=== PATIENT | female | born 2000 | race Caucasian/White ===

== ENCOUNTER 2024-12-20 09:46 | Emergency (ER) | payer OTHER, SELFPAY ==
[2024-12-20 10:07] VITALS: BP 138/88; PULSE 114; RESP 16; TEMP 36.2; O2SAT 98
--- NOTE | 2024-12-20 10:17 | ED.GENADULT ---
HPI - General Adult General Chief complaint: Upper Respiratory Infection Stated complaint: sore throat/headache/congestion Source: patient and RN notes reviewed Mode of arrival: ambulatory Limitations: no limitations History of Present Illness HPI narrative: 24 y/o female presented for c/o headache, sore throat, sinus pressure/congestion, cough, fever/chills. Onset 4 days. Also reports left ear pain. Denies sob, wheezing, n/v/d. Has not taken anything for symptoms. Says her infant has been diagnosed with human metapneumo virus a few weeks ago, which has gone through the house. Pt is 2 months post , not breast feeding Related Data Home Medications ?Medication ?Instructions ?Recorded ?Confirmed ?Last Taken ?Type Compazine 12/20/24 Unknown History Nexplanon 12/20/24 Unknown History famotidine 20 mg tablet mg 12/20/24 Unknown History Allergies Allergy/AdvReac Type Severity Reaction Status Date / Time bee venom protein (honey Allergy Intermediate Other Verified 12/20/24 10:20 bee) (bees) Review of Systems Review of Systems: CONSTITUTIONAL: Endorses malaise, chills, sweats, fever EYES: Denies visual changes, redness, or discharge ENT: Reports rhinorrhea, congestion, sinus pain, otalgia, sore throat CARDIOVASCULAR: Denies chest pain, palpitations, edema RESPIRATORY: Reports cough, post nasal drainage. Denies dyspnea GASTROINTESTINAL: Denies abdominal pain, nausea, vomiting, diarrhea SKIN: Denies rash MUSCULOSKELETAL: Endorses myalgia NEUROLOGIC: Reports headache Exam Narrative: GENERAL: well-appearing, nontoxic no acute distress. EYES: PERRLA, conjunctivae clear ENT: Mucous membranes moist. nasal congestion. Right TM pearly sanford with dull light reflex; Left TM erythematous, bulging and intact; canal not erythematous, no drainage no tragal tenderness. Oropharynx not erythematous without lesions or exudate, no drooling, no hoarseness, no trismus, uvula midline. No tripod positioning, muffled voice, soft palate or pharyngeal wall bulging NECK: Supple. No lymphadenopathy CHEST: Clear to auscultation, breath sounds equal. HEART: Regular rate and rhythm. No murmur heard. SKIN: Warm, dry, no rash. NEURO: Alert and oriented x3. PSYCH: Normal mood and affect Course Course Emergency Course: Patient is aware of diagnosis, understands and agrees to treatment plan. Anticipatory guidance given. Patient agrees to follow-up as directed and is aware of reasons to seek care at the emergency department. Portions of this record may have been created with voice recognition software Level of Care: Express Care Visit Vital Signs Vital signs: Vital Signs Temperature 97.1 F L 12/20/24 10:07 Pulse Rate 114 H 12/20/24 10:07 Respiratory Rate 16 12/20/24 10:07 Blood Pressure 138/88 12/20/24 10:07 Pulse Oximetry 98 12/20/24 10:07 Oxygen Delivery Room Air 12/20/24 10:07 Temperature 97.1 F L 12/20/24 10:07 Pulse Rate 114 H 12/20/24 10:07 Respiratory Rate 16 12/20/24 10:07 Blood Pressure 138/88 12/20/24 10:07 Pulse Oximetry 98 12/20/24 10:07 Oxygen Delivery Room Air 12/20/24 10:07 reviewed Medical Decision Making MDM Narrative Medical decision making narrative: Discussed physical exam findings; left AOM. Declined viral testing. Advised supportive measures and signs/symptoms to go to the ER. Pt is appropriate for outpt treatment and f/u. Differential Diagnosis Differential Diagnosis: Influenza, covid, sinusitis, OM, strep pharyngitis, URI Vital Signs Vital Signs: Vital Signs Temperature 97.1 F L 12/20/24 10:07 Pulse Rate 114 H 12/20/24 10:07 Respiratory Rate 16 12/20/24 10:07 Blood Pressure 138/88 12/20/24 10:07 Pulse Oximetry 98 12/20/24 10:07 Oxygen Delivery Room Air 12/20/24 10:07 Temperature 97.1 F L 12/20/24 10:07 Pulse Rate 114 H 12/20/24 10:07 Respiratory Rate 16 12/20/24 10:07 Blood Pressure 138/88 12/20/24 10:07 Pulse Oximetry 98 12/20/24 10:07 Oxygen Delivery Room Air 12/20/24 10:07 Discharge Plan Discharge Clinical Impression: Otitis media Qualifiers: Otitis media type: suppurative Chronicity: acute Laterality: left Recurrence: non-recurrent Spontaneous tympanic membrane rupture: without spontaneous rupture Qualified Code(s): H66.002 - Acute suppurative otitis media without spontaneous rupture of ear drum, left ear Patient Disposition: Home, Self-Care Condition: Stable Instructions: Antibiotic Form, Ear Infection (ED) Additional Instructions: Take antibiotics as directed. Recommendations: antihistamine such as Clariting or Mimi for sinus congestion Flonase nasal spray, 1 spray in each nostril once daily until symptoms improve Symptomatic treatment includes: rest, fluids, and increase humidity of the air at home. Tylenol 1000mg every 8 hours as needed to reduce fever, pain Please schedule a follow-up visit with your personal physician If your symptoms persist, change or worsen significantly, go to the emergency department for further evaluation. Patient Language: Marshallese Prescriptions: New amoxicillin-pot clavulanate 875-125 mg tablet 1 tablet PO Q12H 7 Days Qty: 14 0RF No Action Nexplanon Compazine famotidine 20 mg tablet Follow-up/Referrals: PHYSICIAN,[facility] [Primary Care Provider] - Time of Disposition: 10:26
--- OUTSIDE RECORDS SUMMARY | 2024-12-20 10:40 | XMS_ITS | Encounter Summary ---
Author Organization [facility] Address [address] [place] [address] Phone Care Team Providers Care Patient Services Clerk Name Role Phone Ronnie Flores MD Primary Care Provider [phone] Reason for Visit * Reason Comments Medication Refill Encounter Details Date Type Department Care Team (Late st Contact Info) Description 03/07/2022 Refill [facility] - [facility] [address] [place] [id number] Ronnie Flores MD [address] [place] [address] Medication Refill Social History Tobacco Use Types Packs/Day Years Used Date Smoking Tobacco: Never Smokeless Tobacco: Never Alcohol Use Standard Drinks/Week Comments No 0 (1 standard drink = 0.6 oz pur e alcohol) PHQ-2 Answer Date Recorded Total Score - Questions 1-9 6 02/18 Comments No Sex and Gender Information Value Date Recorded Sex Assigned at Not on file Legal Sex Female 5:40 PM CDT Gender Identity Not on file Sexual Orientation Not on file COVID-19 Exposure Response Date Recorded In the last 10 days, have yo u been in contact with someone who was confirmed or suspected to have Coronavirus/COVID-19? No / Unsure 03/03/2022 5:51 PM CDT documented as of this encounter Miscellaneous Notes * Telephone Encounter - Maddie Stephens RN - 03/09/2022 9:22 AM CDT Medication failed the protocol, provider to review and approve the medication order if appropriate. Requested Prescriptions Pending Prescriptions Disp Refills FLUoxetine (PROzac) 20 MG Capsule [Pharmacy Med Name: FLUoxetine HCl 20 MG Oral Capsule] 90 Capsule1 Sig: Take 1 capsule by mouth once daily SSRI (6 Month Refill Only) Protocol Failed - 03/07/2022 9:21 AM Failed - Patient has established therapy with SSRI for at least 6 months Passed - No test in the past 12 months or most recent test was negative Passed - No active on record Passed - Visit with relevant provider in past 6 months or upcoming 90 days Recent Visits Date Type Provider Dept 03/03/22 Office Visit Ronnie Flores MD [facility] 10/27/21 Telemedicine Tessy Ruiz PAC [facility] 10/22/21 Telemedicine Ronnie Flores MD [facility] Showing recent visits within past 182 days and meeting all other requirements Future Appointments Date Type Provider Dept 05/26/22 Appointment Ronnie Flores MD [facility] Showing future appointments within next 90 days and meeting all other requirements Passed - Has an encounter in the past 6 months with a depression, anxiety, adjustment disorder, OCD, or PTSD visit diagnosis documented in this encounter Plan of Treatment Not on file documented as of this encounter Visit Diagnoses Diagnosis Moderate episode of recurrent major depressive disorder (HCC) documented in this encounter Additional Health Concerns Assessment Noted Time PHQ-9 Depression Total Score: 6 03/03/20 22 6:00 PM CDT documented as of this encounter Care Teams Patient Services Clerk Relationship Specialty Start Date End Date Ronnie Flores MD PCP - General Family Medicine 09/18/19 documented as of this encounter
--- OUTSIDE RECORDS SUMMARY | 2024-12-20 10:40 | XMS_ITS | Referral Summary ---
Author Organization [facility] ospital Address [address] [place] [address] Care Team Providers Care Railroad Car Checker Name Role Phone Dena Padilla MD Unavailable [phone] Ronnie Flores MD Primary Care Provider [phone] Encounters Date Type Department Care Team Description 11/21/2024 3:30 PM AIRBRUSH ARTIST [employer]OTOGRAPHY Office Visit [facility] [address] [place] [phone] Dena Padilla MD care following delivery (Primary Dx); History of induced hypertension 10/26/2024 3:00 PM AIRBRUSH ARTIST PHOTOGRAPHY Clinical Support Jeane[facility] [address] [place] [phone] care following delivery (Primary Dx) 10/20/2024 1:38 PM AIRBRUSH ARTIST PHOTOGRAPHY - 10/20/2024 2:34 PM AIRBRUSH ARTIST PHOTOGRAPHY Emergency [facility] Emergency [place] [phone] Tamara Chow MD Tachycardia (Primary Dx) Discharge Disposition: Left Against Medical Advice 09/04/2024 4:24 PM AIRBRUSH ARTIST PHOTOGRAPHY - 10/15/2024 4:08 PM AIRBRUSH ARTIST PHOTOGRAPHY Hospital Encounter [address] [phone] Allegra Rushing MD Dombrowski, MD Shasta Forrest, Vibha Espitia MD Severe pre-eclampsia in third trimester [O14.13] (Primary Dx); Hyperemesis affecting , antepartum [O21.0] Discharge Disposition: Discharge to home or self care 10/12/2024 6:25 PM AIRBRUSH ARTIST PHOTOGRAPHY Anesthesia Event [address] [phone] Tigist Castillo MD Dutta, Shourik, MD 10/12/[address] [phone] Carmela Díaz MD SECTION 10/08/2024 Documentation [facility] Anesthesia [address] [facility] [place] [address] Demetra Hightower MD 10/04/2024 9:45 AM AIRBRUSH ARTIST PHOTOGRAPHY Ancillary Procedure [address] 5[address] [place] [address] Encounter for follow-up ultrasound of anatomy from Last 3 Months Allergies Active Allergy Reactions Criticality Noted Date Comments Venom-Honey Bee Swelling Medium 02/18/2022 Medications cholecalciferol (VITAMIN D-3) 2000 unit tablet Take 1 tablet (2,000 Units total) by mouth daily 30 tablet 11 4 Active NIFEdipine (PROCARDIA XL/ADALAT CC) 30 mg 24 hr tablet Take 1 tablet (30 mg total) by mouth daily 30 tablet 3 5 026 Active vitamin K23-trtth acid 0.5-1 mg tablet Take by mouth daily Active escitalopram (LEXAPRO) 10 mg tablet Take 1 tablet (10 mg total) by mouth daily 025 Discontin ued(Thera py completed ) prochlorperazin e (COMPAZINE) 5 mg tablet Take 1 tablet (5 mg total) by mouth every 6 (six) hours 120 tablet 1 4 025 Discontin ued(Thera py completed ) ondansetron (ZOFRAN) 4 mg tablet Take 1 tablet (4 mg total) by mouth 3 (three) times a day 30 tablet 1 4 025 Discontin ued(Thera py completed ) promethazine (PHENERGAN) 25 mg suppository Insert 1 suppository (25 mg total) into the rectum every 6 (six) hours as needed for nausea or vomiting 12 each 1 4 025 Discontin ued(Thera py completed ) famotidine (PEPCID) 20 mg tablet Take 1 tablet (20 mg total) by mouth 2 (two) times a day 60 tablet 11 4 025 Discontin ued(Thera py completed ) acetaminophen (TYLENOL) 500 mg tabletIndicatio ns:Pain Take 2 tablets (1,000 mg total) by mouth every 6 (six) hours 30 tablet 5 025 Discontin ued(Thera py completed ) docusate sodium (COLACE) 100 mg capsuleIndicati ons:constipatio n,Stool Softener Take 1 capsule (100 mg total) by mouth 2 (two) times a day 30 capsule 5 025 Discontin ued(Thera py completed ) ibuprofen (ADVIL,MOTRIN) 600 mg tabletIndicatio ns:Cramps Take 1 tablet (600 mg total) by mouth every 6 (six) hours 30 tablet 5 025 Discontin ued(Thera py completed ) oxyCODONE (ROXICODONE) 5 mg immediate release tabletIndicatio ns:Pain Take 1 tablet (5 mg total) by mouth every 4 (four) hours as needed for pain 15 tablet 5 025 Discontin ued(Thera py completed ) polyethylene glycol (MIRALAX) 17 gram/dose bulk powderIndicatio ns:constipation Take 17 g by mouth daily 510 g 5 025 Discontin ued(Thera py completed ) ibuprofen 200 mg tab/cap Take 1 tablet/capsule (200 mg total) by mouth every 6 (six) hours as needed for pain 025 Discontin ued(Thera py completed ) ARIPiprazole (ABILIFY) 10 mg tablet Take 1 tablet (10 mg total) by mouth daily 025 Discontin ued(Thera py completed ) Active Problems Problem Noted Date Diagnosed Date care following delivery 09/21 Overview (10/15/2024): # ID: Afebrile. No signs/symptoms of infection. # Heme: Hgb 11.4. EBL 600 mL. POD1 Hgb 11.0. Hemodynamically stable. # CV/Pulm: Pre-eclampsia with severe features - s/p magnesium sulfate running at 2g/hr for a total of 24 hours . Blood pressures well controlled on NXL30. CMP with elevated LFTs attributed to intrahepatic cholestasis of . CBC wnl. UPC 0.17. To be enrolled in remote blood pressure monitoring. # GI/: Tolerating PO. Voiding spontaneously . #Intrahepatic cholestasis of : #Transaminitis: elevated LFTs on admit with Bile acids 53. Other work up negative per [facility] hospital course. Repeat Bile acids 2 wks later 6 followed by 16. LFTs down trending #Neuro: #Pain: Controlled with above regimen. #Migraines: well controlled with APAP. #Psych: #Depression: Increased lexapro to 20mg (^09/25). S/p SW consult on [facility]. Follows with Dr. Johnson/Sandra at [facility] # MOC: Desires nexplanon placement. # MOF: Formula feeding. Urine drug screen not indicated. Patient informed of results: N/A. # Post DVT prophylaxis: The patient has the following MAJOR risk factors prolonged labor OR antepartum admission >72h immediately prior to delivery and the following MINOR risk factors BMI 30-39, delivery, and preeclampsia. enoxaparin 40 mg daily ordered for VTE prophylaxis. # Disposition: Follow up to be scheduled with primary OB. Considering discharge today Service Coverage These phones are service phones and carried 12/04 in house: R1 (first call) [phone] R1 alt (second call) [phone] R4 (Chief) [phone] Assessment & Plan (11/21/2024 4:08 PM AIRBRUSH ARTIST PHOTOGRAPHY): Doing well Severe pre-eclampsia in third trimester 09/04/20 24 History of induced hypertension 2023 Assessment & Plan (11/21/2024 4:06 PM AIRBRUSH ARTIST PHOTOGRAPHY): To stop her procardia She will continue to watch her bp Dehydration 08/29/2024 Encounter for supervision of normal in first trimester 05/23/2024 Overview (08/23/2024): 05/23/2024-carrier for spinal muscular atrophy, negative cell free DNA test 07/04/2024-partner is not willing to get tested. Incomplete anatomy scan-left outflow tract 08/07/24- still not seen Right upper quadrant abdominal pain affecting pr egnancy 05/16/2024 Marijuana smoker 05/09/2024 Overview (05/12/2024): 05/12/2024-UDS positive Assessment & Plan (05/09/2024 9:56 AM CDT): The patient was instructed to stop smoking marijuana as it is bad for the baby's brain development. Family history of spina bifida 05/09/2024 Overview (05/09/2024): 1/2 sister Will plan for AFP at 20 weeks. Assessment & Plan (05/09/2024 4:37 PM CDT): Will plan for AFP at 20 weeks. Suicidal ideation 08/06/2014 Overview (01/10/2020): 2015, then intentional excess ingestion of hydroxyzine 01-09-20 Assessment & Plan (05/09/2024 9:50 AM CDT): Mood is good right now. She stopped her lexapro 03/14 when she found out she was . We discussed that this antidepressant is not thought to cause defects. Some people recommend stopping in the third trimester as the babies whose moms take it through delivery seem to be more jittery as if the were withdrawaling from it. This is typically managed by swaddling and comforting by the family. The hospital here has seen an increase in the number of babies whose mothers have been on certain antidepressants not want to take the first breaths. Because of that we now have respiratory therapy at all deliveries where antidepressants have been used, just as a precaution. She was taking abilify. We reviewed the risk. She is not wanting to take now. Will need something for sleep. She will f/u with Dr. Johnson/Sandra at [facility]. Sleep hygiene reviewed. Migraine without status migrainosus, not intract able 12/01/2013 Overview (12/24/2016): Migraine Assessment & Plan (05/09/2024 4:38 PM CDT): Her WARD have been less To use tylenol if they return Resolved Problems Problem Noted Date Diagnosed Date Resolved Date Hyperemesis 09/04/2024 11/21/2024 Hyperemesis affecting , antepartum 08/29/2024 11/21/2024 Nausea and vomiting, unspeci fied vomiting type 05/31/2024 11/21/2024 Gallbladder disease affectin g , antepartum, first trimester 05/17/2024 11/21/2024 Assessment & Plan (05/25/2024 10:16 AM CDT): Diet as tolerates. Okay to return to work if has light duty. Bowel regimen if needed to avoid straining. Patient will call us back with any further questions or concerns. Rh negative state in antepartum period 05/12/2024 11/21/2024 Overview (05/12/2024): 05/12/2024-will plan for RhoGAM at the appropriate times Adiposity 12/04/2013 05/09/2024 Overview (12/24/2016): Obesity Medical examinations/reports status 12/01/2013 05/09/2024 Overview (01/10/2020): 09-18-10 emr indicates transfer to Adult Medicine with visit Immunizations Immunization Administration Dates Next Due DTaP 5 Pertussis 04/04/2007, 4,2002,08/23,2002 HPV, Quadrivalent 06/14/2014,02/08/2014,12/05/19 14 Hep A, Pediatric 04/05/2013,05/29/2011 Hep B, Adolescent or Pediatric 01/23/2003,2001,2002 Hib (HbOC) 07/25/2003, 3,2002,06/24 IPV 04/04/2007, 4,2002,07/04 Influenza, Trivalent, Preser vative Free, Intramuscular 07/04/2024 MMR 04/04/2007,07/25/2003 Meningococcal MCV4P (Menactra) 12/04/2013 Pneumococcal Conjugate 7-Valent 07/25/20 03,2002,2002,07/04 RSV, Bivalent, Protein Subun it Rsvpref, Diluent (Abrysvo) 09/30/2024 Tdap 09/07/2024,04/05/2013 Varicella 04/04/2007,2003 Social History Tobacco Use Types Packs/Day Years Used Date Smoking Tobacco: Never Smokeless Tobacco: Former Tobacco Cessation:Counseling Given: Not Answered Alcohol Use Standard Drinks/Week Comments Yes 5 (1 standard drink = 0.6 oz pur e alcohol) 1-2 times/ wk [facility] Plan Me Upities Answer Date Recorded In the past 12 months has [employer], [employer], oil, or water [employer] threatened to shut off services in your home? No 06/01/2024 Humiliation, Afraid, Rape, and Kick questionnair e Answer Date Recorded Within the last year, have y ou been afraid of your partner or ex-partner? No 06/01/2024 Within the last year, have y ou been humiliated or emotionally abused in other ways by your partner or ex-partner? No Within the last year, have y ou been kicked, hit, slapped, or otherwise physically hurt by your partner or ex-partner? No 06/01/2024 Within the last year, have y ou been raped or forced to have any kind of sexual activity by your partner or ex-partner? No 06/01/2024 Social Connection and Isolat ion Panel [NHANES] Answer Date Recorded In a typical week, how many times do you talk on the phone with family, friends, or neighbors? More than three times a week 09/06/2024 How often do you get togethe r with friends or relatives? More than three times a week 09/06/2024 How often do you attend chur ch or adventist services? Never 09/06/2024 Do you belong to any clubs o r organizations such as jainism groups, unions, fraternal or athletic groups, or school groups? No 09/06/2024 How often do you attend meet ings of the clubs or organizations you belong to? Never 09/06/2024 Are you , , di vorced, , never , or living with a partner? Never 09/06/2024 AUDIT-C Answer Date Recorded Q1: How often do you have a drink containing alcohol? Never 09/04/2024 Q2: How many drinks containi ng alcohol do you have on a typical day when you are drinking? Patient does not drink Q3: How often do you have si x or more drinks on one occasion? Never 09/04/2024 Overall Financial Resource Strain (CARDIA) Answe r Date Recorded How hard is it for you to pa y for the very basics like food, housing, medical care, and heating? Not hard at all 09/06/2024 PHQ-2 Answer Date Recorded PHQ-2 Total Score (If total score is 3 or more points, staff should administer the PHQ-9) 0 09/04/2024 [facility] - Occupational Stress Questionnaire Answer Date Recorded Do you feel stress - tense, restless, nervous, or anxious, or unable to sleep at night because your mind is troubled all the time - these days? Only a little 09/04/2024 Exercise Vital Sign Answer Date Recorde d On average, how many days pe r week do you engage in moderate to strenuous exercise (like a brisk walk)? 0 days 09/04/2024 On average, how many minutes do you engage in exercise at this level? 0 min 09/04/2024 Hunger Vital Sign Answer Date Recorded Within the past 12 months, y ou worried that your food would run out before you got the money to buy more. Never true 09/06/20 24 Within the past 12 months, t he food you bought just didn't last and you didn't have money to get more. Never true 09/06/2024 PRAPARE - Transportation Answer Date Re corded In the past 12 months, has l ack of transportation kept you from medical appointments or from getting medications? No 08/20 In the past 12 months, has l ack of transportation kept you from meetings, work, or from getting things needed for daily living? No 09/06/2024 [place] Depression Scale Answer Date Recorded [place] Depression Scale Total 9 11/21/2024 The thought of harming myself has occurred to me . Never 11/21/2024 PHQ-9 Answer Date Recorded PHQ-9 Total Score 0 09/04/2024 Housing Stability Vital Sign Answer George e Recorded In the last 12 months, was t here a time when you were not able to pay the mortgage or rent on time? No 09/06/2024 In the past 12 months, how m any times have you moved where you were living? 0 09/06/2024 At any time in the past 12 m [facility], were you homeless or living in a longterm (including now)? No 09/06/2024 Personal Safety Answer Date Recorded Have you ever been in or are you currently in a harmful physical or emotional relationship or is someone making you feel afraid or unsafe? Denies 09/05/2024 Comments No Sex and Gender Information Value Date Recorded Sex Assigned at Not on file Legal Sex Female 9:37 AM AIRBRUSH ARTIST PHOTOGRAPHY Gender Identity Not on file Sexual Orientation Not on file Last Filed Vital Signs Vital Sign Reading Time Taken Comments Blood Pressure 112/74 11/21/2024 3:47 PM AIRBRUSH ARTIST PHOTOGRAPHY Pulse 93 10/15/2024 12:40 PM AIRBRUSH ARTIST PHOTOGRAPHY Temperature 36.6 C (97.8 F) 10/15/2024 12:40 PM AIRBRUSH ARTIST PHOTOGRAPHY Respiratory Rate 16 10/15/2024 12:40 PM AIRBRUSH ARTIST PHOTOGRAPHY Oxygen Saturation 99% 10/15/2024 12:40 PM AIRBRUSH ARTIST PHOTOGRAPHY Inhaled Oxygen Concentration - - Weight 71.7 kg (158 lb) 11/21/2024 3:47 PM AIRBRUSH ARTIST PHOTOGRAPHY Height 152.4 cm (5') 11/21/2024 3:47 PM AIRBRUSH ARTIST PHOTOGRAPHY Body Mass Index 30.86 11/21/2024 3:47 PM AIRBRUSH ARTIST PHOTOGRAPHY Plan of Treatment Not on file Procedures Procedure Name Priority Date/Time Associated Diagnosis Comments ECG 12-LEAD Routine 10/20/2024 1:57 PM AIRBRUSH ARTIST PHOTOGRAPHY BLEED SCREEN Timed 10/14/2024 5: 18 PM AIRBRUSH ARTIST PHOTOGRAPHY ABO/RH Timed 10/14/2024 5:18 PM AIRBRUSH ARTIST PHOTOGRAPHY RH IMMUNE GLOBULIN EVAL Timed 10/14/2024 5:18 PM AIRBRUSH ARTIST PHOTOGRAPHY EGFR Timed 10/14/2024 6:44 AM AIRBRUSH ARTIST PHOTOGRAPHY CBC WITHOUT DIFFERENTIAL Timed 10/14/2024 6:44 AM AIRBRUSH ARTIST PHOTOGRAPHY COMPREHENSIVE METABOLIC PANEL Timed 10/14/2024 6:44 AM AIRBRUSH ARTIST PHOTOGRAPHY TYPE AND SCREEN Timed 10/13/2024 5:53 AM AIRBRUSH ARTIST PHOTOGRAPHY CBC WITHOUT DIFFERENTIAL Routine 10/13/2024 5:53 AM AIRBRUSH ARTIST PHOTOGRAPHY SURGICAL PATHOLOGY Routine 10/12/2024 7: 30 PM [employer]BRUSH ARTIST PHOTOGRAPHY ANESTHESIA SPINAL BLOCK Routine 10/12/2024 7:16 PM AIRBRUSH ARTIST PHOTOGRAPHY EGFR Routine 10/12/2024 6:16 AM AIRBRUSH ARTIST PHOTOGRAPHY MAGNESIUM Routine 10/12/2024 6:16 AM AIRBRUSH ARTIST PHOTOGRAPHY PHOSPHORUS Routine 10/12/2024 6:16 AM AIRBRUSH ARTIST PHOTOGRAPHY CBC WITHOUT DIFFERENTIAL Routine 10/12/2024 6:16 AM AIRBRUSH ARTIST PHOTOGRAPHY COMPREHENSIVE METABOLIC PANEL Routine 10/12/2024 6:16 AM AIRBRUSH ARTIST PHOTOGRAPHY EGFR Routine 10/11/2024 6:21 AM AIRBRUSH ARTIST PHOTOGRAPHY MAGNESIUM Routine 10/11/2024 6:21 AM AIRBRUSH ARTIST PHOTOGRAPHY PHOSPHORUS Routine 10/11/2024 6:21 AM AIRBRUSH ARTIST PHOTOGRAPHY CBC WITHOUT DIFFERENTIAL Routine 10/11/2024 6:21 AM AIRBRUSH ARTIST PHOTOGRAPHY COMPREHENSIVE METABOLIC PANEL Routine 10/11/2024 6:21 AM AIRBRUSH ARTIST PHOTOGRAPHY ANTIBODY IDENTIFICATION Routine 10/10/2024 7:46 AM AIRBRUSH ARTIST PHOTOGRAPHY EGFR Routine 10/10/2024 6:24 AM AIRBRUSH ARTIST PHOTOGRAPHY MAGNESIUM Routine 10/10/2024 6:24 AM AIRBRUSH ARTIST PHOTOGRAPHY PHOSPHORUS Routine 10/10/2024 6:24 AM AIRBRUSH ARTIST PHOTOGRAPHY CBC WITHOUT DIFFERENTIAL Routine 10/10/2024 6:24 AM AIRBRUSH ARTIST PHOTOGRAPHY COMPREHENSIVE METABOLIC PANEL Routine 10/10/2024 6:24 AM AIRBRUSH ARTIST PHOTOGRAPHY TYPE AND SCREEN Timed 10/10/2024 6:24 AM AIRBRUSH ARTIST PHOTOGRAPHY CBC WITHOUT DIFFERENTIAL Timed 10/09/2024 1:11 PM AIRBRUSH ARTIST PHOTOGRAPHY EGFR Routine 10/09/2024 6:13 AM AIRBRUSH ARTIST PHOTOGRAPHY COMPREHENSIVE METABOLIC PANEL Routine 10/09/2024 6:13 AM AIRBRUSH ARTIST PHOTOGRAPHY EGFR Routine 10/08/2024 10:56 AM AIRBRUSH ARTIST PHOTOGRAPHY BILE ACIDS, TOTAL Routine 10/08/2024 10: 56 AM AIRBRUSH ARTIST PHOTOGRAPHY COMPREHENSIVE METABOLIC PANEL Routine 10/08/2024 10:56 AM AIRBRUSH ARTIST PHOTOGRAPHY ECG 12-LEAD Routine 10/07/2024 2:02 PM AIRBRUSH ARTIST PHOTOGRAPHY ANTIBODY IDENTIFICATION Routine 10/07/2024 7:44 AM AIRBRUSH ARTIST PHOTOGRAPHY EGFR Timed 10/07/2024 6:25 AM AIRBRUSH ARTIST PHOTOGRAPHY COMPREHENSIVE METABOLIC PANEL Timed 10/07/2024 6:25 AM AIRBRUSH ARTIST PHOTOGRAPHY CBC WITHOUT DIFFERENTIAL Timed 10/07/2024 6:25 AM AIRBRUSH ARTIST PHOTOGRAPHY TYPE AND SCREEN Timed 10/07/2024 6:25 AM AIRBRUSH ARTIST PHOTOGRAPHY GROUP B STREPTOCOCCUS CULTURE Routine 10/06/2024 4:11 PM AIRBRUSH ARTIST PHOTOGRAPHY US OB LIMITED Schedule Routine, Read Routine (OP Routine) 10/04/2024 8:12 AM AIRBRUSH ARTIST PHOTOGRAPHY Encounter for follow-up ultrasound of anatomy ANTIBODY IDENTIFICATION Routine 10/04/2024 7:44 AM AIRBRUSH ARTIST PHOTOGRAPHY EGFR Timed 10/04/2024 6:15 AM AIRBRUSH ARTIST PHOTOGRAPHY COMPREHENSIVE METABOLIC PANEL Timed 10/04/2024 6:15 AM AIRBRUSH ARTIST PHOTOGRAPHY CBC WITHOUT DIFFERENTIAL Timed 10/04/2024 6:15 AM AIRBRUSH ARTIST PHOTOGRAPHY TYPE AND SCREEN Timed 10/04/2024 6:15 AM AIRBRUSH ARTIST PHOTOGRAPHY ANTIBODY IDENTIFICATION Routine 10/01/2024 7:53 AM AIRBRUSH ARTIST PHOTOGRAPHY EGFR Timed 10/01/2024 6:31 AM AIRBRUSH ARTIST PHOTOGRAPHY COMPREHENSIVE METABOLIC PANEL Timed 10/01/2024 6:31 AM AIRBRUSH ARTIST PHOTOGRAPHY CBC WITHOUT DIFFERENTIAL Timed 10/01/2024 6:31 AM AIRBRUSH ARTIST PHOTOGRAPHY TYPE AND SCREEN Timed 10/01/2024 6:31 AM AIRBRUSH ARTIST PHOTOGRAPHY ANTIBODY IDENTIFICATION Routine 09/28/2024 8:02 AM AIRBRUSH ARTIST PHOTOGRAPHY EGFR Timed 09/28/2024 6:22 AM AIRBRUSH ARTIST PHOTOGRAPHY COMPREHENSIVE METABOLIC PANEL Timed 09/28/2024 6:22 AM AIRBRUSH ARTIST PHOTOGRAPHY CBC WITHOUT DIFFERENTIAL Timed 09/28/2024 6:22 AM AIRBRUSH ARTIST PHOTOGRAPHY TYPE AND SCREEN Timed 09/28/2024 6:22 AM AIRBRUSH ARTIST PHOTOGRAPHY ANTIBODY IDENTIFICATION Routine 09/25/2024 8:06 AM AIRBRUSH ARTIST PHOTOGRAPHY EGFR Timed 09/25/2024 6:43 AM AIRBRUSH ARTIST PHOTOGRAPHY COMPREHENSIVE METABOLIC PANEL Timed 09/25/2024 6:43 AM AIRBRUSH ARTIST PHOTOGRAPHY CBC WITHOUT DIFFERENTIAL Timed 09/25/2024 6:43 AM AIRBRUSH ARTIST PHOTOGRAPHY TYPE AND SCREEN Timed 09/25/2024 6:43 AM AIRBRUSH ARTIST PHOTOGRAPHY ANTIBODY IDENTIFICATION Routine 09/22/2024 7:21 AM AIRBRUSH ARTIST PHOTOGRAPHY EGFR Timed 09/22/2024 6:09 AM AIRBRUSH ARTIST PHOTOGRAPHY BILE ACIDS, TOTAL Routine 09/22/2024 6:0 9 AM AIRBRUSH ARTIST PHOTOGRAPHY COMPREHENSIVE METABOLIC PANEL Timed 09/22/2024 6:09 AM AIRBRUSH ARTIST PHOTOGRAPHY CBC WITHOUT DIFFERENTIAL Timed 09/22/2024 6:09 AM AIRBRUSH ARTIST PHOTOGRAPHY TYPE AND SCREEN Timed 09/22/2024 6:09 AM AIRBRUSH ARTIST PHOTOGRAPHY HEPATITIS PANEL, ACUTE STAT 09/04/2024 5:51 PM AIRBRUSH ARTIST PHOTOGRAPHY N. GONORRHOEAE/C. TRACHOMATIS AMPLIFICATION Routine 05/09/2024 10:35 AM CDT PAP WITH REFLEX TO HIGH RISK HPV Routine 05/09/2024 9:03 AM CDT Encounter for supervision of normal first in second trimester SECTION from Last 3 Months or Most Recently Relevant to Health Maintenance Results * ECG 12 lead (10/20/2024 1:57 PM AIRBRUSH ARTIST PHOTOGRAPHY) Ventricular Rate EKG/Min 117 BPM [facility] Atrial Rate 117 BPM [facility] MI-Interval (MSEC) 140 ms [facility] QRS-Interval (MSEC) 70 ms [facility] QT-Interval (MSEC) 302 ms [facility] QTc 421 ms [facility] P [place] 57 degrees [facility] R [place] 60 degrees [facility] T [place] 21 degrees [facility] Diagnosis Sinus tachycardia Otherwise normal ECG When compared with ECG of 07-OCT-2024 14:02, No significant change was found Confirmed by Edgardo Gomes ([id number]) on 10/21/2024 6:35:11 AM Also confirmed by Edgardo Gomes ([id number]), assignment editor Estela Grissom ([id number]) on 10/23/2024 12:48:25 PM [facility] 10/20/2024 1:57 PM [employer]BR[employer] ARTIST PHOTOGRAPHY 10/23/2024 12:48 PM AIRBR[employer] ARTIST PHOTOGRAPHY Tamara Chow MD ECG ORDERABLES Edited Re sult - Final [facility] * Rh Immune Globulin Eval (10/14/2024 5:18 PM AIRBRUSH ARTIST PHOTOGRAPHY) RhIg Eligible Yes, eligible RhIg Administration 1 vial of Rh Immune Globulin (300 mcg dose) [facility] Blood 10/14/2024 5:18 PM AIRBRUSH ARTIST PHOTOGRAPHY 10/14/2024 5:34 PM AIRBRUSH ARTIST PHOTOGRAPHY Narrative [facility] - 10/14/2024 7:02 PM AIRBR[employer] ARTIST PHOTOGRAPHY Number of weeks ?->20 weeks or greater antibody screen result:->Negative Rhogam given?->Given Date Given?->09/07/24 Number of vials requested:->1 Vibha Vegas MD LAB BLOOD BANK TE ST ORDERABLES Final Result [facility] Department of [place] [address] * Bleed Screen (10/14/2024 5:18 PM AIRBRUSH ARTIST PHOTOGRAPHY) Bleed Screen Negative Blood 10/14/2024 5:18 PM AIRBR[employer] ARTIST PHOTOGRAPHY 10/14/2024 5:34 PM AIRBRUSH ARTIST PHOTOGRAPHY Vibha Burnette MD LAB BLOOD BANK TE ST ORDERABLES Final Result [facility] [place] [address] * ABO/Rh (10/14/2024 5:18 PM AIRBRUSH ARTIST PHOTOGRAPHY) ABO Rh O Negative Blood 10/14/2024 5:18 PM AIRBR[employer] ARTIST PHOTOGRAPHY 10/14/2024 5:34 PM AIRBR[employer] ARTIST PHOTOGRAPHY Vibha Burnette MD LAB BLOOD BANK TE ST ORDERABLES Final Result Performing Organization Address City/[facility] Co de Phone Number [facility] [place] [address] * eGFR (10/14/2024 6:44 AM AIRBRUSH ARTIST PHOTOGRAPHY) eGFR >90 >=60 mL/min/1. 73 m2 Comment: Interpretive Data Reference Interval Normal >/= 90 mL/min/1.73m2 Mildly decreased* 60 - 89 mL/min/1.73m2 Mildly to moderately decreased 45 - 59 mL/min/1.73m2 Moderately to severely decreased 30 - 44 mL/min/1.73m2 Severely decreased 15 - 29 mL/min/1.73m2 Kidney Failure < 15 mL/min/1.73m2 *Relative to young adult level Estimated glomerular filtration rate is determined by the 2020 CKD-EPI equation recommended by the National Kidney Foundation (A Unifying Approach to GFR Estimation: Recommendations of the NKF-ASK Task Force on Reassessing the Inclusion of Race in Diagnosing Kidney Disease, JASN 2020). The CKD-EPI equation should not be used for patients with unstable renal function and has not been validated in children and those over 70. Current interpretive data was last reviewed 2021. Blood 10/14/2024 6:44 AM AIRBRUSH ARTIST PHOTOGRAPHY 10/14/2024 6:58 AM AIRBR[employer] ARTIST PHOTOGRAPHY Vibha Vegas MD LAB BLOOD ORDERAB LES Final Result Performing Organization Address [facility] [facility]/ZIP Co de Phone Number [facility] Department [place] [address] * (ABNORMAL) CBC without differential (10/14/2024 6:44 AM AIRBRUSH ARTIST PHOTOGRAPHY) [facility] WBC 16.7(H) 3.8 - 9.9 K/cumm Hgb 9.6(L) 11.9 - 15.5 g/dL [facility] Hct 28.0(L) 35.6 - 45.5 % [facility] Plt 281 150 - 400 K/cumm [facility] MPV 9.5 9.1 - 12.3 fL [facility] RBC 3.05(L) 3.90 - 5.20 M/cumm [facility] MCV 91.8 81.3 - 96.4 fL [facility] MCH 31.5 27.1 - 33.3 pg [facility] MCHC 34.3 32.3 - 35.7 g/dL [facility] RDW CV 13.8 11.1 - 14.9 % [facility] RDW SD 46.0 35.7 - 48.1 fL [facility] NRBC abs 0.00 0.00 - 0.01 K/cumm [facility] Blood 10/14/2024 6:44 AM AIRBRUSH ARTIST PHOTOGRAPHY 10/14/2024 6:58 AM AIRBRUSH ARTIST PHOTOGRAPHY Vibha Vegas MD LAB BLOOD ORDERAB LES Final Result Performing Organization Address City/[facility]/ZIP Co de Phone Number [facility] Department [place] [address] * (ABNORMAL) Comprehensive metabolic panel (10/14/2024 6:44 AM AIRBRUSH ARTIST PHOTOGRAPHY) [facility] Sodium 139 135 - 145 mmol/L Potassium, pl 3.9 3.3 - 4.9 mmol/L [facility] Chloride 107 97 - 110 mmol/L [facility] CO2 24 22 - 32 mmol/L [facility] Anion gap 8 2 - 15 mmol/L [facility] BUN 8 6 - 25 mg/dL [facility] Creatinine 0.53(L) 0.60 - 1.10 mg/dL [facility] Glucose 77 70 - 199 mg/dL [facility] Comment: Interpretive Data Fasting glucose >/= 126 mg/dl is diagnostic for diabetes. Fasting is defined as no caloric intake for at least 8 hours. Fasting glucose between 100 mg/dl to 125 mg/dl is diagnostic of prediabetes. In a patient with classic symptoms of hyperglycemia or hyperglycemic crisis, a random glucose >/= 200 mg/dl is diagnostic for diabetes. In the absence of unequivocal hyperglycemia, results should be confirmed by repeat testing. The classification and Diagnosis of Diabetes Diabetes Care 2021; 46: S19-S40. Current interpretive data was last revised 2022. Calcium 8.1(L) 8.5 - 10.3 mg/dL [facility] Bilirubin, total 0.3 0.1 - 1.2 mg/dL [facility] Protein, pl 5.4(L) 6.5 - 8.5 g/dL [facility] Albumin 2.7(L) 3.5 - 5.0 g/dL [facility] Alk phos 177(H) 40 - 130 Units/L [facility] ALT 58(H) 7 - 45 Units/L [facility] AST 45 10 - 45 Units/L [facility] Blood 10/14/2024 6:44 AM AIRBRUSH ARTIST PHOTOGRAPHY 10/14/2024 6:58 AM AIRBRUSH ARTIST PHOTOGRAPHY Vibha Vegas MD LAB BLOOD ORDERAB LES Final Result [facility] One [facility] Department of [place] [address] * (ABNORMAL) CBC without differential (10/13/2024 5:53 AM AIRBRUSH ARTIST PHOTOGRAPHY) WBC 19.9(H) 3.8 - 9.9 K/cumm Hgb 11.0(L) 11.9 - 15.5 g/dL [facility] Hct 32.2(L) 35.6 - 45.5 % [facility] Plt 340 150 - 400 K/cumm [facility] MPV 9.5 9.1 - 12.3 fL [facility] RBC 3.50(L) 3.90 - 5.20 M/cumm [facility] MCV 92.0 81.3 - 96.4 fL [facility] MCH 31.4 27.1 - 33.3 pg [facility] MCHC 34.2 32.3 - 35.7 g/dL [facility] RDW CV 13.5 11.1 - 14.9 % [facility] RDW SD 44.4 35.7 - 48.1 fL [facility] NRBC abs 0.00 0.00 - 0.01 K/cumm [facility] Blood 10/13/2024 5:53 AM AIRBRUSH ARTIST PHOTOGRAPHY 10/13/2024 6:06 AM AIRBRUSH ARTIST PHOTOGRAPHY Vibha Vegas MD LAB BLOOD ORDERAB LES Final Result Performing Organization Address City/[facility]/ZIP Co de Phone Number [facility] [place] [address] * Type and screen (10/13/2024 5:53 AM AIRBRUSH ARTIST PHOTOGRAPHY) ABO Rh O Negative Indira, indirect Negative [facility] Comment:Patient has previous antibody history Blood 10/13/2024 5:53 AM AIRBRUSH ARTIST PHOTOGRAPHY 10/13/2024 6:01 AM AIRBRUSH ARTIST PHOTOGRAPHY Narrative [facility] - 10/13/2024 6:50 AM AIRBRUSH ARTIST PHOTOGRAPHY Has the patient had Daratumumab or Isatuximab in the past 6 months?->Unknown us Shine Mayers MD LAB BLOOD BANK TEST ORDER ANGELA Final Result [facility] [place] [address] * Surgical pathology (10/12/2024 7:30 PM AIRBRUSH ARTIST PHOTOGRAPHY) Tissue specimen (specimen) (Placenta) 10/12/2024 7:30 PM AIRBRUSH ARTIST PHOTOGRAPHY 10/13/2024 9:19 AM AIRBRUSH ARTIST PHOTOGRAPHY Narrative PATHOLOGY [facility] - 10/18/2024 2:22 PM AIRBRUSH ARTIST PHOTOGRAPHY EPIC results best viewed via link to PDF [facility] Karey [facility] [place] [address] Note to Patients: This report may contain a detailed description of human tissue sent by a health care provider to the laboratory for pathologic evaluation. The content of this report is essential for diagnosis and may provide important critical findings. This information may be unfamiliar to patients to review without a medical professional present. It is advised that the patient review this report in the presence of a health care provider who can answer questions and explain the details. SURGICAL PATHOLOGY REPORT FINAL Patient Name: DANIELE FAYE Gender: F : 2000 (Age: 24) Address: [address] [place] [address] Hospital #: [id number] Taken:10/12/2024 Received:10/13/2024 Reported: 10/18/2024 Patient Type: [facility] Inpatient Service: Obstetrics Location: [address] Physician(s): Mejia Chopra M.D. Diagnosis: Placenta, Caesarean delivery - IPlacenta, slighly small for gestational age (less than 10th percentile by weight) - Accelerated villous maturation - Three vessel cord with no histopathologic abnormality - membranes with no histopathologic abnormality jebe/10/18/2024 07:13 By this signature, I attest that the above diagnosis is based upon my personal examination of the slides(and/or other material indicated in the diagnosis). Sydney Elliott MD PhD Report Electronically Reviewed and Signed Out By Sydney Elliott MD PhD 10/18/2024 14:22:49 Misti Gooden M.D. History: The patient is a 24-year-old woman at 33w5d weeks gestation, dated by 1st trimester ultrasound with estimated date of delivery 11/25/24, with gestational hypertension who was admitted to [facility] for pre-eclampsia with severe features. She was found to have non-reassuring status on 10/12 during NST. Operative procedure: Primary low-transverse section Specimen(s) Received: A: Placenta Gross Description: Received in formalin labeled patient identifiers and placenta, per requisition is a 368 g, 16.5 x 15.5 x 1.4-2.0 cm in thickness discoid placenta with attached segment of umbilical cord that measures 5.5 cm in length by 1.5 cm in diameter with an eccentric insertion. Also received separately in the same container is a segment of umbilical cord that measures 22.5 cm in length by 1.9 cm in diameter and is zamora-white and unremarkable with three vessels. The membranes are zamora-sanford semitranslucent with a marginal insertion. The surface is sanford purple with patchy areas of subchorionic fibrin. The cotyledons are red-brown intact and complete with loosely adherent blood clot. Sectioning reveals a red-brown spongy cut surface, no parenchymal lesions are grossly identified. Locker Room Clerk sections are submitted. A1 Umbilical cord, and maternal end and membrane roll A2-A4 Placenta disc Jar 3. rxr/10/16/2024 14:48 PA(s): Lizbeth Sales MS, PA(ASCP)CM By this signature, I attest that the above diagnosis is based upon my personal examination of the slides(and/or other material). Addenda/Procedures The performance characteristics of some immunohistochemical stains, fluorescence in-situ hybridization tests and immunophenotyping by flow cytometry cited in this report (if any) were determined by the Surgical Pathology and Flow Cytometry Departments at [facility] as part of an ongoing water quality manager program and in compliance with federally mandated regulations drawn from the Clinical Laboratory Improvement Act of 1988 (CLIA '88). Some of these tests rely on the use of analyte specific reagents and are subject to specific labeling requirements by the US Food and Drug Administration. Such diagnostic tests may only be performed in a facility that is certified by the Department of Health and Human Services as a high complexity laboratory under CLIA '88. The FDA has determined that such clearance or approval is not necessary. This test is used for clinical purposes. It should not be regarded as investigational or for research. Nevertheless, federal rules concerning the medical use of analyte specific reagents require that the following disclaimer be attached to the report: This test was developed and its performance characteristics determined by the Surgical Pathology and Flow Cytometry Departments of [facility]. It has not been cleared or approved by the U. S. Food and Drug Administration. IMAGES AND SCANNED DOCUMENTS, IF INCLUDED, ONLY VIEWABLE IN PDF VERSION OF REPORT us Vibha Vegas MD LAB PATHOLOGY ORD ERABLES Final Result PATHOLOGY [facility] 3rd Floor [place], [place] [phone] * Spinal Block (10/12/2024 7:16 PM AIRBRUSH ARTIST PHOTOGRAPHY) Narrative Tracy Tavares MD - 10/12/2024 7:16 PM AIRBRUSH ARTIST PHOTOGRAPHY Tracy Tavares MD 10/12/2024 7:19 PM Spinal Block Patient location: OR End time: 10/12/2024 6:42 PM Reason for block: primary anesthetic Staff: Supervising provider: Tigist Castillo MD Placed by: Resident: Tracy Tavares MD Procedure prep: Preprocedure checklist: patient identified, procedure contraindications assessed, site marked, procedure consent, surgical consent, IV checked, risks, benefits and alternatives discussed, monitors and equipment checked and timeout performed Patient position: sitting Procedure performed while patient: awake Monitoring: oximetry, ECG and blood pressure Supplemental O2: nasal cannula Prep solution: chlorhexadine/alcohol PPE: provider hat/mask, sterile gloves and sterile drape Skin infiltrated with lidocaine 1%: yes Spinal: Approach: midline Introducer used: yes Location: L3-4 Spinal injection: CSF demonstrated, no aspiration of heme and no paresthesias noted Number of attempts: 2 Spinal Needle: Needle type: pencil-tip Needle gauge: 25 G Needle length: 9 cm Assessment: Sensory deficit - left: T6 Sensory deficit - right: T6 Events: patient tolerated procedure well with no complications and paresthesia Additional comments: Patient with transient paresthesia down LLE upon placement of pencil-tip spinal needle, improved without intervention prior to injection of intrathecal analgesics. us Tigist Castillo MD ANESTHESIA ORDERABLES Final Result * eGFR (10/12/2024 6:16 AM AIRBRUSH ARTIST PHOTOGRAPHY) eGFR >90 >=60 mL/min/1. 73 m2 Comment: Interpretive Data Reference Interval Normal >/= 90 mL/min/1.73m2 Mildly decreased* 60 - 89 mL/min/1.73m2 Mildly to moderately decreased 45 - 59 mL/min/1.73m2 Moderately to severely decreased 30 - 44 mL/min/1.73m2 Severely decreased 15 - 29 mL/min/1.73m2 Kidney Failure < 15 mL/min/1.73m2 *Relative to young adult level Estimated glomerular filtration rate is determined by the 2020 CKD-EPI equation recommended by the National Kidney Foundation (A Unifying Approach to GFR Estimation: Recommendations of the NKF-ASK Task Force on Reassessing the Inclusion of Race in Diagnosing Kidney Disease, JASN 2020). The CKD-EPI equation should not be used for patients with unstable renal function and has not been validated in children and those over 70. Current interpretive data was last reviewed 2021. Blood 10/12/2024 6:16 AM AIRBRUSH ARTIST PHOTOGRAPHY 10/12/2024 6:22 AM AIRBRUSH ARTIST PHOTOGRAPHY Vibha Vegas MD LAB BLOOD ORDERAB LES Final Result [facility] One [facility] Department [place] [address] * (ABNORMAL) CBC without differential (10/12/2024 6:16 AM AIRBRUSH ARTIST PHOTOGRAPHY) WBC 14.1(H) 3.8 - 9.9 K/cumm Hgb 11.4(L) 11.9 - 15.5 g/dL [facility] Hct 32.0(L) 35.6 - 45.5 % [facility] Plt 318 150 - 400 K/cumm [facility] MPV 9.8 9.1 - 12.3 fL [facility] RBC 3.56(L) 3.90 - 5.20 M/cumm [facility] MCV 89.9 81.3 - 96.4 fL [facility] MCH 32.0 27.1 - 33.3 pg [facility] MCHC 35.6 32.3 - 35.7 g/dL [facility] RDW CV 13.2 11.1 - 14.9 % [facility] RDW SD 43.2 35.7 - 48.1 fL [facility] NRBC abs 0.00 0.00 - 0.01 K/cumm [facility] Blood 10/12/2024 6:16 AM AIRBRUSH ARTIST PHOTOGRAPHY 10/12/2024 6:22 AM AIRBRUSH ARTIST PHOTOGRAPHY Result [facility] Vibha Vegas MD LAB BLOOD ORDERAB LES Final Result [facility] [place] [address] * Phosphorus (10/12/2024 6:16 AM AIRBRUSH ARTIST PHOTOGRAPHY) Pathologist [facility] Phosphorus, pl 4.0 2.3 - 4.5 mg/dL Blood 10/12/2024 6:16 AM AIRBRUSH ARTIST PHOTOGRAPHY 10/12/2024 6:22 AM AIRBRUSH ARTIST PHOTOGRAPHY Vibha Vegas MD LAB BLOOD ORDERAB LES Final Result Performing Organization Address City/[facility] Co de Phone Number [facility] [place] [address] * Magnesium (10/12/2024 6:16 AM AIRBRUSH ARTIST PHOTOGRAPHY) [facility] Magnesium 1.8 1.4 - 2.5 mg/dL Blood 10/12/2024 6:16 AM AIRBRUSH ARTIST PHOTOGRAPHY 10/12/2024 6:22 AM AIRBRUSH ARTIST PHOTOGRAPHY Vibha Vegas MD LAB BLOOD [place] [address] * (ABNORMAL) Comprehensive metabolic panel (10/12/2024 6:16 AM AIRBRUSH ARTIST PHOTOGRAPHY) Pathologist [facility] Sodium 140 135 - 145 mmol/L Potassium, pl 4.1 3.3 - 4.9 mmol/L [facility] Chloride 106 97 - 110 mmol/L [facility] CO2 25 22 - 32 mmol/L [facility] Anion gap 9 2 - 15 mmol/L [facility] BUN 11 6 - 25 mg/dL [facility] Creatinine 0.49(L) 0.60 - 1.10 mg/dL [facility] Glucose 95 70 - 199 mg/dL [facility] Comment: Interpretive Data Fasting glucose >/= 126 mg/dl is diagnostic for diabetes. Fasting is defined as no caloric intake for at least 8 hours. Fasting glucose between 100 mg/dl to 125 mg/dl is diagnostic of prediabetes. In a patient with classic symptoms of hyperglycemia or hyperglycemic crisis, a random glucose >/= 200 mg/dl is diagnostic for diabetes. In the absence of unequivocal hyperglycemia, results should be confirmed by repeat testing. The classification and Diagnosis of Diabetes Diabetes Care 2021; 46: S19-S40. Current interpretive data was last revised 2022. Calcium 9.0 8.5 - 10.3 mg/dL [facility] Bilirubin, total <0.2 0.1 - 1.2 mg/dL [facility] Comment:Reviewed Protein, pl 5.9(L) 6.5 - 8.5 g/dL [facility] Albumin 2.9(L) 3.5 - 5.0 g/dL [facility] Alk phos 226(H) 40 - 130 Units/L [facility] ALT 97(H) 7 - 45 Units/L [facility] AST 27 10 - 45 Units/L [facility] Blood 10/12/2024 6:16 AM AIRBRUSH ARTIST PHOTOGRAPHY 10/12/2024 6:22 AM AIRBRUSH ARTIST PHOTOGRAPHY us Vibha Vegas MD LAB BLOOD ORDERAB LES Final Result [facility] One [facility] Department of Laboratories [place], [place] [id number] * eGFR (10/11/2024 6:21 AM AIRBRUSH ARTIST PHOTOGRAPHY) eGFR >90 >=60 mL/min/1. 73 m2 Comment: Interpretive Data Reference Interval Normal >/= 90 mL/min/1.73m2 Mildly decreased* 60 - 89 mL/min/1.73m2 Mildly to moderately decreased 45 - 59 mL/min/1.73m2 Moderately to severely decreased 30 - 44 mL/min/1.73m2 Severely decreased 15 - 29 mL/min/1.73m2 Kidney Failure < 15 mL/min/1.73m2 *Relative to young adult level Estimated glomerular filtration rate is determined by the 2020 CKD-EPI equation recommended by the National Kidney Foundation (A Unifying Approach to GFR Estimation: Recommendations of the NKF-ASK Task Force on Reassessing the Inclusion of Race in Diagnosing Kidney Disease, JASN 2020). The CKD-EPI equation should not be used for patients with unstable renal function and has not been validated in children and those over 70. Current interpretive data was last reviewed 2021. Blood 10/11/2024 6:21 AM AIRBRUSH ARTIST PHOTOGRAPHY 10/11/2024 6:26 AM AIRBRUSH ARTIST PHOTOGRAPHY Vibha Vegas MD LAB BLOOD ORDERAB LES Final Result [facility] One [facility] Department [place] [address] * (ABNORMAL) CBC without differential (10/11/2024 6:21 AM AIRBRUSH ARTIST PHOTOGRAPHY) WBC 15.8(H) 3.8 - 9.9 K/cumm Hgb 11.2(L) 11.9 - 15.5 g/dL [facility] Hct 31.7(L) 35.6 - 45.5 % [facility] Plt 342 150 - 400 K/cumm [facility] MPV 9.7 9.1 - 12.3 fL [facility] RBC 3.49(L) 3.90 - 5.20 M/cumm [facility] MCV 90.8 81.3 - 96.4 fL [facility] MCH 32.1 27.1 - 33.3 pg [facility] MCHC 35.3 32.3 - 35.7 g/dL [facility] RDW CV 13.2 11.1 - 14.9 % [facility] RDW SD 42.8 35.7 - 48.1 fL [facility] NRBC abs 0.00 0.00 - 0.01 K/cumm [facility] Blood 10/11/2024 6:21 AM AIRBRUSH ARTIST PHOTOGRAPHY 10/11/2024 6:26 AM AIRBRUSH ARTIST PHOTOGRAPHY Vibha Vegas MD LAB BLOOD ORDERAB LES Final Result [facility] [place] [address] * Phosphorus (10/11/2024 6:21 AM AIRBRUSH ARTIST PHOTOGRAPHY) [facility] Phosphorus, pl 3.6 2.3 - 4.5 mg/dL Blood 10/11/2024 6:21 AM AIRBRUSH ARTIST PHOTOGRAPHY 10/11/2024 6:26 AM AIRBRUSH ARTIST PHOTOGRAPHY Vibha Vegas MD LAB BLOOD ORDERAB LES Final Result Performing Organization Address City/[facility] Co de Phone Number [facility] [place] [address] * Magnesium (10/11/2024 6:21 AM AIRBRUSH ARTIST PHOTOGRAPHY) [facility] Magnesium 1.8 1.4 - 2.5 mg/dL Blood 10/11/2024 6:21 AM AIRBRUSH ARTIST PHOTOGRAPHY 10/11/2024 6:26 AM AIRBRUSH ARTIST PHOTOGRAPHY Vibha Vegas MD LAB BLOOD ORDERAB LES Final Result Performing Organization Address City/[facility]/[place] [address] * (ABNORMAL) Comprehensive metabolic panel (10/11/2024 6:21 AM AIRBRUSH ARTIST PHOTOGRAPHY) [facility] Sodium 137 135 - 145 mmol/L Potassium, pl 4.1 3.3 - 4.9 mmol/L [facility] Chloride 106 97 - 110 mmol/L [facility] CO2 24 22 - 32 mmol/L [facility] Anion gap 7 2 - 15 mmol/L [facility] BUN 9 6 - 25 mg/dL [facility] Creatinine 0.59(L) 0.60 - 1.10 mg/dL [facility] Glucose 91 70 - 199 mg/dL [facility] Comment: Interpretive Data Fasting glucose >/= 126 mg/dl is diagnostic for diabetes. Fasting is defined as no caloric intake for at least 8 hours. Fasting glucose between 100 mg/dl to 125 mg/dl is diagnostic of prediabetes. In a patient with classic symptoms of hyperglycemia or hyperglycemic crisis, a random glucose >/= 200 mg/dl is diagnostic for diabetes. In the absence of unequivocal hyperglycemia, results should be confirmed by repeat testing. The classification and Diagnosis of Diabetes Diabetes Care 202; 46: S19-S40. Current interpretive data was last revised 2022. Calcium 8.9 8.5 - 10.3 mg/dL [facility] Bilirubin, total 0.2 0.1 - 1.2 mg/dL [facility] Protein, pl 6.2(L) 6.5 - 8.5 g/dL [facility] Albumin 3.2(L) 3.5 - 5.0 g/dL [facility] Alk phos 234(H) 40 - 130 Units/L [facility] ALT 139(H) 7 - 45 Units/L [facility] AST 39 10 - 45 Units/L [facility] Blood 10/11/2024 6:21 AM AIRBRUSH ARTIST PHOTOGRAPHY 10/11/2024 6:26 AM AIRBRUSH ARTIST PHOTOGRAPHY us Vibha Vegas MD LAB BLOOD ORDERAB LES Final Result [facility] One [facility] Department [place] [address] * Antibody identification (10/10/2024 7:46 AM AIRBRUSH ARTIST PHOTOGRAPHY) Antibody ID 1 Passive Anti-D Blood 10/10/2024 7:46 AM AIRBRUSH ARTIST PHOTOGRAPHY 10/10/2024 7:46 AM AIRBRUSH ARTIST PHOTOGRAPHY us Vibha Burnette MD LAB BLOOD BANK TE ST ORDERABLES Final Result Performing Organization Address [facility] de Phone Number [facility] Department [place] [address] * eGFR (10/10/2024 6:24 AM AIRBRUSH ARTIST PHOTOGRAPHY) eGFR >90 >=60 mL/min/1. 73 m2 Comment: Interpretive Data Reference Interval Normal >/= 90 mL/min/1.73m2 Mildly decreased* 60 - 89 mL/min/1.73m2 Mildly to moderately decreased 45 - 59 mL/min/1.73m2 Moderately to severely decreased 30 - 44 mL/min/1.73m2 Severely decreased 15 - 29 mL/min/1.73m2 Kidney Failure < 15 mL/min/1.73m2 *Relative to young adult level Estimated glomerular filtration rate is determined by the 2020 CKD-EPI equation recommended by the National Kidney Foundation (A Unifying Approach to GFR Estimation: Recommendations of the NKF-ASK Task Force on Reassessing the Inclusion of Race in Diagnosing Kidney Disease, JASN 2020). The CKD-EPI equation should not be used for patients with unstable renal function and has not been validated in children and those over 70. Current interpretive data was last reviewed 2021. Blood 10/10/2024 6:24 AM AIRBRUSH ARTIST PHOTOGRAPHY 10/10/2024 6:32 AM AIRBRUSH ARTIST PHOTOGRAPHY us Vibha Vegas MD LAB BLOOD ORDERAB LES Final Result Performing Organization Address [facility] Co de Phone Number [facility] Department [place] [address] * (ABNORMAL) CBC without differential (10/10/2024 6:24 AM AIRBRUSH ARTIST PHOTOGRAPHY) WBC 15.4(H) 3.8 - 9.9 K/cumm Hgb 12.2 11.9 - 15.5 g/dL [facility] Hct 34.8(L) 35.6 - 45.5 % [facility] Plt 352 150 - 400 K/cumm [facility] MPV 9.7 9.1 - 12.3 fL [facility] RBC 3.85(L) 3.90 - 5.20 M/cumm [facility] MCV 90.4 81.3 - 96.4 fL [facility] MCH 31.7 27.1 - 33.3 pg [facility] MCHC 35.1 32.3 - 35.7 g/dL [facility] RDW CV 13.4 11.1 - 14.9 % [facility] RDW SD 43.7 35.7 - 48.1 fL [facility] NRBC abs 0.00 0.00 - 0.01 K/cumm [facility] Blood 10/10/2024 6:24 AM AIRBRUSH ARTIST PHOTOGRAPHY 10/10/2024 6:33 AM AIRBRUSH ARTIST PHOTOGRAPHY us Vibha Vegas MD LAB BLOOD ORDERAB LES Final Result Performing Organization Address City/[facility]/ZIP Co de Phone Number [facility] Department [place] [address] * (ABNORMAL) Type and screen (10/10/2024 6:24 AM AIRBRUSH ARTIST PHOTOGRAPHY) ABO Rh O Negative Indira, indirect Positive(A) [facility] Blood 10/10/2024 6:24 AM AIRBRUSH ARTIST PHOTOGRAPHY 10/10/2024 6:38 AM AIRBRUSH ARTIST PHOTOGRAPHY Narrative [facility] - 10/10/2024 7:46 AM AIRBRUSH ARTIST PHOTOGRAPHY Has the patient had Daratumumab or Isatuximab in the past 6 months?->Unknown us Vibha Burnette MD LAB BLOOD BANK TE ST ORDERABLES Final Result [facility] Department [place] [address] * Phosphorus (10/10/2024 6:24 AM AIRBRUSH ARTIST PHOTOGRAPHY) Phosphorus, pl 4.2 2.3 - 4.5 mg/dL Blood 10/10/2024 6:24 AM AIRBRUSH ARTIST PHOTOGRAPHY 10/10/2024 6:32 AM AIRBRUSH ARTIST PHOTOGRAPHY Vibha Vegas MD LAB BLOOD ORDERAB LES Final Result Performing Organization Address City/[facility]/ZIP Co de Phone Number [facility] [place] [address] * Magnesium (10/10/2024 6:24 AM AIRBRUSH ARTIST PHOTOGRAPHY) Pathologist [facility] Magnesium 1.7 1.4 - 2.5 mg/dL Blood 10/10/2024 6:24 AM AIRBRUSH ARTIST PHOTOGRAPHY 10/10/2024 6:32 AM AIRBRUSH ARTIST PHOTOGRAPHY Vibha Vegas MD LAB BLOOD ORDERAB LES Final Result Performing Organization Address [facility] de Phone Number [facility] [place] [address] * (ABNORMAL) Comprehensive metabolic panel (10/10/2024 6:24 AM AIRBRUSH ARTIST PHOTOGRAPHY) [facility] Sodium 139 135 - 145 mmol/L Potassium, pl 4.3 3.3 - 4.9 mmol/L [facility] Chloride 105 97 - 110 mmol/L [facility] CO2 25 22 - 32 mmol/L [facility] Anion gap 9 2 - 15 mmol/L [facility] BUN 7 6 - 25 mg/dL [facility] Creatinine 0.57(L) 0.60 - 1.10 mg/dL [facility] Glucose 89 70 - 199 mg/dL [facility] Comment: Interpretive Data Fasting glucose >/= 126 mg/dl is diagnostic for diabetes. Fasting is defined as no caloric intake for at least 8 hours. Fasting glucose between 100 mg/dl to 125 mg/dl is diagnostic of prediabetes. In a patient with classic symptoms of hyperglycemia or hyperglycemic crisis, a random glucose >/= 200 mg/dl is diagnostic for diabetes. In the absence of unequivocal hyperglycemia, results should be confirmed by repeat testing. The classification and Diagnosis of Diabetes Diabetes Care 202; 46: S19-S40. Current interpretive data was last revised 2022. Calcium 9.2 8.5 - 10.3 mg/dL [facility] Bilirubin, total 0.2 0.1 - 1.2 mg/dL [facility] Comment:Reviewed Protein, pl 6.8 6.5 - 8.5 g/dL [facility] Albumin 3.5 3.5 - 5.0 g/dL [facility] Alk phos 241(H) 40 - 130 Units/L [facility] ALT 180(H) 7 - 45 Units/L [facility] AST 61(H) 10 - 45 Units/L [facility] Blood 10/10/2024 6:24 AM AIRBRUSH ARTIST PHOTOGRAPHY 10/10/2024 6:32 AM AIRBRUSH ARTIST PHOTOGRAPHY us Vibha Vegas MD LAB BLOOD ORDERAB LES Final Result [facility] Department [place] [address] * (ABNORMAL) CBC without differential (10/09/2024 1:11 PM AIRBRUSH ARTIST PHOTOGRAPHY) WBC 13.7(H) 3.8 - 9.9 K/cumm Hgb 11.2(L) 11.9 - 15.5 g/dL [facility] Hct 32.3(L) 35.6 - 45.5 % [facility] Plt 307 150 - 400 K/cumm [facility] MPV 9.7 9.1 - 12.3 fL [facility] RBC 3.58(L) 3.90 - 5.20 M/cumm [facility] MCV 90.2 81.3 - 96.4 fL [facility] MCH 31.3 27.1 - 33.3 pg [facility] MCHC 34.7 32.3 - 35.7 g/dL [facility] RDW CV 13.3 11.1 - 14.9 % [facility] RDW SD 43.4 35.7 - 48.1 fL [facility] NRBC abs 0.00 0.00 - 0.01 K/cumm [facility] Blood 10/09/2024 1:11 PM AIRBRUSH ARTIST PHOTOGRAPHY 10/09/2024 1:22 PM AIRBRUSH ARTIST PHOTOGRAPHY us Vibha Vegas MD LAB BLOOD ORDERAB LES Final Result Performing Organization Address City/[facility]/ZIP Co de Phone Number [facility] Department [place] [address] * eGFR (10/09/2024 6:13 AM AIRBRUSH ARTIST PHOTOGRAPHY) eGFR >90 >=60 mL/min/1. 73 m2 Comment: Interpretive Data Reference Interval Normal >/= 90 mL/min/1.73m2 Mildly decreased* 60 - 89 mL/min/1.73m2 Mildly to moderately decreased 45 - 59 mL/min/1.73m2 Moderately to severely decreased 30 - 44 mL/min/1.73m2 Severely decreased 15 - 29 mL/min/1.73m2 Kidney Failure < 15 mL/min/1.73m2 *Relative to young adult level Estimated glomerular filtration rate is determined by the 2020 CKD-EPI equation recommended by the National Kidney Foundation (A Unifying Approach to GFR Estimation: Recommendations of the NKF-ASK Task Force on Reassessing the Inclusion of Race in Diagnosing Kidney Disease, JASN 2020). The CKD-EPI equation should not be used for patients with unstable renal function and has not been validated in children and those over 70. Current interpretive data was last reviewed 2021. Blood 10/09/2024 6:13 AM AIRBRUSH ARTIST PHOTOGRAPHY 10/09/2024 6:30 AM AIRBRUSH ARTIST PHOTOGRAPHY us Vbiha Vegas MD LAB BLOOD ORDERAB LES Final Result Performing Organization Address City/[facility]/ZIP Co de Phone Number [facility] Department [place] [address] * (ABNORMAL) Comprehensive metabolic panel (10/09/2024 6:13 AM AIRBRUSH ARTIST PHOTOGRAPHY) Sodium 138 135 - 145 mmol/L Potassium, pl 3.7 3.3 - 4.9 mmol/L [facility] Chloride 107 97 - 110 mmol/L [facility] CO2 23 22 - 32 mmol/L [facility] Anion gap 8 2 - 15 mmol/L [facility] BUN 8 6 - 25 mg/dL [facility] Creatinine 0.56(L) 0.60 - 1.10 mg/dL [facility] Glucose 96 70 - 199 mg/dL [facility] Comment: Interpretive Data Fasting glucose >/= 126 mg/dl is diagnostic for diabetes. Fasting is defined as no caloric intake for at least 8 hours. Fasting glucose between 100 mg/dl to 125 mg/dl is diagnostic of prediabetes. In a patient with classic symptoms of hyperglycemia or hyperglycemic crisis, a random glucose >/= 200 mg/dl is diagnostic for diabetes. In the absence of unequivocal hyperglycemia, results should be confirmed by repeat testing. The classification and Diagnosis of Diabetes Diabetes Care 2021; 46: S19-S40. Current interpretive data was last revised 2022. Calcium 8.9 8.5 - 10.3 mg/dL [facility] Bilirubin, total <0.2 0.1 - 1.2 mg/dL [facility] Comment:Reviewed Protein, pl 6.0(L) 6.5 - 8.5 g/dL [facility] Albumin 3.2(L) 3.5 - 5.0 g/dL [facility] Alk phos 226(H) 40 - 130 Units/L [facility] ALT 190(H) 7 - 45 Units/L [facility] AST 80(H) 10 - 45 Units/L [facility] Blood 10/09/2024 6:13 AM AIRBRUSH ARTIST PHOTOGRAPHY 10/09/2024 6:30 AM AIRBRUSH ARTIST PHOTOGRAPHY us Vibha Vegas MD LAB BLOOD ORDERAB LES Final Result [facility] Department [place] [address] * eGFR (10/08/2024 10:56 AM AIRBRUSH ARTIST PHOTOGRAPHY) eGFR >90 >=60 mL/min/1. 73 m2 Comment: Interpretive Data Reference Interval Normal >/= 90 mL/min/1.73m2 Mildly decreased* 60 - 89 mL/min/1.73m2 Mildly to moderately decreased 45 - 59 mL/min/1.73m2 Moderately to severely decreased 30 - 44 mL/min/1.73m2 Severely decreased 15 - 29 mL/min/1.73m2 Kidney Failure < 15 mL/min/1.73m2 *Relative to young adult level Estimated glomerular filtration rate is determined by the 2020 CKD-EPI equation recommended by the National Kidney Foundation (A Unifying Approach to GFR Estimation: Recommendations of the NKF-ASK Task Force on Reassessing the Inclusion of Race in Diagnosing Kidney Disease, JASN 2020). The CKD-EPI equation should not be used for patients with unstable renal function and has not been validated in children and those over 70. Current interpretive data was last reviewed 2021. Blood 10/08/2024 10:5 6 AM AIRBRUSH ARTIST PHOTOGRAPHY 10/08/2024 11:06 AM AIRBRUSH ARTIST PHOTOGRAPHY Vibha Vegas MD LAB BLOOD ORDERAB LES Final Result [facility] [place] [address] * (ABNORMAL) Bile acids (10/08/2024 10:56 AM AIRBRUSH ARTIST PHOTOGRAPHY) Bile acids 16(H) <=10 mcmol/L [facility] Comment: Test Performed by: [place] [address] Oncology Navigator: Brissa Zazueta Ph.D.; CLIA# [id number] Blood 10/08/2024 10:5 6 AM AIRBRUSH ARTIST PHOTOGRAPHY 10/08/2024 12:27 PM AIRBRUSH ARTIST PHOTOGRAPHY Vibha Vegas MD LAB BLOOD ORDERAB LES Final Result [facility] [place] [address] [facility] * (ABNORMAL) Comprehensive metabolic panel (10/08/2024 10:56 AM AIRBRUSH ARTIST PHOTOGRAPHY) Sodium 137 135 - 145 mmol/L Potassium, pl 3.2(L) 3.3 - 4.9 mmol/L [facility] Chloride 103 97 - 110 mmol/L [facility] CO2 23 22 - 32 mmol/L [facility] Anion gap 11 2 - 15 mmol/L [facility] BUN 7 6 - 25 mg/dL [facility] Creatinine 0.52(L) 0.60 - 1.10 mg/dL [facility] Glucose 115 70 - 199 mg/dL [facility] Comment: Interpretive Data Fasting glucose >/= 126 mg/dl is diagnostic for diabetes. Fasting is defined as no caloric intake for at least 8 hours. Fasting glucose between 100 mg/dl to 125 mg/dl is diagnostic of prediabetes. In a patient with classic symptoms of hyperglycemia or hyperglycemic crisis, a random glucose >/= 200 mg/dl is diagnostic for diabetes. In the absence of unequivocal hyperglycemia, results should be confirmed by repeat testing. The classification and Diagnosis of Diabetes Diabetes Care 2021; 46: S19-S40. Current interpretive data was last revised 2022. Calcium 9.0 8.5 - 10.3 mg/dL [facility] Bilirubin, total 0.2 0.1 - 1.2 mg/dL [facility] Protein, pl 6.4(L) 6.5 - 8.5 g/dL [facility] Albumin 3.3(L) 3.5 - 5.0 g/dL [facility] Alk phos 251(H) 40 - 130 Units/L [facility] ALT 185(H) 7 - 45 Units/L [facility] AST 94(H) 10 - 45 Units/L [facility] Blood 10/08/2024 10:5 6 AM AIRBRUSH ARTIST PHOTOGRAPHY 10/08/2024 11:06 AM AIRBRUSH ARTIST PHOTOGRAPHY us Vibha Vegas MD LAB BLOOD ORDERAB LES Final Result [facility] Department [place] [address] * ECG 12 lead (10/07/2024 2:02 PM AIRBRUSH ARTIST PHOTOGRAPHY) Pathologist [facility] Ventricular Rate EKG/Min 105 BPM [facility] Atrial Rate 105 BPM [facility] MI-Interval (MSEC) 144 ms [facility] QRS-Interval (MSEC) 74 ms [facility] QT-Interval (MSEC) 328 ms [facility] QTc 433 ms [facility] P [place] 43 degrees [facility] R [place] 62 degrees [facility] T Butler 2 degrees [facility] Diagnosis Sinus tachycardia Otherwise normal ECG When compared with ECG of 06-SEP-2024 19:50, No significant change was found Confirmed by REMY NAYLOR M.D ([id number]) on 10/09/2024 12:46:34 PM [facility] 10/07/2024 2:02 PM AIRBRUSH ARTIST PHOTOGRAPHY 10/09/2024 12:46 PM AIRBRUSH ARTIST PHOTOGRAPHY us Vibha Vegas MD ECG ORDERABLES F inal Result [facility] * Antibody identification (10/07/2024 7:44 AM AIRBRUSH ARTIST PHOTOGRAPHY) [facility] Antibody ID 1 Passive Anti-D Blood 10/07/2024 7:44 AM AIRBRUSH ARTIST PHOTOGRAPHY 10/07/2024 7:44 AM AIRBRUSH ARTIST PHOTOGRAPHY Vibha Burnette MD LAB BLOOD BANK TE ST ORDERABLES Final Result [facility] Department [place] [address] * eGFR (10/07/2024 6:25 AM AIRBRUSH ARTIST PHOTOGRAPHY) [facility] eGFR >90 >=60 mL/min/1. 73 m2 Comment: Interpretive Data Reference Interval Normal >/= 90 mL/min/1.73m2 Mildly decreased* 60 - 89 mL/min/1.73m2 Mildly to moderately decreased 45 - 59 mL/min/1.73m2 Moderately to severely decreased 30 - 44 mL/min/1.73m2 Severely decreased 15 - 29 mL/min/1.73m2 Kidney Failure < 15 mL/min/1.73m2 *Relative to young adult level Estimated glomerular filtration rate is determined by the 2020 CKD-EPI equation recommended by the National Kidney Foundation (A Unifying Approach to GFR Estimation: Recommendations of the NKF-ASK Task Force on Reassessing the Inclusion of Race in Diagnosing Kidney Disease, JASN 202). The CKD-EPI equation should not be used for patients with unstable renal function and has not been validated in children and those over 70. Current interpretive data was last reviewed 2021. Blood 10/07/2024 6:25 AM AIRBRUSH ARTIST PHOTOGRAPHY 10/07/2024 6:35 AM AIRBRUSH ARTIST PHOTOGRAPHY us Allegra Rushing MD LAB BLOOD ORDERABLE S Final Result [facility] Department [place] [address] * (ABNORMAL) CBC without differential (10/07/2024 6:25 AM AIRBRUSH ARTIST PHOTOGRAPHY) WBC 17.0(H) 3.8 - 9.9 K/cumm Hgb 11.5(L) 11.9 - 15.5 g/dL [facility] Hct 32.2(L) 35.6 - 45.5 % [facility] Plt 309 150 - 400 K/cumm [facility] MPV 9.6 9.1 - 12.3 fL [facility] RBC 3.68(L) 3.90 - 5.20 M/cumm [facility] MCV 87.5 81.3 - 96.4 fL [facility] MCH 31.3 27.1 - 33.3 pg [facility] MCHC 35.7 32.3 - 35.7 g/dL [facility] RDW CV 13.0 11.1 - 14.9 % [facility] RDW SD 40.4 35.7 - 48.1 fL [facility] NRBC abs 0.00 0.00 - 0.01 K/cumm [facility] Blood 10/07/2024 6:25 AM AIRBRUSH ARTIST PHOTOGRAPHY 10/07/2024 6:35 AM AIRBRUSH ARTIST PHOTOGRAPHY us Allegra Rushing MD LAB BLOOD ORDERABLE S Final Result Performing Organization Address [facility] Co de Phone Number [facility] [place] [address] * (ABNORMAL) Type and screen (10/07/2024 6:25 AM AIRBRUSH ARTIST PHOTOGRAPHY) Pathologist [facility] Indira, indirect Positive(A) ABO Rh O Negative [facility] Blood 10/07/2024 6:25 AM AIRBRUSH ARTIST PHOTOGRAPHY 10/07/2024 6:35 AM AIRBRUSH ARTIST PHOTOGRAPHY Narrative [facility] - 10/07/2024 7:44 AM AIRBRUSH ARTIST PHOTOGRAPHY Has the patient had Daratumumab or Isatuximab in the past 6 months?->Unknown Vibha Burnette MD LAB BLOOD BANK TE ST ORDERABLES Final Result Performing Organization Address [facility] de Phone Number [facility] [place] [address] * (ABNORMAL) Comprehensive metabolic panel (10/07/2024 6:25 AM AIRBRUSH ARTIST PHOTOGRAPHY) Pathologist [facility] Sodium 138 135 - 145 mmol/L Potassium, pl 4.0 3.3 - 4.9 mmol/L [facility] Chloride 106 97 - 110 mmol/L [facility] CO2 23 22 - 32 mmol/L [facility] Anion gap 9 2 - 15 mmol/L [facility] BUN 6 6 - 25 mg/dL [facility] Creatinine 0.53(L) 0.60 - 1.10 mg/dL [facility] Glucose 111 70 - 199 mg/dL [facility] Comment: Interpretive Data Fasting glucose >/= 126 mg/dl is diagnostic for diabetes. Fasting is defined as no caloric intake for at least 8 hours. Fasting glucose between 100 mg/dl to 125 mg/dl is diagnostic of prediabetes. In a patient with classic symptoms of hyperglycemia or hyperglycemic crisis, a random glucose >/= 200 mg/dl is diagnostic for diabetes. In the absence of unequivocal hyperglycemia, results should be confirmed by repeat testing. The classification and Diagnosis of Diabetes Diabetes Care 202; 46: S19-S40. Current interpretive data was last revised 2022. Calcium 8.8 8.5 - 10.3 mg/dL [facility] Bilirubin, total 0.2 0.1 - 1.2 mg/dL [facility] Protein, pl 6.3(L) 6.5 - 8.5 g/dL [facility] Albumin 3.2(L) 3.5 - 5.0 g/dL [facility] Alk phos 255(H) 40 - 130 Units/L [facility] ALT 96(H) 7 - 45 Units/L [facility] AST 65(H) 10 - 45 Units/L [facility] Blood 10/07/2024 6:25 AM AIRBRUSH ARTIST PHOTOGRAPHY 10/07/2024 6:35 AM AIRBRUSH ARTIST PHOTOGRAPHY Allegra Rushing MD LAB BLOOD ORDERABLE S Final Result [facility] Department [place] [address] * Group B streptococcal culture Vaginal/Rectal (10/06/2024 4:11 PM AIRBRUSH ARTIST PHOTOGRAPHY) Report Final Report: Negative Vaginal/Rectal 10/06/2024 4: 11 PM AIRBRUSH ARTIST PHOTOGRAPHY 10/06/2024 4:43 PM AIRBRUSH ARTIST PHOTOGRAPHY Narrative [facility] - 10/09/2024 7:17 AM AIRBRUSH ARTIST PHOTOGRAPHY Testing performed by [facility] ([phone]). Trinidad Hill NP LAB MICROBIOLOGY - GENERAL ORDERABLES Final Result Performing Organization Address City/[facility]/ZIP Co de Phone Number [facility] Department [place] [address] * US Ob Limited (10/04/2024 8:12 AM AIRBRUSH ARTIST PHOTOGRAPHY) Fetus# [id number] VIEWPOINT Estimated Weight 2,000 g&grams VIEWPOINT Placenta Details anterior, Previa-no, no placental masses VIEWPOINT Presentation Vertex VIEWPOINT Anatomical Region Laterality Modality Abdomen N/A Ultrasound 10/04/2024 12:5 4 PM AIRBRUSH ARTIST PHOTOGRAPHY Impressions 10/04/2024 3:44 PM AIRBRUSH ARTIST PHOTOGRAPHY 32w 4d IUP for evaluation of growth - AGA growth pattern, EFW 40%. Vertex presentation. Normal SAADIA, 17.5 cm. The remainder of the anatomic survey was completed today without abnormalities identified. Ultrasound cannot detect all anomalies. Patient currently admitted to [facility]U, APU team updated regarding the findings. Narrative Procedure Note Aline Smith MD - 10/04/2024 IMPRESSION: 32w 4d IUP for evaluation of growth - AGA growth pattern, EFW 40%.Vertex presentation. Normal SAADIA, 17.5 cm. The remainder of the fetalanatomic survey was completed today without abnormalities identified.Ultrasound cannot detect all anomalies. Patient currently admitted to [facility]U, APU team updated regarding thefindings. us Dena Padilla MD IMG OB US PROCEDURE S Final Result * Antibody identification (10/04/2024 7:44 AM AIRBRUSH ARTIST PHOTOGRAPHY) Pathologist [facility] Antibody ID 1 Passive Anti-D Comment:Anti-D: probably due to administration of RH-immune globulin. Titer not indicated. Blood 10/04/2024 7:44 AM AIRBRUSH ARTIST PHOTOGRAPHY 10/04/2024 7:44 AM AIRBRUSH ARTIST PHOTOGRAPHY us Vibha Burnette MD LAB BLOOD BANK TE ST ORDERABLES Final Result [facility] Department [place] [address] * eGFR (10/04/2024 6:15 AM AIRBRUSH ARTIST PHOTOGRAPHY) eGFR >90 >=60 mL/min/1. 73 m2 Comment: Interpretive Data Reference Interval Normal >/= 90 mL/min/1.73m2 Mildly decreased* 60 - 89 mL/min/1.73m2 Mildly to moderately decreased 45 - 59 mL/min/1.73m2 Moderately to severely decreased 30 - 44 mL/min/1.73m2 Severely decreased 15 - 29 mL/min/1.73m2 Kidney Failure < 15 mL/min/1.73m2 *Relative to young adult level Estimated glomerular filtration rate is determined by the 2020 CKD-EPI equation recommended by the National Kidney Foundation (A Unifying Approach to GFR Estimation: Recommendations of the NKF-ASK Task Force on Reassessing the Inclusion of Race in Diagnosing Kidney Disease, JASN 2020). The CKD-EPI equation should not be used for patients with unstable renal function and has not been validated in children and those over 70. Current interpretive data was last reviewed 2021. Blood 10/04/2024 6:15 AM AIRBRUSH ARTIST PHOTOGRAPHY 10/04/2024 6:22 AM AIRBRUSH ARTIST PHOTOGRAPHY Allegra Rushing MD LAB BLOOD ORDERABLE S Final Result [facility] Department [place] [address] * (ABNORMAL) CBC without differential (10/04/2024 6:15 AM AIRBRUSH ARTIST PHOTOGRAPHY) WBC 10.6(H) 3.8 - 9.9 K/cumm Hgb 12.2 11.9 - 15.5 g/dL [facility] Hct 34.9(L) 35.6 - 45.5 % [facility] Plt 287 150 - 400 K/cumm [facility] MPV 9.7 9.1 - 12.3 fL [facility] RBC 3.90 3.90 - 5.20 M/cumm [facility] MCV 89.5 81.3 - 96.4 fL [facility] MCH 31.3 27.1 - 33.3 pg [facility] MCHC 35.0 32.3 - 35.7 g/dL [facility] RDW CV 13.2 11.1 - 14.9 % [facility] RDW SD 42.9 35.7 - 48.1 fL [facility] NRBC abs 0.00 0.00 - 0.01 K/cumm [facility] Blood 10/04/2024 6:15 AM AIRBRUSH ARTIST PHOTOGRAPHY 10/04/2024 6:22 AM AIRBRUSH ARTIST PHOTOGRAPHY Allegra Rushing MD LAB BLOOD ORDERABLE S Final Result Performing Organization Address City/[facility]/ZIP Co de Phone Number [facility] [place] [address] * (ABNORMAL) Type and screen (10/04/2024 6:15 AM AIRBRUSH ARTIST PHOTOGRAPHY) Pathologist [facility] Indira, indirect Positive(A) ABO Rh O Negative [facility] Blood 10/04/2024 6:15 AM AIRBRUSH ARTIST PHOTOGRAPHY 10/04/2024 6:31 AM AIRBRUSH ARTIST PHOTOGRAPHY Narrative [facility] - 10/04/2024 7:44 AM AIRBRUSH ARTIST PHOTOGRAPHY Has the patient had Daratumumab or Isatuximab in the past 6 months?->Unknown us Vibha Burnette MD LAB BLOOD BANK TE ST ORDERABLES Final Result Performing Organization Address [facility] Co de Phone Number [facility] [place] [address] * (ABNORMAL) Comprehensive metabolic panel (10/04/2024 6:15 AM AIRBRUSH ARTIST PHOTOGRAPHY) Pathologist [facility] Sodium 135 135 - 145 mmol/L Potassium, pl 3.6 3.3 - 4.9 mmol/L [facility] Chloride 102 97 - 110 mmol/L [facility] CO2 24 22 - 32 mmol/L [facility] Anion gap 9 2 - 15 mmol/L [facility] BUN 5(L) 6 - 25 mg/dL [facility] Creatinine 0.55(L) 0.60 - 1.10 mg/dL [facility] Glucose 76 70 - 199 mg/dL [facility] Comment: Interpretive Data Fasting glucose >/= 126 mg/dl is diagnostic for diabetes. Fasting is defined as no caloric intake for at least 8 hours. Fasting glucose between 100 mg/dl to 125 mg/dl is diagnostic of prediabetes. In a patient with classic symptoms of hyperglycemia or hyperglycemic crisis, a random glucose >/= 200 mg/dl is diagnostic for diabetes. In the absence of unequivocal hyperglycemia, results should be confirmed by repeat testing. The classification and Diagnosis of Diabetes Diabetes Care 2021; 46: S19-S40. Current interpretive data was last revised 2022. Calcium 9.0 8.5 - 10.3 mg/dL [facility] Bilirubin, total 0.2 0.1 - 1.2 mg/dL [facility] Protein, pl 6.4(L) 6.5 - 8.5 g/dL [facility] Albumin 3.4(L) 3.5 - 5.0 g/dL [facility] Alk phos 265(H) 40 - 130 Units/L [facility] ALT 23 7 - 45 Units/L [facility] AST 21 10 - 45 Units/L [facility] Blood 10/04/2024 6:15 AM AIRBRUSH ARTIST PHOTOGRAPHY 10/04/2024 6:22 AM AIRBRUSH ARTIST PHOTOGRAPHY us Allegra Rushing MD LAB BLOOD ORDERABLE S Final Result [facility] Department [place] [address] * Antibody identification (10/01/2024 7:53 AM AIRBRUSH ARTIST PHOTOGRAPHY) Pathologist [facility] Antibody ID 1 Passive Anti-D Blood 10/01/2024 7:53 AM AIRBRUSH ARTIST PHOTOGRAPHY 10/01/2024 7:53 AM AIRBRUSH ARTIST PHOTOGRAPHY us Vibha Burnette MD LAB BLOOD BANK TE ST ORDERABLES Final Result [facility] Department [place] [address] * eGFR (10/01/2024 6:31 AM AIRBRUSH ARTIST PHOTOGRAPHY) Pathologist [facility] eGFR >90 >=60 mL/min/1. 73 m2 Comment: Interpretive Data Reference Interval Normal >/= 90 mL/min/1.73m2 Mildly decreased* 60 - 89 mL/min/1.73m2 Mildly to moderately decreased 45 - 59 mL/min/1.73m2 Moderately to severely decreased 30 - 44 mL/min/1.73m2 Severely decreased 15 - 29 mL/min/1.73m2 Kidney Failure < 15 mL/min/1.73m2 *Relative to young adult level Estimated glomerular filtration rate is determined by the 2020 CKD-EPI equation recommended by the National Kidney Foundation (A Unifying Approach to GFR Estimation: Recommendations of the NKF-ASK Task Force on Reassessing the Inclusion of Race in Diagnosing Kidney Disease, JASN 2020). The CKD-EPI equation should not be used for patients with unstable renal function and has not been validated in children and those over 70. Current interpretive data was last reviewed 2021. Blood 10/01/2024 6:31 AM AIRBRUSH ARTIST PHOTOGRAPHY 10/01/2024 6:46 AM AIRBRUSH ARTIST PHOTOGRAPHY us Allegra Rushing MD LAB BLOOD ORDERABLE S Final Result [facility] Department [place] [address] * (ABNORMAL) CBC without differential (10/01/2024 6:31 AM AIRBRUSH ARTIST PHOTOGRAPHY) WBC 15.0(H) 3.8 - 9.9 K/cumm Hgb 11.9 11.9 - 15.5 g/dL [facility] Hct 33.0(L) 35.6 - 45.5 % [facility] Plt 271 150 - 400 K/cumm [facility] MPV 9.5 9.1 - 12.3 fL [facility] RBC 3.76(L) 3.90 - 5.20 M/cumm [facility] MCV 87.8 81.3 - 96.4 fL [facility] MCH 31.6 27.1 - 33.3 pg [facility] MCHC 36.1(H) 32.3 - 35.7 g/dL [facility] RDW CV 12.9 11.1 - 14.9 % [facility] RDW SD 40.3 35.7 - 48.1 fL [facility] NRBC abs 0.00 0.00 - 0.01 K/cumm [facility] Blood 10/01/2024 6:31 AM AIRBRUSH ARTIST PHOTOGRAPHY 10/01/2024 6:47 AM AIRBRUSH ARTIST PHOTOGRAPHY Allegra Rushing MD LAB BLOOD ORDERABLE S Final Result Performing Organization Address [facility] Co de Phone Number [facility] [place] [address] * (ABNORMAL) Type and screen (10/01/2024 6:31 AM AIRBRUSH ARTIST PHOTOGRAPHY) [facility] Indira, indirect Positive(A) ABO Rh O Negative [facility] Blood 10/01/2024 6:31 AM AIRBRUSH ARTIST PHOTOGRAPHY 10/01/2024 6:45 AM AIRBRUSH ARTIST PHOTOGRAPHY Narrative [facility] - 10/01/2024 7:53 AM AIRBRUSH ARTIST PHOTOGRAPHY Has the patient had Daratumumab or Isatuximab in the past 6 months?->Unknown Vibha Burnette MD LAB BLOOD BANK TE ST ORDERABLES Final Result Performing Organization Address [facility] de Phone Number [facility] Department [place] [address] * (ABNORMAL) Comprehensive metabolic panel (10/01/2024 6:31 AM AIRBRUSH ARTIST PHOTOGRAPHY) [facility] Sodium 138 135 - 145 mmol/L Potassium, pl 3.6 3.3 - 4.9 mmol/L [facility] Chloride 106 97 - 110 mmol/L [facility] CO2 23 22 - 32 mmol/L [facility] Anion gap 9 2 - 15 mmol/L [facility] BUN 8 6 - 25 mg/dL [facility] Creatinine 0.53(L) 0.60 - 1.10 mg/dL [facility] Glucose 76 70 - 199 mg/dL [facility] Comment: Interpretive Data Fasting glucose >/= 126 mg/dl is diagnostic for diabetes. Fasting is defined as no caloric intake for at least 8 hours. Fasting glucose between 100 mg/dl to 125 mg/dl is diagnostic of prediabetes. In a patient with classic symptoms of hyperglycemia or hyperglycemic crisis, a random glucose >/= 200 mg/dl is diagnostic for diabetes. In the absence of unequivocal hyperglycemia, results should be confirmed by repeat testing. The classification and Diagnosis of Diabetes Diabetes Care 2021; 46: S19-S40. Current interpretive data was last revised 2022. Calcium 9.1 8.5 - 10.3 mg/dL [facility] Bilirubin, total 0.3 0.1 - 1.2 mg/dL [facility] Protein, pl 6.3(L) 6.5 - 8.5 g/dL [facility] Albumin 3.5 3.5 - 5.0 g/dL [facility] Alk phos 206(H) 40 - 130 Units/L [facility] ALT 14 7 - 45 Units/L [facility] AST 18 10 - 45 Units/L [facility] Blood 10/01/2024 6:31 AM AIRBRUSH ARTIST PHOTOGRAPHY 10/01/2024 6:46 AM AIRBRUSH ARTIST PHOTOGRAPHY us Allegra Rushing MD LAB BLOOD ORDERABLE S Final Result Performing Organization Address City/[facility]/ZIP Co de Phone Number [facility] Department [place] [address] * Antibody identification (09/28/2024 8:02 AM AIRBRUSH ARTIST PHOTOGRAPHY) [facility] Antibody ID 1 Passive Anti-D Blood 09/28/2024 8:02 AM AIRBRUSH ARTIST PHOTOGRAPHY 09/28/2024 8:02 AM AIRBRUSH ARTIST PHOTOGRAPHY us Vibha Burnette MD LAB BLOOD BANK TE ST ORDERABLES Final Result Performing Organization Address City/[facility]/ZIP Co de Phone Number [facility] Department [place] [address] * eGFR (09/28/2024 6:22 AM AIRBRUSH ARTIST PHOTOGRAPHY) eGFR >90 >=60 mL/min/1. 73 m2 Comment: Interpretive Data Reference Interval Normal >/= 90 mL/min/1.73m2 Mildly decreased* 60 - 89 mL/min/1.73m2 Mildly to moderately decreased 45 - 59 mL/min/1.73m2 Moderately to severely decreased 30 - 44 mL/min/1.73m2 Severely decreased 15 - 29 mL/min/1.73m2 Kidney Failure < 15 mL/min/1.73m2 *Relative to young adult level Estimated glomerular filtration rate is determined by the 2020 CKD-EPI equation recommended by the National Kidney Foundation (A Unifying Approach to GFR Estimation: Recommendations of the NKF-ASK Task Force on Reassessing the Inclusion of Race in Diagnosing Kidney Disease, JASN 2020). The CKD-EPI equation should not be used for patients with unstable renal function and has not been validated in children and those over 70. Current interpretive data was last reviewed 2021. Blood 09/28/2024 6:22 AM AIRBRUSH ARTIST PHOTOGRAPHY 09/28/2024 6:42 AM AIRBRUSH ARTIST PHOTOGRAPHY us Allegra Rushing MD LAB BLOOD ORDERABLE S Final Result [facility] Department [place] [address] * (ABNORMAL) CBC without differential (09/28/2024 6:22 AM AIRBRUSH ARTIST PHOTOGRAPHY) WBC 12.7(H) 3.8 - 9.9 K/cumm Hgb 10.9(L) 11.9 - 15.5 g/dL [facility] Hct 30.8(L) 35.6 - 45.5 % [facility] Plt 294 150 - 400 K/cumm [facility] MPV 9.3 9.1 - 12.3 fL [facility] RBC 3.36(L) 3.90 - 5.20 M/cumm [facility] MCV 91.7 81.3 - 96.4 fL [facility] MCH 32.4 27.1 - 33.3 pg [facility] MCHC 35.4 32.3 - 35.7 g/dL [facility] RDW CV 12.6 11.1 - 14.9 % [facility] RDW SD 41.8 35.7 - 48.1 fL [facility] NRBC abs 0.00 0.00 - 0.01 K/cumm [facility] Blood 09/28/2024 6:22 AM AIRBRUSH ARTIST PHOTOGRAPHY 09/28/2024 6:42 AM AIRBRUSH ARTIST PHOTOGRAPHY Allegra Rushing MD LAB BLOOD ORDERABLE S Final Result Performing Organization Address [facility] Co de Phone Number [facility] [place] [address] * (ABNORMAL) Type and screen (09/28/2024 6:22 AM AIRBRUSH ARTIST PHOTOGRAPHY) [facility] Indira, indirect Positive(A) ABO Rh O Negative [facility] Blood 09/28/2024 6:22 AM AIRBRUSH ARTIST PHOTOGRAPHY 09/28/2024 6:40 AM AIRBRUSH ARTIST PHOTOGRAPHY Narrative [facility] - 09/28/2024 8:02 AM AIRBRUSH ARTIST PHOTOGRAPHY Has the patient had Daratumumab or Isatuximab in the past 6 months?->Unknown us Vibha Burnette MD LAB BLOOD BANK TE ST ORDERABLES Final Result Performing Organization Address [facility] de Phone Number [facility] Department [place] [address] * (ABNORMAL) Comprehensive metabolic panel (09/28/2024 6:22 AM AIRBRUSH ARTIST PHOTOGRAPHY) Pathologist [facility] Sodium 140 135 - 145 mmol/L Potassium, pl 4.0 3.3 - 4.9 mmol/L [facility] Chloride 106 97 - 110 mmol/L [facility] CO2 27 22 - 32 mmol/L [facility] Anion gap 7 2 - 15 mmol/L [facility] BUN 8 6 - 25 mg/dL [facility] Creatinine 0.63 0.60 - 1.10 mg/dL [facility] Glucose 87 70 - 199 mg/dL [facility] Comment: Interpretive Data Fasting glucose >/= 126 mg/dl is diagnostic for diabetes. Fasting is defined as no caloric intake for at least 8 hours. Fasting glucose between 100 mg/dl to 125 mg/dl is diagnostic of prediabetes. In a patient with classic symptoms of hyperglycemia or hyperglycemic crisis, a random glucose >/= 200 mg/dl is diagnostic for diabetes. In the absence of unequivocal hyperglycemia, results should be confirmed by repeat testing. The classification and Diagnosis of Diabetes Diabetes Care 202; 46: S19-S40. Current interpretive data was last revised 2022. Calcium 8.9 8.5 - 10.3 mg/dL [facility] Bilirubin, total <0.2 0.1 - 1.2 mg/dL [facility] Protein, pl 6.1(L) 6.5 - 8.5 g/dL [facility] Albumin 3.2(L) 3.5 - 5.0 g/dL [facility] Alk phos 187(H) 40 - 130 Units/L [facility] ALT 12 7 - 45 Units/L [facility] AST 15 10 - 45 Units/L [facility] Blood 09/28/2024 6:22 AM AIRBRUSH ARTIST PHOTOGRAPHY 09/28/2024 6:42 AM AIRBRUSH ARTIST PHOTOGRAPHY us Allegra Rushing MD LAB BLOOD ORDERABLE S Final Result Performing Organization Address [facility]/ZIP Co de Phone Number [facility] Department [place] [address] * Antibody identification (09/25/2024 8:06 AM AIRBRUSH ARTIST PHOTOGRAPHY) Antibody ID 1 Passive Anti-D Blood 09/25/2024 8:06 AM AIRBRUSH ARTIST PHOTOGRAPHY 09/25/2024 8:06 AM AIRBRUSH ARTIST PHOTOGRAPHY us Vibha Burnette MD LAB BLOOD BANK TE ST ORDERABLES Final Result Performing Organization Address City/[facility]/ZIP Co de Phone Number [facility] Department [place] [address] * eGFR (09/25/2024 6:43 AM AIRBRUSH ARTIST PHOTOGRAPHY) Pathologist [facility] eGFR >90 >=60 mL/min/1. 73 m2 Comment: Interpretive Data Reference Interval Normal >/= 90 mL/min/1.73m2 Mildly decreased* 60 - 89 mL/min/1.73m2 Mildly to moderately decreased 45 - 59 mL/min/1.73m2 Moderately to severely decreased 30 - 44 mL/min/1.73m2 Severely decreased 15 - 29 mL/min/1.73m2 Kidney Failure < 15 mL/min/1.73m2 *Relative to young adult level Estimated glomerular filtration rate is determined by the 2020 CKD-EPI equation recommended by the National Kidney Foundation (A Unifying Approach to GFR Estimation: Recommendations of the NKF-ASK Task Force on Reassessing the Inclusion of Race in Diagnosing Kidney Disease, JASN 2020). The CKD-EPI equation should not be used for patients with unstable renal function and has not been validated in children and those over 70. Current interpretive data was last reviewed 2021. Blood 09/25/2024 6:43 AM AIRBRUSH ARTIST PHOTOGRAPHY 09/25/2024 6:49 AM AIRBRUSH ARTIST PHOTOGRAPHY us Allegra Rushing MD LAB BLOOD ORDERABLE S Final Result [facility] Department [place] [address] * (ABNORMAL) CBC without differential (09/25/2024 6:43 AM AIRBRUSH ARTIST PHOTOGRAPHY) Pathologist [facility] WBC 12.5(H) 3.8 - 9.9 K/cumm Hgb 11.5(L) 11.9 - 15.5 g/dL [facility] Hct 32.7(L) 35.6 - 45.5 % [facility] Plt 290 150 - 400 K/cumm [facility] MPV 9.6 9.1 - 12.3 fL [facility] RBC 3.61(L) 3.90 - 5.20 M/cumm [facility] MCV 90.6 81.3 - 96.4 fL [facility] MCH 31.9 27.1 - 33.3 pg [facility] MCHC 35.2 32.3 - 35.7 g/dL [facility] RDW CV 12.8 11.1 - 14.9 % [facility] RDW SD 42.0 35.7 - 48.1 fL [facility] NRBC abs 0.00 0.00 - 0.01 K/cumm [facility] Blood 09/25/2024 6:43 AM AIRBRUSH ARTIST PHOTOGRAPHY 09/25/2024 6:49 AM AIRBRUSH ARTIST PHOTOGRAPHY Allegra Rushing MD LAB BLOOD ORDERABLE S Final Result Performing Organization Address [facility] Co de Phone Number [facility] [place] [address] * (ABNORMAL) Type and screen (09/25/2024 6:43 AM AIRBRUSH ARTIST PHOTOGRAPHY) Pathologist [facility] ABO Rh O Negative Indira, indirect Positive(A) [facility] Blood 09/25/2024 6:43 AM AIRBRUSH ARTIST PHOTOGRAPHY 09/25/2024 7:19 AM AIRBRUSH ARTIST PHOTOGRAPHY Narrative [facility] - 09/25/2024 8:06 AM AIRBRUSH ARTIST PHOTOGRAPHY Has the patient had Daratumumab or Isatuximab in the past 6 months?->Unknown us Vibha Burnette MD LAB BLOOD BANK TE ST ORDERABLES Final Result Performing Organization Address [facility] Co de Phone Number [facility] [place] [address] * (ABNORMAL) Comprehensive metabolic panel (09/25/2024 6:43 AM AIRBRUSH ARTIST PHOTOGRAPHY) Sodium 139 135 - 145 mmol/L Potassium, pl 3.8 3.3 - 4.9 mmol/L [facility] Chloride 107 97 - 110 mmol/L [facility] CO2 25 22 - 32 mmol/L [facility] Anion gap 7 2 - 15 mmol/L [facility] BUN 6 6 - 25 mg/dL [facility] Creatinine 0.55(L) 0.60 - 1.10 mg/dL [facility] Glucose 73 70 - 199 mg/dL [facility] Comment: Interpretive Data Fasting glucose >/= 126 mg/dl is diagnostic for diabetes. Fasting is defined as no caloric intake for at least 8 hours. Fasting glucose between 100 mg/dl to 125 mg/dl is diagnostic of prediabetes. In a patient with classic symptoms of hyperglycemia or hyperglycemic crisis, a random glucose >/= 200 mg/dl is diagnostic for diabetes. In the absence of unequivocal hyperglycemia, results should be confirmed by repeat testing. The classification and Diagnosis of Diabetes Diabetes Care 2021; 46: S19-S40. Current interpretive data was last revised 2022. Calcium 8.7 8.5 - 10.3 mg/dL [facility] Bilirubin, total 0.2 0.1 - 1.2 mg/dL [facility] Protein, pl 6.1(L) 6.5 - 8.5 g/dL [facility] Albumin 3.4(L) 3.5 - 5.0 g/dL [facility] Alk phos 178(H) 40 - 130 Units/L [facility] ALT 20 7 - 45 Units/L [facility] AST 16 10 - 45 Units/L [facility] Blood 09/25/2024 6:43 AM AIRBRUSH ARTIST PHOTOGRAPHY 09/25/2024 6:49 AM AIRBRUSH ARTIST PHOTOGRAPHY us Allegra Rushing MD LAB BLOOD ORDERABLE S Final Result [facility] Department [place] [address] * Antibody identification (09/22/2024 7:21 AM AIRBRUSH ARTIST PHOTOGRAPHY) Antibody ID 1 Passive Anti-D Blood 09/22/2024 7:21 AM AIRBRUSH ARTIST PHOTOGRAPHY 09/22/2024 7:21 AM AIRBRUSH ARTIST PHOTOGRAPHY Vibha Burnette MD LAB BLOOD BANK TE ST ORDERABLES Final Result [facility] Department [place] [address] * eGFR (09/22/2024 6:09 AM AIRBRUSH ARTIST PHOTOGRAPHY) eGFR >90 >=60 mL/min/1. 73 m2 Comment: Interpretive Data Reference Interval Normal >/= 90 mL/min/1.73m2 Mildly decreased* 60 - 89 mL/min/1.73m2 Mildly to moderately decreased 45 - 59 mL/min/1.73m2 Moderately to severely decreased 30 - 44 mL/min/1.73m2 Severely decreased 15 - 29 mL/min/1.73m2 Kidney Failure < 15 mL/min/1.73m2 *Relative to young adult level Estimated glomerular filtration rate is determined by the 2020 CKD-EPI equation recommended by the National Kidney Foundation (A Unifying Approach to GFR Estimation: Recommendations of the NKF-ASK Task Force on Reassessing the Inclusion of Race in Diagnosing Kidney Disease, JASN 2020). The CKD-EPI equation should not be used for patients with unstable renal function and has not been validated in children and those over 70. Current interpretive data was last reviewed 2021. Blood 09/22/2024 6:09 AM AIRBRUSH ARTIST PHOTOGRAPHY 09/22/2024 6:21 AM AIRBRUSH ARTIST PHOTOGRAPHY Allegra Rushing MD LAB BLOOD ORDERABLE S Final Result [facility] Department [place] [address] * Bile acids (09/22/2024 6:09 AM AIRBRUSH ARTIST PHOTOGRAPHY) Bile acids 6 <=10 mcmol/L [facility] Comment: Test Performed by: [facility] [address] Oncology Navigator: Brissa Zazueta Ph.D.; CLIA# [id number] Blood 09/22/2024 6:09 AM AIRBRUSH ARTIST PHOTOGRAPHY 09/22/2024 6:13 AM AIRBRUSH ARTIST PHOTOGRAPHY Allegra Rushing MD LAB BLOOD ORDERABLE S Final Result [facility] Department [place] [address] [facility] * (ABNORMAL) CBC without differential (09/22/2024 6:09 AM AIRBRUSH ARTIST PHOTOGRAPHY) Pathologist [facility] WBC 12.4(H) 3.8 - 9.9 K/cumm Hgb 10.5(L) 11.9 - 15.5 g/dL [facility] Hct 29.6(L) 35.6 - 45.5 % [facility] Plt 292 150 - 400 K/cumm [facility] MPV 9.4 9.1 - 12.3 fL [facility] RBC 3.32(L) 3.90 - 5.20 M/cumm [facility] MCV 89.2 81.3 - 96.4 fL [facility] MCH 31.6 27.1 - 33.3 pg [facility] MCHC 35.5 32.3 - 35.7 g/dL [facility] RDW CV 12.5 11.1 - 14.9 % [facility] RDW SD 40.5 35.7 - 48.1 fL [facility] NRBC abs 0.00 0.00 - 0.01 K/cumm [facility] Blood 09/22/2024 6:09 AM AIRBRUSH ARTIST PHOTOGRAPHY 09/22/2024 6:21 AM AIRBRUSH ARTIST PHOTOGRAPHY Allegra Rushing MD LAB BLOOD ORDERABLE S Final Result [facility] Department [place] [address] * (ABNORMAL) Type and screen (09/22/2024 6:09 AM AIRBRUSH ARTIST PHOTOGRAPHY) Pathologist [facility] Indira, indirect Positive(A) ABO Rh O Negative [facility] Blood 09/22/2024 6:09 AM AIRBRUSH ARTIST PHOTOGRAPHY 09/22/2024 6:20 AM AIRBRUSH ARTIST PHOTOGRAPHY Narrative [facility] - 09/22/2024 7:21 AM AIRBRUSH ARTIST PHOTOGRAPHY Has the patient had Daratumumab or Isatuximab in the past 6 months?->Unknown Vibha Burnette MD LAB BLOOD BANK TE ST ORDERABLES Final Result [facility] Department [place] [address] * (ABNORMAL) Comprehensive metabolic panel (09/22/2024 6:09 AM AIRBRUSH ARTIST PHOTOGRAPHY) Sodium 140 135 - 145 mmol/L Potassium, pl 3.6 3.3 - 4.9 mmol/L [facility] Chloride 108 97 - 110 mmol/L [facility] CO2 24 22 - 32 mmol/L [facility] Anion gap 8 2 - 15 mmol/L [facility] BUN 7 6 - 25 mg/dL [facility] Creatinine 0.57(L) 0.60 - 1.10 mg/dL [facility] Glucose 81 70 - 199 mg/dL [facility] Comment: Interpretive Data Fasting glucose >/= 126 mg/dl is diagnostic for diabetes. Fasting is defined as no caloric intake for at least 8 hours. Fasting glucose between 100 mg/dl to 125 mg/dl is diagnostic of prediabetes. In a patient with classic symptoms of hyperglycemia or hyperglycemic crisis, a random glucose >/= 200 mg/dl is diagnostic for diabetes. In the absence of unequivocal hyperglycemia, results should be confirmed by repeat testing. The classification and Diagnosis of Diabetes Diabetes Care 2021; 46: S19-S40. Current interpretive data was last revised 2022. Calcium 8.3(L) 8.5 - 10.3 mg/dL [facility] Bilirubin, total <0.2 0.1 - 1.2 mg/dL [facility] Protein, pl 5.4(L) 6.5 - 8.5 g/dL [facility] Albumin 3.0(L) 3.5 - 5.0 g/dL [facility] Alk phos 149(H) 40 - 130 Units/L [facility] ALT 22 7 - 45 Units/L [facility] AST 13 10 - 45 Units/L [facility] Blood 09/22/2024 6:09 AM AIRBRUSH ARTIST PHOTOGRAPHY 09/22/2024 6:21 AM AIRBRUSH ARTIST PHOTOGRAPHY Result [facility] Allegra Rushing MD LAB BLOOD ORDERABLE S Final Result Performing Organization Address City/[facility]/[place] [address] * Hepatitis panel, acute Blood (09/04/2024 5:51 PM AIRBRUSH ARTIST PHOTOGRAPHY) Pathologist [facility] Hep A IgM Nonreactive Nonreactive Hep B core IgM Nonreactive Nonreactive [facility] Hep C Ab Nonreactive Nonreactive [facility] Comment:Antibodies to HCV no t detected. Does NOT exclude the possibility of recent exposure to HCV. Current interpretive data was last revised on 22 HepBsAg Nonreactive Nonreactive [facility] Blood 09/04/2024 5:51 PM AIRBRUSH ARTIST PHOTOGRAPHY 09/04/2024 6:05 PM AIRBRUSH ARTIST PHOTOGRAPHY Allegra Rushing MD LAB MICROBIOLOGY - GENERAL ORDERABLES Final Result Performing Organization Address [facility] Co de Phone Number [facility] [place] [address] * N. gonorrhoeae/C. trachomatis Amplification Thin prep-Endocervical (05/09/2024 10:35 AM CDT) [facility] C. trachomatis Not Detected [facility] Comment:Testing performed by : [facility], [address] [place] [address]., [id number] N. gonorrhoeae Not Detected [facility] Comment: Interpretive Data This assay detects Chlamydia trachomatis and Neisseria gonorrhoeae by nucleic acid amplification testing (NAAT). This assay has been cleared by the [place] Food and Drug administration. The performance characteristics of this test have been verified by the [facility] Molecular Infectious Disease laboratory. The performance characteristics of this test have not been evaluated in individuals less than 14 years of age. Current Interpretive Data was last revised on 2023. Testing performed by: [facility], [address] [place] [address]., [id number] Thin prep-Endocervica l 05/09/2024 10:35 AM CDT 05/10/2024 2:32 PM CDT Dena Padilla MD LAB MICROBIOLOGY - GENERAL ORDERABLES Final Result [facility] [address] Department of Laboratories [place] [phone] [facility] * Pap with reflex to High Risk HPV and Genotyping (Cytology Component) (05/09/2024 9:03 AM CDT) Thin prep (Pap test) 05/09/2024 9:03 AM CDT 05/10/2024 9:03 AM CDT Narrative PATHOLOGY - 05/11/2024 4:17 PM CDT [facility] Department of Pathology [address] [place] [id number] Final Report Note to Patients: This report may contain a detailed description of human tissue sent by a health care provider to the laboratory for pathologic evaluation. The content of this report is essential for diagnosis and may provide important critical findings. This information may be unfamiliar to patients to review without a medical professional present. It is advised that the patient review this report in the presence of a health care provider who can answer questions and explain the details. Patient Name: DANIELE FAYE Address: [address] [place] [address] Gender: F : 2000 (Age: 24) Service: Location: [facility] : [id number] [facility] #: [id number] Patient Type: SPECIMEN Taken: 05/09/2024 Received: 05/10/2024 Accessioned:: 05/10/2024 Reported: 05/11/2024 Physician(s): Dena Padilla M.D. Dena Padilla M.D. Diagnosis: SOURCE OF SPECIMEN Imaged Thinprep Pap Test w/ Reflex HPV - Administrative Intern Cytologic Material: STATEMENT OF ADEQUACY - Satisfactory for evaluation; endocervical/transformation zone component present GENERAL CATEGORIZATION: - Negative for intraepithelial lesion or malignancy INTERPRETATION: - Fungal organisms present, morphologically consistent with octaviano species MARTINEZ Mackenzie(ASCP) Report Electronically Reviewed and Signed Out By MARTINEZ Mackenzie(ASCP) 05/11/2024 16:17:59Specimen(s) Received: A: Imaged Thinprep Pap Test w/ Reflex HPV - Administrative Intern Cytologic Material Clinical History: Last Menstrual Period: 02/02/2024 The Pap test is a screening test used to aid in the detection of cervical cancer and its precursors. It should not be the sole means by which malignant and premalignant lesions are diagnosed. Both false negative and false positive results may occur. It also has poor sensitivity for the detection of endometrial lesions and should not be used to evaluate suspected endometrial abnormalities. For these reasons it is most important to obtain Pap tests at regular intervals. The performance characteristics of some immunohistochemical stains, fluorescence in-situ hybridization tests and immunophenotyping by flow cytometry cited in this report (if any) were determined by the Surgical Pathology Department at [facility] as part of an ongoing water quality manager program and in compliance with federally mandated regulations drawn from the Clinical Laboratory Improvement Act of 1988 (CLIA '88). Some of these tests rely on the use of analyte specific reagents and are subject to specific labeling requirements by the US Food and Drug Administration. Such diagnostic tests may only be performed in a facility that is certified by the Department of Health and Human Services as a high complexity laboratory under CLIA '88. The FDA has determined that such clearance or approval is not necessary. This test is used for clinical purposes. It should not be regarded as investigational or for research. Nevertheless, federal rules concerning the medical use of analyte specific reagents require that the following disclaimer be attached to the report: This test was developed and its performance characteristics determined by the Surgical Pathology Department [facility]. It has not been cleared or approved by the U. S. Food and Drug Administration. Dena Padilla MD LAB CYTOLOGY [facility] Final Result PATHOLOGY [id number] [place] [address] from Last 3 Months or Most Recently Relevant to Health Maintenance Insurance [facility] [id number] [employer] [facility] [employer] [facility] [id number] Advance Directives For more information, please contact: [phone] * Full Code (Latest Code Status on File) Date Activated Date Inactivated Comments 10/12/2024 10:39 PM 10/15/2024 8:14 PM * Full Code Date Activated Date Inactivated Comments 09/04/2024 4:49 PM 10/12/2024 10:39 PM * Full Code Date Activated Date Inactivated Comments 05/31/2024 7:14 PM 06/01/2024 4:01 PM Care Teams Railroad Car Checker Relationship Specialty Start Date End Date Ronnie Flores MD [address] [address] PCP - General Family Medicine 05/25/24 Dena Padilla MD [address] [facility] [address] [place] [address] [place], [place] [address], [place] [address] Consulting Physician Obstetrics and Gynecology 05/18/24
--- OUTSIDE RECORDS SUMMARY | 2024-12-20 10:40 | XMS_ITS | Clinical Summary ---
Author Organization [facility] Address [address] [place] [address] Phone Care Team Providers Care Men'S Garment Fitter Name Role Phone Ronnie Flores MD Primary Care Provider [phone] Allergies Active Allergy Reactions Criticality Noted Date Comments Bee Venom Swelling Medium 02/18/2022 Medications acetaminophen (TYLENOL) 500 MG Tablet Take 500 mg by mouth every 4 hours as needed. Active escitalopram (LEXAPRO) 10 MG Tablet Take 1 Tablet by mouth daily. 90 Tablet 05/09/2024 Active aspirin 81 MG Chewable Tablet Take 81 mg by mouth daily. 05/09/2024 Active Cholecalciferol (Vitamin D) 2000 UNIT Tablet Take 2,000 Units by mouth daily. 05/12/2024 Active prochlorperazine (COMPAZINE) 5 MG Tablet Take 5 mg by mouth as needed for Nausea - 1st line. 05/18/2024 Active Active Problems Problem Noted Date Diagnosed Date Menorrhagia with irregular cycle 08/16/2022 Anxiety 09/22/2019 Estimated Date of Delivery Comme nts Yes 11/25/2024 Resolved Problems Problem Noted Date Diagnosed Date Resolved Date Depression with anxiety 06/04/2022 04/0 09/2022 Immunizations Immunization Administration Dates Next Due DTAP VACCINE 04/04/2007, 4,2002,08/23,2002 Hepatitis A Vaccine, Pediatric/adolescent, 2 Dose Schedule 04/05/2013,05/29/2011 Hepatitis B Vaccine, Pediatric/adolescent 01/23/2003,2002,2002 Hib Vaccine,unspecified Formulation 01/2003,04/29/2003,2002,08/23,2002 Human Papillomavirus Vaccine (HPV), quadrivalent 06/14/2014,02/08/2014,12/04/2013 Inactivated Polio Vaccine 04/04/2007,07/2004,2002,06/24 Influenza Vaccine Quadrivalent Nasal 06/24/2015 Influenza Vaccine, Quadrivalent, PF 10/12/2017 Influenza, Injectable, Quadrivalent 07/11/2019 MMR Vaccine 04/04/2007,07/25/2003 Meningococcal MCV4O 06/24/2015 Meningococcal Vaccine 05/31/2019,12/04/2013 Pneumococcal Vaccine Peds - 7 Valent 01/2003,2002,2002,06/24 TDAP Vaccine 04/05/2013 Varicella Vaccine Live 04/04/2007,2003 Family History Medical History Relation Name Comments No Known Problems Father Hypertension Maternal Grandfather Other-comment Maternal Grandmother lympho ma Aneurysm Mother brain Anxiety disorder Mother Stroke Mother No Known Problems Paternal Grandfather No Known Problems Paternal Grandmother Anxiety disorder Sister Other-comment Sister spinal bifida Relation Name Status Comments Father Alive Maternal Grandfather Alive Maternal Grandmother Alive Mother Alive Paternal Grandfather Alive Paternal Grandmother Alive Sister Alive Social History Tobacco Use Types Packs/Day Years Used Date Smoking Tobacco: Never Smokeless Tobacco: Never Tobacco Cessation:Counseling Given: Yes Alcohol Use Standard Drinks/Week Comments No 0 (1 standard drink = 0.6 oz pur e alcohol) PHQ-2 Answer Date Recorded Total Score - Questions 1-9 0 01/2024 Education Answer Date Recorded What is the highest level of school you have completed or the highest degree you have received? GED or equivalent Estimated Date of Delivery Comme nts Yes 11/25/2024 Sex and Gender Information Value Date Recorded Sex Assigned at Not on file Legal Sex Female 5:40 PM CDT Gender Identity Not on file Sexual Orientation Not on file Last Filed Vital Signs Vital Sign Reading Time Taken Comments Blood Pressure 166/101 07/27/2024 10:51 AM [employer] Pulse 70 07/27/2024 1:25 PM [employer] Temperature 36.1 C (96.9 F) 07/27/2024 10:51 AM [employer] Respiratory Rate 18 07/27/2024 1:25 PM [employer] Oxygen Saturation 99% 07/27/2024 1:25 PM [employer] Inhaled Oxygen Concentration - - Weight 73 kg (161 lb) 07/27/2024 10:51 AM [employer] Height 152.4 cm (5') 07/27/2024 10:51 AM [employer] Body Mass Index 31.44 07/27/2024 10:51 AM [employer] Plan of Treatment Health Maintenance Due Date Last Done Comments Hepatitis C Virus (HCV) Screening 2002 Meningococcal B Immunization (1 of 2 - Standard) 2018 Pap Smear 2023 SARS-COV-2 Immunization ( season) 2024 DTaP/Tdap/Td Immunization (8 - Td or Tdap) 09/07/2034 09/07/2024, 04/05/2013, 04/04/2007, Additional history exists Hepatitis B Immunization Completed 003, 2002, 2002 Pneumococcal Immunization Combined Aged Out 07/25/2003, 2002, 2002, Additional history exists No longer eligible based on patient's age to complete this topic Measles Mumps Rubella (MMR) Immunization Discontinued 04/04/2007, 07/25/2003 Polio (IPV) Immunization Discontinued 007, 11/29/2003, 2002, Additional history exists Varicella Immunization Discontinued 04/04/2007, 2002 Hepatitis A Immunization Discontinued 04/05/2013, 0905/2011 Human Papillomavirus (HPV) Immunization Completed 06/14/2014, 02/08/2014, 12/04/2013 Meningococcal Immunization (ACWY) Completed 05/31/2019, 06/24/2015, 12/04/2013 Influenza Immunization Completed , 07/11/2019, 10/12/2017, Additional history exists Respiratory Syncytial Virus (RSV) Immunization (Adult) Completed 09/30/2024 Rotavirus Immunization Aged Out No lo nger eligible based on patient's age to complete this topic Insurance [facility] Care Teams Men'S Garment Fitter Relationship Specialty Start Date End Date Ronnie Flores MD PCP - General Family Medicine 09/18/19
--- OUTSIDE RECORDS SUMMARY | 2024-12-20 10:41 | XMS_ITS | Clinical Summary ---
Author Organization [facility] Address [address] [place] [address] Care Team Providers Care Merchandise Collector Name Role Phone Dena Padilla MD Unavailable [phone] Ronnie Flores MD Primary Care Provider [phone] Allergies Active Allergy Reactions Criticality Noted Date Comments Venom-Honey Bee Swelling Medium 02/18/2022 Medications cholecalciferol (VITAMIN D-3) 2000 unit tablet Take 1 tablet (2,000 Units total) by mouth daily 30 tablet 11 4 Active NIFEdipine (PROCARDIA XL/ADALAT CC) 30 mg 24 hr tablet Take 1 tablet (30 mg total) by mouth daily 30 tablet 3 5 026 Active vitamin K80-xjcnw acid 0.5-1 mg tablet Take by mouth [...] on APU. Follows with Dr. Johnson/Sandra at [facility] # MOC: Desires nexplanon placement. # MOF: [...] carried 12/04 in house: R1 (first call) [phone] R1 alt (second call) [phone] R4 (Chief) [phone] Assessment & Plan (11/21/2024 4:08 PM TMR TEACHER): Doing well Severe pre-eclampsia in third trimester 09/04/20 24 History of induced hypertension 2023 Assessment & Plan (11/21/2024 4:06 PM TMR TEACHER): To stop her procardia She will continue [...] She will f/u with Dr. Johnson/Sandra at [facility]. Sleep hygiene reviewed. Migraine without status migrainosus, [...] indicates transfer to Adult Medicine with visit Encounters Date Type Department Care Team Description 11/21/2024 3:30 PM TMR TEACHER Office Visit [facility] [address] [place] [address] [address], [place] [address] Dena Padilla MD care following delivery (Primary Dx); History of induced hypertension 10/26/2024 3:00 PM TMR TEACHER Clinical Support [facility] [address] [place] [phone] care following delivery (Primary Dx) 10/20/2024 1:38 PM TMR TEACHER - 10/20/2024 2:34 PM TMR TEACHER Emergency [facility] [place] [address] Tamara Chow MD Tachycardia (Primary Dx) Discharge Disposition: Left Against Medical Advice 10/12/2024 6:25 PM TMR TEACHER Anesthesia Event [address] [address] Tigist Castillo MD Dutta, Shourik, MD 10/12/[address] [address] Carmela Díaz MD SECTION 10/08/2024 Documentation [facility] Anesthesia [address] [place] [id number] Demetra Hightower MD 10/04/2024 9:45 AM TMR TEACHER Ancillary Procedure [address] 5th [place] [address] Encounter for follow-up ultrasound of anatomy 09/04/2024 4:24 PM TMR TEACHER - 10/15/2024 4:08 PM TMR TEACHER Hospital Encounter [address] [address] Allegra Rushing MD Dombrowski, MD Shasta Forrest, Vibha Espitia MD Severe pre-eclampsia in third trimester [O14.13] (Primary Dx); Hyperemesis affecting , antepartum [O21.0] Discharge Disposition: Discharge to home or self care from Last 3 Months Immunizations Immunization Administration Dates Next Due DTaP 5 Pertussis 04/04/2007, 4,2002,08/23,2002 HPV, Quadrivalent 06/14/2014,02/08/2014,12/05/19 14 Hep A, Pediatric 04/05/2013,05/29/2011 Hep B, Adolescent or Pediatric 01/23/2003,2001,2002 Hib (HbOC) 07/25/2003, 3,2002,06/24 IPV 04/04/2007, 4,2002,07/04 Influenza, Trivalent, Preser vative Free, Intramuscular 07/04/2024 MMR 04/04/2007,07/25/2003 Meningococcal MCV4P (Menactra) 12/04/2013 Pneumococcal Conjugate 7-Valent 07/25/20 03,2002,2002,07/04 RSV, Bivalent, Protein Subun it Rsvpref, Diluent (Abrysvo) 09/30/2024 Tdap 09/07/2024,04/05/2013 Varicella 04/04/2007,2003 Surgical History Surgery Date Site/Laterality Comments TONSILLECTOMY/ADENOIDECTOMY 09/20/2012 - 09/19/2013 CHOLECYSTECTOMY 05/17/2024 Medical History Medical History Date Comments [place] 2001 6-12 nl preg G4M 2P1 Family History Medical History Relation Name Comments Brain Aneurysm Mother 2015 Migraines Mother Migraines; X 1 Diabetes Other 1 Hypertension Other 2 Sudden Other 3 NONE Cancer Neg Hx no colon, breas t or obgyn hospitalist physician cancer cmt 05/09/24 Relation Name Status Comments Mother Alive Other 1 Other 2 Other 3 Social History Tobacco Use Types Packs/Day Years Used Date Smoking Tobacco: Never Smokeless Tobacco: Former Tobacco Cessation:Counseling Given: Not Answered Alcohol Use Standard Drinks/Week Comments Yes 5 (1 standard drink = 0.6 oz pur e alcohol) 1-2 times/ wk [facility] Utilities Answer Date Recorded In the past 12 months has e [employer], [employer], oil, or water [employer] threatened to shut off services in your [...] 09/06/2024 How often do you attend chur or judaism services? Never 09/06/2024 Do you belong to any clubs o r organizations such as mu-ism groups, unions, fraternal or athletic groups, or [...] staff should administer the PHQ-9) 0 09/04/2024 [facility] [place] of Occupat ional Health - Occupational Stress [...] things needed for daily living? No 09/06/2024 [place] Depression Scale Answer Date Recorded [place] Depression Scale Total 9 11/21/2024 The thought [...] any time in the past 12 m [facility], were you homeless or living in a penitentiary (including now)? No 09/06/2024 Personal Safety Answer Date Recorded Have you ever been in or are you currently in a harmful physical or emotional relationship or is someone making you feel afraid or unsafe? Denies 09/05/2024 Comments No Sex and Gender Information Value Date Recorded Sex Assigned at Not on file Legal Sex Female 9:37 AM TMR TEACHER Gender Identity Not on file Sexual Orientation Not on file Obstetrics History Para Term AB IAB SAB Ectopic Multiple Livin g Live Births 1 1 1 0 1 1 Date Outcome GA Total Labor Labor/2nd/3rd Weight Sex Type Anes PTL Nay A1 A5 Name Clin 2024 33w 5d 0h 01m 0h 01m 2.06 kg (4 lb 8.7 oz) M C-Sec tion Spinal N Livin g 7 8 Dale Sheri Carmela Landeros MD Complications: Intolera nce Delivery Location:[facility] Main C ampus ([facility] L AND D PROCEDURE) Summary Episode Dates Number of Fetuses Estimated Date of Delivery 05/09/2024 - Present (12/20/2024) 1 11/25/2024 (set by Dena Padilla MD on 05/09/2024 based on Ultrasound on 04/06/2024) Dating Summary Based On JOHNNY GA Diff Last Menstrual Period on 02/02/2024 (Approximate ) 11/08/2024 +2w3d Ultrasound on 04/06/2024 11/25/2024 Working GA:6w5d Ultrasound on 07/04/2024 11/21/2024 +4d GA:20w0d Ultrasound on 08/07/2024 11/25/2024 Same GA:24w2d Overview and Plan :Boyd Support person:Debbie Long or Zen Bowman- friend Delivery Plans Post-Delivery Plans Planned delivery method:Vaginal Feeding intentions:Breast Milk Planned anesthesia:Epidural Acceptable blood products:All Overview Acp- Jannet Mercedes - mom Vitals Pregravid Weight Height TWG (As of 12/20/2024) Pregrav id BMI 152.4 cm (5') Date GA Fund Present FHR Mvmt BP Weight Edema Alb Glu Ket Dil/ Eff/Sta 4 12w5d Inpatient data not displayed here. See encounter summary. 4 27w4d Inpatient data not displayed here. See encounter summary. 4 28w2d Inpatient data not displayed here. See encounter summary. 4 33w5d Inpatient data not displayed here. See encounter summary. Notes Progress Notes - Office Visi t - 11/21/2024 - GA:33w5d 11/21/2024 - 33w5d - Dena Padilla MD Images from the original note were not included. Note Subjective: Kayla Faye is a 24 y.o. year old female who presents 6 weeks s/p primary section. Her baby is doing well. She scored a 9/10 on the EPDS. Patient is breast and formula feeding. She is getting 8-9 hours of sleep a night. Bleeding is like a normal period. She has been bleeding more x 2 days. If still bleeding in 5 days to call. Contraceptive options discussed. Patient desires Nexplanon for contraception. Objective: BP 112/74 (BP Location: Right arm, Patient Position: Sitting) Ht 152.4 cm (5') Wt 158 lb (71.7 kg) LMP 02/02/2024 (Approximate) Yes BMI 30.86 kg/m Wt Readings from Last 3 Encounters: 11/21/24 158 lb (71.7 kg) 10/26/24 157 lb (71.2 kg) 09/01/24 167 lb (75.8 kg) Physical Exam: General: Pleasant female in no acute distress. No calf tenderness or edema Ab- soft, fundus firm, incision is c/d/I. Thyroid is good Pelvic exam wnl Assessment and Plan: Diagnoses and all orders for this visit: care following delivery (Primary) Assessment & Plan: Doing well History of induced hypertension Assessment & Plan: To stop her procardia She will continue to watch her bp Return in about 2 weeks (around 12/05/2024) for bp f/u. Dena Padilla MD 11/21/2024 CMT Progress Notes - Clinical [place] pport - 10/26/2024 - GA:33w5d 10/26/2024 - 33w5d - Alicia Leonard MA Pt here for 2 week post . She delivered by C/S at [place] in [facility]. The baby is still in the NICU, but they're hopeful he will come home this Wednesday. She is not and got a Nexplanon inserted after delivery. She scored 9 on EPDS. TEACHER Progress Notes - Hospital En counter - 10/15/2024 - GA:33w5d 10/15/2024 - 33w5d - Gabriela Contreras MD Post Progress Note Delivery Date/Time: 10/12/2024 6:57 PM Delivery method: [351] Subjective Doing well Tolerating diet Pain controlled Voiding spontaneously Denies n/v Scheduled Medications acetaminophen, 1,000 mg, oral, Q6H docusate sodium, 100 mg, oral, BID doxylamine, 25 mg, oral, Nightly enoxaparin, 40 mg, subcutaneous, Daily-2100 escitalopram, 20 mg, oral, Daily etonogestreL, 68 mg, subdermal, Once And lidocaine (PF), 5 mL, subcutaneous, Once famotidine, 20 mg, oral, Daily ibuprofen, 600 mg, oral, Q6H NIFEdipine, 30 mg, oral, Daily viatmin, 1 tablet, oral, Daily Rho(D) immune globulin, 300 mcg, intramuscular, Once senna, 1 tablet, oral, BID sodium chloride 0.9%, 0.5-20 mL, intra-catheter, Q8H ISABELL PRN Medications hydrocortisone lsqpmlw-odtsf-miagqzv ondansetron ODT OR ondansetron oxyCODONE polyethylene glycol ramelteon simethicone sodium chloride 0.9% varicella zoster Vitals: Temp: [36.7 C (98 F)-36.8 C (98.3 F)] 36.7 C (98 F) Pulse: [78-98] 78 BP: (118-129)/(62-75) 122/68 Resp: [16-17] 17 SpO2: [95 %-99 %] 99 % No intake or output data in the 24 hours ending 10/15/24 0714 Physical Exam General: No acute distress. Cardiovascular: Regular rate and rhythm. Lungs: Non-labored. Abdomen: Soft, mildly distended, appropriately tender to palpation. Fundus below umbilicus. Incision c/d/i Extremities: Warm and well-perfused. Neuro: Globally intact Recent Labs Lab Units 10/14/24 0644 10/13/24 0553 10/12/24 0616 10/11/24 0621 WBC K/cumm 16.7* 19.9* 14.1* 15.8* HEMOGLOBIN g/dL 9.6* 11.0* 11.4* 11.2* HEMATOCRIT % 28.0* 32.2* 32.0* 31.7* PLATELETS K/cumm 281 340 318 342 CREATININE mg/dL 0.53* -- 0.49* 0.59* AST Units/L 45 -- 27 39 ALT Units/L 58* -- 97* 139* GLUCOSE mg/dL 77 -- 95 91 Assessment and Plan 24 y.o. POD#3from RLTCS. Problem Care Following Delivery # ID: Afebrile. No signs/symptoms of infection. [...] APAP. #Psych: #Depression: Increased lexapro to 20mg (^1/6). S/p SW consult on APU. Follows with Dr. Johnson/Sandra at [facility] # MOC: Desires nexplanon placement. # MOF: [...] carried 12/04 in house: R1 (first call) [phone] R1 alt (second call) [phone] R4 (Chief) [phone] Gabriela Contreras MD, MPH PGY2 Obstetrics and Gynecology Cosigned by Aline Smith MD at 10/15/2024 10:25 AM TMR TEACHER TEACHER TEACHER Associated attestation - Aline Smith MD - 10/15/2024 10:25 AM TMR TEACHER I have seen and examined the patient on 10/15/24. I agree with the findings and plan of care as documented in the resident's/fellow's note. Meeting goals. Nexplanon placement today. BPs normotensive. OK for discharge this afternoon vs. Tomorrow. Aline Smith MD [facility] Division of Maternal- Medicine 10/14/2024 - 33w5d - Jayde Garrett MD Post Progress Note Delivery Date/Time: 10/12/2024t 6:57 PM Delivery method: [351] Subjective Doing well Tolerating diet Pain controlled Voiding spontaneously Denies n/v Scheduled Medications acetaminophen, 1,000 mg, oral, Q6H docusate sodium, 100 mg, oral, BID doxylamine, 25 mg, oral, Nightly enoxaparin, 40 mg, subcutaneous, Daily-2100 escitalopram, 20 mg, oral, Daily famotidine, 20 mg, oral, Daily ibuprofen, 600 mg, oral, Q6H NIFEdipine, 30 mg, oral, Daily viatmin, 1 tablet, oral, Daily senna, 1 tablet, oral, BID sodium chloride 0.9%, 0.5-20 mL, intra-catheter, Q8H ISABELL PRN Medications hydrocortisone jojztbx-kimtt-fmqfvbn ondansetron ODT OR ondansetron oxyCODONE polyethylene glycol ramelteon simethicone sodium chloride 0.9% varicella zoster Vitals: Temp: [36.6 C (97.8 F)-36.9 C (98.4 F)] 36.8 C (98.3 F) Pulse: [74-90] 85 BP: (114-127)/(68-72) 118/71 Resp: [16-18] 16 SpO2: [97 %-99 %] 97 % Intake/Output Summary (Last 24 hours) at 10/14/2024 0634 Last data filed at 10/13/2024 1625 Gross per 24 hour Intake -- Output 800 ml Net -800 ml Physical Exam General: No acute distress. Cardiovascular: Regular rate and rhythm. Lungs: Non-labored. Abdomen: Soft, mildly distended, appropriately tender to palpation. Fundus below umbilicus. Bandage c/d/i Extremities: Warm and well-perfused. Neuro: Globally intact Recent Labs Lab Units 10/13/24 0553 10/12/24 0616 10/11/24 0621 10/10/24 0624 WBC K/cumm 19.9* 14.1* 15.8* 15.4* HEMOGLOBIN g/dL 11.0* 11.4* 11.2* 12.2 HEMATOCRIT % 32.2* 32.0* 31.7* 34.8* PLATELETS K/cumm 340 318 342 352 CREATININE mg/dL -- 0.49* 0.59* 0.57* AST Units/L -- 27 39 61* ALT Units/L -- 97* 139* 180* GLUCOSE mg/dL -- 95 91 89 Assessment and Plan 24 y.o. POD#2from RLTCS. Problem Care Following Delivery # ID: Afebrile. No signs/symptoms of infection. [...] 6 followed by 16. LFTs down trending #NeuroL # Pain: Controlled with above regimen. #Migraines: well controlled with APAP. #Psych: #Depression: Increased lexapro to 20mg (^09/25). S/p SW consult on APU. Follows with Dr. Johnson/Sandra at [facility] # MOC: Desires nexplanon placement. # MOF: [...] up to be scheduled with primary OB. Continue routine care. Service Coverage These phones are service phones and carried 12/04 in house: R1 (first call) [phone] R1 alt (second call) [phone] R4 (Chief) [phone] Jayde Garrett MD RADIO MESSAGE ROUTER PGY-3 Cosigned by Aline Smith MD at 10/14/2024 12:24 PM TMR TEACHER TEACHER TEACHER Associated attestation - Aline Smith MD - 10/14/2024 12:24 PM TMR TEACHER I have seen and examined the patient on 10/14/24. I agree with the findings and plan of care as documented in the resident's/fellow's note. BPs normotensive. Bandage removed, pfannenstiel incision clean/dry/intact. Hgb 9.6. Meeting postoperative milestones. Desires Nexplanon placement. Continue postoperative care s/p section. Aline Smith MD [facility] Division of Maternal- Medicine 10/13/2024 - 33w5d - Fadia Darling LCSW Reason for Admission MOB (Jayesh Faye 10/12/2024) was admitted on 10/12/2024 for Prematurity, 2,000-2,499 grams, 33-34 completed weeks [P07.18]. Social Work referral for pp follow up. Medical History OB-DRYWALL STRIPPER HELPER care has been established with Dr. Padilla. controlled atmospheric furnace brazer to be scheduled upon discharge from [facility] NICU. Medical insurance coverage is through [employer]. Information Baby boy was born on 10/12/24 at EGA 33.5 weeks. Delivery was . [place] weighed 4lb 8.7oz at delivery. [place] will be breast/formula fed. This is mother's 1st child. admitted to [facility] re: prematurity. Social History Current address is [address] [place] [address] [place] [address], where she lives with her mom, step dad, and sister. Currently [phone] (home) is the best phone number for future contact. Pt reports that her family, friends, and boyfriend are positive supports for her and baby. No information on FOB provided throughout SW discussion. Mood and Anxiety SW and patient discussed patient's hx of anxiety and depression. Kayla Faye states that she overall feels stable, noting that she increased Lexapro dosing from 10mg to 20mg a few weeks ago. Pt denies having any concerns with mood instability. She confirms that her mother is a good support for her, stating I call her when I need to talk . Social Work discussed and normalized increase in emotions and the importance of self-care. Social Work encouraged pt to take time for herself and utilize supports available. Pt engaged in conversation and demonstrates knowledge. Pt confirms that she feels supported by her family/friends and can reach out to her supports or medical staff for follow up if symptoms arise. SW reviews [facility] SW and [facility] support services available throughout 's ongoing admission. MOB engaged in conversation and demonstrates knowledge. Resources Provided and Goals Addressed Social Determinants of Health: Pt reports no issues with transportation, access to food, supports, or finances. Kayla Faye confirms that she and family have secured all needed baby items (car seat, packnplay, clothes, diapers, hygiene items, etc). No lodging concerns noted, as MOB lives local in [place], [place]. [facility] SW provides support and encouragement. Family denies having any questions or concerns for this clinician. Family understanding to follow up with [facility] NICU SW throughout baby's ongoing admission. Strengths MOB is open and receptive to Social Work intervention, education, and resources. Safe Discharge Plan [facility] SW to collaborate with [facility] SW for family care handoff, as needed. [facility] SW will follow up with family throughout remainder of infant's admission to [facility]. No further [facility] SW needs indicated at this time. Fadia FARNSWORTH, BRYON [facility] Clinical Certified Ophthalmic Assistant [facility] TEACHER 10/13/2024 - 33w5maritza - Estela Newman MD Post Progress Note Delivery Date/Time: 10/12/2024t 6:57 PM Delivery method: [351] Subjective Flatus: Yes Pain: Well controlled Diet: Tolerating regular diet. Ambulating independently Void trialing Lochia greater than menses Scheduled Medications acetaminophen, 1,000 mg, oral, Q6H ISABELL acetaminophen, 1,000 mg, oral, Q6H docusate sodium, 100 mg, oral, BID doxylamine, 25 mg, oral, Nightly enoxaparin, 40 mg, subcutaneous, Daily-2100 escitalopram, 20 mg, oral, Daily famotidine, 20 mg, oral, Daily ibuprofen, 600 mg, oral, Q6H ketorolac, 30 mg, intravenous, Q6H ISABELL NIFEdipine, 30 mg, oral, Daily viatmin, 1 tablet, oral, Daily senna, 1 tablet, oral, BID sodium chloride 0.9%, 0.5-20 mL, intra-catheter, Q8H ISABELL PRN Medications [COMPLETED] magnesium sulfate AND magnesium sulfate AND calcium gluconate AND Magnesium diphenhydrAMINE hydrocortisone HYDROmorphone HYDROmorphone lpvvcel-cqhlw-wnnzzyu naloxone ondansetron ODT OR ondansetron ondansetron ODT OR ondansetron oxyCODONE oxyCODONE polyethylene glycol ramelteon simethicone sodium chloride 0.9% varicella zoster Vitals: Temp: [36.7 C (98 F)-36.9 C (98.5 F)] 36.7 C (98 F) Pulse: [69-126] 69 BP: (99-127)/(53-80) 99/55 Resp: [16-18] 18 SpO2: [94 %-100 %] 96 % Intake/Output Summary (Last 24 hours) at 10/13/2024 0633 Last data filed at 10/13/2024 0520 Gross per 24 hour Intake 900 ml Output 1890 ml Net -990 ml Physical Exam General: No acute distress. Cardiovascular: Regular rate and rhythm. Lungs: Non-labored. Abdomen: Soft, mildly distended, appropriately tender to palpation. Fundus below umbilicus. Bandage c/d/i Extremities: Warm and well-perfused. Neuro: Globally intact Recent Labs Lab Units 10/13/24 0553 10/12/24 0616 10/11/24 0621 10/10/24 0624 WBC K/cumm 19.9* 14.1* 15.8* 15.4* HEMOGLOBIN g/dL 11.0* 11.4* 11.2* 12.2 HEMATOCRIT % 32.2* 32.0* 31.7* 34.8* PLATELETS K/cumm 340 318 342 352 CREATININE mg/dL -- 0.49* 0.59* 0.57* AST Units/L -- 27 39 61* ALT Units/L -- 97* 139* 180* GLUCOSE mg/dL -- 95 91 89 Assessment and Plan 24 y.o. POD#1from RLTCS. Problem Care Following Delivery # ID: Afebrile. No signs/symptoms of infection. # Heme: Hgb 11.4. EBL 600 mL. POD1 Hgb 11.0. Hemodynamically stable. # CV/Pulm: Pre-eclampsia with severe features - magnesium sulfate running at 2g/hr for a total of 24 hours . Blood pressures well controlled on NXL30. CMP with elevated LFTs attributed to intrahepatic cholestasis of . CBC wnl. UPC 0.17. To be enrolled in remote blood pressure monitoring. # GI/: Tolerating PO. Adequate urine output, void trial now. #Intrahepatic cholestasis of : #Transaminitis: elevated LFTs on admit with Bile acids 53. Other work up negative per APU hospital course. Repeat Bile acids 2 wks later 6 followed by 16. LFTs down trending POD1 #NeuroL # Pain: Controlled with above regimen. #Migraines: well controlled with APAP. #Psych: #Depression: Increased lexapro to 20mg (^09/25). S/p SW consult on APU. Follows with Dr. Johnson/Sandra at [facility] # MOC: Desires nexplanon placement. # MOF: [...] up to be scheduled with primary OB. Continue routine care. Service Coverage These phones are service phones and carried 12/04 in house: R1 (first call) [phone] R1 alt (second call) [phone] R4 (Chief) [phone] Estela Newman MD PGY-2 Obstetrics & Gynecology 10/13/24 Cosigned by Vibha Tristan MD at 10/13/2024 10:58 AM TMR TEACHER TEACHER TEACHER Associated attestation - Vibha Tristan MD - 10/13/2024 10:58 AM TMR TEACHER I have seen and examined the patient on 10/13/24. I agree with the findings and plan of care as documented in the resident's/fellow's note. 10/13/2024 - 33w5d - Shabana Rich RN Upon admission to L&D, mother reported plan to breast and formula feed . Educated mother on risks of supplementation and/or formula use while learning how to breastfeed. Encouraged mother to call nursing staff for assistance with latching infant prn. Mother reports understanding of all education provided and desires to supplement prn. Encouragement and support provided. 10/12/2024 9:21 PM Shabana Rich RN TEACHER 10/12/2024 - 33w5d - Fadia Darling LCSW Reason for Admission Pt (Kayla Faye 2000) was admitted on 09/04/2024 for Hypertension in , essential, antepartum [O10.019]. Pt has continued to be admitted to [facility] APU since this time. Kayla Faye noted to have hx of anxiety and depression. Medical History OB-DRYWALL STRIPPER HELPER care has been established with Dr. Padilla. Medical insurance coverage is through [employer]. Pt is currently 33.4 weeks EGA, expecting a baby boy. Delivery scheduled for 34 weeks on 10/14/24. MOB confirms understanding of admission to NICU after delivery. Social History Current address is [address] [place] [address] [place] [address], where she lives with her mom, step dad, and sister. Currently [phone] (home) is the best phone number for future contact. Pt reports that her family, friends, and boyfriend are positive supports for her and baby. Mood and Anxiety SW and patient discussed patient's hx of anxiety and depression. Kayla Faye states that she overall feels stable, noting that she increased Lexapro dosing from 10mg to 20mg a few weeks ago. Pt denies having any concerns with mood instability. She confirms that her mother is a good support for her, stating I call her when I need to talk . Social Work discussed and normalized increase in emotions and the importance of self-care. Social Work encouraged pt to take time for herself and utilize supports available. Pt engaged in conversation and demonstrates knowledge. Pt confirms that she feels supported by her family/friends and can reach out to her supports or medical staff for follow up if symptoms arise. This clinician reviews [facility] SW and [facility] supports available to her after delivery as well. Resources Provided and Goals Addressed Social Determinants of Health: Pt reports no issues with transportation, access to food, supports, or finances. Kayla Faye confirms that she and family have secured all needed baby items (car seat, packnplay, clothes, diapers, hygiene items, etc). Pt thankful for check in and follow up support. Patient denied needing any further resources at this time. Strengths Pt is open and receptive to Social Work intervention, education, and resources. Safe Discharge Plan Social Work will continue to attend [facility] and collaborate with medical team. Social Work will follow for support and additional needs should they arise. Fadia FARNSWORTH, [facility] Clinical Certified Ophthalmic Assistant [facility] TEACHER 10/12/2024 - 33w5d - Jayde Garrett MD Antepartum Progress Note Gestational Age: 33w5d Admission Date: 09/04/2024 Length of stay: 38 Brief HPI: 24 y.o. female at 33w5d gestation admitted for superimposed preeclampsia with severe features. also complicated by hx of lsc dona, ICP, hx cannabis use, migraine without aura, and depression. INTERVAL HISTORY - BPs remain well controlled - LFTs continue to downtrend - Has required longer monitoring over past 2 days. Overall still very reassuring. SUBJECTIVE - Denies preE sxs. No OB complaints. Review of Systems Negative except as per above. OBJECTIVE Vitals: Temp Min: 36.4 C (97.5 F) Max: 36.9 C (98.5 F) Pulse Min: 72 Max: 111 BP Min: 110/67 Max: 132/74 Resp Min: 16 Max: 16 SpO2 Min: 97 % Max: 98 % FHR: reactive NST (2 x hours of monitoring) [place]: irregular ctx, not felt Physical Exam General: No acute distress. Cardiovascular: Normal rate, regular rhythm Lungs: Non-labored Abdomen: Soft, non-tender, gravid. Extremities: Warm and well-perfused. Pelvic: Deferred. Neurologic: Alert and oriented x4 Lab Review: Recent Results (from the past 24 hours) Comprehensive metabolic panel Collection Time: 10/12/24 6:16 AM Result Value Ref Range Sodium 140 135 - 145 mmol/L Potassium, pl 4.1 3.3 - 4.9 mmol/L Chloride 106 97 - 110 mmol/L CO2 25 22 - 32 mmol/L Anion gap 9 2 - 15 mmol/L BUN 11 6 - 25 mg/dL Creatinine 0.49 (L) 0.60 - 1.10 mg/dL Glucose 95 70 - 199 mg/dL Calcium 9.0 8.5 - 10.3 mg/dL Bilirubin, total <0.2 0.1 - 1.2 mg/dL Protein, pl 5.9 (L) 6.5 - 8.5 g/dL Albumin 2.9 (L) 3.5 - 5.0 g/dL Alk phos 226 (H) 40 - 130 Units/L ALT 97 (H) 7 - 45 Units/L AST 27 10 - 45 Units/L CBC without differential Collection Time: 10/12/24 6:16 AM Result Value Ref Range WBC 14.1 (H) 3.8 - 9.9 K/cumm Hgb 11.4 (L) 11.9 - 15.5 g/dL Hct 32.0 (L) 35.6 - 45.5 % Plt 318 150 - 400 K/cumm MPV 9.8 9.1 - 12.3 fL RBC 3.56 (L) 3.90 - 5.20 M/cumm MCV 89.9 81.3 - 96.4 fL MCH 32.0 27.1 - 33.3 pg MCHC 35.6 32.3 - 35.7 g/dL RDW CV 13.2 11.1 - 14.9 % RDW SD 43.2 35.7 - 48.1 fL NRBC abs 0.00 0.00 - 0.01 K/cumm Phosphorus Collection Time: 10/12/24 6:16 AM Result Value Ref Range Phosphorus, pl 4.0 2.3 - 4.5 mg/dL Magnesium Collection Time: 10/12/24 6:16 AM Result Value Ref Range Magnesium 1.8 1.4 - 2.5 mg/dL eGFR Collection Time: 10/12/24 6:16 AM Result Value Ref Range eGFR >90 >=60 mL/min/1.73 m2 ASSESSMENT/PLAN Kayla Faye is a 24 y.o. at 33w5d admitted for PreEwSF. #Pre-eclampsia with severe features - Chart review with gHTN based on MRBPs >4h apart on 08/27 - Presented to OSH with sustained SRBPs and spotted with L20, 4g Mg bolus - P/w mild headache, N/V (see below) - sustained SRBP; spotted L20 - neuro sx: mild headache, no blurry vision, +epigastric tenderness, no SOB, no LE swelling - Diagnosed with Pre-E w/ SF by: SRBP requiring IV spotting with headache - Baseline labs: Cr 0.54,AST 14, ALT 10, Hgb 13.7, Plt 320, UPC 0.1 - OSH labs: Cr 0.5, AST 26, ALT 60, Hgb 12, Plt 360, UPC 0.1 - Admit labs: Cr 0.4, AST 34, ALT 69, Hgb 12, Plt 320, UPC 0.17 - s/p 4g bolus, Mg continued on admission > dc'd 09/040 - UDS deferred - Transaminitis attributed to cholestasis, see plan below Plan: - CURRENT REGIMEN: ASA, Nifed 30mg XL (09/05) - Admission until delivery at 34 weeks or when otherwise indicated - daily labs #ICP #Transaminitis - Transaminitis on admission. Trended down and were stable in normal range. - Admit work up: - LDH 304>248 - Hepatitis panel negative - CMV, EBV, HSV neg - Normal RUQ - Bile acids 53 - Transaminitis with bile acids 53 on admit - 09/22 Bile acids: 6 - LFTs increased again 10/07 - 10/08 Bile acids 16 Plan: - Ursodiol 500mg TID (^10/06), titrate per symptoms - Daily CMP #Cannabis use #Nausea and vomiting of vs cannabis-induced hyperemesis, resolved #Prolonged QT, resolved - Recent admission 08/29-08/30 at [facility] for N/V that improved with anti-emetics - Presented unable to tolerate PO for the past day - IOB weight 66kg > 75kg on admission - Ketones 3+ on admission -Thiamine and phos repletion on admission - EKG with QTC ^480 > 423 on repeat - CBC wnl, CMP with ALT 69, lipase WNL, UA 3+ glucose/ketones, hepatitis panel WNL, H pylori deferred, RUQ US neg, head imaging deferred - RVP neg - DDx includes N/V in , MJ induced nausea, HEG, or GI-related etiology - Previous antiemetics attempted: zofran, compazine - s/p cessation counseling Plan: - Current regimen: B6 TID, unisom nightly, zofran prn, comp PRN #Migraine without aura - Headaches well controlled during admission - APAP PRN #Depression - Increased lexapro to 20mg (^09/25) - SW consult - Follows with Dr. Johnson/Sandra at [facility] #FWB: - OSH US 09/04/24: EFW 1425g, (85%tile), normal SAADIA, vertex - Genetic screening: LR NIPT - Anatomy US: incomplete 07/04 and 08/07 - fUS 09/06: EFW 1159g (20%), normal fluid. - fUS 10/04: EFW 2000g (40%), V, nml SAADIA. Anatomy complete - BMZ^09/06; rBMZ ^ 10/08 @ 1030 - s/p Mg for PreE - PCN n/a GBS neg. - peds consult 09/05 - MONITORING PLAN: dNST #MWB #SMA carrier #Rh negative - PNL: Rh O-/Ab neg/HIV NR/Rub imm/RPR NR/HepB neg/GC/CT neg/neg - 1 hr GTT, 113 - 3T HIV/RPR NR 09/04 - s/p flu vax 07/04, Tdap 09/07 - RSV vax 09/30 - Rhogam 09/07 - Pap NILM 05/09/24 - GBS neg 10/06 - MOD: anticipate vaginal, IOL scheduled 10/14/24 - MOF: formula with donor breast milk - MOC: nexplanon - Antepartum VTE Prophylaxis: lovenox Dispo: inpatient management until delivery Jayde Garrett MD RADIO MESSAGE ROUTER PGY-3 Cosigned by Vibha Tristan MD at 10/12/2024 9:54 AM TMR TEACHER TEACHER TEACHER Associated attestation - Vibha Tristan MD - 10/12/2024 9:54 AM TMR TEACHER I have seen and examined the patient on 10/12/24. I agree with the findings and plan of care as documented in the resident's/fellow's note. 10/11/2024 - 33w4d - Jayde Garrett MD Antepartum Progress Note Gestational Age: 33w4d Admission Date: 09/04/2024 Length of stay: 37 Brief HPI: 24 y.o. female at 33w4d gestation admitted for superimposed preeclampsia with severe features. also complicated by hx of lsc dona, ICP, hx cannabis use, migraine without aura, and depression. INTERVAL HISTORY - Blood pressures remained well controlled - LFTs downtrending, bile acids elevated to 16. Attributing LFT increase to rise in bileacids SUBJECTIVE - Denies preE sxs. No OB complaints. Review of Systems Negative except as per above. OBJECTIVE Vitals: Temp Min: 36.6 C (97.8 F) Max: 36.9 C (98.5 F) Pulse Min: 79 Max: 101 BP Min: 108/71 Max: 126/72 Resp Min: 16 Max: 18 SpO2 Min: 96 % Max: 99 % FHR: Initial NST reassuring but not reactive. Has reactive NST following. [place]: contractions absent Physical Exam General: No acute distress. Cardiovascular: Normal rate, regular rhythm Lungs: Non-labored Abdomen: Soft, non-tender, gravid. Extremities: Warm and well-perfused. Pelvic: Deferred. Neurologic: Alert and oriented x4 Lab Review: Recent Results (from the past 24 hours) Antibody identification Collection Time: 10/10/24 7:46 AM Result Value Ref Range Antibody ID 1 Passive Anti-D ASSESSMENT/PLAN Kayla Faye is a 24 y.o. at 33w4d admitted for PreEwSF. #Pre-eclampsia with severe features - Chart review with gHTN based on MRBPs >4h apart on 08/27 - Presented to OSH with sustained SRBPs and spotted with L20, 4g Mg bolus - P/w mild headache, N/V (see below) - sustained SRBP; spotted L20 - neuro sx: mild headache, no blurry vision, +epigastric tenderness, no SOB, no LE swelling - Diagnosed with Pre-E w/ SF by: SRBP requiring IV spotting with headache - Baseline labs: Cr 0.54,AST 14, ALT 10, Hgb 13.7, Plt 320, UPC 0.1 - OSH labs: Cr 0.5, AST 26, ALT 60, Hgb 12, Plt 360, UPC 0.1 - Admit labs: Cr 0.4, AST 34, ALT 69, Hgb 12, Plt 320, UPC 0.17 - s/p 4g bolus, Mg continued on admission > dc'd 09/04 2230 - UDS deferred - Transaminitis attributed to cholestasis, see plan below Plan: - CURRENT REGIMEN: ASA, Nifed 30mg XL (09/05) - Admission until delivery at 34 weeks or when otherwise indicated - daily labs #ICP #Transaminitis - Transaminitis on admission. Trended down and were stable in normal range. - Admit work up: - LDH 304>248 - Hepatitis panel negative - CMV, EBV, HSV neg - Normal RUQ - Bile acids 53 - Transaminitis with bile acids 53 on admit - 09/22 Bile acids: 6 - LFTs increased again 10/07 - 10/08 Bile acids 16 Plan: - Ursodiol 500mg TID (^10/06), titrate per symptoms - Daily CMP #Cannabis use #Nausea and vomiting of vs cannabis-induced hyperemesis, resolved #Prolonged QT, resolved - Recent admission 08/29-08/30 at [facility] for N/V that improved with anti-emetics - Presented unable to tolerate PO for the past day - IOB weight 66kg > 75kg on admission - Ketones 3+ on admission -Thiamine and phos repletion on admission - EKG with QTC ^480 > 423 on repeat - CBC wnl, CMP with ALT 69, lipase WNL, UA 3+ glucose/ketones, hepatitis panel WNL, H pylori deferred, RUQ US neg, head imaging deferred - RVP neg - DDx includes N/V in , MJ induced nausea, HEG, or GI-related etiology - Previous antiemetics attempted: zofran, compazine - s/p cessation counseling Plan: - Current regimen: B6 TID, unisom nightly, zofran prn, comp PRN #Migraine without aura - Headaches well controlled during admission - APAP PRN #Depression - Increased lexapro to 20mg (^09/25) - SW consult - Follows with Dr. Johnson/Sandra at [facility] #FWB: - OSH US 09/04/24: EFW 1425g, (85%tile), normal SAADIA, vertex - Genetic screening: LR NIPT - Anatomy US: incomplete 07/04 and 08/07 - fUS 09/06: EFW 1159g (20%), normal fluid. - fUS 10/04: EFW 2000g (40%), V, nml SAADIA. Anatomy complete - BMZ^09/06; rBMZ ^ 10/08 @ 1030 - s/p Mg for PreE - PCN n/a GBS neg. - peds consult 09/05 - MONITORING PLAN: dNST #MWB #SMA carrier #Rh negative - PNL: Rh O-/Ab neg/HIV NR/Rub imm/RPR NR/HepB neg/GC/CT neg/neg - 1 hr GTT, 113 - 3T HIV/RPR NR 09/04 - s/p flu vax 07/04, Tdap 09/07 - RSV vax 09/30 - Rhogam 09/07 - Pap NILM 05/09/24 - GBS neg 10/06 - MOD: anticipate vaginal, IOL scheduled 10/14/24 - MOF: formula with donor breast milk - MOC: nexplanon - Antepartum VTE Prophylaxis: lovenox Dispo: inpatient management until delivery Jayde Garrett MD RADIO MESSAGE ROUTER PGY-3 Cosigned by Allegra Rushing MD at 10/12/2024 6:42 AM TMR TEACHER TEACHER TEACHER TEACHER Associated attestation - Allegra Rushing MD - 10/12/2024 6:42 AM TMR TEACHER I have seen and examined the patient on 10/11/2024. I agree with the findings and plan of care as documented in the resident's/fellow's note.. Allegra Rushing MD 10/10/2024 - 33w3d - Jayde Garrett MD Antepartum Progress Note Gestational Age: 33w3d Admission Date: 09/04/2024 Length of stay: 36 Brief HPI: 24 y.o. female at 33w3d gestation admitted for superimposed preeclampsia with severe features. also complicated by hx of lsc dona, ICP, hx cannabis use, migraine without aura, and depression. INTERVAL HISTORY - Blood pressures remained well controlled - Nausea yesterday that improved with zofran SUBJECTIVE - Resting comfortably, No OB complaints Review of Systems Negative except as per above. OBJECTIVE Vitals: Temp Min: 36.7 C (98 F) Max: 37.1 C (98.8 F) Pulse Min: 75 Max: 91 BP Min: 105/63 Max: 116/63 Resp Min: 16 Max: 18 SpO2 Min: 96 % Max: 98 % FHR: NST reactive [place]: contractions absent Physical Exam General: No acute distress. Cardiovascular: Normal rate, regular rhythm Lungs: Non-labored Abdomen: Soft, non-tender, gravid. Extremities: Warm and well-perfused. Pelvic: Deferred. Neurologic: Alert and oriented x4 Lab Review: Recent Results (from the past 24 hours) CBC without differential Collection Time: 10/09/24 1:11 PM Result Value Ref Range WBC 13.7 (H) 3.8 - 9.9 K/cumm Hgb 11.2 (L) 11.9 - 15.5 g/dL Hct 32.3 (L) 35.6 - 45.5 % Plt 307 150 - 400 K/cumm MPV 9.7 9.1 - 12.3 fL RBC 3.58 (L) 3.90 - 5.20 M/cumm MCV 90.2 81.3 - 96.4 fL MCH 31.3 27.1 - 33.3 pg MCHC 34.7 32.3 - 35.7 g/dL RDW CV 13.3 11.1 - 14.9 % RDW SD 43.4 35.7 - 48.1 fL NRBC abs 0.00 0.00 - 0.01 K/cumm Type and screen Collection Time: 10/10/24 6:24 AM Result Value Ref Range ABO Rh O Negative Indira, indirect Positive (A) Comprehensive metabolic panel Collection Time: 10/10/24 6:24 AM Result Value Ref Range Sodium 139 135 - 145 mmol/L Potassium, pl 4.3 3.3 - 4.9 mmol/L Chloride 105 97 - 110 mmol/L CO2 25 22 - 32 mmol/L Anion gap 9 2 - 15 mmol/L BUN 7 6 - 25 mg/dL Creatinine 0.57 (L) 0.60 - 1.10 mg/dL Glucose 89 70 - 199 mg/dL Calcium 9.2 8.5 - 10.3 mg/dL Bilirubin, total 0.2 0.1 - 1.2 mg/dL Protein, pl 6.8 6.5 - 8.5 g/dL Albumin 3.5 3.5 - 5.0 g/dL Alk phos 241 (H) 40 - 130 Units/L ALT 180 (H) 7 - 45 Units/L AST 61 (H) 10 - 45 Units/L CBC without differential Collection Time: 10/10/24 6:24 AM Result Value Ref Range WBC 15.4 (H) 3.8 - 9.9 K/cumm Hgb 12.2 11.9 - 15.5 g/dL Hct 34.8 (L) 35.6 - 45.5 % Plt 352 150 - 400 K/cumm MPV 9.7 9.1 - 12.3 fL RBC 3.85 (L) 3.90 - 5.20 M/cumm MCV 90.4 81.3 - 96.4 fL MCH 31.7 27.1 - 33.3 pg MCHC 35.1 32.3 - 35.7 g/dL RDW CV 13.4 11.1 - 14.9 % RDW SD 43.7 35.7 - 48.1 fL NRBC abs 0.00 0.00 - 0.01 K/cumm Phosphorus Collection Time: 10/10/24 6:24 AM Result Value Ref Range Phosphorus, pl 4.2 2.3 - 4.5 mg/dL Magnesium Collection Time: 10/10/24 6:24 AM Result Value Ref Range Magnesium 1.7 1.4 - 2.5 mg/dL eGFR Collection Time: 10/10/24 6:24 AM Result Value Ref Range eGFR >90 >=60 mL/min/1.73 m2 Antibody identification Collection Time: 10/10/24 7:46 AM Result Value Ref Range Antibody ID 1 Passive Anti-D ASSESSMENT/PLAN Kayla Faye is a 24 y.o. at 33w3d admitted for PreEwSF. #Pre-eclampsia with severe features - Chart review with gHTN based on MRBPs >4h apart on 08/27 - Presented to OSH with sustained SRBPs and spotted with L20, 4g Mg bolus - P/w mild headache, N/V (see below) - sustained SRBP; spotted L20 - neuro sx: mild headache, no blurry vision, +epigastric tenderness, no SOB, no LE swelling - Diagnosed with Pre-E w/ SF by: SRBP requiring IV spotting with headache - Baseline labs: Cr 0.54,AST 14, ALT 10, Hgb 13.7, Plt 320, UPC 0.1 - OSH labs: Cr 0.5, AST 26, ALT 60, Hgb 12, Plt 360, UPC 0.1 - Admit labs: Cr 0.4, AST 34, ALT 69, Hgb 12, Plt 320, UPC 0.17 - s/p 4g bolus, Mg continued on admission > dc'd 09/04 2230 - UDS deferred - Transaminitis attributed to cholestasis, see plan below Plan: - CURRENT REGIMEN: ASA, Nifed 30mg XL (09/05) - Admission until delivery at 34 weeks or when otherwise indicated - daily labs while LFTs elevated #ICP #Transaminitis - Transaminitis on admission. Trended down and were stable in normal range. - Admit work up: - LDH 304>248 - Hepatitis panel negative - CMV, EBV, HSV neg - Normal RUQ - Bile acids 53 - Transaminitis with bile acids 53 on admit - 09/22 Bile acids: 6 - LFTs increased again 10/07 - 10/07 Bile acids 13 Plan: - Ursodiol 500mg TID (^10/06), titrate per symptoms - Daily CMP #Cannabis use #Nausea and vomiting of vs cannabis-induced hyperemesis, resolved #Prolonged QT, resolved - Recent admission 08/29-08/30 at [facility] for N/V that improved with anti-emetics - Presented unable to tolerate PO for the past day - IOB weight 66kg > 75kg on admission - Ketones 3+ on admission -Thiamine and phos repletion on admission - EKG with QTC ^480 > 423 on repeat - CBC wnl, CMP with ALT 69, lipase WNL, UA 3+ glucose/ketones, hepatitis panel WNL, H pylori deferred, RUQ US neg, head imaging deferred - RVP neg - DDx includes N/V in , MJ induced nausea, HEG, or GI-related etiology - Previous antiemetics attempted: zofran, compazine - s/p cessation counseling Plan: - Current regimen: B6 TID, unisom nightly, zofran prn, comp PRN #Migraine without aura - Headaches well controlled during admission - APAP PRN #Depression - Increased lexapro to 20mg (^09/25) - SW consult - Follows with Dr. Johnson/Sandra at [facility] #FWB: - OSH US 09/04/24: EFW 1425g, (85%tile), normal SAADIA, vertex - Genetic screening: LR NIPT - Anatomy US: incomplete 07/04 and 08/07 - fUS 09/06: EFW 1159g (20%), normal fluid. - fUS 10/04: EFW 2000g (40%), V, nml SAADIA. Anatomy complete - BMZ^09/06; rBMZ ^ 10/08 @ 1030 - s/p Mg for PreE - PCN n/a GBS neg. - peds consult 09/05 - MONITORING PLAN: dNST #MWB #SMA carrier #Rh negative - PNL: Rh O-/Ab neg/HIV NR/Rub imm/RPR NR/HepB neg/GC/CT neg/neg - 1 hr GTT, 113 - 3T HIV/RPR NR 09/04 - s/p flu vax 07/04, Tdap 09/07 - RSV vax 09/30 - Rhogam 09/07 - Pap NILM 05/09/24 - GBS neg 10/06 - MOD: anticipate vaginal, IOL scheduled 10/14/24 - MOF: formula with donor breast milk - MOC: nexplanon - Antepartum VTE Prophylaxis: lovenox Dispo: inpatient management until delivery Jayde Garrett MD RADIO MESSAGE ROUTER PGY-3 Cosigned by Vibha Tristan MD at 10/10/2024 10:47 AM TMR TEACHER TEACHER TEACHER Associated attestation - Vibha Tristan MD - 10/10/2024 10:47 AM TMR TEACHER I have seen and examined the patient on 10/10/24. I agree with the findings and plan of care as documented in the resident's/fellow's note. Bile acids 13; LFTs slightly improved. No other evidence of worsening preeclampsia so we will continue expectant management 10/09/2024 - - Crystal Rueda Chaplain Crystal Quintanilla [facility] Spiritual Care Triage: [phone] 10/09/24 1100 Time Spent Start Time 1100 Stop Time 1115 Time Calculation (min) 15 min Clinical Encounter Type Visited With Patient Response Type Routine visit Routine Visit Follow-up Reason for visit Support Outcomes and Progress Demonstrating care and respect Achieved Interventions Interventions Offer emotional support TEACHER 10/09/2024 - - Jayde Garrett MD Antepartum Progress Note Gestational Age: 33w2d Admission Date: 09/04/2024 Length of stay: 35 Brief HPI: 24 y.o. female at 33w2d gestation admitted for superimposed preeclampsia with severe features. also complicated by hx of lsc dona, ICP, hx cannabis use, migraine without aura, and depression. INTERVAL HISTORY - Blood pressures remained well controlled SUBJECTIVE - Resting comfortably Review of Systems Negative except as per above. OBJECTIVE Vitals: Temp Min: 36.6 C (97.8 F) Max: 37.1 C (98.8 F) Pulse Min: 78 Max: 104 BP Min: 100/52 Max: 118/74 Resp Min: 16 Max: 18 SpO2 Min: 97 % Max: 100 % FHR: NST reactive [place]: contractions absent Physical Exam General: No acute distress. Cardiovascular: Normal rate, regular rhythm Lungs: Non-labored Abdomen: Soft, non-tender, gravid. Extremities: Warm and well-perfused. Pelvic: Deferred. Neurologic: Alert and oriented x4 Lab Review: Recent Results (from the past 24 hours) Comprehensive metabolic panel Collection Time: 10/08/24 10:56 AM Result Value Ref Range Sodium 137 135 - 145 mmol/L Potassium, pl 3.2 (L) 3.3 - 4.9 mmol/L Chloride 103 97 - 110 mmol/L CO2 23 22 - 32 mmol/L Anion gap 11 2 - 15 mmol/L BUN 7 6 - 25 mg/dL Creatinine 0.52 (L) 0.60 - 1.10 mg/dL Glucose 115 70 - 199 mg/dL Calcium 9.0 8.5 - 10.3 mg/dL Bilirubin, total 0.2 0.1 - 1.2 mg/dL Protein, pl 6.4 (L) 6.5 - 8.5 g/dL Albumin 3.3 (L) 3.5 - 5.0 g/dL Alk phos 251 (H) 40 - 130 Units/L ALT 185 (H) 7 - 45 Units/L AST 94 (H) 10 - 45 Units/L eGFR Collection Time: 10/08/24 10:56 AM Result Value Ref Range eGFR >90 >=60 mL/min/1.73 m2 Comprehensive metabolic panel Collection Time: 10/09/24 6:13 AM Result Value Ref Range Sodium 138 135 - 145 mmol/L Potassium, pl 3.7 3.3 - 4.9 mmol/L Chloride 107 97 - 110 mmol/L CO2 23 22 - 32 mmol/L Anion gap 8 2 - 15 mmol/L BUN 8 6 - 25 mg/dL Creatinine 0.56 (L) 0.60 - 1.10 mg/dL Glucose 96 70 - 199 mg/dL Calcium 8.9 8.5 - 10.3 mg/dL Bilirubin, total <0.2 0.1 - 1.2 mg/dL Protein, pl 6.0 (L) 6.5 - 8.5 g/dL Albumin 3.2 (L) 3.5 - 5.0 g/dL Alk phos 226 (H) 40 - 130 Units/L ALT 190 (H) 7 - 45 Units/L AST 80 (H) 10 - 45 Units/L eGFR Collection Time: 10/09/24 6:13 AM Result Value Ref Range eGFR >90 >=60 mL/min/1.73 m2 ASSESSMENT/PLAN Kayla Faye is a 24 y.o. at 33w2d admitted for PreEwSF. #Pre-eclampsia with severe features - Chart review with gHTN based on MRBPs >4h apart on 08/27 - Presented to OSH with sustained SRBPs and spotted with L20, 4g Mg bolus - P/w mild headache, N/V (see below) - sustained SRBP; spotted L20 - neuro sx: mild headache, no blurry vision, +epigastric tenderness, no SOB, no LE swelling - Diagnosed with Pre-E w/ SF by: SRBP requiring IV spotting with headache - Baseline labs: Cr 0.54,AST 14, ALT 10, Hgb 13.7, Plt 320, UPC 0.1 - OSH labs: Cr 0.5, AST 26, ALT 60, Hgb 12, Plt 360, UPC 0.1 - Admit labs: Cr 0.4, AST 34, ALT 69, Hgb 12, Plt 320, UPC 0.17 - s/p 4g bolus, Mg continued on admission > dc'd 09/04 2230 - UDS deferred - AST/ALT trend: 34/69 > 89/89>80/141 > 88/164 > 160/286 > 118/301 > 100/282 > 62/215 > 43/165 > 39/135 > 22/54 >> 94/185; RUQ US WNL, hep panel neg - LDH 304>248 - CMV, EBV, HSV neg - Transaminitis attributed to cholestasis, see plan below Plan: - CURRENT REGIMEN: ASA, Nifed 30mg XL (09/05) - Admission until delivery at 34 weeks or when otherwise indicated - q72 hour labs #ICP #Transaminitis - Transaminitis on admission. Trended down and were stable in normal range. Started to rise again on 10/07. - Transaminitis with bile acids 53 - Ursodiol 500mg TID (^10/06), titrate per symptoms - Repeat bile acids 6 (09/22), pending 10/08 #Cannabis use #Nausea and vomiting of vs cannabis-induced hyperemesis, resolved #Prolonged QT, resolved - Recent admission 08/29-08/30 at [facility] for N/V that improved with anti-emetics - Presented unable to tolerate PO for the past day - IOB weight 66kg > 75kg on admission - Ketones 3+ on admission -Thiamine and phos repletion on admission - EKG with QTC ^480 > 423 on repeat - CBC wnl, CMP with ALT 69, lipase WNL, UA 3+ glucose/ketones, hepatitis panel WNL, H pylori deferred, RUQ US ordered, head imaging deferred - RVP neg - DDx includes N/V in , MJ induced nausea, HEG, or GI-related etiology - Previous antiemetics attempted: zofran, compazine - s/p cessation counseling Plan: - Current regimen: B6 TID, unisom nightly, zofran prn, comp PRN #Migraine without aura - Headaches well controlled during admission - APAP PRN #Depression - Increased lexapro to 20mg (^09/25) - SW consult - Follows with Dr. Johnson/Sandra at [facility] #FWB: - OSH US 09/04/24: EFW 1425g, (85%tile), normal SAADIA, vertex - Genetic screening: LR NIPT - Anatomy US: incomplete 07/04 and 08/07 - fUS 09/06: EFW 1159g (20%), normal fluid. - fUS 10/04: EFW 2000g (40%), V, nml SAADIA. Anatomy complete - BMZ^09/06; rBMZ ^ 10/08 @ 1030 - s/p Mg for PreE - PCN n/a GBS neg. - peds consult 09/05 - MONITORING PLAN: dNST #MWB #SMA carrier #Rh negative - PNL: Rh O-/Ab neg/HIV NR/Rub imm/RPR NR/HepB neg/GC/CT neg/neg - 1 hr GTT, 113 - 3T HIV/RPR NR 09/04 - s/p flu vax 07/04, Tdap 09/07 - RSV vax 09/30 - Rhogam 09/07 - Pap NILM 05/09/24 - GBS neg 10/06 - MOD: anticipate vaginal, IOL scheduled 10/14/24 - MOF: formula with donor breast milk - MOC: nexplanon - Antepartum VTE Prophylaxis: lovenox Dispo: inpatient management until delivery Jayde Garrett MD RADIO MESSAGE ROUTER PGY-3 Cosigned by Vibha Tristan MD at 10/09/2024 1:41 PM TMR TEACHER TEACHER TEACHER Associated attestation - Vibha Tristan MD - 10/09/2024 1:41 PM TMR TEACHER I have seen and examined the patient on 10/09/24. I agree with the findings and plan of care as documented in the resident's/fellow's note. Her transamnitis still appears to be most likely related to ICP given her stable and mostly normal BPs and lack of any other significant change in clinical status. I think its most reasonable to continue expectant management until delivery as planned at 34 weeks, however if her clinical picture changes and its seem her preeclampsia is worsening, we will move forward with delivery. Awaiting bile acids, will check CBC and trend her labs daily. 10/08/2024 - 33w1d - Angelica Morrison MD Gestational age: 33w1d Time on monitor: [id number] FHR Baseline: 135 that moves to 130 at time of taking off the monitor Variability: moderate Accelerations: present Decelerations: absent Contractions: absent Reactive: Yes Comments: 24 y.o. at 33w1d a/f PreEwSF I have reviewed NST and instructed RN to take off monitor Angelica Morrison MD Cosigned by Vibha Tristan MD at 10/11/2024 9:07 AM TMR TEACHER TEACHER TEACHER Associated attestation - Vibha Tristan MD - 10/11/2024 9:07 AM TMR TEACHER I have reviewed the NST and agree with the documentation provided by the resident/LUGGAGE MAKER. Vibha Tristan MD 10/08/2024 - 33w1d - Ben, Gabriela Marin MD Antepartum Progress Note Gestational Age: 33w1d Admission Date: 09/04/2024 Length of stay: 34 Brief HPI: 24 y.o. female at 33w1d gestation admitted for superimposed preeclampsia with severe features. also complicated by hx of lsc dona, ICP, hx cannabis use, migraine without aura, and depression. INTERVAL HISTORY - Blood pressures continue to be well controlled. - EKG with sinus tachycardia SUBJECTIVE - Resting comfortably Review of Systems Negative except as per above. OBJECTIVE Vitals: Temp Min: 36.6 C (97.9 F) Max: 36.8 C (98.3 F) Pulse Min: 91 Max: 117 BP Min: 111/68 Max: 121/67 Resp Min: 16 Max: 18 SpO2 Min: 95 % Max: 99 % FHR: NST reactive [place]: contractions absent Physical Exam General: No acute distress. Cardiovascular: Normal rate, regular rhythm Lungs: Non-labored Abdomen: Soft, non-tender, gravid. Extremities: Warm and well-perfused. Pelvic: Deferred. Neurologic: Alert and oriented x4 Lab Review: Recent Results (from the past 24 hours) Type and screen Collection Time: 10/07/24 6:25 AM Result Value Ref Range Indira, indirect Positive (A) ABO Rh O Negative CBC without differential Collection Time: 10/07/24 6:25 AM Result Value Ref Range WBC 17.0 (H) 3.8 - 9.9 K/cumm Hgb 11.5 (L) 11.9 - 15.5 g/dL Hct 32.2 (L) 35.6 - 45.5 % Plt 309 150 - 400 K/cumm MPV 9.6 9.1 - 12.3 fL RBC 3.68 (L) 3.90 - 5.20 M/cumm MCV 87.5 81.3 - 96.4 fL MCH 31.3 27.1 - 33.3 pg MCHC 35.7 32.3 - 35.7 g/dL RDW CV 13.0 11.1 - 14.9 % RDW SD 40.4 35.7 - 48.1 fL NRBC abs 0.00 0.00 - 0.01 K/cumm Comprehensive metabolic panel Collection Time: 10/07/24 6:25 AM Result Value Ref Range Sodium 138 135 - 145 mmol/L Potassium, pl 4.0 3.3 - 4.9 mmol/L Chloride 106 97 - 110 mmol/L CO2 23 22 - 32 mmol/L Anion gap 9 2 - 15 mmol/L BUN 6 6 - 25 mg/dL Creatinine 0.53 (L) 0.60 - 1.10 mg/dL Glucose 111 70 - 199 mg/dL Calcium 8.8 8.5 - 10.3 mg/dL Bilirubin, total 0.2 0.1 - 1.2 mg/dL Protein, pl 6.3 (L) 6.5 - 8.5 g/dL Albumin 3.2 (L) 3.5 - 5.0 g/dL Alk phos 255 (H) 40 - 130 Units/L ALT 96 (H) 7 - 45 Units/L AST 65 (H) 10 - 45 Units/L eGFR Collection Time: 10/07/24 6:25 AM Result Value Ref Range eGFR >90 >=60 mL/min/1.73 m2 Antibody identification Collection Time: 10/07/24 7:44 AM Result Value Ref Range Antibody ID 1 Passive Anti-D ASSESSMENT/PLAN Kayla Faye is a 24 y.o. at 33w1d admitted for PreEwSF. #Pre-eclampsia with severe features #Transaminitis, resolved - Chart review with gHTN based on MRBPs >4h apart on 08/27 - Presented to OSH with sustained SRBPs and spotted with L20, 4g Mg bolus - P/w mild headache, N/V (see below) - sustained SRBP; spotted L20 - neuro sx: mild headache, no blurry vision, +epigastric tenderness, no SOB, no LE swelling - Diagnosed with Pre-E w/ SF by: SRBP requiring IV spotting with headache - Baseline labs: Cr 0.54,AST 14, ALT 10, Hgb 13.7, Plt 320, UPC 0.1 - OSH labs: Cr 0.5, AST 26, ALT 60, Hgb 12, Plt 360, UPC 0.1 - Admit labs: Cr 0.4, AST 34, ALT 69, Hgb 12, Plt 320, UPC 0.17 - s/p 4g bolus, Mg continued on admission > dc'd 09/04 2230 - UDS deferred - AST/ALT trend: 34/69 > 89/89>80/141 > 88/164 > 160/286 > 118/301 > 100/282 > 62/215 > 43/165 > 39/135 > 22/54; RUQ US WNL, hep panel neg - LDH 304>248 - CMV, EBV, HSV neg - attributed to cholestasis, see plan below Plan: - CURRENT REGIMEN: ASA, Nifed 30mg XL (09/05) - Admission until delivery at 34 weeks or when otherwise indicated - q72 hour labs #ICP - Asymptomatic - Transaminitis with bile acids 53 - Now with resolved transaminitis - Ursodiol 500mg TID (^10/06), titrate per symptoms - Repeat bile acids 6 (09/22) #Cannabis use #Nausea and vomiting of vs cannabis-induced hyperemesis, resolved #Prolonged QT, resolved - Recent admission 08/29-08/30 at [facility] for N/V that improved with anti-emetics - Presented unable to tolerate PO for the past day - IOB weight 66kg > 75kg on admission - Ketones 3+ on admission -Thiamine and phos repletion on admission - EKG with QTC ^480 > 423 on repeat - CBC wnl, CMP with ALT 69, lipase WNL, UA 3+ glucose/ketones, hepatitis panel WNL, H pylori deferred, RUQ US ordered, head imaging deferred - RVP neg - DDx includes N/V in , MJ induced nausea, HEG, or GI-related etiology - Previous antiemetics attempted: zofran, compazine - s/p cessation counseling Plan: - Current regimen: B6 TID, unisom nightly, zofran prn, comp PRN #Migraine without aura - Headaches well controlled during admission - APAP PRN #Depression - Increased lexapro to 20mg (^09/25) - SW consult - Follows with Dr. Johnson/Sandra at [facility] #FWB: - OSH US 09/04/24: EFW 1425g, (85%tile), normal SAADIA, vertex - Genetic screening: LR NIPT - Anatomy US: incomplete 07/04 and 08/07 - fUS 09/06: EFW 1159g (20%), normal fluid. - fUS 10/04: EFW 2000g (40%), V, nml SAADIA. Anatomy complete - BMZ^09/06; rBMZ ^ 10/08 @ 1030 - s/p Mg for PreE - PCN n/a GBS neg. - peds consult 09/05 - MONITORING PLAN: dNST #MWB #SMA carrier #Rh negative - PNL: Rh O-/Ab neg/HIV NR/Rub imm/RPR NR/HepB neg/GC/CT neg/neg - 1 hr GTT, 113 - 3T HIV/RPR NR 09/04 - s/p flu vax 07/04, Tdap 09/07 - RSV vax 09/30 - Rhogam 09/07 - Pap NILM 05/09/24 - GBS neg 09/04, repeat GBS collected 10/06 - MOD: anticipate vaginal, IOL scheduled 10/14/24 - MOF: formula with donor breast milk - MOC: nexplanon - Antepartum VTE Prophylaxis: lovenox Dispo: inpatient management until delivery Gabriela Contreras MD, MPH PGY2 Obstetrics and Gynecology Cosigned by Vibha Tristan MD at 10/08/2024 8:15 AM TMR TEACHER TEACHER TEACHER Associated attestation - Vibha Tristan MD - 10/08/2024 8:15 AM TMR TEACHER I have seen and examined the patient on 10/08/24. I agree with the findings and plan of care as documented in the resident's/fellow's note. LFTs elevated yesterday- repeat CMP and bile acids as we determine whether this is attributable to ICP vs her preeclampsia. 10/07/2024 - 33w0d - Gabriela Contreras MD Antepartum Progress Note Gestational Age: 33w0d Admission Date: 09/04/2024 Length of stay: 33 Brief HPI: 24 y.o. female at 33w0d gestation admitted for superimposed preeclampsia with severe features. also complicated by hx of lsc odna, ICP, hx cannabis use, migraine without aura, and depression. INTERVAL HISTORY - Blood pressures continue to be well controlled. - Progressive tachycardia, likely iso rBMZ - NAEO SUBJECTIVE - Resting comfortably, no OB complaints Review of Systems Negative except as per above. OBJECTIVE Vitals: Temp Min: 36.7 C (98 F) Max: 37 C (98.6 F) Pulse Min: 80 Max: 110 BP Min: 105/64 Max: 133/72 Resp Min: 15 Max: 16 SpO2 Min: 95 % Max: 99 % FHR: NST reactive [place]: contractions absent Physical Exam General: No acute distress. Cardiovascular: Normal rate, regular rhythm Lungs: Non-labored Abdomen: Soft, non-tender, gravid. Extremities: Warm and well-perfused. Pelvic: Deferred. Neurologic: Alert and oriented x4 Lab Review: No results found for this or any previous visit (from the past 24 hours). ASSESSMENT/PLAN Kayla Faye is a 24 y.o. at 33w0d admitted for PreEwSF. #Pre-eclampsia with severe features #Transaminitis, resolved - Chart review with gHTN based on MRBPs >4h apart on 08/27 - Presented to OSH with sustained SRBPs and spotted with L20, 4g Mg bolus - P/w mild headache, N/V (see below) - sustained SRBP; spotted L20 - neuro sx: mild headache, no blurry vision, +epigastric tenderness, no SOB, no LE swelling - Diagnosed with Pre-E w/ SF by: SRBP requiring IV spotting with headache - Baseline labs: Cr 0.54,AST 14, ALT 10, Hgb 13.7, Plt 320, UPC 0.1 - OSH labs: Cr 0.5, AST 26, ALT 60, Hgb 12, Plt 360, UPC 0.1 - Admit labs: Cr 0.4, AST 34, ALT 69, Hgb 12, Plt 320, UPC 0.17 - s/p 4g bolus, Mg continued on admission > dc'd 09/04 2230 - UDS deferred - AST/ALT trend: 34/69 > 89/89>80/141 > 88/164 > 160/286 > 118/301 > 100/282 > 62/215 > 43/165 > 39/135 > 22/54; RUQ US WNL, hep panel neg - LDH 304>248 - CMV, EBV, HSV neg - attributed to cholestasis, see plan below Plan: - CURRENT REGIMEN: ASA, Nifed 30mg XL (09/05) - Admission until delivery at 34 weeks or when otherwise indicated - q72 hour labs #ICP - Asymptomatic - Transaminitis with bile acids 53 - Now with resolved transaminitis - Ursodiol 500mg TID (^10/06), titrate per symptoms - Repeat bile acids 6 (09/22) #Cannabis use #Nausea and vomiting of vs cannabis-induced hyperemesis, resolved #Prolonged QT, resolved - Recent admission 08/29-08/30 at [facility] for N/V that improved with anti-emetics - Presented unable to tolerate PO for the past day - IOB weight 66kg > 75kg on admission - Ketones 3+ on admission -Thiamine and phos repletion on admission - EKG with QTC ^480 > 423 on repeat - CBC wnl, CMP with ALT 69, lipase WNL, UA 3+ glucose/ketones, hepatitis panel WNL, H pylori deferred, RUQ US ordered, head imaging deferred - RVP neg - DDx includes N/V in , MJ induced nausea, HEG, or GI-related etiology - Previous antiemetics attempted: zofran, compazine - s/p cessation counseling Plan: - Current regimen: B6 TID, unisom nightly, zofran prn, comp PRN #Migraine without aura - Headaches well controlled during admission - APAP PRN #Depression - Increased lexapro to 20mg (^09/25) - SW consult - Follows with Dr. Johnson/Sandra at [facility] #FWB: - OSH US 09/04/24: EFW 1425g, (85%tile), normal SAADIA, vertex - Genetic screening: LR NIPT - Anatomy US: incomplete 07/04 and 08/07 - fUS 09/06: EFW 1159g (20%), normal fluid. - fUS 10/04: EFW 2000g (40%), V, nml SAADIA. Anatomy complete - BMZ^09/06; rBMZ ^ 10/08 @ 1030 - s/p Mg for PreE - PCN n/a GBS neg. - peds consult 09/05 - MONITORING PLAN: dNST #MWB #SMA carrier #Rh negative - PNL: Rh O-/Ab neg/HIV NR/Rub imm/RPR NR/HepB neg/GC/CT neg/neg - 1 hr GTT, 113 - 3T HIV/RPR NR 09/04 - s/p flu vax 07/04, Tdap 09/07 - RSV vax 09/30 - Rhogam 09/07 - Pap NILM 05/09/24 - GBS neg 09/04, repeat GBS collected 10/06 - MOD: anticipate vaginal, IOL scheduled 10/14/24 - MOF: formula with donor breast milk - MOC: nexplanon - Antepartum VTE Prophylaxis: lovenox Dispo: inpatient management until delivery Gabriela Contreras MD, MPH PGY2 Obstetrics and Gynecology Cosigned by Vibha Vegas MD at 10/07/2024 7:18 AM TMR TEACHER TEACHER TEACHER TEACHER Associated attestation - Vibha Vegas MD - 10/07/2024 7:18 AM TMR TEACHER MFM Attending Attestation I have seen and examined the patient, Kayla Faye, on 10/07/2024 and I am in agreement with the plan as documented in the resident/fellow/FARTUN's note. EKG ordered for tachycardia. Otherwise stable preE. Vibha Vegas MD 10/07/2024 10/06/2024 - 32w6d - Jadye Garrett MD Antepartum Progress Note Gestational Age: 32w6d Admission Date: 09/04/2024 Length of stay: 32 Brief HPI: 24 y.o. female at 32w6d gestation admitted for superimposed preeclampsia with severe features. also complicated by hx of lsc dona, ICP, hx cannabis use, migraine without aura, and depression. INTERVAL HISTORY - Blood pressures continue to be well controlled. - NAEO SUBJECTIVE - Resting comfortably, no OB complaints Review of Systems Negative except as per above. OBJECTIVE Vitals: Temp Min: 36.8 C (98.2 F) Max: 37 C (98.6 F) Pulse Min: 86 Max: 99 BP Min: 105/64 Max: 127/71 Resp Min: 16 Max: 18 SpO2 Min: 90 % Max: 100 % FHR: NST reactive [place]: contractions absent Physical Exam General: No acute distress. Cardiovascular: Normal rate, regular rhythm Lungs: Non-labored Abdomen: Soft, non-tender, gravid. Extremities: Warm and well-perfused. Pelvic: Deferred. Neurologic: Alert and oriented x4 Lab Review: No results found for this or any previous visit (from the past 24 hours). ASSESSMENT/PLAN Kayla Faye is a 24 y.o. at 32w6d admitted for PreEwSF. #Pre-eclampsia with severe features #Transaminitis, resolved - Chart review with gHTN based on MRBPs >4h apart on 08/27 - Presented to OSH with sustained SRBPs and spotted with L20, 4g Mg bolus - P/w mild headache, N/V (see below) - sustained SRBP; spotted L20 - neuro sx: mild headache, no blurry vision, +epigastric tenderness, no SOB, no LE swelling - Diagnosed with Pre-E w/ SF by: SRBP requiring IV spotting with headache - Baseline labs: Cr 0.54,AST 14, ALT 10, Hgb 13.7, Plt 320, UPC 0.1 - OSH labs: Cr 0.5, AST 26, ALT 60, Hgb 12, Plt 360, UPC 0.1 - Admit labs: Cr 0.4, AST 34, ALT 69, Hgb 12, Plt 320, UPC 0.17 - s/p 4g bolus, Mg continued on admission > dc'd 09/040 - UDS deferred - AST/ALT trend: 34/69 > 89/89>80/141 > 88/164 > 160/286 > 118/301 > 100/282 > 62/215 > 43/165 > 39/135 > 22/54; RUQ US WNL, hep panel neg - LDH 304>248 - CMV, EBV, HSV neg - attributed to cholestasis, see plan below Plan: - CURRENT REGIMEN: ASA, Nifed 30mg XL (09/05) - Admission until delivery at 34 weeks or when otherwise indicated - q72 hour labs #ICP - Asymptomatic - Transaminitis with bile acids 53 - Now with resolved transaminitis - Ursodiol 500mg BID (^09/22), titrate per symptoms - Repeat bile acids 6 (09/22) #Cannabis use #Nausea and vomiting of vs cannabis-induced hyperemesis, resolved #Prolonged QT, resolved - Recent admission 08/29-08/30 at [facility] for N/V that improved with anti-emetics - Presented unable to tolerate PO for the past day - IOB weight 66kg > 75kg on admission - Ketones 3+ on admission -Thiamine and phos repletion on admission - EKG with QTC ^480 > 423 on repeat - CBC wnl, CMP with ALT 69, lipase WNL, UA 3+ glucose/ketones, hepatitis panel WNL, H pylori deferred, RUQ US ordered, head imaging deferred - RVP neg - DDx includes N/V in , MJ induced nausea, HEG, or GI-related etiology - Previous antiemetics attempted: zofran, compazine - s/p cessation counseling Plan: - Current regimen: B6 TID, unisom nightly, zofran prn, comp PRN #Migraine without aura - Headaches well controlled during admission - APAP PRN #Depression - Increased lexapro to 20mg (^09/25) - SW consult - Follows with Dr. Johnson/Sandra at [facility] #FWB: - OSH US 09/04/24: EFW 1425g, (85%tile), normal SAADIA, vertex - Genetic screening: LR NIPT - Anatomy US: incomplete 07/04 and 08/07 - fUS 09/06: EFW 1159g (20%), normal fluid. - fUS 10/04: EFW 2000g (40%), V, nml SAADIA. Anatomy complete - BMZ^09/06 - s/p Mg for PreE - PCN n/a GBS neg. - peds consult 09/05 - MONITORING PLAN: dNST #MWB #SMA carrier #Rh negative - PNL: Rh O-/Ab neg/HIV NR/Rub imm/RPR NR/HepB neg/GC/CT neg/neg - 1 hr GTT, 113 - 3T HIV/RPR NR 09/04 - s/p flu vax 07/04, Tdap 09/07 - RSV vax 09/30 - Rhogam 09/07 - Pap NILM 05/09/24 - GBS neg 09/04, repeat GBS due 10/06 - MOD: anticipate vaginal, IOL scheduled 10/14/24 - MOF: formula with donor breast milk - MOC: nexplanon - Antepartum VTE Prophylaxis: lovenox Dispo: inpatient management until delivery Jayde Garrett MD RADIO MESSAGE ROUTER PGY-3 Cosigned by Vibha Vegas MD at 10/06/2024 11:23 AM TMR TEACHER TEACHER TEACHER Associated attestation - Vibha Vegas MD - 10/06/2024 11:23 AM TMR TEACHER MFM Attending Attestation I have seen and examined the patient, Kayla Faye, on 10/06/2024 and I am in agreement with the plan as documented in the resident/fellow/FARTUN's note. Stable PreE. Will increase ursodiol for increased itching. Vibha Vegas MD 10/06/2024 10/05/2024 - 32w5d - Fadia Darling LCSW Reason for Admission Pt (Kayla Faye 2000) was admitted on 09/04/2024 for Hypertension in , essential, antepartum [O10.019]. Pt discussed in DCAM rounds with medical team. Per DCAM rounds, pt remains admitted to the [facility] due to ongoing medical needs. SW to follow for coping, adjustment to diagnosis as needed, and assess for social needs. SW remains available. Fadia FARNSWORTH, [facility] Clinical Certified Ophthalmic Assistant [facility] TEACHER 10/05/2024 - 32w5d - Jayde Garrett MD Antepartum Progress Note Gestational Age: 32w5d Admission Date: 09/04/2024 Length of stay: 31 Brief HPI: 24 y.o. female at 32w5d gestation admitted for superimposed preeclampsia with severe features. also complicated by hx of lsc dona, ICP, hx cannabis use, migraine without aura, and depression. INTERVAL HISTORY - Blood pressures continue to be well controlled. Pruritus well controlled. - US yesterday with AGA growth, normal SAADIA, vertex. Anatomy completed with no abnormalities identified. - NAEO SUBJECTIVE - Resting comfortably, no OB complaints Review of Systems Negative except as per above. OBJECTIVE Vitals: Temp Min: 36.5 C (97.7 F) Max: 36.7 C (98.1 F) Pulse Min: 86 Max: 93 BP Min: 104/58 Max: 119/71 Resp Min: 16 Max: 18 SpO2 Min: 95 % Max: 99 % FHR: NST reactive [place]: no regular contractions Physical Exam General: No acute distress. Cardiovascular: Normal rate, regular rhythm Lungs: Non-labored Abdomen: Soft, non-tender, gravid. Extremities: Warm and well-perfused. Pelvic: Deferred. Neurologic: Alert and oriented x4 Lab Review: Recent Results (from the past 24 hours) Antibody identification Collection Time: 10/04/24 7:44 AM Result Value Ref Range Antibody ID 1 Passive Anti-D US Ob Limited Collection Time: 10/04/24 8:12 AM Result Value Ref Range Fetus# Fetus1 Estimated Weight 2,000 g&grams Placenta Details anterior, Previa-no, no placental masses Presentation Vertex ASSESSMENT/PLAN Kayla Faye is a 24 y.o. at 32w5d admitted for PreEwSF. #Pre-eclampsia with severe features #Transaminitis, resolved - Chart review with gHTN based on MRBPs >4h apart on 08/27 - Presented to OSH with sustained SRBPs and spotted with L20, 4g Mg bolus - P/w mild headache, N/V (see below) - sustained SRBP; spotted L20 - neuro sx: mild headache, no blurry vision, +epigastric tenderness, no SOB, no LE swelling - Diagnosed with Pre-E w/ SF by: SRBP requiring IV spotting with headache - Baseline labs: Cr 0.54,AST 14, ALT 10, Hgb 13.7, Plt 320, UPC 0.1 - OSH labs: Cr 0.5, AST 26, ALT 60, Hgb 12, Plt 360, UPC 0.1 - Admit labs: Cr 0.4, AST 34, ALT 69, Hgb 12, Plt 320, UPC 0.17 - s/p 4g bolus, Mg continued on admission > dc'd 09/04 2230 - UDS deferred - AST/ALT trend: 34/69 > 89/89>80/141 > 88/164 > 160/286 > 118/301 > 100/282 > 62/215 > 43/165 > 39/135 > 22/54; RUQ US WNL, hep panel neg - LDH 304>248 - CMV, EBV, HSV neg - attributed to cholestasis, see plan below Plan: - CURRENT REGIMEN: ASA, Nifed 30mg XL (09/05) - Admission until delivery at 34 weeks or when otherwise indicated - q72 hour labs #ICP - Asymptomatic - Transaminitis with bile acids 53 - Now with resolved transaminitis - Ursodiol 500mg BID (^1/3), titrate per symptoms - Repeat bile acids 6 (1/3) #Cannabis use #Nausea and vomiting of vs cannabis-induced hyperemesis, resolved #Prolonged QT, resolved - Recent admission 08/29-08/30 at [facility] for N/V that improved with anti-emetics - Presented unable to tolerate PO for the past day - IOB weight 66kg > 75kg on admission - Ketones 3+ on admission -Thiamine and phos repletion on admission - EKG with QTC ^480 > 423 on repeat - CBC wnl, CMP with ALT 69, lipase WNL, UA 3+ glucose/ketones, hepatitis panel WNL, H pylori deferred, RUQ US ordered, head imaging deferred - RVP neg - DDx includes N/V in , MJ induced nausea, HEG, or GI-related etiology - Previous antiemetics attempted: zofran, compazine - s/p cessation counseling Plan: - Current regimen: B6 TID, unisom nightly, zofran prn, comp PRN #Migraine without aura - Headaches well controlled during admission - APAP PRN #Depression - Increased lexapro to 20mg (^09/25) - SW consult - Follows with Dr. Johnson/Sandra at [facility] #FWB: - OSH US 09/04/24: EFW 1425g, (85%tile), normal SAADIA, vertex - Genetic screening: LR NIPT - Anatomy US: incomplete 07/04 and 08/07 - fUS 09/06: EFW 1159g (20%), normal fluid. - fUS 10/04: EFW 40%, V, nml SAADIA. - BMZ^09/06 - s/p Mg for PreE - PCN n/a GBS neg. - peds consult 09/05 - MONITORING PLAN: dNST #MWB #SMA carrier #Rh negative - PNL: Rh O-/Ab neg/HIV NR/Rub imm/RPR NR/HepB neg/GC/CT neg/neg - 1 hr GTT, 113 - 3T HIV/RPR NR 09/04 - s/p flu vax 07/04, Tdap 09/07 - RSV vax 09/30 - Rhogam 09/07 - Pap NILM 05/09/24 - GBS neg 09/04, repeat GBS due 10/06 - MOD: anticipate vaginal, IOL scheduled 10/14/24 - MOF: formula with donor breast milk - MOC: nexplanon - Antepartum VTE Prophylaxis: lovenox Dispo: inpatient management until delivery Jayde Garrett MD RADIO MESSAGE ROUTER PGY-3 Cosigned by Vibha Vegas MD at 10/05/2024 12:26 PM TMR TEACHER TEACHER TEACHER Associated attestation - Vibha Vegas MD - 10/05/2024 12:26 PM TMR TEACHER MFM Attending Attestation I have seen and examined the patient, Kayla Faye, on 10/05/2024 and I am in agreement with the plan as documented in the resident/fellow/FARTUN's note. Doing well today. Labs yesterday were normal. Ultrasound reassuring. Delivery at 34w Vibha Vegas MD 10/05/2024 10/04/2024 - 32w4d - Jayde Garrett MD Antepartum Progress Note Gestational Age: 32w4d Admission Date: 09/04/2024 Length of stay: 30 Brief HPI: 24 y.o. female at 32w4d gestation admitted for superimposed preeclampsia with severe features. also complicated by hx of lsc dona, ICP, hx cannabis use, migraine without aura, and depression. INTERVAL HISTORY - Blood pressures continue to be well controlled - NAEO SUBJECTIVE - Getting labs drawn this AM - She's doing okay . No OB complaints Review of Systems Negative except as per above. OBJECTIVE Vitals: Temp Min: 36.8 C (98.2 F) Max: 36.9 C (98.4 F) Pulse Min: 86 Max: 97 BP Min: 115/74 Max: 133/73 Resp Min: 18 Max: 18 SpO2 Min: 97 % Max: 100 % FHR: NST reactive [place]: no regular contractions Physical Exam General: No acute distress. Cardiovascular: Normal rate, regular rhythm Lungs: Non-labored Abdomen: Soft, non-tender, gravid. Extremities: Warm and well-perfused. Pelvic: Deferred. Neurologic: Alert and oriented x4 Lab Review: No results found for this or any previous visit (from the past 24 hours). ASSESSMENT/PLAN Kayla Faye is a 24 y.o. at 32w4d admitted for PreEwSF. #Pre-eclampsia with severe features #Transaminitis, resolved - Chart review with gHTN based on MRBPs >4h apart on 08/27 - Presented to OSH with sustained SRBPs and spotted with L20, 4g Mg bolus - P/w mild headache, N/V (see below) - sustained SRBP; spotted L20 - neuro sx: mild headache, no blurry vision, +epigastric tenderness, no SOB, no LE swelling - Diagnosed with Pre-E w/ SF by: SRBP requiring IV spotting with headache - Baseline labs: Cr 0.54,AST 14, ALT 10, Hgb 13.7, Plt 320, UPC 0.1 - OSH labs: Cr 0.5, AST 26, ALT 60, Hgb 12, Plt 360, UPC 0.1 - Admit labs: Cr 0.4, AST 34, ALT 69, Hgb 12, Plt 320, UPC 0.17 - s/p 4g bolus, Mg continued on admission > dc'd 09/04 2230 - UDS deferred - AST/ALT trend: 34/69 > 89/89>80/141 > 88/164 > 160/286 > 118/301 > 100/282 > 62/215 > 43/165 > 39/135 > 22/54; RUQ US WNL, hep panel neg - LDH 304>248 - CMV, EBV, HSV neg - attributed to cholestasis, see plan below Plan: - CURRENT REGIMEN: ASA, Nifed 30mg XL (09/05) - Admission until delivery at 34 weeks or when otherwise indicated - q72 hour labs #ICP - Asymptomatic - Transaminitis with bile acids 53 - Now with resolved transaminitis - Ursodiol 500mg BID (^1/), titrate per symptoms - Repeat bile acids 6 (1) #Cannabis use #Nausea and vomiting of vs cannabis-induced hyperemesis, resolved #Prolonged QT, resolved - Recent admission 08/29-08/30 at [facility] for N/V that improved with anti-emetics - Presented unable to tolerate PO for the past day - IOB weight 66kg > 75kg on admission - Ketones 3+ on admission -Thiamine and phos repletion on admission - EKG with QTC ^480 > 423 on repeat - CBC wnl, CMP with ALT 69, lipase WNL, UA 3+ glucose/ketones, hepatitis panel WNL, H pylori deferred, RUQ US ordered, head imaging deferred - RVP neg - DDx includes N/V in , MJ induced nausea, HEG, or GI-related etiology - Previous antiemetics attempted: zofran, compazine - s/p cessation counseling Plan: - Current regimen: B6 TID, unisom nightly, zofran prn, comp PRN #Migraine without aura - Headaches well controlled during admission - APAP PRN #Depression - Increased lexapro to 20mg (^09/25) - SW consult - Follows with Dr. Johnson/Snadra at [facility] #FWB: - OSH US 09/04/24: EFW 1425g, (85%tile), normal SAADIA, vertex - Genetic screening: LR NIPT - Anatomy US: incomplete 07/04 and 08/07 - fUS 09/06: EFW 1159g (20%), normal fluid. - BMZ^09/06 - s/p Mg for PreE - PCN n/a GBS neg. - peds consult 09/05 - MONITORING PLAN: dNST #MWB #SMA carrier #Rh negative - PNL: Rh O-/Ab neg/HIV NR/Rub imm/RPR NR/HepB neg/GC/CT neg/neg - 1 hr GTT, 113 - 3T HIV/RPR NR 09/04 - s/p flu vax 07/04, Tdap 09/07 - RSV vax 09/30 - Rhogam 09/07 - Pap NILM 05/09/24 - GBS neg 09/04, repeat GBS due 10/06 - MOD: anticipate vaginal, IOL scheduled 10/14/24 - MOF: formula with donor breast milk - MOC: nexplanon - Antepartum VTE Prophylaxis: lovenox Dispo: inpatient management until delivery Jayde Garrett MD RADIO MESSAGE ROUTER PGY-3 Cosigned by Vibha Vegas MD at 10/04/2024 10:34 AM TMR TEACHER TEACHER TEACHER Associated attestation - Vibha Vegas MD - 10/04/2024 10:34 AM TMR TEACHER MFM Attending Attestation I have seen and examined the patient, Kayla Faye, on 10/04/2024 and I am in agreement with the plan as documented in the resident/fellow/FARTUN's note. Stable preE and ICP. Vibha Vegas MD 10/04/2024 10/03/2024 [facility]d [facility] Antepartum Progress Note Gestational Age: 32w3d Admission Date: 09/04/2024 Length of stay: 29 Brief HPI: 24 y.o. female at 32w3d gestation admitted for superimposed preeclampsia with severe features. also complicated by hx of lsc dona, ICP, hx cannabis use, migraine without aura, and depression. INTERVAL HISTORY - Blood pressures continue to be well controlled - NAEO SUBJECTIVE - Doing well, resting this morning Review of Systems Negative except as per above. OBJECTIVE Vitals: Temp Min: 36.5 C (97.7 F) Max: 36.8 C (98.3 F) Pulse Min: 75 Max: 88 BP Min: 105/57 Max: 121/73 Resp Min: 16 Max: 18 SpO2 Min: 97 % Max: 98 % FHR: NST reactive [place]: no regular contractions Physical Exam General: No acute distress. Cardiovascular: Normal rate, regular rhythm Lungs: Non-labored Abdomen: Soft, non-tender, gravid. Extremities: Warm and well-perfused. Pelvic: Deferred. Neurologic: Alert and oriented x4 Lab Review: No results found for this or any previous visit (from the past 24 hours). ASSESSMENT/PLAN Kayla Faye is a 24 y.o. at 32w3d admitted for PreEwSF. #Pre-eclampsia with severe features #Transaminitis, resolved - Chart review with gHTN based on MRBPs >4h apart on 08/27 - Presented to OSH with sustained SRBPs and spotted with L20, 4g Mg bolus - P/w mild headache, N/V (see below) - sustained SRBP; spotted L20 - neuro sx: mild headache, no blurry vision, +epigastric tenderness, no SOB, no LE swelling - Diagnosed with Pre-E w/ SF by: SRBP requiring IV spotting with headache - Baseline labs: Cr 0.54,AST 14, ALT 10, Hgb 13.7, Plt 320, UPC 0.1 - OSH labs: Cr 0.5, AST 26, ALT 60, Hgb 12, Plt 360, UPC 0.1 - Admit labs: Cr 0.4, AST 34, ALT 69, Hgb 12, Plt 320, UPC 0.17 - s/p 4g bolus, Mg continued on admission > dc'd 09/04 2230 - UDS deferred - AST/ALT trend: 34/69 > 89/89>80/141 > 88/164 > 160/286 > 118/301 > 100/282 > 62/215 > 43/165 > 39/135 > 22/54; RUQ US WNL, hep panel neg - LDH 304>248 - CMV, EBV, HSV neg - attributed to cholestasis, see plan below Plan: - CURRENT REGIMEN: ASA, Nifed 30mg XL (09/05) - Admission until delivery at 34 weeks or when otherwise indicated - q72 hour labs #ICP - Asymptomatic - Transaminitis with bile acids 53 - Now with resolved transaminitis - Ursodiol 500mg BID (^09/22), titrate per symptoms - Repeat bile acids 6 (09/22) #Cannabis use #Nausea and vomiting of vs cannabis-induced hyperemesis, resolved #Prolonged QT, resolved - Recent admission 08/29-08/30 at [facility] for N/V that improved with anti-emetics - Presented unable to tolerate PO for the past day - IOB weight 66kg > 75kg on admission - Ketones 3+ on admission -Thiamine and phos repletion on admission - EKG with QTC ^480 > 423 on repeat - CBC wnl, CMP with ALT 69, lipase WNL, UA 3+ glucose/ketones, hepatitis panel WNL, H pylori deferred, RUQ US ordered, head imaging deferred - RVP neg - DDx includes N/V in , MJ induced nausea, HEG, or GI-related etiology - Previous antiemetics attempted: zofran, compazine - s/p cessation counseling Plan: - Current regimen: B6 TID, unisom nightly, zofran prn, comp PRN #Migraine without aura - Headaches well controlled during admission - APAP PRN #Depression - Increased lexapro to 20mg (^09/25) - SW consult - Follows with Dr. Johnson/Sandra at [facility] #FWB: - OSH US 09/04/24: EFW 1425g, (85%tile), normal SAADIA, vertex - Genetic screening: LR NIPT - Anatomy US: incomplete 07/04 and 08/07 - fUS 09/06: EFW 1159g (20%), normal fluid. - BMZ^09/06 - s/p Mg for PreE - PCN n/a GBS neg. - peds consult 09/05 - MONITORING PLAN: dNST #MWB #SMA carrier #Rh negative - PNL: Rh O-/Ab neg/HIV NR/Rub imm/RPR NR/HepB neg/GC/CT neg/neg - 1 hr GTT, 113 - 3T HIV/RPR NR 09/04 - s/p flu vax 07/04, Tdap 09/07 - RSV vax 09/30 - Rhogam 09/07 - Pap NILM 05/09/24 - GBS neg 09/04, repeat GBS due 10/06 - MOD: anticipate vaginal, IOL scheduled 10/14/24 - MOF: formula (donor breast milk in NICU) - MOC: nexplanon - Antepartum VTE Prophylaxis: lovenox Dispo: inpatient management until delivery Jayde Garrett MD RADIO MESSAGE ROUTER PGY-3 Cosigned by Vibha Vegas MD at 10/03/2024 8:41 PM TMR TEACHER TEACHER TEACHER Associated attestation - Vibha Vegas MD - 10/03/2024 8:41 PM TMR TEACHER MFM Attending Attestation I have seen and examined the patient, Kayla Faye, on 10/03/2024 and I am in agreement with the plan as documented in the resident/fellow/FARTUN's note. She is physically well but is sad because her friends and partner have not been visiting as much as she would want. She expresses a desire to suppress milk production after delivery as she does not have work support for and desires to restart some psychiatric medications that she would not want to exposure the too. We discussed that many are safe but she would rather formula feed. She does desire donor breast milk while infant in NICU. Discussed tight bra and ice after delivery. Offered support and encouraged her to continue activities that bring her jesus like crafting. Vibha Vegas MD 10/03/2024 10/02/2024 - 32w2d - Gerry, Jayde Alvarenga MD Antepartum Progress Note Gestational Age: 32w2d Admission Date: 09/04/2024 Length of stay: 28 Brief HPI: 24 y.o. female at 32w2d gestation admitted for superimposed preeclampsia with severe features. also complicated by hx of lsc dona, ICP, hx cannabis use, migraine without aura, and depression. INTERVAL HISTORY - Blood pressures continue to be well controlled - Prolonged monitoring for variables yesterday. Tracing improved - NAEO SUBJECTIVE - Doing well, resting this morning Review of Systems Negative except as per above. OBJECTIVE Vitals: Temp Min: 36.4 C (97.5 F) Max: 36.8 C (98.3 F) Pulse Min: 86 Max: 105 BP Min: 116/72 Max: 130/73 Resp Min: 16 Max: 18 SpO2 Min: 95 % Max: 100 % FHR: NST reactive [place]: no regular contractions Physical Exam General: No acute distress. Cardiovascular: Normal rate, regular rhythm Lungs: Non-labored Abdomen: Soft, non-tender, gravid. Extremities: Warm and well-perfused. Pelvic: Deferred. Neurologic: Alert and oriented x4 Lab Review: Recent Results (from the past 24 hours) Antibody identification Collection Time: 10/01/24 7:53 AM Result Value Ref Range Antibody ID 1 Passive Anti-D ASSESSMENT/PLAN Kayla Faye is a 24 y.o. at 32w2d admitted for PreEwSF. #Pre-eclampsia with severe features #Transaminitis, resolved - Chart review with gHTN based on MRBPs >4h apart on 08/27 - Presented to OSH with sustained SRBPs and spotted with L20, 4g Mg bolus - P/w mild headache, N/V (see below) - sustained SRBP; spotted L20 - neuro sx: mild headache, no blurry vision, +epigastric tenderness, no SOB, no LE swelling - Diagnosed with Pre-E w/ SF by: SRBP requiring IV spotting with headache - Baseline labs: Cr 0.54,AST 14, ALT 10, Hgb 13.7, Plt 320, UPC 0.1 - OSH labs: Cr 0.5, AST 26, ALT 60, Hgb 12, Plt 360, UPC 0.1 - Admit labs: Cr 0.4, AST 34, ALT 69, Hgb 12, Plt 320, UPC 0.17 - s/p 4g bolus, Mg continued on admission > dc'd 09/040 - UDS deferred - AST/ALT trend: 34/69 > 89/89>80/141 > 88/164 > 160/286 > 118/301 > 100/282 > 62/215 > 43/165 > 39/135 > 22/54; RUQ US WNL, hep panel neg - LDH 304>248 - CMV, EBV, HSV neg - attributed to cholestasis, see plan below Plan: - CURRENT REGIMEN: ASA, Nifed 30mg XL (09/05) - Admission until delivery at 34 weeks or when otherwise indicated - q72 hour labs #ICP - Asymptomatic - Transaminitis with bile acids 53 - Now with resolved transaminitis - Ursodiol 500mg BID (^09/22), titrate per symptoms - Repeat bile acids 6 (09/22) #Cannabis use #Nausea and vomiting of vs cannabis-induced hyperemesis, resolved #Prolonged QT, resolved - Recent admission 08/29-08/30 at [facility] for N/V that improved with anti-emetics - Presented unable to tolerate PO for the past day - IOB weight 66kg > 75kg on admission - Ketones 3+ on admission -Thiamine and phos repletion on admission - EKG with QTC ^480 > 423 on repeat - CBC wnl, CMP with ALT 69, lipase WNL, UA 3+ glucose/ketones, hepatitis panel WNL, H pylori deferred, RUQ US ordered, head imaging deferred - RVP neg - DDx includes N/V in , MJ induced nausea, HEG, or GI-related etiology - Previous antiemetics attempted: zofran, compazine - s/p cessation counseling Plan: - Current regimen: B6 TID, unisom nightly, zofran prn, comp PRN #Migraine without aura - APAP PRN #Depression - Increased lexapro to 20mg (^09/25) - SW consult - Follows with Dr. Johnson/Sandra at [facility] #FWB: - OSH US 09/04/24: EFW 1425g, (85%tile), normal SAADIA, vertex - Genetic screening: LR NIPT - Anatomy US: incomplete 07/04 and 08/07, 09/06 - fUS 09/06: EFW 1159g (20%), normal fluid. - BMZ^09/06 - s/p Mg for PreE - PCN deferred - peds consult 09/05 - MONITORING PLAN: dNST #MWB #SMA carrier #Rh negative - PNL: Rh O-/Ab neg/HIV NR/Rub imm/RPR NR/HepB neg/GC/CT neg/neg - 1 hr GTT, 113 - 3T HIV/RPR NR 09/04 - s/p flu vax 07/04, Tdap 09/07 - RSV vax 09/30 - Rhogam 09/07 - Pap NILM 05/09/24 - GBS neg 09/04 - MOD: anticipate vaginal, IOL scheduled 10/14/24 - MOF: breast - MOC: nexplanon - Antepartum VTE Prophylaxis: lovenox Dispo: inpatient management until delivery Jayde Garrett MD RADIO MESSAGE ROUTER PGY-3 Cosigned by Vibha Vegas MD at 10/02/2024 10:49 AM TMR TEACHER TEACHER TEACHER Associated attestation - Vibha Vegas MD - 10/02/2024 10:49 AM TMR TEACHER MFM Attending Attestation I have seen and examined the patient, Kayla Faye, on 10/02/2024 and I am in agreement with the plan as documented in the resident/fellow/FARTUN's note. Stable preE and ICP. Feeling well today. Continue inpatient management. Vibha Vegas MD 10/02/2024 10/01/2024 - 32w1d - Jayde Garrett MD Antepartum Progress Note Gestational Age: 32w1d Admission Date: 09/04/2024 Length of stay: 27 Brief HPI: 24 y.o. female at 32w1d gestation admitted for superimposed preeclampsia with severe features. also complicated by hx of lsc dona, ICP, hx cannabis use, migraine without aura, and depression. INTERVAL HISTORY - Blood pressures continue to be well controlled - NAEO SUBJECTIVE - Doing well, resting this morning Review of Systems Negative except as per above. OBJECTIVE Vitals: Temp Min: 36.6 C (97.9 F) Max: 36.9 C (98.4 F) Pulse Min: 70 Max: 104 BP Min: 110/62 Max: 120/74 Resp Min: 17 Max: 18 SpO2 Min: 91 % Max: 98 % FHR: NST reactive [place]: no regular contractions Physical Exam General: No acute distress. Cardiovascular: Normal rate, regular rhythm Lungs: Non-labored Abdomen: Soft, non-tender, gravid. Extremities: Warm and well-perfused. Pelvic: Deferred. Neurologic: Alert and oriented x4 Lab Review: No results found for this or any previous visit (from the past 24 hours). ASSESSMENT/PLAN Kayla Faye is a 24 y.o. at 32w1d admitted for PreEwSF. #Pre-eclampsia with severe features #Transaminitis, resolved - Chart review with gHTN based on MRBPs >4h apart on 08/27 - Presented to OSH with sustained SRBPs and spotted with L20, 4g Mg bolus - P/w mild headache, N/V (see below) - sustained SRBP; spotted L20 - neuro sx: mild headache, no blurry vision, +epigastric tenderness, no SOB, no LE swelling - Diagnosed with Pre-E w/ SF by: SRBP requiring IV spotting with headache - Baseline labs: Cr 0.54,AST 14, ALT 10, Hgb 13.7, Plt 320, UPC 0.1 - OSH labs: Cr 0.5, AST 26, ALT 60, Hgb 12, Plt 360, UPC 0.1 - Admit labs: Cr 0.4, AST 34, ALT 69, Hgb 12, Plt 320, UPC 0.17 - s/p 4g bolus, Mg continued on admission > dc'd 09/04 2230 - UDS deferred - AST/ALT trend: 34/69 > 89/89>80/141 > 88/164 > 160/286 > 118/301 > 100/282 > 62/215 > 43/165 > 39/135 > 22/54; RUQ US WNL, hep panel neg - LDH 304>248 - CMV, EBV, HSV neg - attributed to cholestasis, see plan below Plan: - CURRENT REGIMEN: ASA, Nifed 30mg XL (09/05) - Admission until delivery at 34 weeks or when otherwise indicated - q72 hour labs #ICP - Asymptomatic - Transaminitis with bile acids 53 - Now with resolved transaminitis - Ursodiol 500mg BID (^09/22), titrate per symptoms - Repeat bile acids 6 (09/22) #Cannabis use #Nausea and vomiting of vs cannabis-induced hyperemesis, resolved #Prolonged QT, resolved - Recent admission 08/29-08/30 at [facility] for N/V that improved with anti-emetics - Presented unable to tolerate PO for the past day - IOB weight 66kg > 75kg on admission - Ketones 3+ on admission -Thiamine and phos repletion on admission - EKG with QTC ^480 > 423 on repeat - CBC wnl, CMP with ALT 69, lipase WNL, UA 3+ glucose/ketones, hepatitis panel WNL, H pylori deferred, RUQ US ordered, head imaging deferred - RVP neg - DDx includes N/V in , MJ induced nausea, HEG, or GI-related etiology - Previous antiemetics attempted: zofran, compazine - s/p cessation counseling Plan: - Current regimen: B6 TID, unisom nightly, zofran prn, comp PRN #Migraine without aura - APAP PRN #Depression - Increased lexapro to 20mg (^09/25) - SW consult - Follows with Dr. Johnson/Sandra at [facility] #FWB: - OSH US 09/04/24: EFW 1425g, (85%tile), normal SAADIA, vertex - Genetic screening: LR NIPT - Anatomy US: incomplete 07/04 and 08/07 - fUS 09/06: EFW 1159g (20%), normal fluid. - BMZ^09/06 - s/p Mg for PreE - PCN deferred - peds consult 09/05 - MONITORING PLAN: dNST #MWB #SMA carrier #Rh negative - PNL: Rh O-/Ab neg/HIV NR/Rub imm/RPR NR/HepB neg/GC/CT neg/neg - 1 hr GTT, 113 - 3T HIV/RPR NR 09/04 - s/p flu vax 07/04, Tdap 09/07 - RSV vax 09/30 - Rhogam 09/07 - Pap NILM 05/09/24 - GBS neg 09/04 - MOD: anticipate vaginal, IOL scheduled 10/14/24 - MOF: breast - MOC: nexplanon - Antepartum VTE Prophylaxis: lovenox Dispo: inpatient management until delivery Jayde Garrett MD RADIO MESSAGE ROUTER PGY-3 Cosigned by Tarah Skaggs MD at 10/01/2024 7:20 AM TMR TEACHER TEACHER TEACHER Associated attestation - Tarah Skaggs MD - 10/01/2024 7:20 AM TMR TEACHER I have seen and examined the patient on 10/01/24. I agree with the findings and plan of care as documented in the resident's/fellow's note. and as discussed with the resident/fellow.. 09/30/2024 - 32w0d - Jayde Garrett MD Antepartum Progress Note Gestational Age: 32w0d Admission Date: 09/04/2024 Length of stay: 26 Brief HPI: 24 y.o. female at 32w0d gestation admitted for superimposed preeclampsia with severe features. also complicated by hx of lsc dona, ICP, hx cannabis use, migraine without aura, and depression. INTERVAL HISTORY - Blood pressures continue to be well controlled - NAEO SUBJECTIVE - Doing well, resting this morning Review of Systems Negative except as per above. OBJECTIVE Vitals: Temp Min: 36.6 C (97.9 F) Max: 36.9 C (98.5 F) Pulse Min: 77 Max: 92 BP Min: 112/58 Max: 123/56 Resp Min: 17 Max: 18 SpO2 Min: 92 % Max: 99 % FHR: NST reactive [place]: no regular contractions Physical Exam General: No acute distress. Cardiovascular: Normal rate, regular rhythm Lungs: Non-labored Abdomen: Soft, non-tender, gravid. Extremities: Warm and well-perfused. Pelvic: Deferred. Neurologic: Alert and oriented x4 Lab Review: No results found for this or any previous visit (from the past 24 hours). ASSESSMENT/PLAN Kayla Faye is a 24 y.o. at 32w0d admitted for PreEwSF. #Pre-eclampsia with severe features #Transaminitis, resolved - Chart review with gHTN based on MRBPs >4h apart on 08/27 - Presented to OSH with sustained SRBPs and spotted with L20, 4g Mg bolus - P/w mild headache, N/V (see below) - sustained SRBP; spotted L20 - neuro sx: mild headache, no blurry vision, +epigastric tenderness, no SOB, no LE swelling - Diagnosed with Pre-E w/ SF by: SRBP requiring IV spotting with headache - Baseline labs: Cr 0.54,AST 14, ALT 10, Hgb 13.7, Plt 320, UPC 0.1 - OSH labs: Cr 0.5, AST 26, ALT 60, Hgb 12, Plt 360, UPC 0.1 - Admit labs: Cr 0.4, AST 34, ALT 69, Hgb 12, Plt 320, UPC 0.17 - s/p 4g bolus, Mg continued on admission > dc'd 09/040 - UDS deferred - AST/ALT trend: 34/69 > 89/89>80/141 > 88/164 > 160/286 > 118/301 > 100/282 > 62/215 > 43/165 > 39/135 > 22/54; RUQ US WNL, hep panel neg - LDH 304>248 - CMV, EBV, HSV neg - attributed to cholestasis, see plan below Plan: - CURRENT REGIMEN: ASA, Nifed 30mg XL (09/05) - Admission until delivery at 34 weeks or when otherwise indicated - q72 hour labs #ICP - Asymptomatic - Transaminitis with bile acids 53 - Now with resolved transaminitis - Ursodiol 500mg BID (^09/22), titrate per symptoms - Repeat bile acids 6 (09/22) #Cannabis use #Nausea and vomiting of vs cannabis-induced hyperemesis, resolved #Prolonged QT, resolved - Recent admission 08/29-08/30 at [facility] for N/V that improved with anti-emetics - Presented unable to tolerate PO for the past day - IOB weight 66kg > 75kg on admission - Ketones 3+ on admission -Thiamine and phos repletion on admission - EKG with QTC ^480 > 423 on repeat - CBC wnl, CMP with ALT 69, lipase WNL, UA 3+ glucose/ketones, hepatitis panel WNL, H pylori deferred, RUQ US ordered, head imaging deferred - RVP neg - DDx includes N/V in , MJ induced nausea, HEG, or GI-related etiology - Previous antiemetics attempted: zofran, compazine - s/p cessation counseling Plan: - Current regimen: B6 TID, unisom nightly, zofran prn, comp PRN #Migraine without aura - APAP PRN #Depression - Increased lexapro to 20mg (^09/25) - SW consult - Follows with Dr. Johnson/Sandra at [facility] #FWB: - OSH US 09/04/24: EFW 1425g, (85%tile), normal SAADIA, vertex - Genetic screening: LR NIPT - Anatomy US: incomplete 07/04 and 08/07 - fUS 09/06: EFW 1159g (20%), normal fluid. - BMZ^09/06 - s/p Mg for PreE - PCN deferred - peds consult 09/05 - MONITORING PLAN: dNST #MWB #SMA carrier #Rh negative - PNL: Rh O-/Ab neg/HIV NR/Rub imm/RPR NR/HepB neg/GC/CT neg/neg - 1 hr GTT, 113 - 3T HIV/RPR NR 09/04 - s/p flu vax 07/04, Tdap 09/07 - Rhogam 09/07 - Pap NILM 05/09/24 - GBS neg 09/04 - MOD: anticipate vaginal, IOL scheduled 10/14/24 - MOF: breast - MOC: nexplanon - Antepartum VTE Prophylaxis: lovenox Dispo: inpatient management until delivery Jayde Garrett MD RADIO MESSAGE ROUTER PGY-3 Cosigned by Carmita Lozano MD at 09/30/2024 8:41 AM TMR TEACHER TEACHER TEACHER Associated attestation - Carmita Lozano MD - 09/30/2024 8:41 AM TMR TEACHER Attending Attestation I have seen, examined, and discussed Kayla Faye with Dr. Garrett on 09/30/2024. I agree with the findings and the plan of care as documented. 09/29/2024 - d - Nakita Lindsay MD Electronic Monitoring/Non-Stress Test Date: 09/29/24 Time: 1122 - 1201 Kayla Faye is a 24 y.o. female at 31w6d gestation a/f PreEwSF. FHR Baseline: 145 > 140 Variability: moderate Accelerations: present Decelerations: None Contractions: None Reactive: Yes Comments: Reactive and reassuring NST. I have reviewed NST and instructed RN to take off monitor Nakita Lindsay MD Resident Physician, PGY-2 Department of Obstetrics & Gynecology Cosigned by Lauri Flowers MD at 10/03/2024 4:41 PM TMR TEACHER TEACHER TEACHER Associated attestation - Lauri Flowers MD - 10/03/2024 4:41 PM TMR TEACHER I have reviewed and agree with NST interpretation 09/29/2024 - [email or web address] - Jayde Garrett MD Antepartum Progress Note Gestational Age: 31w6d Admission Date: 09/04/2024 Length of stay: 25 Brief HPI: 24 y.o. female at 31w6d gestation admitted for superimposed preeclampsia with severe features. also complicated by hx of lsc dona, ICP, hx cannabis use, migraine without aura, and depression. INTERVAL HISTORY - BP continues to be well controlled - NAEO SUBJECTIVE - Doing well, resting this morning Review of Systems Negative except as per above. OBJECTIVE Vitals: Temp Min: 36.6 C (97.9 F) Max: 36.8 C (98.2 F) Pulse Min: 74 Max: 95 BP Min: 115/62 Max: 124/80 Resp Min: 16 Max: 18 SpO2 Min: 96 % Max: 99 % FHR: NST reactive [place]: no regular contractions Physical Exam General: No acute distress. Cardiovascular: Normal rate, regular rhythm Lungs: Non-labored Abdomen: Soft, non-tender, gravid. Extremities: Warm and well-perfused. Pelvic: Deferred. Neurologic: Alert and oriented x4 Lab Review: Recent Results (from the past 24 hours) Antibody identification Collection Time: 09/28/24 8:02 AM Result Value Ref Range Antibody ID 1 Passive Anti-D ASSESSMENT/PLAN Kayla Faye is a 24 y.o. at 31w6d admitted for PreEwSF. #Pre-eclampsia with severe features #Transaminitis, resolved - Chart review with gHTN based on MRBPs >4h apart on 08/27 - Presented to OSH with sustained SRBPs and spotted with L20, 4g Mg bolus - P/w mild headache, N/V (see below) - sustained SRBP; spotted L20 - neuro sx: mild headache, no blurry vision, +epigastric tenderness, no SOB, no LE swelling - Diagnosed with Pre-E w/ SF by: SRBP requiring IV spotting with headache - Baseline labs: Cr 0.54,AST 14, ALT 10, Hgb 13.7, Plt 320, UPC 0.1 - OSH labs: Cr 0.5, AST 26, ALT 60, Hgb 12, Plt 360, UPC 0.1 - Admit labs: Cr 0.4, AST 34, ALT 69, Hgb 12, Plt 320, UPC 0.17 - s/p 4g bolus, Mg continued on admission > dc'd 09/040 - UDS deferred - AST/ALT trend: 34/69 > 89/89>80/141 > 88/164 > 160/286 > 118/301 > 100/282 > 62/215 > 43/165 > 39/135 > 22/54; RUQ US WNL, hep panel neg - LDH 304>248 - CMV, EBV, HSV neg - attributed to cholestasis, see plan below Plan: - CURRENT REGIMEN: ASA, Nifed 30mg XL (09/05) - Admission until delivery at 34 weeks or when otherwise indicated - q72 hour labs #ICP - Asymptomatic - Transaminitis with bile acids 53 - Now with resolved transaminitis - Ursodiol 500mg BID (^09/22), titrate per symptoms - Repeat bile acids 6 (09/22) #Cannabis use #Nausea and vomiting of vs cannabis-induced hyperemesis, resolved #Prolonged QT, resolved - Recent admission 08/29-08/30 at [facility] for N/V that improved with anti-emetics - Presented unable to tolerate PO for the past day - IOB weight 66kg > 75kg on admission - Ketones 3+ on admission -Thiamine and phos repletion on admission - EKG with QTC ^480 > 423 on repeat - CBC wnl, CMP with ALT 69, lipase WNL, UA 3+ glucose/ketones, hepatitis panel WNL, H pylori deferred, RUQ US ordered, head imaging deferred - RVP neg - DDx includes N/V in , MJ induced nausea, HEG, or GI-related etiology - Previous antiemetics attempted: zofran, compazine - s/p cessation counseling Plan: - Current regimen: B6 TID, unisom nightly, zofran prn, comp PRN #Migraine without aura - APAP PRN #Depression - Increased lexapro to 20mg (^09/25) - consult - Follows with Dr. Johnson/Sandra at [facility] #FWB: - OSH US 09/04/24: EFW 1425g, (85%tile), normal SAADIA, vertex - Genetic screening: LR NIPT - Anatomy US: incomplete 07/04 and 08/07 - fUS 09/06: EFW 1159g (20%), normal fluid. - BMZ^09/06 - s/p Mg for PreE - PCN deferred - peds consult 09/05 - MONITORING PLAN: dNST #MWB #SMA carrier #Rh negative - PNL: Rh O-/Ab neg/HIV NR/Rub imm/RPR NR/HepB neg/GC/CT neg/neg - 1 hr GTT, 113 - 3T HIV/RPR NR 09/04 - s/p flu vax 07/04, Tdap 09/07 - Rhogam 09/07 - Pap NILM 05/09/24 - GBS neg 09/04 - MOD: anticipate vaginal, IOL scheduled 10/14/24 - MOF: breast - MOC: nexplanon - Antepartum VTE Prophylaxis: lovenox Dispo: inpatient management until delivery Jayde Garrett MD RADIO MESSAGE ROUTER PGY-3 Cosigned by Lauri Flowers MD at 09/29/2024 1:01 PM TMR TEACHER TEACHER TEACHER Associated attestation - Lauri Flowers MD - 09/29/2024 1:01 PM TMR TEACHER I have seen and examined the patient on 09/29/24. I agree with the findings and plan of care as documented in the resident's/fellow's note.. 09/28/2024 - 31w5d - Trinidad Hill NP Electronic Monitoring/Non-Stress Test Date: 09/28/2024 Time: Kayla Faye is a 24 y.o. female at 31w5d gestation FHR Baseline: 135-145 Variability: moderate Accelerations: present Decelerations: small variables Contractions: irregular with irritability not felt by patient Reactive: Yes Comments: reassuring I have reviewed NST and instructed RN to take off monitor BRANDON Pinto Cosigned by Lauri Flowers MD at 09/28/2024 3:20 PM TMR TEACHER TEACHER TEACHER 09/28/2024 - 31w5d - Jayde Garrett MD Antepartum Progress Note Gestational Age: 31w5d Admission Date: 09/04/2024 Length of stay: 24 Brief HPI: 24 y.o. female at 31w5d gestation admitted for superimposed preeclampsia with severe features. also complicated by hx of lsc dona, ICP, hx cannabis use, migraine without aura, and depression. INTERVAL HISTORY - BP continued to be well controlled - NAEO SUBJECTIVE - Doing well, resting this morning Review of Systems Negative except as per above. OBJECTIVE Vitals: Temp Min: 36.4 C (97.6 F) Max: 36.9 C (98.4 F) Pulse Min: 85 Max: 104 BP Min: 109/62 Max: 135/77 Resp Min: 16 Max: 18 SpO2 Min: 97 % Max: 98 % FHR: NST reactive [place]: no regular contractions Physical Exam General: No acute distress. Cardiovascular: Normal rate, regular rhythm Lungs: Non-labored Abdomen: Soft, non-tender, gravid. Extremities: Warm and well-perfused. Pelvic: Deferred. Neurologic: Alert and oriented x4 Lab Review: Recent Results (from the past 24 hours) CBC without differential Collection Time: 09/28/24 6:22 AM Result Value Ref Range WBC 12.7 (H) 3.8 - 9.9 K/cumm Hgb 10.9 (L) 11.9 - 15.5 g/dL Hct 30.8 (L) 35.6 - 45.5 % Plt 294 150 - 400 K/cumm MPV 9.3 9.1 - 12.3 fL RBC 3.36 (L) 3.90 - 5.20 M/cumm MCV 91.7 81.3 - 96.4 fL MCH 32.4 27.1 - 33.3 pg MCHC 35.4 32.3 - 35.7 g/dL RDW CV 12.6 11.1 - 14.9 % RDW SD 41.8 35.7 - 48.1 fL NRBC abs 0.00 0.00 - 0.01 K/cumm ASSESSMENT/PLAN Kayla Faye is a 24 y.o. at 31w5d admitted for PreEwSF. #Pre-eclampsia with severe features #Transaminitis, resolved - Chart review with gHTN based on MRBPs >4h apart on 08/27 - Presented to OSH with sustained SRBPs and spotted with L20, 4g Mg bolus - P/w mild headache, N/V (see below) - sustained SRBP; spotted L20 - neuro sx: mild headache, no blurry vision, +epigastric tenderness, no SOB, no LE swelling - Diagnosed with Pre-E w/ SF by: SRBP requiring IV spotting with headache - Baseline labs: Cr 0.54,AST 14, ALT 10, Hgb 13.7, Plt 320, UPC 0.1 - OSH labs: Cr 0.5, AST 26, ALT 60, Hgb 12, Plt 360, UPC 0.1 - Admit labs: Cr 0.4, AST 34, ALT 69, Hgb 12, Plt 320, UPC 0.17 - s/p 4g bolus, Mg continued on admission > dc'd 09/04 2230 - UDS deferred - AST/ALT trend: 34/69 > 89/89>80/141 > 88/164 > 160/286 > 118/301 > 100/282 > 62/215 > 43/165 > 39/135 > 22/54; RUQ US WNL, hep panel neg - LDH 304>248 - CMV, EBV, HSV neg - attributed to cholestasis, see plan below Plan: - CURRENT REGIMEN: ASA, Nifed 30mg XL (09/05) - Admission until delivery at 34 weeks or when otherwise indicated - q72 hour labs #ICP - Asymptomatic - Transaminitis with bile acids 53 - Now with resolved transaminitis - Ursodiol 500mg BID (^1/3), titrate per symptoms - Repeat bile acids 6 (1/3) #Cannabis use #Nausea and vomiting of vs cannabis-induced hyperemesis, resolved #Prolonged QT, resolved - Recent admission 08/29-08/30 at [facility] for N/V that improved with anti-emetics - Presented unable to tolerate PO for the past day - IOB weight 66kg > 75kg on admission - Ketones 3+ on admission -Thiamine and phos repletion on admission - EKG with QTC ^480 > 423 on repeat - CBC wnl, CMP with ALT 69, lipase WNL, UA 3+ glucose/ketones, hepatitis panel WNL, H pylori deferred, RUQ US ordered, head imaging deferred - RVP neg - DDx includes N/V in , MJ induced nausea, HEG, or GI-related etiology - Previous antiemetics attempted: zofran, compazine - s/p cessation counseling Plan: - Current regimen: B6 TID, unisom nightly, zofran prn, comp PRN #Migraine without aura - APAP PRN #Depression - Increased lexapro to 20mg (^09/25) - SW consult - Follows with Dr. Johnson/Sandra at [facility] #FWB: - OSH US 09/04/24: EFW 1425g, (85%tile), normal SAADIA, vertex - Genetic screening: LR NIPT - Anatomy US: incomplete 07/04 and 08/07 - fUS 09/06: EFW 1159g (20%), normal fluid. - BMZ^09/06 - s/p Mg for PreE - PCN deferred - peds consult 09/05 - MONITORING PLAN: dNST #MWB #SMA carrier #Rh negative - PNL: Rh O-/Ab neg/HIV NR/Rub imm/RPR NR/HepB neg/GC/CT neg/neg - 1 hr GTT, 113 - 3T HIV/RPR NR 09/04 - s/p flu vax 07/04, Tdap 09/07 - Rhogam 09/07 - Pap NILM 05/09/24 - GBS neg 09/04 - MOD: anticipate vaginal, IOL scheduled 10/14/24 - MOF: breast - MOC: nexplanon - Antepartum VTE Prophylaxis: lovenox Dispo: inpatient management until delivery Jayde Garrett MD RADIO MESSAGE ROUTER PGY-3 Cosigned by Lauri Flowers MD at 09/28/2024 11:22 AM TMR TEACHER TEACHER TEACHER Associated attestation - Lauri Flowers MD - 09/28/2024 11:22 AM TMR TEACHER I have seen and examined the patient on 09/28/24. I agree with the findings and plan of care as documented in the resident's/fellow's note.. 09/27/2024 - 31w4d - Jayde Garrett MD Antepartum Progress Note Gestational Age: 31w4d Admission Date: 09/04/2024 Length of stay: 23 Brief HPI: 24 y.o. female at 31w4d gestation admitted for superimposed preeclampsia with severe features. also complicated by hx of lsc dona, cannabis use, poorly controlled n/v, migraine without aura, and depression. INTERVAL HISTORY - Normotensive x24 hours. - NAEO SUBJECTIVE - Doing well, resting this morning Review of Systems Negative except as per above. OBJECTIVE Vitals: Temp Min: 36.7 C (98 F) Max: 36.9 C (98.4 F) Pulse Min: 78 Max: 92 BP Min: 118/68 Max: 121/70 Resp Min: 16 Max: 16 SpO2 Min: 96 % Max: 99 % FHR: NST reactive [place]: no regular contractions Physical Exam General: No acute distress. Cardiovascular: Normal rate, regular rhythm Lungs: Non-labored Abdomen: Soft, non-tender, gravid. Extremities: Warm and well-perfused. Pelvic: Deferred. Neurologic: Alert and oriented x4 Lab Review: No results found for this or any previous visit (from the past 24 hours). ASSESSMENT/PLAN Kayla Faye is a 24 y.o. at 31w4d admitted for PreEwSF. #Pre-eclampsia with severe features #Transaminitis, resolved - Chart review with gHTN based on MRBPs >4h apart on 08/27 - Presented to OSH with sustained SRBPs and spotted with L20, 4g Mg bolus - P/w mild headache, N/V (see below) - sustained SRBP; spotted L20 - neuro sx: mild headache, no blurry vision, +epigastric tenderness, no SOB, no LE swelling - Diagnosed with Pre-E w/ SF by: SRBP requiring IV spotting with headache - Baseline labs: Cr 0.54,AST 14, ALT 10, Hgb 13.7, Plt 320, UPC 0.1 - OSH labs: Cr 0.5, AST 26, ALT 60, Hgb 12, Plt 360, UPC 0.1 - Admit labs: Cr 0.4, AST 34, ALT 69, Hgb 12, Plt 320, UPC 0.17 - s/p 4g bolus, Mg continued on admission > dc'd 09/04 2230 - UDS deferred - AST/ALT trend: 34/69 > 89/89>80/141 > 88/164 > 160/286 > 118/301 > 100/282 > 62/215 > 43/165 > 39/135 > 22/54; RUQ US WNL, hep panel neg - LDH 304>248 - CMV, EBV, HSV neg - attributed to cholestasis, see plan below Plan: - CURRENT REGIMEN: ASA, Nifed 30mg XL (09/05) - Admission until delivery at 34 weeks or when otherwise indicated - q72 hour labs #ICP - Asymptomatic - Transaminitis with bile acids 53 - Now with resolved transaminitis - Ursodiol 500mg BID (^1/), titrate per symptoms - Repeat bile acids 6 (1) #Cannabis use #Nausea and vomiting of vs cannabis-induced hyperemesis, resolved #Prolonged QT, resolved - Recent admission 08/29-08/30 at [facility] for N/V that improved with anti-emetics - Presented unable to tolerate PO for the past day - IOB weight 66kg > 75kg on admission - Ketones 3+ on admission -Thiamine and phos repletion on admission - EKG with QTC ^480 > 423 on repeat - CBC wnl, CMP with ALT 69, lipase WNL, UA 3+ glucose/ketones, hepatitis panel WNL, H pylori deferred, RUQ US ordered, head imaging deferred - RVP neg - DDx includes N/V in , MJ induced nausea, HEG, or GI-related etiology - Previous antiemetics attempted: zofran, compazine - s/p cessation counseling Plan: - Current regimen: B6 TID, unisom nightly, zofran prn, comp PRN #Migraine without aura - APAP PRN #Depression - Increased lexapro to 20mg (^09/25) - SW consult - Follows with Dr. Johnson/Sandra at [facility] #FWB: - OSH US 09/04/24: EFW 1425g, (85%tile), normal SAADIA, vertex - Genetic screening: LR NIPT - Anatomy US: incomplete 07/04 and 08/07 - fUS 09/06: EFW 1159g (20%), normal fluid. - BMZ^09/06 - s/p Mg for PreE - PCN deferred - peds consult 09/05 - MONITORING PLAN: dNST #MWB #SMA carrier #Rh negative - PNL: Rh O-/Ab neg/HIV NR/Rub imm/RPR NR/HepB neg/GC/CT neg/neg - 1 hr GTT, 113 - 3T HIV/RPR NR 09/04 - s/p flu vax 07/04, Tdap 09/07 - Rhogam 09/07 - Pap NILM 05/09/24 - GBS neg 09/04 - MOD: anticipate vaginal, IOL scheduled 10/14/24 - MOF: breast - MOC: nexplanon - Antepartum VTE Prophylaxis: lovenox Dispo: inpatient management until delivery Jayde Garrett MD RADIO MESSAGE ROUTER PGY-3 Cosigned by Lauri Flowers MD at 09/27/2024 11:33 AM TMR TEACHER TEACHER TEACHER Associated attestation - Lauri Flowers MD - 09/27/2024 11:33 AM TMR TEACHER I have seen and examined the patient on 09/27/24. I agree with the findings and plan of care as documented in the resident's/fellow's note.. 09/26/2024 - 31w3d - Jayde Garrett MD Antepartum Progress Note Gestational Age: 31w3d Admission Date: 09/04/2024 Length of stay: 22 Brief HPI: 24 y.o. female at 31w3d gestation admitted for superimposed preeclampsia with severe features. also complicated by hx of lsc dona, cannabis use, poorly controlled n/v, migraine without aura, and depression. INTERVAL HISTORY - Normotensive x24 hours. - SW attempted to contact patient but unable to reach via phone - NAEO SUBJECTIVE - Doing well, resting this morning Review of Systems Negative except as per above. OBJECTIVE Vitals: Temp Min: 36.4 C (97.5 F) Max: 36.8 C (98.2 F) Pulse Min: 80 Max: 113 BP Min: 112/58 Max: 136/73 Resp Min: 16 Max: 16 SpO2 Min: 95 % Max: 98 % FHR: NST reactive [place]: no regular contractions Physical Exam General: No acute distress. Cardiovascular: Normal rate, regular rhythm Lungs: Non-labored Abdomen: Soft, non-tender, gravid. Extremities: Warm and well-perfused. Pelvic: Deferred. Neurologic: Alert and oriented x4 Lab Review: Recent Results (from the past 24 hours) Antibody identification Collection Time: 09/25/24 8:06 AM Result Value Ref Range Antibody ID 1 Passive Anti-D ASSESSMENT/PLAN Kayla Faye is a 24 y.o. at 31w3d admitted for PreEwSF. #Pre-eclampsia with severe features #Transaminitis, resolved - Chart review with gHTN based on MRBPs >4h apart on 08/27 - Presented to OSH with sustained SRBPs and spotted with L20, 4g Mg bolus - P/w mild headache, N/V (see below) - sustained SRBP; spotted L20 - neuro sx: mild headache, no blurry vision, +epigastric tenderness, no SOB, no LE swelling - Diagnosed with Pre-E w/ SF by: SRBP requiring IV spotting with headache - Baseline labs: Cr 0.54,AST 14, ALT 10, Hgb 13.7, Plt 320, UPC 0.1 - OSH labs: Cr 0.5, AST 26, ALT 60, Hgb 12, Plt 360, UPC 0.1 - Admit labs: Cr 0.4, AST 34, ALT 69, Hgb 12, Plt 320, UPC 0.17 - s/p 4g bolus, Mg continued on admission > dc'd 09/04 2230 - UDS deferred - AST/ALT trend: 34/69 > 89/89>80/141 > 88/164 > 160/286 > 118/301 > 100/282 > 62/215 > 43/165 > 39/135 > 22/54; RUQ US WNL, hep panel neg - LDH 304>248 - CMV, EBV, HSV neg - attributed to cholestasis, see plan below Plan: - CURRENT REGIMEN: ASA, Nifed 30mg XL (09/05) - Admission until delivery at 34 weeks or when otherwise indicated - q72 hour labs #ICP - Asymptomatic - Transaminitis with bile acids 53 - Now with resolved transaminitis - Ursodiol 500mg BID (^1), titrate per symptoms - Repeat bile acids 6 (09/22) #Constipation, resolved - Reports has not had BM since admission > now with regular BM Plan: - bowel regimen: Miralax and pericolace BID, dulcolax suppository prn #Cannabis use #Nausea and vomiting of vs cannabis-induced hyperemesis #Prolonged QT, resolved - Recent admission 08/29-08/30 at [facility] for N/V that improved with anti-emetics - Presented unable to tolerate PO for the past day - IOB weight 66kg > 75kg on admission - Ketones 3+ on admission -Thiamine and phos repletion on admission - EKG with QTC ^480 > 423 on repeat - CBC wnl, CMP with ALT 69, lipase WNL, UA 3+ glucose/ketones, hepatitis panel WNL, H pylori deferred, RUQ US ordered, head imaging deferred - RVP neg - DDx includes N/V in , MJ induced nausea, HEG, or GI-related etiology - Previous antiemetics attempted: zofran, compazine - s/p cessation counseling Plan: - Current regimen: B6 TID, unisom nightly, zofran prn, comp PRN #Migraine without aura - APAP PRN #Depression - On lexapro 20mg (Increased 09/25, previously stable on 10mg) - Follows with Dr. Johnson/Sandra at [facility] #FWB: - OSH US 09/04/24: EFW 1425g, (85%tile), normal SAADIA, vertex - Genetic screening: LR NIPT - Anatomy US: incomplete 07/04 and 08/07 - fUS 09/06: EFW 1159g (20%), normal fluid. - BMZ^09/06 - s/p Mg for PreE - PCN deferred - peds consult 09/05 - MONITORING PLAN: dNST #MWB #SMA carrier #Rh negative - PNL: Rh O-/Ab neg/HIV NR/Rub imm/RPR NR/HepB neg/GC/CT neg/neg - 1 hr GTT, 113 - 3T HIV/RPR NR 09/04 - s/p flu vax 07/04, Tdap 09/07 - Rhogam 09/07 - Pap NILM 05/09/24 - GBS neg 09/04 - MOD: anticipate vaginal, IOL scheduled 10/14/24 - MOF: breast - MOC: nexplanon - Antepartum VTE Prophylaxis: The patient has been admitted for >/= 72 hours and is not at high risk for bleeding. Lovenox for VTE prophylaxis ordered. Dispo: inpatient management until delivery Jayde Garrett MD RADIO MESSAGE ROUTER PGY-3 Cosigned by Lauri Flowers MD at 09/26/2024 10:01 AM TMR TEACHER TEACHER TEACHER Associated attestation - Lauri Flowers MD - 09/26/2024 10:01 AM TMR TEACHER I have seen and examined the patient on 09/26/24. I agree with the findings and plan of care as documented in the resident's/fellow's note.. 09/25/2024 - 31w2d - Coby Hernandez LCSW Problem: Patient referred to SW regarding increasing anxiety. SW attempted to contact the patient via phone to provide support and address concerns. SW was unable to make contact and left a VM. Goal/Plan: SW will continue to follow making an additional attempt to provide support. Coby Hernandez [facility] [facility] Certified Ophthalmic Assistant [facility] Primary Care Medicine Clinic TEACHER 09/25/2024 - 31w2d - Jayde Garrett MD Antepartum Progress Note Gestational Age: 31w2d Admission Date: 09/04/2024 Length of stay: 21 Brief HPI: 24 y.o. female at 31w2d gestation admitted for superimposed preeclampsia with severe features. also complicated by hx of lsc dona, cannabis use, poorly controlled n/v, migraine without aura, and depression. INTERVAL HISTORY - Normotensive x24 hours. SUBJECTIVE - Doing well, resting this morning Review of Systems Negative except as per above. OBJECTIVE Vitals: Temp Min: 36.6 C (97.9 F) Max: 36.9 C (98.4 F) Pulse Min: 91 Max: 100 BP Min: 106/60 Max: 124/73 Resp Min: 16 Max: 18 SpO2 Min: 90 % Max: 99 % FHR: NST reactive [place]: no regular contractions Physical Exam General: No acute distress. Cardiovascular: Normal rate, regular rhythm Lungs: Non-labored Abdomen: Soft, non-tender, gravid. Extremities: Warm and well-perfused. Pelvic: Deferred. Neurologic: Alert and oriented x4 Lab Review: Recent Results (from the past 24 hours) CBC without differential Collection Time: 09/25/24 6:43 AM Result Value Ref Range WBC 12.5 (H) 3.8 - 9.9 K/cumm Hgb 11.5 (L) 11.9 - 15.5 g/dL Hct 32.7 (L) 35.6 - 45.5 % Plt 290 150 - 400 K/cumm MPV 9.6 9.1 - 12.3 fL RBC 3.61 (L) 3.90 - 5.20 M/cumm MCV 90.6 81.3 - 96.4 fL MCH 31.9 27.1 - 33.3 pg MCHC 35.2 32.3 - 35.7 g/dL RDW CV 12.8 11.1 - 14.9 % RDW SD 42.0 35.7 - 48.1 fL NRBC abs 0.00 0.00 - 0.01 K/cumm ASSESSMENT/PLAN Kayla Faye is a 24 y.o. at 31w2d admitted for PreEwSF. #Pre-eclampsia with severe features #Transaminitis, resolved - Chart review with TN based on MRBPs >4h apart on 08/27 - Presented to OSH with sustained SRBPs and spotted with L20, 4g Mg bolus - P/w mild headache, N/V (see below) - sustained SRBP; spotted L20 - neuro sx: mild headache, no blurry vision, +epigastric tenderness, no SOB, no LE swelling - Diagnosed with Pre-E w/ SF by: SRBP requiring IV spotting with headache - Baseline labs: Cr 0.54,AST 14, ALT 10, Hgb 13.7, Plt 320, UPC 0.1 - OSH labs: Cr 0.5, AST 26, ALT 60, Hgb 12, Plt 360, UPC 0.1 - Admit labs: Cr 0.4, AST 34, ALT 69, Hgb 12, Plt 320, UPC 0.17 - s/p 4g bolus, Mg continued on admission > dc'd 09/04 2230 - UDS deferred - AST/ALT trend: 34/69 > 89/89>80/141 > 88/164 > 160/286 > 118/301 > 100/282 > 62/215 > 43/165 > 39/135 > 22/54; RUQ US WNL, hep panel neg - LDH 304>248 - CMV, EBV, HSV neg - attributed to cholestasis, see plan below Plan: - CURRENT REGIMEN: ASA, Nifed 30mg XL (09/05) - Admission until delivery at 34 weeks or when otherwise indicated - q72 hour labs #ICP - Asymptomatic - Transaminitis with bile acids 53 - Now with resolved transaminitis - Ursodiol 500mg BID (^1/3), titrate per symptoms - Repeat bile acids 6 (1/3) #Constipation, resolved - Reports has not had BM since admission > now with regular BM Plan: - bowel regimen: Miralax and pericolace BID, dulcolax suppository prn #Cannabis use #Nausea and vomiting of vs cannabis-induced hyperemesis #Prolonged QT, resolved - Recent admission 08/29-08/30 at [facility] for N/V that improved with anti-emetics - Presented unable to tolerate PO for the past day - IOB weight 66kg > 75kg on admission - Ketones 3+ on admission -Thiamine and phos repletion on admission - EKG with QTC ^480 > 423 on repeat - CBC wnl, CMP with ALT 69, lipase WNL, UA 3+ glucose/ketones, hepatitis panel WNL, H pylori deferred, RUQ US ordered, head imaging deferred - RVP neg - DDx includes N/V in , MJ induced nausea, HEG, or GI-related etiology - Previous antiemetics attempted: zofran, compazine - s/p cessation counseling Plan: - Current regimen: B6 TID, unisom nightly, zofran prn, comp PRN #Migraine without aura - APAP PRN #Depression - Stable on lexapro 10mg - Follows with Dr. Johnson/Sandra at [facility] #FWB: - OSH US 09/04/24: EFW 1425g, (85%tile), normal SAADIA, vertex - Genetic screening: LR NIPT - Anatomy US: incomplete 07/04 and 08/07 - fUS 09/06: EFW 1159g (20%), normal fluid. - BMZ^09/06 - s/p Mg for PreE - PCN deferred - peds consult 09/05 - MONITORING PLAN: dNST #MWB #SMA carrier #Rh negative - PNL: Rh O-/Ab neg/HIV NR/Rub imm/RPR NR/HepB neg/GC/CT neg/neg - 1 hr GTT, 113 - 3T HIV/RPR NR 09/04 - s/p flu vax 07/04, Tdap 09/07 - Rhogam 09/07 - Pap NILM 05/09/24 - GBS neg 09/04 - MOD: anticipate vaginal, IOL scheduled 10/14/24 - MOF: breast - MOC: nexplanon - Antepartum VTE Prophylaxis: The patient has been admitted for >/= 72 hours and is not at high risk for bleeding. Lovenox for VTE prophylaxis ordered. Dispo: inpatient management until delivery Jayde Garrett MD RADIO MESSAGE ROUTER PGY-3 Cosigned by Lauri Flowers MD at 09/25/2024 9:44 AM TMR TEACHER TEACHER TEACHER Associated attestation - Lauri Flowers MD - 09/25/2024 9:44 AM TMR TEACHER I have seen and examined the patient on 09/25/24. I agree with the findings and plan of care as documented in the resident's/fellow's note.. 09/24/2024 - 31w1d - Leslie Gonzales MD Antepartum Progress Note Gestational Age: 31w1d Admission Date: 09/04/2024 Length of stay: 20 Brief HPI: 24 y.o. female at 31w1d gestation admitted for superimposed preeclampsia with severe features. also complicated by hx of lsc dona, cannabis use, poorly controlled n/v, migraine without aura, and depression. INTERVAL HISTORY - Normotensive x24 hours. SUBJECTIVE - Doing well Review of Systems Negative except as per above. OBJECTIVE Vitals: Temp Min: 36.5 C (97.7 F) Max: 36.7 C (98 F) Pulse Min: 75 Max: 94 BP Min: 119/65 Max: 132/82 Resp Min: 16 Max: 16 SpO2 Min: 95 % Max: 99 % FHR: NST reactivex2 [place]: no regular contractions Physical Exam General: No acute distress. Cardiovascular: Normal rate, regular rhythm Lungs: Non-labored Abdomen: Soft, non-tender, gravid. Extremities: Warm and well-perfused. Pelvic: Deferred. Neurologic: Alert and oriented x4 Lab Review: No results found for this or any previous visit (from the past 24 hours). ASSESSMENT/PLAN Kayla Faye is a 24 y.o. at 31w1d admitted for PreEwSF. #Pre-eclampsia with severe features #Transaminitis, resolved - Chart review with gHTN based on MRBPs >4h apart on 08/27 - Presented to OSH with sustained SRBPs and spotted with L20, 4g Mg bolus - P/w mild headache, N/V (see below) - sustained SRBP; spotted L20 - neuro sx: mild headache, no blurry vision, +epigastric tenderness, no SOB, no LE swelling - Diagnosed with Pre-E w/ SF by: SRBP requiring IV spotting with headache - Baseline labs: Cr 0.54,AST 14, ALT 10, Hgb 13.7, Plt 320, UPC 0.1 - OSH labs: Cr 0.5, AST 26, ALT 60, Hgb 12, Plt 360, UPC 0.1 - Admit labs: Cr 0.4, AST 34, ALT 69, Hgb 12, Plt 320, UPC 0.17 - s/p 4g bolus, Mg continued on admission > dc'd 09/040 - UDS deferred - AST/ALT trend: 34/69 > 89/89>80/141 > 88/164 > 160/286 > 118/301 > 100/282 > 62/215 > 43/165 > 39/135 > 22/54; RUQ US WNL, hep panel neg - LDH 304>248 - CMV, EBV, HSV neg - attributed to cholestasis, see plan below Plan: - CURRENT REGIMEN: ASA, Nifed 30mg XL (09/05) - Admission until delivery at 34 weeks or when otherwise indicated - q72 hour labs #ICP - Asymptomatic - Transaminitis with bile acids 53 - Now with resolved transaminitis - Ursodiol 500mg BID (^09/22) - Repeat bile acids pending #Constipation, resolved - Reports has not had BM since admission > now with regular BM Plan: - bowel regimen: Miralax and pericolace BID, dulcolax suppository prn #Cannabis use #Nausea and vomiting of vs cannabis-induced hyperemesis #Prolonged QT, resolved - Recent admission 08/29-08/30 at [facility] for N/V that improved with anti-emetics - Presented unable to tolerate PO for the past day - IOB weight 66kg > 75kg on admission - Ketones 3+ on admission -Thiamine and phos repletion on admission - EKG with QTC ^480 > 423 on repeat - CBC wnl, CMP with ALT 69, lipase WNL, UA 3+ glucose/ketones, hepatitis panel WNL, H pylori deferred, RUQ US ordered, head imaging deferred - RVP neg - DDx includes N/V in , MJ induced nausea, HEG, or GI-related etiology - Previous antiemetics attempted: zofran, compazine - s/p cessation counseling Plan: - Current regimen: B6 TID, unisom nightly, zofran prn, comp PRN #Migraine without aura - APAP PRN #Depression - Stable on lexapro 10mg - Follows with Dr. Johnson/Sandra at [facility] #FWB: - OSH US 09/04/24: EFW 1425g, (85%tile), normal SAADIA, vertex - Genetic screening: LR NIPT - Anatomy US: incomplete 07/04 and 08/07 - fUS 09/06: EFW 1159g (20%), normal fluid. - BMZ^09/06 - s/p Mg for PreE - PCN deferred - peds consult 09/05 - MONITORING PLAN: dNST #MWB #SMA carrier #Rh negative - PNL: Rh O-/Ab neg/HIV NR/Rub imm/RPR NR/HepB neg/GC/CT neg/neg - 1 hr GTT, 113 - 3T HIV/RPR NR 09/04 - s/p flu vax 07/04, Tdap 09/07 - Rhogam 09/07 - Pap NILM 05/09/24 - GBS neg 09/04 - MOD: anticipate vaginal - MOF: breast - MOC: nexplanon - Antepartum VTE Prophylaxis: The patient has been admitted for >/= 72 hours and is not at high risk for bleeding. Lovenox for VTE prophylaxis ordered. Lexie Gonzales MD 09/24/24 Cosigned by Mayi Painter MD at 09/24/2024 6:31 AM TMR TEACHER TEACHER TEACHER Associated attestation - Mayi Painter MD - 09/24/2024 6:31 AM TMR TEACHER I have seen and examined the patient. I agree with the findings and plan of care as documented in this note. Mayi Painter MD MS Maternal- Medicine 09/23/2024 - w0d - Leslie Gonzales MD Antepartum Progress Note Gestational Age: 31w0d Admission Date: 09/04/2024 Length of stay: 19 Brief HPI: 24 y.o. female at 31w0d gestation admitted for superimposed preeclampsia with severe features. also complicated by hx of lsc dona, cannabis use, poorly controlled n/v, migraine without aura, and depression. INTERVAL HISTORY - repeat bile acids pending - Ursodiol increased due to itching - Normotensive x24 hours. SUBJECTIVE - resting comfortably this AM. Review of Systems Negative except as per above. OBJECTIVE Vitals: Temp Min: 36.4 C (97.5 F) Max: 37.1 C (98.8 F) Pulse Min: 93 Max: 112 BP Min: 126/73 Max: 130/67 Resp Min: 16 Max: 18 SpO2 Min: 99 % Max: 99 % FHR: NST reactivex2 [place]: no regular contractions Physical Exam General: No acute distress. Cardiovascular: Normal rate, regular rhythm Lungs: Non-labored Abdomen: Soft, non-tender, gravid. Extremities: Warm and well-perfused. Pelvic: Deferred. Neurologic: Alert and oriented x4 Lab Review: Recent Results (from the past 24 hours) Antibody identification Collection Time: 09/22/24 7:21 AM Result Value Ref Range Antibody ID 1 Passive Anti-D ASSESSMENT/PLAN Kayla Faye is a 24 y.o. at 31w0d admitted for PreEwSF. #Pre-eclampsia with severe features #Transaminitis, resolved - Chart review with gHTN based on MRBPs >4h apart on 08/27 - Presented to OSH with sustained SRBPs and spotted with L20, 4g Mg bolus - P/w mild headache, N/V (see below) - sustained SRBP; spotted L20 - neuro sx: mild headache, no blurry vision, +epigastric tenderness, no SOB, no LE swelling - Diagnosed with Pre-E w/ SF by: SRBP requiring IV spotting with headache - Baseline labs: Cr 0.54,AST 14, ALT 10, Hgb 13.7, Plt 320, UPC 0.1 - OSH labs: Cr 0.5, AST 26, ALT 60, Hgb 12, Plt 360, UPC 0.1 - Admit labs: Cr 0.4, AST 34, ALT 69, Hgb 12, Plt 320, UPC 0.17 - s/p 4g bolus, Mg continued on admission > dc'd 09/040 - UDS deferred - AST/ALT trend: 34/69 > 89/89>80/141 > 88/164 > 160/286 > 118/301 > 100/282 > 62/215 > 43/165 > 39/135 > 22/54; RUQ US WNL, hep panel neg - LDH 304>248 - CMV, EBV, HSV neg - attributed to cholestasis, see plan below Plan: - CURRENT REGIMEN: ASA, Nifed 30mg XL (09/05) - Admission until delivery at 34 weeks or when otherwise indicated - q72 hour labs #ICP - Asymptomatic - Transaminitis with bile acids 53 - Now with resolved transaminitis - Ursodiol 500mg BID (^1/3) - Repeat bile acids pending #Constipation, resolved - Reports has not had BM since admission > now with regular BM Plan: - bowel regimen: Miralax and pericolace BID, dulcolax suppository prn #Cannabis use #Nausea and vomiting of vs cannabis-induced hyperemesis #Prolonged QT, resolved - Recent admission 08/29-08/30 at [facility] for N/V that improved with anti-emetics - Presented unable to tolerate PO for the past day - IOB weight 66kg > 75kg on admission - Ketones 3+ on admission -Thiamine and phos repletion on admission - EKG with QTC ^480 > 423 on repeat - CBC wnl, CMP with ALT 69, lipase WNL, UA 3+ glucose/ketones, hepatitis panel WNL, H pylori deferred, RUQ US ordered, head imaging deferred - RVP neg - DDx includes N/V in , MJ induced nausea, HEG, or GI-related etiology - Previous antiemetics attempted: zofran, compazine - s/p cessation counseling Plan: - Current regimen: B6 TID, unisom nightly, zofran prn, comp PRN #Migraine without aura - APAP PRN #Depression - Stable on lexapro 10mg - Follows with Dr. Johnson/Sandra at [facility] #FWB: - OSH US 09/04/24: EFW 1425g, (85%tile), normal SAADIA, vertex - Genetic screening: LR NIPT - Anatomy US: incomplete 07/04 and 08/07 - fUS 09/06: EFW 1159g (20%), normal fluid. - BMZ^09/06 - s/p Mg for PreE - PCN deferred - peds consult 09/05 - MONITORING PLAN: dNST #MWB #SMA carrier #Rh negative - PNL: Rh O-/Ab neg/HIV NR/Rub imm/RPR NR/HepB neg/GC/CT neg/neg - 1 hr GTT, 113 - 3T HIV/RPR NR 09/04 - s/p flu vax 07/04, Tdap 09/07 - Rhogam 09/07 - Pap NILM 05/09/24 - GBS neg 09/04 - MOD: anticipate vaginal - MOF: breast - MOC: nexplanon - Antepartum VTE Prophylaxis: The patient has been admitted for >/= 72 hours and is not at high risk for bleeding. Lovenox for VTE prophylaxis ordered. Lexie Gonzales MD 09/23/24 Cosigned by Mayi Painter MD at 09/23/2024 8:54 AM TMR TEACHER TEACHER TEACHER Associated attestation - Mayi Painter MD - 09/23/2024 8:54 AM TMR TEACHER I have seen and examined the patient. I agree with the findings and plan of care as documented in this note. Mayi Painter MD MS Maternal- Medicine 09/22/2024 - 30w6d - Fadia Darling LCSW Reason for Admission Pt (Kayla Faye 2000) was admitted on 09/04/2024 for Hypertension in , essential, antepartum [O10.019]. Pt discussed in DCAM rounds with medical team. Per DCAM rounds, pt remains admitted to the [facility] due to pre-e w/ sf. SW to follow for coping, adjustment to diagnosis as needed, and assess for social needs. Pt currently EGA 30.6 weeks. SW remains available. Fadia FARNSWORTH LCSW [facility] Clinical Certified Ophthalmic Assistant [facility] TEACHER 09/22/2024 - 30w6d - Jayde Garrett MD Antepartum Progress Note Gestational Age: 30w6d Admission Date: 09/04/2024 Length of stay: 18 Brief HPI: 24 y.o. female at 30w6d gestation admitted for superimposed preeclampsia with severe features. also complicated by hx of lsc dona, cannabis use, poorly controlled n/v, migraine without aura, and depression. INTERVAL HISTORY - repeat bile acids pending - reports leakage yesterday. Ruled out for PPROM by Dr. Gonzales - Normotensive x24 hours. SUBJECTIVE - resting comfortably this AM. Review of Systems Negative except as per above. OBJECTIVE Vitals: Temp Min: 36.6 C (97.8 F) Max: 36.8 C (98.3 F) Pulse Min: 80 Max: 96 BP Min: 115/72 Max: 127/74 Resp Min: 16 Max: 18 SpO2 Min: 98 % Max: 99 % FHR: NST reactivex2 [place]: no regular contractions Physical Exam General: No acute distress. Cardiovascular: Normal rate, regular rhythm Lungs: Non-labored Abdomen: Soft, non-tender, gravid. Extremities: Warm and well-perfused. Pelvic: Deferred. Neurologic: Alert and oriented x4 Lab Review: Recent Results (from the past 24 hours) Type and screen Collection Time: 09/22/24 6:09 AM Result Value Ref Range Indira, indirect Positive (A) ABO Rh O Negative CBC without differential Collection Time: 09/22/24 6:09 AM Result Value Ref Range WBC 12.4 (H) 3.8 - 9.9 K/cumm Hgb 10.5 (L) 11.9 - 15.5 g/dL Hct 29.6 (L) 35.6 - 45.5 % Plt 292 150 - 400 K/cumm MPV 9.4 9.1 - 12.3 fL RBC 3.32 (L) 3.90 - 5.20 M/cumm MCV 89.2 81.3 - 96.4 fL MCH 31.6 27.1 - 33.3 pg MCHC 35.5 32.3 - 35.7 g/dL RDW CV 12.5 11.1 - 14.9 % RDW SD 40.5 35.7 - 48.1 fL NRBC abs 0.00 0.00 - 0.01 K/cumm Comprehensive metabolic panel Collection Time: 09/22/24 6:09 AM Result Value Ref Range Sodium 140 135 - 145 mmol/L Potassium, pl 3.6 3.3 - 4.9 mmol/L Chloride 108 97 - 110 mmol/L CO2 24 22 - 32 mmol/L Anion gap 8 2 - 15 mmol/L BUN 7 6 - 25 mg/dL Creatinine 0.57 (L) 0.60 - 1.10 mg/dL Glucose 81 70 - 199 mg/dL Calcium 8.3 (L) 8.5 - 10.3 mg/dL Bilirubin, total <0.2 0.1 - 1.2 mg/dL Protein, pl 5.4 (L) 6.5 - 8.5 g/dL Albumin 3.0 (L) 3.5 - 5.0 g/dL Alk phos 149 (H) 40 - 130 Units/L ALT 22 7 - 45 Units/L AST 13 10 - 45 Units/L eGFR Collection Time: 09/22/24 6:09 AM Result Value Ref Range eGFR >90 >=60 mL/min/1.73 m2 ASSESSMENT/PLAN Kayla Faye is a 24 y.o. at 30w6d admitted for PreEwSF. #Pre-eclampsia with severe features #Transaminitis, resolved - Chart review with gHTN based on MRBPs >4h apart on 08/27 - Presented to OSH with sustained SRBPs and spotted with L20, 4g Mg bolus - P/w mild headache, N/V (see below) - sustained SRBP; spotted L20 - neuro sx: mild headache, no blurry vision, +epigastric tenderness, no SOB, no LE swelling - Diagnosed with Pre-E w/ SF by: SRBP requiring IV spotting with headache - Baseline labs: Cr 0.54,AST 14, ALT 10, Hgb 13.7, Plt 320, UPC 0.1 - OSH labs: Cr 0.5, AST 26, ALT 60, Hgb 12, Plt 360, UPC 0.1 - Admit labs: Cr 0.4, AST 34, ALT 69, Hgb 12, Plt 320, UPC 0.17 - s/p 4g bolus, Mg continued on admission > dc'd 09/040 - UDS deferred - AST/ALT trend: 34/69 > 89/89>80/141 > 88/164 > 160/286 > 118/301 > 100/282 > 62/215 > 43/165 > 39/135 > 22/54; RUQ US WNL, hep panel neg - LDH 304>248 - CMV, EBV, HSV neg - attributed to cholestasis, see plan below Plan: - CURRENT REGIMEN: ASA, Nifed 30mg XL (09/05) - Admission until delivery at 34 weeks or when otherwise indicated - q72 hour labs, 09/22 stable. Next due 09/25. #ICP - Asymptomatic - Transaminitis with bile acids 53 - Now with resolved transaminitis - Ursodiol 300mg BID - Repeat bile acids pending #Constipation, improving - Reports has not had BM since admission > now with regular BM Plan: - bowel regimen: Miralax and pericolace BID, dulcolax suppository prn #Cannabis use #Nausea and vomiting of vs cannabis-induced hyperemesis #Prolonged QT, resolved - Recent admission 08/29-08/30 at [facility] for N/V that improved with anti-emetics - Presented unable to tolerate PO for the past day - IOB weight 66kg > 75kg on admission - Ketones 3+ on admission -Thiamine and phos repletion on admission - EKG with QTC ^480 > 423 on repeat - CBC wnl, CMP with ALT 69, lipase WNL, UA 3+ glucose/ketones, hepatitis panel WNL, H pylori deferred, RUQ US ordered, head imaging deferred - RVP neg - DDx includes N/V in , MJ induced nausea, HEG, or GI-related etiology - Previous antiemetics attempted: zofran, compazine - s/p cessation counseling Plan: - Current regimen: B6 TID, unisom nightly, zofran prn, comp PRN #Migraine without aura - APAP PRN #Depression - Stable on lexapro 10mg - Follows with Dr. Johnson/Sandra at [facility] #FWB: - OSH US 09/04/24: EFW 1425g, (85%tile), normal SAADIA, vertex - Genetic screening: LR NIPT - Anatomy US: incomplete 07/04 and 08/07 - fUS 09/06: EFW 1159g (20%), normal fluid. - BMZ^09/06 - s/p Mg for PreE - PCN deferred - peds consult 09/05 - MONITORING PLAN: dNST #MWB #SMA carrier #Rh negative - PNL: Rh O-/Ab neg/HIV NR/Rub imm/RPR NR/HepB neg/GC/CT neg/neg - 1 hr GTT, 113 - 3T HIV/RPR NR 09/04 - s/p flu vax 07/04, Tdap 09/07 - Rhogam 09/07 - Pap NILM 05/09/24 - GBS neg 09/04 - MOD: anticipate vaginal - MOF: breast - MOC: nexplanon - Antepartum VTE Prophylaxis: The patient has been admitted for >/= 72 hours and is not at high risk for bleeding. Lovenox for VTE prophylaxis ordered. Jayde Garrett MD RADIO MESSAGE ROUTER PGY-3 Cosigned by Aline Smith MD at 09/22/2024 4:40 PM TMR TEACHER TEACHER TEACHER Associated attestation - Aline Smith MD - 09/22/2024 4:40 PM TMR TEACHER I have seen and examined the patient on 09/22/24. I agree with the findings and plan of care as documented in the resident's/fellow's note. BPs continue to be well controlled on current regimen. Asymptomatic. Labs remain stable. Reports itching overnight - bile acids drawn with labs today and pending. Increasing ursodiol dosing. Continue inpatient expectant management of preeclampsia with severe features. Aline Smith MD [employer] Division of Maternal- Medicine 09/21/2024 - - Crystal Rueda Chaplain Crystal Quintanilla [facility] Spiritual Care Triage: [phone] 09/21/24 1100 Time Spent Start Time 1045 Stop Time 1100 Time Calculation (min) 15 min Patient Spiritual Assessment Spirituality Assessed Focus of Care Clinical Encounter Type Visited With Patient Response Type Routine visit Routine Visit Introduction Reason for visit Support Outcomes and Progress Demonstrating care and respect Achieved Interventions Interventions Offer emotional support;Offer spiritual/judaism support TEACHER 09/21/2024 - - Jayde Garrett MD Antepartum Progress Note Gestational Age: 30w5d Admission Date: 09/04/2024 Length of stay: 17 Brief HPI: 24 y.o. female at 30w5d gestation admitted for superimposed preeclampsia with severe features. also complicated by hx of lsc dona, cannabis use, poorly controlled n/v, migraine without aura, and depression. INTERVAL HISTORY - Normotensive BPs SUBJECTIVE - Resting comfortably this morning without concerns Review of Systems Negative except as per above. OBJECTIVE Vitals: Temp Min: 36.8 C (98.2 F) Max: 36.9 C (98.5 F) Pulse Min: 88 Max: 102 BP Min: 118/74 Max: 129/62 Resp Min: 16 Max: 18 SpO2 Min: 97 % Max: 99 % FHR: NST reactive [place]: no regular contractions Physical Exam General: No acute distress. Cardiovascular: Normal rate, regular rhythm Lungs: Non-labored Abdomen: Soft, non-tender, gravid. Extremities: Warm and well-perfused. Pelvic: Deferred. Neurologic: Alert and oriented x4 Lab Review: No results found for this or any previous visit (from the past 24 hours). ASSESSMENT/PLAN Kayla Faye is a 24 y.o. at 30w5d admitted for PreEwSF. #Pre-eclampsia with severe features #Transaminitis, resolved - Chart review with gHTN based on MRBPs >4h apart on 08/27 - Presented to OSH with sustained SRBPs and spotted with L20, 4g Mg bolus - P/w mild headache, N/V (see below) - sustained SRBP; spotted L20 - neuro sx: mild headache, no blurry vision, +epigastric tenderness, no SOB, no LE swelling - Diagnosed with Pre-E w/ SF by: SRBP requiring IV spotting with headache - Baseline labs: Cr 0.54,AST 14, ALT 10, Hgb 13.7, Plt 320, UPC 0.1 - OSH labs: Cr 0.5, AST 26, ALT 60, Hgb 12, Plt 360, UPC 0.1 - Admit labs: Cr 0.4, AST 34, ALT 69, Hgb 12, Plt 320, UPC 0.17 - s/p 4g bolus, Mg continued on admission > dc'd 09/040 - UDS deferred - AST/ALT trend: 34/69 > 89/89>80/141 > 88/164 > 160/286 > 118/301 > 100/282 > 62/215 > 43/165 > 39/135 > 22/54; RUQ US WNL, hep panel neg - LDH 304>248 - CMV, EBV, HSV neg - attributed to cholestasis, see plan below Plan: - CURRENT REGIMEN: ASA, Nifed 30mg XL (09/05) - Admission until delivery at 34 weeks or when otherwise indicated #ICP - Asymptomatic - Transaminitis with bile acids 53 - Now with resolved transaminitis - Ursodiol 300mg BID - Repeat bile acids tomorrow #Constipation, improving - Reports has not had BM since admission > now with regular BM Plan: - bowel regimen: Miralax and pericolace BID, dulcolax suppository prn #Cannabis use #Nausea and vomiting of vs cannabis-induced hyperemesis #Prolonged QT, resolved - Recent admission 08/29-08/30 at [facility] for N/V that improved with anti-emetics - Presented unable to tolerate PO for the past day - IOB weight 66kg > 75kg on admission - Ketones 3+ on admission -Thiamine and phos repletion on admission - EKG with QTC ^480 > 423 on repeat - CBC wnl, CMP with ALT 69, lipase WNL, UA 3+ glucose/ketones, hepatitis panel WNL, H pylori deferred, RUQ US ordered, head imaging deferred - RVP neg - DDx includes N/V in , MJ induced nausea, HEG, or GI-related etiology - Previous antiemetics attempted: zofran, compazine - s/p cessation counseling Plan: - Current regimen: B6 TID, unisom nightly, zofran prn, comp PRN #Migraine without aura - APAP PRN #Depression - Stable on lexapro 10mg - Follows with Dr. Johnson/Sandra at [facility] #FWB: - OSH US 09/04/24: EFW 1425g, (85%tile), normal SAADIA, vertex - Genetic screening: LR NIPT - Anatomy US: incomplete 07/04 and 08/07 - fUS 09/06: EFW 1159g (20%), normal fluid. - BMZ^09/06 - s/p Mg for PreE - PCN deferred - peds consult 09/05 - MONITORING PLAN: dNST #MWB #SMA carrier #Rh negative - PNL: Rh O-/Ab neg/HIV NR/Rub imm/RPR NR/HepB neg/GC/CT neg/neg - 1 hr GTT, 113 - 3T HIV/RPR NR 09/04 - s/p flu vax 07/04, Tdap 09/07 - Rhogam 09/07 - Pap NILM 05/09/24 - GBS neg 09/04 - MOD: anticipate vaginal - MOF: human milk - MOC: nexplanon - Antepartum VTE Prophylaxis: The patient has been admitted for >/= 72 hours and is not at high risk for bleeding. Lovenox for VTE prophylaxis ordered. Jayde Garrett MD RADIO MESSAGE ROUTER PGY-3 Cosigned by Aline Smith MD at 09/21/2024 11:53 AM TMR TEACHER TEACHER TEACHER Associated attestation - Aline Smith MD - 09/21/2024 11:53 AM TMR TEACHER I have seen and examined the patient on 09/21/24. I agree with the findings and plan of care as documented in the resident's/fellow's note. BPs normotensive. Repeating bile acids with PIH labs tomorrow 09/22. Continue inpatient management of preeclampsia with severe features. Aline Smith MD [facility] [facility] Division of Maternal- Medicine 09/20/2024 - 30w4d - Leslie Gonzales MD Antepartum Progress Note Gestational Age: 30w4d Admission Date: 09/04/2024 Length of stay: 16 Brief HPI: 24 y.o. female at 30w4d gestation admitted for superimposed preeclampsia with severe features. also complicated by hx of lsc dona, cannabis use, poorly controlled n/v, migraine without aura, and depression. INTERVAL HISTORY - Normotensive BPs SUBJECTIVE - Denies WARD, vision changes - Resting comfortably this morning without concerns - Feeling FM Review of Systems Negative except as per above. OBJECTIVE Vitals: Temp Min: 36.6 C (97.8 F) Max: 36.9 C (98.5 F) Pulse Min: 82 Max: 101 BP Min: 115/75 Max: 137/81 Resp Min: 16 Max: 18 SpO2 Min: 96 % Max: 99 % FHR: NST reactive [place]: no regular contractions Physical Exam General: No acute distress. Cardiovascular: Normal rate, regular rhythm Lungs: Non-labored Abdomen: Soft, non-tender, gravid. Extremities: Warm and well-perfused. Pelvic: Deferred. Neurologic: Alert and oriented x4 Lab Review: Recent Results (from the past 24 hours) Antibody identification Collection Time: 09/19/24 6:55 AM Result Value Ref Range Antibody ID 1 Passive Anti-D ASSESSMENT/PLAN Kayla Faye is a 24 y.o. at 30w4d admitted for PreEwSF. #Pre-eclampsia with severe features #Transaminitis, resolved - Chart review with gHTN based on MRBPs >4h apart on 08/27 - Presented to OSH with sustained SRBPs and spotted with L20, 4g Mg bolus - P/w mild headache, N/V (see below) - sustained SRBP; spotted L20 - neuro sx: mild headache, no blurry vision, +epigastric tenderness, no SOB, no LE swelling - Diagnosed with Pre-E w/ SF by: SRBP requiring IV spotting with headache - Baseline labs: Cr 0.54,AST 14, ALT 10, Hgb 13.7, Plt 320, UPC 0.1 - OSH labs: Cr 0.5, AST 26, ALT 60, Hgb 12, Plt 360, UPC 0.1 - Admit labs: Cr 0.4, AST 34, ALT 69, Hgb 12, Plt 320, UPC 0.17 - s/p 4g bolus, Mg continued on admission > dc'd 09/04 2230 - UDS deferred - AST/ALT trend: 34/69 > 89/89>80/141 > 88/164 > 160/286 > 118/301 > 100/282 > 62/215 > 43/165 > 39/135 > 22/54; RUQ US WNL, hep panel neg - LDH 304>248 - CMV, EBV, HSV neg - attributed to cholestasis, see plan below Plan: - CURRENT REGIMEN: ASA, Nifed 30mg XL (09/05) - Admission until delivery at 34 weeks or when otherwise indicated #ICP - Asymptomatic - Transaminitis with bile acids 53 - Now with resolved transaminitis - Ursodiol 300mg BID #Constipation, improving - Reports has not had BM since admission > now with regular BM Plan: - bowel regimen: Miralax and pericolace BID, dulcolax suppository prn #Cannabis use #Nausea and vomiting of vs cannabis-induced hyperemesis #Prolonged QT, resolved - Recent admission 08/29-08/30 at [facility] for N/V that improved with anti-emetics - Presented unable to tolerate PO for the past day - IOB weight 66kg > 75kg on admission - Ketones 3+ on admission -Thiamine and phos repletion on admission - EKG with QTC ^480 > 423 on repeat - CBC wnl, CMP with ALT 69, lipase WNL, UA 3+ glucose/ketones, hepatitis panel WNL, H pylori deferred, RUQ US ordered, head imaging deferred - RVP neg - DDx includes N/V in , MJ induced nausea, HEG, or GI-related etiology - Previous antiemetics attempted: zofran, compazine - s/p cessation counseling Plan: - Current regimen: B6 TID, unisom nightly, zofran prn, comp PRN, Tigan discontinued #Migraine without aura - APAP PRN #Depression - Stable on lexapro 10mg - Follows with Dr. Johnson/Sandra at [facility] #FWB: - OSH US 09/04/24: EFW 1425g, (85%tile), normal SAADIA, vertex - Genetic screening: LR NIPT - Anatomy US: incomplete 07/04 and 08/07 - fUS 09/06: EFW 1159g (20%), normal fluid. - BMZ^09/06 - s/p Mg for PreE - PCN deferred - peds consult 09/05 - MONITORING PLAN: dNST #MWB #SMA carrier #Rh negative - PNL: Rh O-/Ab neg/HIV NR/Rub imm/RPR NR/HepB neg/GC/CT neg/neg - 1 hr GTT, 113 - 3T HIV/RPR NR 09/04 - s/p flu vax 07/04, Tdap 09/07 - Rhogam 09/07 - Pap NILM 05/09/24 - GBS neg 09/04 - MOD: anticipate vaginal - MOF: human milk - MOC: nexplanon - Antepartum VTE Prophylaxis: The patient has been admitted for >/= 72 hours and is not at high risk for bleeding. Lovenox for VTE prophylaxis ordered. Lexie Gonzales MD 09/20/24 Cosigned by Rula Bang MD at 09/20/2024 7:37 AM TMR TEACHER TEACHER TEACHER Associated attestation - Rula Bang MD - 09/20/2024 7:37 AM TMR TEACHER I have seen and examined the patient on 09/20/24. I agree with the findings and plan of care as documented in the resident's/fellow's note.. 09/19/2024 - 30w3d - Vidhya De La Cruz LCSW Reason for Admission Pt (Kayla Faye 2000) was admitted on 09/04/2024 for Hypertension in , essential, antepartum [O10.019]. Pt discussed in DCAM rounds with medical team. Per DCAM rounds, pt remains admitted to the [facility] due concerns re: Pre-E w SF. SW to follow for coping, adjustment to diagnosis as needed, and assess for social needs. Admission until delivery at 34 weeks or when otherwise indicated. Vidhya De La Cruz COMPUTER SYSTEMS TECHNOLOGY INSTRUCTOR, ARCHIVIST ECONOMIC HISTORY Social Work TEACHER 09/19/2024 - 30w3d - Leslie Gonzales MD Antepartum Progress Note Gestational Age: 30w3d Admission Date: 09/04/2024 Length of stay: 15 Brief HPI: 24 y.o. female at 30w3d gestation admitted for superimposed preeclampsia with severe features. also complicated by hx of lsc dona, cannabis use, poorly controlled n/v, migraine without aura, and depression. INTERVAL HISTORY - Normotensive BPs SUBJECTIVE - Denies WARD, vision changes - Resting comfortably this morning without concerns - Feeling FM Review of Systems Negative except as per above. OBJECTIVE Vitals: Temp Min: 36.8 C (98.2 F) Max: 36.9 C (98.4 F) Pulse Min: 78 Max: 106 BP Min: 118/68 Max: 132/83 Resp Min: 16 Max: 18 SpO2 Min: 96 % Max: 100 % FHR: NST reactive [place]: no regular contractions Physical Exam General: No acute distress. Cardiovascular: Normal rate, regular rhythm Lungs: Non-labored Abdomen: Soft, non-tender, gravid. Extremities: Warm and well-perfused. Pelvic: Deferred. Neurologic: Alert and oriented x4 Lab Review: Recent Results (from the past 24 hours) Type and screen Collection Time: 09/19/24 4:38 AM Result Value Ref Range ABO Rh O Negative CBC without differential Collection Time: 09/19/24 4:38 AM Result Value Ref Range WBC 13.6 (H) 3.8 - 9.9 K/cumm Hgb 11.3 (L) 11.9 - 15.5 g/dL Hct 32.7 (L) 35.6 - 45.5 % Plt 308 150 - 400 K/cumm MPV 9.5 9.1 - 12.3 fL RBC 3.56 (L) 3.90 - 5.20 M/cumm MCV 91.9 81.3 - 96.4 fL MCH 31.7 27.1 - 33.3 pg MCHC 34.6 32.3 - 35.7 g/dL RDW CV 12.3 11.1 - 14.9 % RDW SD 40.9 35.7 - 48.1 fL NRBC abs 0.00 0.00 - 0.01 K/cumm Comprehensive metabolic panel Collection Time: 09/19/24 4:38 AM Result Value Ref Range Sodium 140 135 - 145 mmol/L Potassium, pl 3.7 3.3 - 4.9 mmol/L Chloride 105 97 - 110 mmol/L CO2 25 22 - 32 mmol/L Anion gap 10 2 - 15 mmol/L BUN 6 6 - 25 mg/dL Creatinine 0.55 (L) 0.60 - 1.10 mg/dL Glucose 90 70 - 199 mg/dL Calcium 9.0 8.5 - 10.3 mg/dL Bilirubin, total <0.2 0.1 - 1.2 mg/dL Protein, pl 6.2 (L) 6.5 - 8.5 g/dL Albumin 3.5 3.5 - 5.0 g/dL Alk phos 176 (H) 40 - 130 Units/L ALT 40 7 - 45 Units/L AST 24 10 - 45 Units/L eGFR Collection Time: 09/19/24 4:38 AM Result Value Ref Range eGFR >90 >=60 mL/min/1.73 m2 ASSESSMENT/PLAN Kayla Faye is a 24 y.o. at 30w3d admitted for PreEwSF. #Pre-eclampsia with severe features #Transaminitis, resolved - Chart review with gHTN based on MRBPs >4h apart on 08/27 - Presented to OSH with sustained SRBPs and spotted with L20, 4g Mg bolus - P/w mild headache, N/V (see below) - sustained SRBP; spotted L20 - neuro sx: mild headache, no blurry vision, +epigastric tenderness, no SOB, no LE swelling - Diagnosed with Pre-E w/ SF by: SRBP requiring IV spotting with headache - Baseline labs: Cr 0.54,AST 14, ALT 10, Hgb 13.7, Plt 320, UPC 0.1 - OSH labs: Cr 0.5, AST 26, ALT 60, Hgb 12, Plt 360, UPC 0.1 - Admit labs: Cr 0.4, AST 34, ALT 69, Hgb 12, Plt 320, UPC 0.17 - s/p 4g bolus, Mg continued on admission > dc'd 09/04 2230 - UDS deferred - AST/ALT trend: 34/69 > 89/89>80/141 > 88/164 > 160/286 > 118/301 > 100/282 > 62/215 > 43/165 > 39/135 > 22/54; RUQ US WNL, hep panel neg - LDH 304>248 - CMV, EBV, HSV neg - attributed to cholestasis, see plan below Plan: - CURRENT REGIMEN: ASA, Nifed 30mg XL (09/05) - Admission until delivery at 34 weeks or when otherwise indicated #ICP - Asymptomatic - Transaminitis with bile acids 53 - Now with resolved transaminitis - Ursodiol 300mg BID #Constipation, improving - Reports has not had BM since admission > now with regular BM Plan: - bowel regimen: Miralax and pericolace BID, dulcolax suppository prn #Cannabis use #Nausea and vomiting of vs cannabis-induced hyperemesis #Prolonged QT, resolved - Recent admission 08/29-08/30 at [facility] for N/V that improved with anti-emetics - Presented unable to tolerate PO for the past day - IOB weight 66kg > 75kg on admission - Ketones 3+ on admission -Thiamine and phos repletion on admission - EKG with QTC ^480 > 423 on repeat - CBC wnl, CMP with ALT 69, lipase WNL, UA 3+ glucose/ketones, hepatitis panel WNL, H pylori deferred, RUQ US ordered, head imaging deferred - RVP neg - DDx includes N/V in , MJ induced nausea, HEG, or GI-related etiology - Previous antiemetics attempted: zofran, compazine - s/p cessation counseling Plan: - Current regimen: B6 TID, unisom nightly, zofran prn, comp PRN, Tigan discontinued #Migraine without aura - APAP PRN #Depression - Stable on lexapro 10mg - Follows with Dr. Johnson/Sandra at [facility] #FWB: - OSH US 09/04/24: EFW 1425g, (85%tile), normal SAADIA, vertex - Genetic screening: LR NIPT - Anatomy US: incomplete 07/04 and 08/07 - fUS 09/06: EFW 1159g (20%), normal fluid. - BMZ^09/06 - s/p Mg for PreE - PCN deferred - peds consult 09/05 - MONITORING PLAN: dNST #MWB #SMA carrier #Rh negative - PNL: Rh O-/Ab neg/HIV NR/Rub imm/RPR NR/HepB neg/GC/CT neg/neg - 1 hr GTT, 113 - 3T HIV/RPR NR 09/04 - s/p flu vax 07/04, Tdap 09/07 - Rhogam 09/07 - Pap NILM 05/09/24 - GBS neg 09/04 - MOD: anticipate vaginal - MOF: human milk - MOC: nexplanon - Antepartum VTE Prophylaxis: The patient has been admitted for >/= 72 hours and is not at high risk for bleeding. Lovenox for VTE prophylaxis ordered. Lexie Gonzales MD 09/19/24 Cosigned by Rula Bang MD at 09/19/2024 7:15 AM TMR TEACHER TEACHER TEACHER Associated attestation - Rula Bang MD - 09/19/2024 7:15 AM TMR TEACHER I have seen and examined the patient on 09/19/24. I agree with the findings and plan of care as documented in the resident's/fellow's note.. 09/18/2024 - 30w2d - Leslie Gonzales MD Antepartum Progress Note Gestational Age: 30w2d Admission Date: 09/04/2024 Length of stay: 14 Brief HPI: 24 y.o. female at 30w2d gestation admitted for superimposed preeclampsia with severe features. also complicated by hx of lsc dona, cannabis use, poorly controlled n/v, migraine without aura, and depression. INTERVAL HISTORY - Normotensive BPs SUBJECTIVE - Denies WARD, vision changes - Resting comfortably this morning without concerns - Feeling FM Review of Systems Negative except as per above. OBJECTIVE Vitals: Temp Min: 36.6 C (97.9 F) Max: 36.9 C (98.5 F) Pulse Min: 77 Max: 93 BP Min: 90/51 Max: 130/58 Resp Min: 16 Max: 18 SpO2 Min: 97 % Max: 100 % FHR: NST reactive [place]: no regular contractions Physical Exam General: No acute distress. Cardiovascular: Normal rate, regular rhythm Lungs: Non-labored Abdomen: Soft, non-tender, gravid. Extremities: Warm and well-perfused. Pelvic: Deferred. Neurologic: Alert and oriented x4 Lab Review: No results found for this or any previous visit (from the past 24 hours). ASSESSMENT/PLAN Kayla Faye is a 24 y.o. at 30w2d admitted for PreEwSF. #Pre-eclampsia with severe features #Transaminitis, resolving - Chart review with gHTN based on MRBPs >4h apart on 08/27 - Presented to OSH with sustained SRBPs and spotted with L20, 4g Mg bolus - P/w mild headache, N/V (see below) - sustained SRBP; spotted L20 - neuro sx: mild headache, no blurry vision, +epigastric tenderness, no SOB, no LE swelling - Diagnosed with Pre-E w/ SF by: SRBP requiring IV spotting with headache - Baseline labs: Cr 0.54,AST 14, ALT 10, Hgb 13.7, Plt 320, UPC 0.1 - OSH labs: Cr 0.5, AST 26, ALT 60, Hgb 12, Plt 360, UPC 0.1 - Admit labs: Cr 0.4, AST 34, ALT 69, Hgb 12, Plt 320, UPC 0.17 - s/p 4g bolus, Mg continued on admission > dc'd 09/040 - UDS deferred - AST/ALT trend: 34/69 > 89/89>80/141 > 88/164 > 160/286 > 118/301 > 100/282 > 62/215 > 43/165 > 39/135 > 22/54; RUQ US WNL, hep panel neg - LDH 304>248 - CMV, EBV, HSV neg - attributed to cholestasis, see plan below Plan: - CURRENT REGIMEN: ASA, Nifed 30mg XL (09/05) - Admission until delivery at 34 weeks or when otherwise indicated #ICP - Asymptomatic - Transaminitis with bile acids 53 - Now with resolving transaminitis - Ursodiol 300mg BID #Constipation - Reports has not had BM since admission Plan: - bowel regimen: Miralax and pericolace BID, dulcolax suppository prn #Cannabis use #Nausea and vomiting of vs cannabis-induced hyperemesis #Prolonged QT, resolved - Recent admission 08/29-08/30 at [facility] for N/V that improved with anti-emetics - Presented unable to tolerate PO for the past day - IOB weight 66kg > 75kg on admission - Ketones 3+ on admission -Thiamine and phos repletion on admission - EKG with QTC ^480 > 423 on repeat - CBC wnl, CMP with ALT 69, lipase WNL, UA 3+ glucose/ketones, hepatitis panel WNL, H pylori deferred, RUQ US ordered, head imaging deferred - RVP neg - DDx includes N/V in , MJ induced nausea, HEG, or GI-related etiology - Previous antiemetics attempted: zofran, compazine - s/p cessation counseling Plan: - Current regimen: B6 TID, unisom nightly, zofran prn, comp PRN, Tigan discontinued #Migraine without aura - APAP PRN #Depression - Stable on lexapro 10mg - Follows with Dr. Johnson/Sandra at [facility] #FWB: - OSH US 09/04/24: EFW 1425g, (85%tile), normal SAADIA, vertex - Genetic screening: LR NIPT - Anatomy US: incomplete 07/04 and 08/07 - fUS 09/06: EFW 1159g (20%), normal fluid. - BMZ^09/06 - s/p Mg for PreE - PCN deferred - peds consult 09/05 - MONITORING PLAN: dNST #MWB #SMA carrier #Rh negative - PNL: Rh O-/Ab neg/HIV NR/Rub imm/RPR NR/HepB neg/GC/CT neg/neg - 1 hr GTT, 113 - 3T HIV/RPR NR 09/04 - s/p flu vax 07/04, Tdap 09/07 - Rhogam 09/07 - Pap NILM 05/09/24 - GBS neg 09/04 - MOD: anticipate vaginal - MOF: human milk - MOC: nexplanon - Antepartum VTE Prophylaxis: The patient has been admitted for >/= 72 hours and is not at high risk for bleeding. Lovenox for VTE prophylaxis ordered. Lexie Gonzales MD 09/18/24 Cosigned by Aline Smith MD at 09/18/2024 11:46 AM TMR TEACHER TEACHER TEACHER Associated attestation - Aline Smith MD - 09/18/2024 11:46 AM TMR TEACHER I have seen and examined the patient on 09/18/24. I agree with the findings and plan of care as documented in the resident's/fellow's note. BPs normotensive on nifedipine 30 mg XL. No symptoms of preeclampsia of severe features. No ICP symptoms. Continue inpatient management of preeclampsia with severe features. Aline Smith MD [facility] of Maternal- Medicine 09/17/2024 - 30w1d - Angelique Lora MD Antepartum Progress Note Gestational Age: 30w1d Admission Date: 09/04/2024 Length of stay: 13 Brief HPI: 24 y.o. female at 30w1d gestation admitted for superimposed preeclampsia with severe features. also complicated by hx of lsc dona, cannabis use, poorly controlled n/v, migraine without aura, and depression. INTERVAL HISTORY - Normotensive BPs SUBJECTIVE - Denies WARD, vision changes - Resting comfortably this morning without concerns - Feeling FM Review of Systems Negative except as per above. OBJECTIVE Vitals: Temp Min: 36.6 C (97.9 F) Max: 37.1 C (98.8 F) Pulse Min: 68 Max: 94 BP Min: 111/65 Max: 130/69 Resp Min: 16 Max: 18 SpO2 Min: 97 % Max: 100 % FHR: NST reactive [place]: no regular contractions Physical Exam General: No acute distress. Cardiovascular: Normal rate, regular rhythm Lungs: Non-labored Abdomen: Soft, non-tender, gravid. Extremities: Warm and well-perfused. Pelvic: Deferred. Neurologic: Alert and oriented x4 Lab Review: No results found for this or any previous visit (from the past 24 hours). ASSESSMENT/PLAN Kayla Faye is a 24 y.o. at 30w1d admitted for PreEwSF. #Pre-eclampsia with severe features #Transaminitis (resolved) - Chart review with gHTN based on MRBPs >4h apart on 08/27 - Presented to OSH with sustained SRBPs and spotted with L20, 4g Mg bolus - P/w mild headache, N/V (see below) - sustained SRBP; spotted L20 - neuro sx: mild headache, no blurry vision, +epigastric tenderness, no SOB, no LE swelling - Diagnosed with Pre-E w/ SF by: SRBP requiring IV spotting with headache - Baseline labs: Cr 0.54,AST 14, ALT 10, Hgb 13.7, Plt 320, UPC 0.1 - OSH labs: Cr 0.5, AST 26, ALT 60, Hgb 12, Plt 360, UPC 0.1 - Admit labs: Cr 0.4, AST 34, ALT 69, Hgb 12, Plt 320, UPC 0.17 - s/p 4g bolus, Mg continued on admission > dc'd 09/04 2230 - UDS deferred - AST/ALT trend: 34/69 > 89/89>80/141 > 88/164 > 160/286 > 118/301 > 100/282 > 62/215 > 43/165 > 39/135 > 22/54; RUQ US WNL, hep panel neg - LDH 304>248 - CMV, EBV, HSV neg - attributed to cholestasis, see plan below Plan: - CURRENT REGIMEN: ASA, Nifed 30mg XL (09/05) - Admission until delivery at 34 weeks or when otherwise indicated #ICP - Asymptomatic - Transaminitis with bile acids 53 - Now with resolving transaminitis - Ursodiol 300mg BID #Constipation - Reports has not had BM since admission Plan: - bowel regimen: Miralax and pericolace BID, dulcolax suppository prn #Cannabis use #Nausea and vomiting of vs cannabis-induced hyperemesis #Prolonged QT, resolved - Recent admission 08/29-08/30 at [facility] for N/V that improved with anti-emetics - Presented unable to tolerate PO for the past day - IOB weight 66kg > 75kg on admission - Ketones 3+ on admission -Thiamine and phos repletion on admission - EKG with QTC ^480 > 423 on repeat - CBC wnl, CMP with ALT 69, lipase WNL, Udip w/ 3+ ketones, hepatitis panel WNL, H pylori deferred, RUQ US ordered, head imaging deferred - RVP neg - DDx includes N/V in , MJ induced nausea, HEG, or GI-related etiology - Previous antiemetics attempted: zofran, compazine - s/p cessation counseling Plan: - Current regimen: B6 TID, unisom nightly, zofran prn, comp PRN, Tigan discontinued - Regular diet as tolerated #Migraine without aura - APAP PRN #Depression - Stable on lexapro 10mg - Follows with Dr. Johnson/Sandra at [facility] #FWB: - OSH US 09/04/24: EFW 1425g, (85%tile), normal SAADIA, vertex - Genetic screening: LR NIPT - Anatomy US: incomplete 07/04 and 08/07 - fUS 09/06: EFW 1159g (20%), normal fluid. - BMZ^09/06 - s/p Mg for PreE - PCN deferred - peds consult 09/05 - MONITORING PLAN: dNST #MWB #SMA carrier #Rh negative - PNL: Rh O-/Ab neg/HIV NR/Rub imm/RPR NR/HepB neg/GC/CT neg/neg - 1 hr GTT, 113 - 3T HIV/RPR NR 09/04 - s/p flu vax 07/04, Tdap 09/07 - Rhogam 09/07 - Pap NILM 05/09/24 - GBS neg 09/04 - MOD: anticipate vaginal - MOF: human milk - MOC: nexplanon before DC--counseling complete - Antepartum VTE Prophylaxis: The patient has been admitted for >/= 72 hours and is not at high risk for bleeding. Lovenox for VTE prophylaxis ordered. Angelique Lora MD 09/17/24 Cosigned by Allegra Rushing MD at 09/18/2024 7:11 AM TMR TEACHER TEACHER TEACHER TEACHER Associated attestation - Allegra Rushing MD - 09/18/2024 7:11 AM TMR TEACHER I have seen and examined the patient on 09/17/2024. I agree with the findings and plan of care as documented in the resident's/fellow's note. 24 year-old G1 admitted with preeclampsia with SF and cholestasis causing transaminitis which has nearly resolved with ursodiol treatment. BP remains well controlled on nifedipine. Continue expectant management. Allegra Rushing MD 09/16/2024 - 30w0d - Angelique Lora MD Antepartum Progress Note Gestational Age: 30w0d Admission Date: 09/04/2024 Length of stay: 12 Brief HPI: 24 y.o. female at 30w0d gestation admitted for superimposed preeclampsia with severe features. also complicated by hx of lsc dona, cannabis use, poorly controlled n/v, migraine without aura, and depression. INTERVAL HISTORY - Blood pressures normotensive for last 24 hours - AST/ALT nearly normalized SUBJECTIVE - Feeling well this morning without WARD, vision changes - Lots of knitting overnight now making a new blanket for baby! Review of Systems Negative except as per above. OBJECTIVE Vitals: Temp Min: 36.4 C (97.5 F) Max: 37 C (98.6 F) Pulse Min: 76 Max: 94 BP Min: 95/51 Max: 133/74 Resp Min: 16 Max: 18 SpO2 Min: 95 % Max: 99 % FHR: NST reactive [place]: no regular contractions Physical Exam General: No acute distress. Cardiovascular: Normal rate, regular rhythm Lungs: Non-labored Abdomen: Soft, non-tender, gravid. Extremities: Warm and well-perfused. Pelvic: Deferred. Neurologic: Alert and oriented x4 Lab Review: Recent Results (from the past 24 hours) POCT glucose Collection Time: 09/16/24 4:24 AM Result Value Ref Range Glucose, POC 83 70 - 199 mg/dL Type and screen Collection Time: 09/16/24 5:35 AM Result Value Ref Range ABO Rh O Negative Indira, indirect Positive (A) CBC without differential Collection Time: 09/16/24 5:35 AM Result Value Ref Range WBC 14.1 (H) 3.8 - 9.9 K/cumm Hgb 11.0 (L) 11.9 - 15.5 g/dL Hct 31.5 (L) 35.6 - 45.5 % Plt 333 150 - 400 K/cumm MPV 9.8 9.1 - 12.3 fL RBC 3.43 (L) 3.90 - 5.20 M/cumm MCV 91.8 81.3 - 96.4 fL MCH 32.1 27.1 - 33.3 pg MCHC 34.9 32.3 - 35.7 g/dL RDW CV 12.1 11.1 - 14.9 % RDW SD 40.4 35.7 - 48.1 fL NRBC abs 0.00 0.00 - 0.01 K/cumm Comprehensive metabolic panel Collection Time: 09/16/24 5:35 AM Result Value Ref Range Sodium 136 135 - 145 mmol/L Potassium, pl 3.3 3.3 - 4.9 mmol/L Chloride 104 97 - 110 mmol/L CO2 20 (L) 22 - 32 mmol/L Anion gap 12 2 - 15 mmol/L BUN 7 6 - 25 mg/dL Creatinine 0.52 (L) 0.60 - 1.10 mg/dL Glucose 118 70 - 199 mg/dL Calcium 8.8 8.5 - 10.3 mg/dL Bilirubin, total <0.2 0.1 - 1.2 mg/dL Protein, pl 5.9 (L) 6.5 - 8.5 g/dL Albumin 3.3 (L) 3.5 - 5.0 g/dL Alk phos 148 (H) 40 - 130 Units/L ALT 54 (H) 7 - 45 Units/L AST 22 10 - 45 Units/L GTT 50gm 1hr gestational screen Collection Time: 09/16/24 5:35 AM Result Value Ref Range GTT 50g gest screen 113 <=140 mg/dL eGFR Collection Time: 09/16/24 5:35 AM Result Value Ref Range eGFR >90 >=60 mL/min/1.73 m2 Antibody identification Collection Time: 09/16/24 7:21 AM Result Value Ref Range Antibody ID 1 Passive Anti-D ASSESSMENT/PLAN Kayla Faye is a 24 y.o. at 30w0d admitted for PreEwSF. #Pre-eclampsia with severe features #Transaminitis, resolving - Chart review with gHTN based on MRBPs >4h apart on 08/27 - Presented to OSH with sustained SRBPs and spotted with L20, 4g Mg bolus - P/w mild headache, N/V (see below) - sustained SRBP; spotted L20 - neuro sx: mild headache, no blurry vision, +epigastric tenderness, no SOB, no LE swelling - Diagnosed with Pre-E w/ SF by: SRBP requiring IV spotting with headache - Baseline labs: Cr 0.54,AST 14, ALT 10, Hgb 13.7, Plt 320, UPC 0.1 - OSH labs: Cr 0.5, AST 26, ALT 60, Hgb 12, Plt 360, UPC 0.1 - Admit labs: Cr 0.4, AST 34, ALT 69, Hgb 12, Plt 320, UPC 0.17 - s/p 4g bolus, Mg continued on admission > dc'd 09/04 2230 - UDS deferred - AST/ALT trend: 34/69 > 89/89>80/141 > 88/164 > 160/286 > 118/301 > 100/282 > 62/215 > 43/165 > 39/135 > 22/54; RUQ US WNL, hep panel neg - LDH 304>248 - CMV, EBV, HSV neg - attributed to cholestasis, see plan below Plan: - CURRENT REGIMEN: ASA, Nifed 30mg XL (09/05) - Admission until delivery at 34 weeks or when otherwise indicated #ICP - Asymptomatic - Transaminitis with bile acids 53 - Now with resolving transaminitis - Ursodiol 300mg BID #Constipation - Reports has not had BM since admission Plan: - bowel regimen: Miralax and pericolace BID, dulcolax suppository prn #Cannabis use #Nausea and vomiting of vs cannabis-induced hyperemesis #Prolonged QT, resolved - Recent admission 08/29-08/30 at [facility] for N/V that improved with anti-emetics - Presented unable to tolerate PO for the past day - IOB weight 66kg > 75kg on admission - Ketones 3+ on admission -Thiamine and phos repletion on admission - EKG with QTC ^480 > 423 on repeat - CBC wnl, CMP with ALT 69, lipase WNL, UA pending, hepatitis panel WNL, H pylori deferred, RUQ US ordered, head imaging deferred - RVP neg - DDx includes N/V in , MJ induced nausea, HEG, or GI-related etiology - Previous antiemetics attempted: zofran, compazine - s/p cessation counseling Plan: - Current regimen: B6 TID, unisom nightly, zofran prn, comp PRN, Tigan discontinued - Regular diet as tolerated #Migraine without aura - APAP PRN #Depression - Stable on lexapro 10mg - Follows with Dr. Johnson/Sandra at [facility] #FWB: - OSH US 09/04/24: EFW 1425g, (85%tile), normal SAADIA, vertex - Genetic screening: LR NIPT - Anatomy US: incomplete 07/04 and 08/07 - fUS 09/06: EFW 1159g (20%), normal fluid. - BMZ^09/06 - s/p Mg for PreE - PCN deferred - peds consult 09/05 - MONITORING PLAN: dNST #MWB #SMA carrier #Rh negative - PNL: Rh O-/Ab neg/HIV NR/Rub imm/RPR NR/HepB neg/GC/CT neg/neg - 1 hr GTT, 113 - 3T HIV/RPR NR 09/04 - s/p flu vax 07/04, Tdap 09/07 - Rhogam 09/07 - Pap NILM 05/09/24 - GBS neg 09/04 - MOD: anticipate vaginal - MOF: human milk - MOC: nexplanon before DC--counseling complete - Antepartum VTE Prophylaxis: The patient has been admitted for >/= 72 hours and is not at high risk for bleeding. Lovenox for VTE prophylaxis ordered. Angelique Lora MD 09/16/24 Cosigned by Allegra Rushing MD at 09/16/2024 11:40 AM TMR TEACHER TEACHER TEACHER TEACHER Associated attestation - Allegra Rushing MD - 09/16/2024 11:40 AM TMR TEACHER I have seen and examined the patient on 09/16/24. I agree with the findings and plan of care as documented in the resident's/fellow's note. Patient currently stable but requires continued hospitalization due to preeclampsia with SF. LFTs improved with treatment of ICP. Allegra Rushing MD 09/15/2024 - wd - Vidhya De La Cruz LCSW Reason for Admission Pt (Kayla Faye 2000) was admitted on 09/04/2024 for Hypertension in , essential, antepartum [O10.019]. Pt discussed in DCAM rounds with medical team. Per DCAM rounds, pt remains admitted to the [facility] due concerns re: Pre-E w SF. SW to follow for coping, adjustment to diagnosis as needed, and assess for social needs. Admission until delivery at 34 weeks or when otherwise indicated. Vidhya De La Cruz COMPUTER SYSTEMS TECHNOLOGY INSTRUCTOR, ARCHIVIST ECONOMIC HISTORY Social Work TEACHER 09/15/2024 - wmaritza - Joel Paredes CNM BRIEF ANTEPARTUM PROGRESS NOTE Contraception counseling Patient expresses interest in nexplanon implant for contraception and desires placement prior to discharge post-delivery. Discussed risk, benefits, and alternatives to Nexplanon. Discussed duration of device as well as immediate return to fertility once removed. Discussed possibility of interruption to patient's normal menses re: flow, duration, and frequency. Patient denies questions and once again expresses desire for PP implant placement prior to discharge. Aline Paredes CNM Cosigned by Lauri Flowers MD at 09/15/2024 10:53 AM TMR TEACHER TEACHER TEACHER 09/15/2024 - 29w6d - Leslie Gonzales MD Antepartum Progress Note Gestational Age: 29w6d Admission Date: 09/04/2024 Length of stay: 11 Brief HPI: 24 y.o. female at 29w6d gestation admitted for superimposed preeclampsia with severe features. also complicated by hx of lsc dona, cannabis use, poorly controlled n/v, migraine without aura, and depression. INTERVAL HISTORY - BPs normotensive SUBJECTIVE - Denies RUQ pain, SOB, headache, vision changes - Denies nausea/vomiting, itching Review of Systems Negative except as per above. OBJECTIVE Vitals: Temp Min: 36.4 C (97.6 F) Max: 37 C (98.6 F) Pulse Min: 77 Max: 93 BP Min: 117/71 Max: 140/67 Resp Min: 16 Max: 18 SpO2 Min: 97 % Max: 99 % FHR: NST reactive [place]: no regular contractions Physical Exam General: No acute distress. Cardiovascular: Normal rate, regular rhythm Lungs: Non-labored Abdomen: Soft, non-tender, gravid. Extremities: Warm and well-perfused. Pelvic: Deferred. Neurologic: Alert and oriented x4 Lab Review: No results found for this or any previous visit (from the past 24 hours). ASSESSMENT/PLAN Kayla Faye is a 24 y.o. at 29w6d admitted for PreEwSF. #Pre-eclampsia with severe features #Transaminitis, resolving - Chart review with gHTN based on MRBPs >4h apart on 08/27 - Presented to OSH with sustained SRBPs and spotted with L20, 4g Mg bolus - P/w mild headache, N/V (see below) - sustained SRBP; spotted L20 - neuro sx: mild headache, no blurry vision, +epigastric tenderness, no SOB, no LE swelling - Diagnosed with Pre-E w/ SF by: SRBP requiring IV spotting with headache - Baseline labs: Cr 0.54,AST 14, ALT 10, Hgb 13.7, Plt 320, UPC 0.1 - OSH labs: Cr 0.5, AST 26, ALT 60, Hgb 12, Plt 360, UPC 0.1 - Admit labs: Cr 0.4, AST 34, ALT 69, Hgb 12, Plt 320, UPC 0.17 - s/p 4g bolus, Mg continued on admission > dc'd 09/04 2230 - UDS deferred - Uptrending AST/ALT: 34/69 > 89/89>80/141 > 88/164 > 160/286 > 118/301 > 100/282 > 62/215 > 43/165; RUQ US WNL, hep panel neg - LDH 304>248 - CMV, EBV, HSV neg - attributed to cholestasis, see plan below Plan: - CURRENT REGIMEN: ASA, Nifed 30mg XL (09/05) - Admission until delivery at 34 weeks or when otherwise indicated #ICP - Asymptomatic - Transaminitis with bile acids 53 - Ursodiol 300mg BID #Constipation - Reports has not had BM since admission Plan: - bowel regimen: Miralax and pericolace BID, dulcolax suppository prn #Cannabis use #Nausea and vomiting of vs cannabis-induced hyperemesis #Prolonged QT, resolved - Recent admission 08/29-08/30 at [facility] for N/V that improved with anti-emetics - Presented unable to tolerate PO for the past day - IOB weight 66kg > 75kg on admission - Ketones 3+ on admission -Thiamine and phos repletion on admission - EKG with QTC ^480 > 423 on repeat - CBC wnl, CMP with ALT 69, lipase WNL, UA pending, hepatitis panel WNL, H pylori deferred, RUQ US ordered, head imaging deferred - RVP neg - DDx includes N/V in , MJ induced nausea, HEG, or GI-related etiology - Previous antiemetics attempted: zofran, compazine - s/p cessation counseling Plan: - Current regimen: B6 TID, unisom nightly, zofran prn, comp PRN, Tigan discontinued - Regular diet as tolerated #Migraine without aura - APAP PRN #Depression - Stable on lexapro 10mg - Follows with Dr. Johnson/Sandra at [facility] #FWB: - OSH US 09/04/24: EFW 1425g, (85%tile), normal SAADIA, vertex - Genetic screening: LR NIPT - Anatomy US: incomplete 07/04 and 08/07 - fUS 09/06: EFW 1159g (20%), normal fluid. - BMZ^09/06 - s/p Mg for PreE - PCN deferred - peds consult 09/05 - MONITORING PLAN: dNST #MWB #SMA carrier #Rh negative - PNL: Rh O-/Ab neg/HIV NR/Rub imm/RPR NR/HepB neg/GC/CT neg/neg - 1 hr GTT, ordered for 09/16 - 3T HIV/RPR NR 09/04 - s/p flu vax 07/04, Tdap 09/07 - Rhogam 09/07 - Pap NILM 05/09/24 - GBS neg 09/04 - MOD: anticipate vaginal - MOF: TBD - MOC: TBD - Antepartum VTE Prophylaxis: The patient has been admitted for >/= 72 hours and is not at high risk for bleeding. Lovenox for VTE prophylaxis ordered. Lexie Gonzales MD 09/15/24 Cosigned by Lauri Flowers MD at 09/15/2024 10:01 AM TMR TEACHER TEACHER TEACHER Associated attestation - Lauri Flowers MD - 09/15/2024 10:01 AM TMR TEACHER I have seen and examined the patient on 09/15/24. I agree with the findings and plan of care as documented in the resident's/fellow's note.. 09/14/2024 - 29w5d - Leslie Gonzales MD Antepartum Progress Note Gestational Age: 29w5d Admission Date: 09/04/2024 Length of stay: 10 Brief HPI: 24 y.o. female at 29w5d gestation admitted for superimposed preeclampsia with severe features. also complicated by hx of lsc dona, cannabis use, poorly controlled n/v, migraine without aura, and depression. INTERVAL HISTORY - BPs normotensive - LFTs continuing to downtrend SUBJECTIVE - Denies RUQ pain, SOB, headache, vision changes - Denies nausea/vomiting, itching Review of Systems Negative except as per above. OBJECTIVE Vitals: Temp Min: 36.6 C (97.8 F) Max: 36.8 C (98.2 F) Pulse Min: 73 Max: 107 BP Min: 113/58 Max: 123/79 Resp Min: 16 Max: 18 SpO2 Min: 96 % Max: 99 % FHR: NST reactive [facility]: no regular contractions Physical Exam General: No acute distress. Cardiovascular: Normal rate, regular rhythm Lungs: Non-labored Abdomen: Soft, non-tender, gravid. Extremities: Warm and well-perfused. Pelvic: Deferred. Neurologic: Alert and oriented x4 Lab Review: No results found for this or any previous visit (from the past 24 hours). ASSESSMENT/PLAN Kayla Faye is a 24 y.o. at 29w5d admitted for PreEwSF. #Pre-eclampsia with severe features #Transaminitis, resolving - Chart review with gHTN based on MRBPs >4h apart on 08/27 - Presented to OSH with sustained SRBPs and spotted with L20, 4g Mg bolus - P/w mild headache, N/V (see below) - sustained SRBP; spotted L20 - neuro sx: mild headache, no blurry vision, +epigastric tenderness, no SOB, no LE swelling - Diagnosed with Pre-E w/ SF by: SRBP requiring IV spotting with headache - Baseline labs: Cr 0.54,AST 14, ALT 10, Hgb 13.7, Plt 320, UPC 0.1 - OSH labs: Cr 0.5, AST 26, ALT 60, Hgb 12, Plt 360, UPC 0.1 - Admit labs: Cr 0.4, AST 34, ALT 69, Hgb 12, Plt 320, UPC 0.17 - s/p 4g bolus, Mg continued on admission > dc'd 09/04 2230 - UDS deferred - Uptrending AST/ALT: 34/69 > 89/89>80/141 > 88/164 > 160/286 > 118/301 > 100/282 > 62/215 > 43/165; RUQ US WNL, hep panel neg - LDH 304>248 - CMV, EBV, HSV neg - attributed to cholestasis, see plan below Plan: - CURRENT REGIMEN: ASA, Nifed 30mg XL (09/05) - Admission until delivery at 34 weeks or when otherwise indicated #ICP - Asymptomatic - Transaminitis with bile acids 53 - Ursodiol 300mg BID #Constipation - Reports has not had BM since admission Plan: - bowel regimen: Miralax and pericolace BID, dulcolax suppository prn #Cannabis use #Nausea and vomiting of vs cannabis-induced hyperemesis #Prolonged QT, resolved - Recent admission 08/29-08/30 at [facility] for N/V that improved with anti-emetics - Presented unable to tolerate PO for the past day - IOB weight 66kg > 75kg on admission - Ketones 3+ on admission -Thiamine and phos repletion on admission - EKG with QTC ^480 > 423 on repeat - CBC wnl, CMP with ALT 69, lipase WNL, UA pending, hepatitis panel WNL, H pylori deferred, RUQ US ordered, head imaging deferred - RVP neg - DDx includes N/V in , MJ induced nausea, HEG, or GI-related etiology - Previous antiemetics attempted: zofran, compazine - s/p cessation counseling Plan: - Current regimen: B6 TID, unisom nightly, zofran isabell, comp PRN, Tigan PRN - Regular diet as tolerated #Migraine without aura - APAP PRN #Depression - Stable on lexapro 10mg - Follows with Dr. Johnson/Sandra at [facility] #FWB: - OSH US 09/04/24: EFW 1425g, (85%tile), normal SAADIA, vertex - Genetic screening: LR NIPT - Anatomy US: incomplete 07/04 and 08/07 - fUS 09/06: EFW 1159g (20%), normal fluid. - BMZ^09/06 - s/p Mg for PreE - PCN deferred - peds consult 09/05 - MONITORING PLAN: dNST #MWB #SMA carrier #Rh negative - PNL: Rh O-/Ab neg/HIV NR/Rub imm/RPR NR/HepB neg/GC/CT neg/neg - 1 hr GTT, ordered for 09/16 - 3T HIV/RPR NR 09/04 - s/p flu vax 07/04, Tdap 09/07 - Rhogam 09/07 - Pap NILM 05/09/24 - GBS neg 09/04 - MOD: anticipate vaginal - MOF: TBD - MOC: TBD - Antepartum VTE Prophylaxis: The patient has been admitted for >/= 72 hours and is not at high risk for bleeding. Lovenox for VTE prophylaxis ordered. Lexie Gonzales MD 09/14/24 Cosigned by Lauri Flowers MD at 09/14/2024 10:37 AM TMR TEACHER TEACHER TEACHER Associated attestation - Lauri Flowers MD - 09/14/2024 10:37 AM TMR TEACHER I have seen and examined the patient on 09/14/24. I agree with the findings and plan of care as documented in the resident's/fellow's note.. 09/13/2024 - w4d - Estela Newman MD Antepartum Progress Note Gestational Age: 29w4d Admission Date: 09/04/2024 Length of stay: 9 Brief HPI: 24 y.o. female at 29w4d gestation admitted for superimposed preeclampsia with severe features. also complicated by hx of lsc dona, cannabis use, poorly controlled n/v, migraine without aura, and depression. INTERVAL HISTORY - BPs normotensive - LFTs continuing to downtrend SUBJECTIVE - Denies RUQ pain, SOB, headache, vision changes - Denies nausea/vomiting, itching Review of Systems Negative except as per above. OBJECTIVE Vitals: Temp Min: 36.6 C (97.9 F) Max: 36.9 C (98.5 F) Pulse Min: 73 Max: 101 BP Min: 121/76 Max: 132/75 Resp Min: 16 Max: 18 SpO2 Min: 98 % Max: 99 % FHR: NST reactive [place]: no regular contractions Physical Exam General: No acute distress. Cardiovascular: Normal rate, regular rhythm Lungs: Non-labored Abdomen: Soft, non-tender, gravid. Extremities: Warm and well-perfused. Pelvic: Deferred. Neurologic: Alert and oriented x4 Lab Review: Recent Results (from the past 24 hours) CBC without differential Collection Time: 09/13/24 12:08 AM Result Value Ref Range WBC 13.6 (H) 3.8 - 9.9 K/cumm Hgb 11.4 (L) 11.9 - 15.5 g/dL Hct 34.0 (L) 35.6 - 45.5 % Plt 367 150 - 400 K/cumm MPV 9.9 9.1 - 12.3 fL RBC 3.66 (L) 3.90 - 5.20 M/cumm MCV 92.9 81.3 - 96.4 fL MCH 31.1 27.1 - 33.3 pg MCHC 33.5 32.3 - 35.7 g/dL RDW CV 12.1 11.1 - 14.9 % RDW SD 41.4 35.7 - 48.1 fL NRBC abs 0.00 0.00 - 0.01 K/cumm Comprehensive metabolic panel Collection Time: 09/13/24 12:08 AM Result Value Ref Range Sodium 140 135 - 145 mmol/L Potassium, pl 3.5 3.3 - 4.9 mmol/L Chloride 104 97 - 110 mmol/L CO2 23 22 - 32 mmol/L Anion gap 13 2 - 15 mmol/L BUN 7 6 - 25 mg/dL Creatinine 0.50 (L) 0.60 - 1.10 mg/dL Glucose 90 70 - 199 mg/dL Calcium 9.4 8.5 - 10.3 mg/dL Bilirubin, total 0.2 0.1 - 1.2 mg/dL Protein, pl 6.5 6.5 - 8.5 g/dL Albumin 3.6 3.5 - 5.0 g/dL Alk phos 160 (H) 40 - 130 Units/L ALT 135 (H) 7 - 45 Units/L AST 39 10 - 45 Units/L eGFR Collection Time: 09/13/24 12:08 AM Result Value Ref Range eGFR >90 >=60 mL/min/1.73 m2 Type and screen Collection Time: 09/13/24 12:09 AM Result Value Ref Range ABO Rh O Negative Indira, indirect Positive (A) Antibody identification Collection Time: 09/13/24 1:37 AM Result Value Ref Range Antibody ID 1 Passive Anti-D ASSESSMENT/PLAN Kayla Faye is a 24 y.o. at 29w4d admitted for PreEwSF. #Pre-eclampsia with severe features #Transaminitis, resolving - Chart review with gHTN based on MRBPs >4h apart on 08/27 - Presented to OSH with sustained SRBPs and spotted with L20, 4g Mg bolus - P/w mild headache, N/V (see below) - sustained SRBP; spotted L20 - neuro sx: mild headache, no blurry vision, +epigastric tenderness, no SOB, no LE swelling - Diagnosed with Pre-E w/ SF by: SRBP requiring IV spotting with headache - Baseline labs: Cr 0.54,AST 14, ALT 10, Hgb 13.7, Plt 320, UPC 0.1 - OSH labs: Cr 0.5, AST 26, ALT 60, Hgb 12, Plt 360, UPC 0.1 - Admit labs: Cr 0.4, AST 34, ALT 69, Hgb 12, Plt 320, UPC 0.17 - s/p 4g bolus, Mg continued on admission > dc'd 09/04 2230 - UDS deferred - Uptrending AST/ALT: 34/69 > 89/89>80/141 > 88/164 > 160/286 > 118/301 > 100/282 > 62/215 > 43/165 > 39/135; RUQ US WNL, hep panel neg - LDH 304>248 - CMV, EBV, HSV neg - attributed to cholestasis, see plan below Plan: - CURRENT REGIMEN: ASA, Nifed 30mg XL (09/05) - admission until delivery at 34 weeks or when otherwise indicated #ICP - Bile acids 53 - Ursodiol 300mg BID #Cannabis use #Nausea and vomiting of vs cannabis-induced hyperemesis #Prolonged QT, resolved - Recent admission 08/29-08/30 at [facility] for N/V that improved with anti-emetics - Presented unable to tolerate PO for the past day - IOB weight 66kg > 75kg on admission - Ketones 3+ on admission -Thiamine and phos repletion on admission - EKG with QTC ^480 > 423 on repeat - CBC wnl, CMP with ALT 69, lipase WNL, UA pending, hepatitis panel WNL, H pylori deferred, RUQ US ordered, head imaging deferred - RVP neg - DDx includes N/V in , MJ induced nausea, HEG, or GI-related etiology - Previous antiemetics attempted: zofran, compazine - s/p cessation counseling Plan: - Current regimen: B6 TID, unisom nightly, zofran isabell, comp PRN, Tigan PRN - Regular diet as tolerated #Migraine without aura - APAP PRN #Depression - Stable on lexapro 10mg - Follows with Dr. Johnson/Sandra at [facility] #FWB: - OSH US 09/04/24: EFW 1425g, (85%tile), normal SAADIA, vertex - Genetic screening: LR NIPT - Anatomy US: incomplete 07/04 and 08/07 - fUS 09/06: EFW 1159g (20%), normal fluid. - BMZ^09/06 - s/p Mg for PreE - PCN deferred - peds consult 09/05 - MONITORING PLAN: dNST #MWB #SMA carrier #Rh negative - PNL: Rh O-/Ab neg/HIV NR/Rub imm/RPR NR/HepB neg/GC/CT neg/neg - 1 hr GTT not yet performed, defer until 7 days after BMZ - 3T HIV/RPR NR 09/04 - s/p flu vax 07/04, Tdap 09/07 - Rhogam 09/07 - Pap NILM 05/09/24 - GBS neg 09/04 - MOD: anticipate vaginal - MOF: TBD - MOC: TBD - Antepartum VTE Prophylaxis: The patient has been admitted for >/= 72 hours and is not at high risk for bleeding. Lovenox for VTE prophylaxis ordered. Estela Newman MD 09/13/24 Cosigned by Gina Rodriguez MD at 09/13/2024 8:38 PM TMR TEACHER TEACHER TEACHER Associated attestation - Gina Rodriguez MD - 09/13/2024 8:38 PM TMR TEACHER I have seen and examined the patient on 09/13/24. I agree with the findings and plan of care as documented in the resident's/fellow's note. Gina Rodriguez MD 09/12/2024 - 29w3d - Estela Newman MD Antepartum Progress Note Gestational Age: 29w3d Admission Date: 09/04/2024 Length of stay: 8 Brief HPI: 24 y.o. female at 29w3d gestation admitted for superimposed preeclampsia with severe features. also complicated by hx of lsc dona, cannabis use, poorly controlled n/v, migraine without aura, and depression. INTERVAL HISTORY - BPs normotensive >50% of time - LFTs continuing to downtrend SUBJECTIVE - Denies RUQ pain, SOB, headache, vision changes - Denies nausea/vomiting, itching Review of Systems Negative except as per above. OBJECTIVE Vitals: Temp Min: 36.6 C (97.9 F) Max: 37 C (98.6 F) Pulse Min: 79 Max: 101 BP Min: 123/73 Max: 142/84 Resp Min: 16 Max: 18 SpO2 Min: 95 % Max: 99 % FHR: NST reactive [place]: no regular contractions Physical Exam General: No acute distress. Cardiovascular: Normal rate, regular rhythm Lungs: Non-labored Abdomen: Soft, non-tender, gravid. Extremities: Warm and well-perfused. Pelvic: Deferred. Neurologic: Alert and oriented x4 Lab Review: Recent Results (from the past 24 hours) CBC without differential Collection Time: 09/12/24 4:59 AM Result Value Ref Range WBC 14.5 (H) 3.8 - 9.9 K/cumm Hgb 11.8 (L) 11.9 - 15.5 g/dL Hct 34.2 (L) 35.6 - 45.5 % Plt 312 150 - 400 K/cumm MPV 9.6 9.1 - 12.3 fL RBC 3.74 (L) 3.90 - 5.20 M/cumm MCV 91.4 81.3 - 96.4 fL MCH 31.6 27.1 - 33.3 pg MCHC 34.5 32.3 - 35.7 g/dL RDW CV 12.3 11.1 - 14.9 % RDW SD 41.1 35.7 - 48.1 fL NRBC abs 0.00 0.00 - 0.01 K/cumm Comprehensive metabolic panel Collection Time: 09/12/24 4:59 AM Result Value Ref Range Sodium 137 135 - 145 mmol/L Potassium, pl 3.8 3.3 - 4.9 mmol/L Chloride 105 97 - 110 mmol/L CO2 26 22 - 32 mmol/L Anion gap 6 2 - 15 mmol/L BUN 7 6 - 25 mg/dL Creatinine 0.50 (L) 0.60 - 1.10 mg/dL Glucose 77 70 - 199 mg/dL Calcium 8.8 8.5 - 10.3 mg/dL Bilirubin, total 0.3 0.1 - 1.2 mg/dL Protein, pl 6.3 (L) 6.5 - 8.5 g/dL Albumin 3.6 3.5 - 5.0 g/dL Alk phos 157 (H) 40 - 130 Units/L ALT 165 (H) 7 - 45 Units/L AST 43 10 - 45 Units/L eGFR Collection Time: 09/12/24 4:59 AM Result Value Ref Range eGFR >90 >=60 mL/min/1.73 m2 ASSESSMENT/PLAN Kayla Faye is a 24 y.o. at 29w3d admitted for PreEwSF. #Pre-eclampsia with severe features #Transaminitis, resolving - Chart review with gHTN based on MRBPs >4h apart on 08/27 - Presented to OSH with sustained SRBPs and spotted with L20, 4g Mg bolus - P/w mild headache, N/V (see below) - sustained SRBP; spotted L20 - neuro sx: mild headache, no blurry vision, +epigastric tenderness, no SOB, no LE swelling - Diagnosed with Pre-E w/ SF by: SRBP requiring IV spotting with headache - Baseline labs: Cr 0.54,AST 14, ALT 10, Hgb 13.7, Plt 320, UPC 0.1 - OSH labs: Cr 0.5, AST 26, ALT 60, Hgb 12, Plt 360, UPC 0.1 - Admit labs: Cr 0.4, AST 34, ALT 69, Hgb 12, Plt 320, UPC 0.17 - s/p 4g bolus, Mg continued on admission > dc'd 09/04 2230 - UDS deferred - Uptrending AST/ALT: 34/69 > 89/89>80/141 > 88/164 > 160/286 > 118/301 > 100/282 > 62/215 > 43/165; RUQ US WNL, hep panel neg - LDH 304>248 - CMV, EBV, HSV neg - attributed to cholestasis, see plan below Plan: - CURRENT REGIMEN: ASA, Nifed 30mg XL (09/05) - admission until delivery at 34 weeks or when otherwise indicated #ICP - Bile acids 53 - Ursodiol 300mg BID #Cannabis use #Nausea and vomiting of vs cannabis-induced hyperemesis #Prolonged QT, resolved - Recent admission 08/29-08/30 at [facility] for N/V that improved with anti-emetics - Presented unable to tolerate PO for the past day - IOB weight 66kg > 75kg on admission - Ketones 3+ on admission -Thiamine and phos repletion on admission - EKG with QTC ^480 > 423 on repeat - CBC wnl, CMP with ALT 69, lipase WNL, UA pending, hepatitis panel WNL, H pylori deferred, RUQ US ordered, head imaging deferred - RVP neg - DDx includes N/V in , MJ induced nausea, HEG, or GI-related etiology - Previous antiemetics attempted: zofran, compazine - s/p cessation counseling Plan: - Current regimen: B6 TID, unisom nightly, zofran isabell, comp PRN, Tigan PRN - Regular diet as tolerated #Migraine without aura - APAP PRN #Depression - Stable on lexapro 10mg - Follows with Dr. Johnson/Sandra at [facility] #FWB: - OSH US 09/04/24: EFW 1425g, (85%tile), normal SAADIA, vertex - Genetic screening: LR NIPT - Anatomy US: incomplete 07/04 and 08/07 - fUS 09/06: EFW 1159g (20%), normal fluid. - BMZ^09/06 - s/p Mg for PreE - PCN deferred - peds consult 09/05 - MONITORING PLAN: dNST #MWB #SMA carrier #Rh negative - PNL: Rh O-/Ab neg/HIV NR/Rub imm/RPR NR/HepB neg/GC/CT neg/neg - 1 hr GTT not yet performed, defer until 7 days after BMZ - 3T HIV/RPR NR 09/04 - s/p flu vax 07/04, Tdap 09/07 - Rhogam 09/07 - Pap NILM 05/09/24 - GBS neg 09/04 - MOD: anticipate vaginal - MOF: TBD - MOC: TBD - Antepartum VTE Prophylaxis: The patient has been admitted for >/= 72 hours and is not at high risk for bleeding. Lovenox for VTE prophylaxis ordered. Estela Newman MD 09/12/24 Cosigned by Gina Rodriguez MD at 09/12/2024 1:33 PM TMR TEACHER TEACHER TEACHER TEACHER Associated attestation - Gina Rodriguez MD - 09/12/2024 1:33 PM TMR TEACHER I have seen and examined the patient on 09/12/24. I agree with the findings and plan of care as documented in the resident's/fellow's note. Gina Rodriguez MD . 09/11/2024 - 29w2d - Fadia Darling LCSW Reason for Admission Pt (Kayla Faye 2000) was admitted on 09/04/2024 for Hypertension in , essential, antepartum [O10.019]. Pt discussed in DCAM rounds with medical team. Per DCAM rounds, pt remains admitted to the [facility] due concerns re: Pre-E w SF. SW to follow for coping, adjustment to diagnosis as needed, and assess for social needs. Kayla Faye recommended to remain admitted until delivery. Pt currently EGA 29.2 weeks EGA. SW remains available. Fadia Darling MSW, ARCHIVIST ECONOMIC HISTORY [facility] Clinical Certified Ophthalmic Assistant [facility] TEACHER 09/11/2024 - w2d Jerald Frankel DO Transfusion Medicine Blood Bank Note Patient Information: ABO/Rh: O negative Antibody screen: Positive Previous antibodies: No known antibodies New antibodies identified: passive anti-D Additional testing performed: None Relevant Patient History: Kayla Faye is a 24 y.o. woman female at 29 weeks gestation admitted for preeclampsia with severe features. Per chart, she received Rhogam on 09/07/24. She has not had any recent transfusions. Testing Information: The antibody screen was positive. Antibody identification demonstrated antibodies against the D antigen in the patient's plasma. Additional testing was not performed. Detection of anti-D in this patient's plasma is consistent with the patient's known history of RhIg administration on 09/07/24 and is therefore categorized as a passive anti-D. All common, clinically significant antibodies have been ruled out. Clinical Relevance: RhIg is a biologic prepared from human plasma that consists of concentrated antibodies directed against the D antigen on red blood cells. Anti-D antibodies may be implicated in hemolytic transfusion reactions with extravascular hemolysis and hemolytic disease of the fetus and . Therefore, anti-D antibodies attributable to RhIg administration may generally be considered clinically significant as long as the passively acquired anti-D is present in the patient's plasma. Therapeutic Relevance: ABO/Rh and crossmatch compatible red blood cell units will be provided for future transfusions. Contact Information: Please contact the [facility] Transfusion Medicine Service at (option 1) with any questions. This report has been prepared by: Paula Huizar DO Attestation: I have personally reviewed the antibody result and agree with the interpretation contained in this written blood bank report. Dena Ness DO TEACHER TEACHER 09/11/2024 - 29w2d - Estela Newman MD Antepartum Progress Note Gestational Age: 29w2d Admission Date: 09/04/2024 Length of stay: 7 Brief HPI: 24 y.o. female at 29w2d gestation admitted for superimposed preeclampsia with severe features. also complicated by hx of lsc dona, marijuana use, poorly controlled n/v, migraine without aura, and depression. INTERVAL HISTORY - BPs normotensive - LFTs continuing to downtrend SUBJECTIVE - Feels well this AM - Denies RUQ pain, SOB, headache, vision changes - Denies nausea/vomiting Review of Systems Negative except as per above. OBJECTIVE Vitals: Temp Min: 36.3 C (97.4 F) Max: 36.9 C (98.4 F) Pulse Min: 71 Max: 102 BP Min: 117/66 Max: 135/77 Resp Min: 16 Max: 18 SpO2 Min: 97 % Max: 100 % FHR: NST reactive [place]: no regular contractions Physical Exam General: No acute distress. Lungs: Non-labored. Pelvic: Deferred. Neurologic: Alert and oriented x4, non-focal Lab Review: Recent Results (from the past 24 hours) CBC without differential Collection Time: 09/11/24 4:41 AM Result Value Ref Range WBC 15.2 (H) 3.8 - 9.9 K/cumm Hgb 11.9 11.9 - 15.5 g/dL Hct 33.9 (L) 35.6 - 45.5 % Plt 340 150 - 400 K/cumm MPV 9.4 9.1 - 12.3 fL RBC 3.74 (L) 3.90 - 5.20 M/cumm MCV 90.6 81.3 - 96.4 fL MCH 31.8 27.1 - 33.3 pg MCHC 35.1 32.3 - 35.7 g/dL RDW CV 12.3 11.1 - 14.9 % RDW SD 40.4 35.7 - 48.1 fL NRBC abs 0.00 0.00 - 0.01 K/cumm Comprehensive metabolic panel Collection Time: 09/11/24 4:41 AM Result Value Ref Range Sodium 137 135 - 145 mmol/L Potassium, pl 3.9 3.3 - 4.9 mmol/L Chloride 104 97 - 110 mmol/L CO2 25 22 - 32 mmol/L Anion gap 8 2 - 15 mmol/L BUN 8 6 - 25 mg/dL Creatinine 0.50 (L) 0.60 - 1.10 mg/dL Glucose 86 70 - 199 mg/dL Calcium 9.1 8.5 - 10.3 mg/dL Bilirubin, total 0.2 0.1 - 1.2 mg/dL Protein, pl 6.2 (L) 6.5 - 8.5 g/dL Albumin 3.3 (L) 3.5 - 5.0 g/dL Alk phos 162 (H) 40 - 130 Units/L ALT 215 (H) 7 - 45 Units/L AST 62 (H) 10 - 45 Units/L eGFR Collection Time: 09/11/24 4:41 AM Result Value Ref Range eGFR >90 >=60 mL/min/1.73 m2 ASSESSMENT/PLAN Kayla Faye is a 24 y.o. at 29w2d admitted for PreEwSF. #Pre-eclampsia with severe features: #Transaminitis - Chart review with gHTN based on MRBPs >4h apart on 08/27 - Presented to OSH with sustained SRBPs and spotted with L20, 4g Mg bolus - P/w mild headache, N/V (see below) - sustained SRBP; spotted L20 - neuro sx: mild headache, no blurry vision, +epigastric tenderness, no SOB, no LE swelling - Diagnosed with Pre-E w/ SF by: SRBP requiring IV spotting with headache - Baseline labs: Cr 0.54,AST 14, ALT 10, Hgb 13.7, Plt 320, UPC 0.1 - OSH labs: Cr 0.5, AST 26, ALT 60, Hgb 12, Plt 360, UPC 0.1 - Admit labs: Cr 0.4, AST 34, ALT 69, Hgb 12, Plt 320, UPC 0.17 - s/p 4g bolus, Mg continued on admission > dc'd 09/04 2230 - UDS deferred - Uptrending AST/ALT: 34/69 > 89/89>80/141 > 88/164 > 160/286 > 118/301 > 100/282 > 62/215; RUQ US WNL, hep panel neg - LDH 304>248 - CMV, EBV, HSV neg - attributed to cholestasis, see plan below Plan: - CURRENT REGIMEN: ASA, Nifed 30mg XL (09/05) - admission until delivery at 34 weeks or when otherwise indicated #ICP - Bile acids 53 - Ursodiol 300mg BID #marijuana use #Nausea and vomiting of vs MJ-induced hyperemesis #Prolonged QT, resolved - Recent admission 08/29-08/30 at [facility] for N/V that improved with anti-emetics - Presented unable to tolerate PO for the past day - IOB weight 66kg > 75kg on admission - Ketones 3+ on admission -Thiamine and phos repletion on admission - EKG with QTC ^480 > 423 on repeat - CBC wnl, CMP with ALT 69, lipase WNL, UA pending, hepatitis panel WNL, H pylori deferred, RUQ US ordered, head imaging deferred - RVP neg - DDx includes N/V in , MJ induced nausea, HEG, or GI-related etiology - Previous antiemetics attempted: zofran, compazine - s/p cessation counseling Plan: - Current regimen: B6 TID, unisom nightly, zofran isabell, comp PRN, Tigan PRN - Regular diet as tolerated #Migraine without aura - APAP PRN #Depression - Stable on lexapro 10mg - Follows with Dr. Johnson/Sandra at [facility] #FWB: - OSH US 09/04/24: EFW 1425g, (85%tile), normal SAADIA, vertex - Genetic screening: LR NIPT - Anatomy US: incomplete 07/04 and 08/07 - fUS 09/06: EFW 1159g (20%), normal fluid. - BMZ^09/06@1400 - s/p Mg for PreE - PCN deferred - peds consult 09/05 - MONITORING PLAN: dNST #MWB #SMA carrier - PNL: Rh O-/Ab neg/HIV NR/Rub imm/RPR NR/HepB neg/GC/CT neg/neg - 1 hr GTT not yet performed, defer until 7 days after BMZ - 3T HIV/RPR NR 09/04 - s/p flu vax 07/04, Tdap 09/07 - Rhogam 09/07 - Pap NILM 05/09/24 - GBS neg 09/04 - MOD: anticipate vaginal - MOF: TBD - MOC: TBD - Antepartum VTE Prophylaxis: The patient has been admitted for >/= 72 hours and is not at high risk for bleeding. Lovenox for VTE prophylaxis ordered. Estela Newman MD 09/11/24 Cosigned by Lauri Flowers MD at 09/11/2024 10:30 AM TMR TEACHER TEACHER TEACHER Associated attestation - Lauri Flowers MD - 09/11/2024 10:30 AM TMR TEACHER I have seen and examined the patient on 09/11/24. I agree with the findings and plan of care as documented in the resident's/fellow's note.. LFTs continue to improve 09/10/2024 - 29w1d - Allegra Benton MD Antepartum Progress Note Gestational Age: 29w1d Admission Date: 09/04/2024 Length of stay: 6 Brief HPI: 24 y.o. female at 29w1d gestation admitted for superimposed preeclampsia with severe features. also complicated by hx of lsc dona, marijuana use, poorly controlled n/v, migraine without aura, and depression. INTERVAL HISTORY - BPs normotensive - LFTs starting to downtrend SUBJECTIVE - Feels well this AM - Denies RUQ pain, SOB, headache, vision changes - Denies nausea/vomiting Review of Systems Negative except as per above. OBJECTIVE Vitals: Temp Min: 36.5 C (97.7 F) Max: 36.8 C (98.3 F) Pulse Min: 83 Max: 100 BP Min: 123/86 Max: 137/89 Resp Min: 16 Max: 18 SpO2 Min: 98 % Max: 100 % FHR: NST reactive [place]: no regular contractions Physical Exam General: No acute distress. Cardiovascular: Normal rate, regular rhythm Lungs: Non-labored. Abdomen: Soft, non-tender, gravid. Extremities: Warm and well-perfused. Pelvic: Deferred. Neurologic: Alert and oriented x4, non-focal Lab Review: Recent Results (from the past 24 hours) CBC without differential Collection Time: 09/10/24 4:57 AM Result Value Ref Range WBC 17.6 (H) 3.8 - 9.9 K/cumm Hgb 12.4 11.9 - 15.5 g/dL Hct 35.7 35.6 - 45.5 % Plt 392 150 - 400 K/cumm MPV 9.5 9.1 - 12.3 fL RBC 3.93 3.90 - 5.20 M/cumm MCV 90.8 81.3 - 96.4 fL MCH 31.6 27.1 - 33.3 pg MCHC 34.7 32.3 - 35.7 g/dL RDW CV 12.2 11.1 - 14.9 % RDW SD 40.5 35.7 - 48.1 fL NRBC abs 0.00 0.00 - 0.01 K/cumm Comprehensive metabolic panel Collection Time: 09/10/24 4:57 AM Result Value Ref Range Sodium 136 135 - 145 mmol/L Potassium, pl 4.0 3.3 - 4.9 mmol/L Chloride 102 97 - 110 mmol/L CO2 24 22 - 32 mmol/L Anion gap 10 2 - 15 mmol/L BUN 8 6 - 25 mg/dL Creatinine 0.51 (L) 0.60 - 1.10 mg/dL Glucose 91 70 - 199 mg/dL Calcium 9.6 8.5 - 10.3 mg/dL Bilirubin, total 0.3 0.1 - 1.2 mg/dL Protein, pl 6.8 6.5 - 8.5 g/dL Albumin 3.8 3.5 - 5.0 g/dL Alk phos 171 (H) 40 - 130 Units/L ALT 282 (H) 7 - 45 Units/L AST 100 (H) 10 - 45 Units/L eGFR Collection Time: 09/10/24 4:57 AM Result Value Ref Range eGFR >90 >=60 mL/min/1.73 m2 ASSESSMENT/PLAN Kayla Faye is a 24 y.o. at 29w1d admitted for PreEwSF. #Pre-eclampsia with severe features: #Transaminitis - Chart review with gHTN based on MRBPs >4h apart on 08/27 - Presented to OSH with sustained SRBPs and spotted with L20, 4g Mg bolus - P/w mild headache, N/V (see below) - sustained SRBP; spotted L20 - neuro sx: mild headache, no blurry vision, +epigastric tenderness, no SOB, no LE swelling - Diagnosed with Pre-E w/ SF by: SRBP requiring IV spotting with headache - Baseline labs: Cr 0.54,AST 14, ALT 10, Hgb 13.7, Plt 320, UPC 0.1 - OSH labs: Cr 0.5, AST 26, ALT 60, Hgb 12, Plt 360, UPC 0.1 - Admit labs: Cr 0.4, AST 34, ALT 69, Hgb 12, Plt 320, UPC 0.17 - s/p 4g bolus, Mg continued on admission > dc'd 09/040 - UDS deferred - Uptrending AST/ALT: 34/69 > 89/89>80/141 > 88/164 > 160/286 > 118/301 > 100/282; RUQ US WNL, hep panel neg - LDH 304>248 - CMV, EBV, HSV neg - attributed to cholestasis, see plan below Plan: - CURRENT REGIMEN: ASA, Nifed 30mg XL (09/05) - admission until delivery at 34 weeks or when otherwise indicated #ICP - Bile acids 53 - Ursodiol 300mg BID #marijuana use #Nausea and vomiting of vs MJ-induced hyperemesis #Prolonged QT, resolved - Recent admission 08/29-08/30 at [facility] for N/V that improved with anti-emetics - Presented unable to tolerate PO for the past day - IOB weight 66kg > 75kg on admission - Ketones 3+ on admission -Thiamine and phos repletion on admission - EKG with QTC ^480 > 423 on repeat - CBC wnl, CMP with ALT 69, lipase WNL, UA pending, hepatitis panel WNL, H pylori deferred, RUQ US ordered, head imaging deferred - RVP neg - DDx includes N/V in , MJ induced nausea, HEG, or GI-related etiology - Previous antiemetics attempted: zofran, compazine - Current regimen: B6 TID, unisom nightly, zofran isabell, comp PRN, Tigan PRN - Regular diet as tolerated #Marijuana use - Currently smokes usually once a day - s/p cessation counseling #Migraine without aura - APAP PRN #Depression - Stable on lexapro 10mg - Follows with Dr. Johnson/Sandra at [facility] #FWB: - OSH US 09/04/24: EFW 1425g, (85%tile), normal SAADIA, vertex - Genetic screening: LR NIPT - Anatomy US: incomplete 07/04 and 08/07 - fUS 09/06: EFW 1159g (20%), normal fluid. - BMZ^09/06@1400 - s/p Mg for PreE - PCN deferred - peds consult 09/05 - MONITORING PLAN: dNST #MWB #SMA carrier - PNL: Rh O-/Ab neg/HIV NR/Rub imm/RPR NR/HepB neg/GC/CT neg/neg - 1 hr GTT not yet performed, defer until 7 days after BMZ - 3T HIV/RPR NR 09/04 - s/p flu vax 07/04, Tdap 09/07 - Rhogam 09/07 - Pap NILM 05/09/24 - GBS neg 09/04 - MOD: TBD - MOF: TBD - MOC: TBD - Antepartum VTE Prophylaxis: The patient has been admitted for >/= 72 hours and is not at high risk for bleeding. Lovenox for VTE prophylaxis ordered. Estela Newman MD 09/10/24 MFM attending I saw and examined the patient and agree with the assessment and plan as outlined above; I have edited where appropriate. Allegra Rushing MD TEACHER TEACHER 09/09/2024 - 29w0d - Estela Newman MD Antepartum Progress Note Gestational Age: 29w0d Admission Date: 09/04/2024 Length of stay: 5 Brief HPI: 24 y.o. female at 29w0d gestation admitted for superimposed preeclampsia with severe features. also complicated by hx of lsc dona, marijuana use, poorly controlled n/v, migraine without aura, and depression. INTERVAL HISTORY - BPs normotensive - LFTs continue to rise - ursodiol started 09/08 SUBJECTIVE - Feels well this AM - Denies RUQ pain, SOB, headache, vision changes - Denies nausea/vomiting - Has not had BM in a few days Review of Systems Negative except as per above. OBJECTIVE Vitals: Temp Min: 36.3 C (97.4 F) Max: 37.1 C (98.7 F) Pulse Min: 68 Max: 93 BP Min: 117/77 Max: 138/82 Resp Min: 16 Max: 18 SpO2 Min: 98 % Max: 100 % FHR: NST reactive [place]: no regular contractions Physical Exam General: No acute distress. Cardiovascular: Normal rate, regular rhythm Lungs: Non-labored. Abdomen: Soft, non-tender, gravid. Extremities: Warm and well-perfused. Pelvic: Deferred. Neurologic: Alert and oriented x4, non-focal Lab Review: Recent Results (from the past 24 hours) CBC without differential Collection Time: 09/09/24 4:56 AM Result Value Ref Range WBC 14.9 (H) 3.8 - 9.9 K/cumm Hgb 12.4 11.9 - 15.5 g/dL Hct 35.8 35.6 - 45.5 % Plt 338 150 - 400 K/cumm MPV 9.3 9.1 - 12.3 fL RBC 3.87 (L) 3.90 - 5.20 M/cumm MCV 92.5 81.3 - 96.4 fL MCH 32.0 27.1 - 33.3 pg MCHC 34.6 32.3 - 35.7 g/dL RDW CV 12.2 11.1 - 14.9 % RDW SD 41.1 35.7 - 48.1 fL NRBC abs 0.00 0.00 - 0.01 K/cumm Comprehensive metabolic panel Collection Time: 09/09/24 4:56 AM Result Value Ref Range Sodium 136 135 - 145 mmol/L Potassium, pl 4.1 3.3 - 4.9 mmol/L Chloride 102 97 - 110 mmol/L CO2 23 22 - 32 mmol/L Anion gap 11 2 - 15 mmol/L BUN 8 6 - 25 mg/dL Creatinine 0.50 (L) 0.60 - 1.10 mg/dL Glucose 82 70 - 199 mg/dL Calcium 9.3 8.5 - 10.3 mg/dL Bilirubin, total 0.3 0.1 - 1.2 mg/dL Protein, pl 6.6 6.5 - 8.5 g/dL Albumin 3.6 3.5 - 5.0 g/dL Alk phos 163 (H) 40 - 130 Units/L ALT 301 (H) 7 - 45 Units/L AST 118 (H) 10 - 45 Units/L eGFR Collection Time: 09/09/24 4:56 AM Result Value Ref Range eGFR >90 >=60 mL/min/1.73 m2 ASSESSMENT/PLAN Kayla Faye is a 24 y.o. at 29w0d admitted for PreEwSF. #Pre-eclampsia with severe features: #Transaminitis - Chart review with gHTN based on MRBPs >4h apart on 08/27 - Presented to OSH with sustained SRBPs and spotted with L20, 4g Mg bolus - P/w mild headache, N/V (see below) - sustained SRBP; spotted L20 - neuro sx: mild headache, no blurry vision, +epigastric tenderness, no SOB, no LE swelling - Diagnosed with Pre-E w/ SF by: SRBP requiring IV spotting with headache - Baseline labs: Cr 0.54,AST 14, ALT 10, Hgb 13.7, Plt 320, UPC 0.1 - OSH labs: Cr 0.5, AST 26, ALT 60, Hgb 12, Plt 360, UPC 0.1 - Admit labs: Cr 0.4, AST 34, ALT 69, Hgb 12, Plt 320, UPC 0.17 - 24 hour UP deferred - s/p 4g bolus, Mg continued on admission > dc'd 09/040 - UDS deferred - Uptrending AST/ALT: 34/69 > 89/89>80/141 > 88/164 > 160/286 > 118/301; RUQ US WNL, hep panel neg - LDH 304 - CMV, EBV, HSV neg Plan: - CURRENT REGIMEN: ASA, Nifed 30mg XL (09/05) #ICP - Bile acids 53 - Ursodiol 300mg BID #Lsc dona: - s/p lsc cholecystectomy on 05/17/24 for sludge - Normal MRCP on 05/31 - RUQ US WNL on 07/27 - RUQ US WNL 09/06 #marijuana use #Nausea and vomiting of vs MJ-induced hyperemesis #Prolonged QT, resolved - Recent admission 08/29-08/30 at [facility] for N/V that improved with anti-emetics - Presented unable to tolerate PO for the past day - IOB weight 66kg > 75kg on admission - Ketones 3+ on admission -Thiamine and phos repletion on admission - EKG with QTC ^480 > 423 on repeat - CBC wnl, CMP with ALT 69, lipase WNL, UA pending, hepatitis panel WNL, H pylori deferred, RUQ US ordered, head imaging deferred - RVP neg - DDx includes N/V in , MJ induced nausea, HEG, or GI-related etiology - Previous antiemetics attempted: zofran, compazine - Current regimen: B6 TID, unisom nightly, zofran isabell, comp PRN, phenergan PRN, consider haldol - Regular diet as tolerated #Marijuana use - Currently smokes usually once a day - s/p cessation counseling #Migraine without aura - APAP PRN #Depression - Stable on lexapro 10mg - Follows with Dr. Johnson/Sandra at [facility] #FWB: - OSH US 09/04/24: EFW 1425g, (85%tile), normal SAADIA, vertex - Genetic screening: LR NIPT - Anatomy US: incomplete 07/04 and 08/07 - fUS 09/06: EFW 1159g (20%), normal fluid. - BMZ^09/06@1400 - s/p Mg for PreE - PCN deferred - peds consult 09/05 - MONITORING PLAN: dNST #MWB #SMA carrier - PNL: Rh O-/Ab neg/HIV NR/Rub imm/RPR NR/HepB neg/GC/CT neg/neg - 1 hr GTT not yet performed, defer until 7 days after BMZ - 3T HIV/RPR NR 09/04 - s/p flu vax 07/04, Tdap 09/07 - Rhogam 09/07 - Pap NILM 05/09/24 - GBS neg 09/04 - MOD: TBD - MOF: TBD - MOC: TBD - Antepartum VTE Prophylaxis: The patient has been admitted for >/= 72 hours and is not at high risk for bleeding. Lovenox for VTE prophylaxis ordered. *If >100 kg AND BMI >40, consider enoxaparin 40 mg q12h; if CrCl 10-30 mL/min, consider enoxaparin 30mg/mL daily. Estela Newman MD 09/09/24 Cosigned by Danya Mallory MD at 09/09/2024 1:00 PM TMR TEACHER TEACHER TEACHER TEACHER Associated attestation - Danya Mallory MD - 09/09/2024 1:00 PM TMR TEACHER I have seen and examined the patient on 09/09/24. I agree with the findings and plan of care as documented in the resident's/fellow's note. and as discussed with the resident/fellow. Patient remains asymptomatic. BP well controlled, normotensive. AST/ALT relatively stable today compared to yesterday. Concern for intrahepatic cholestasis of with elevated bile acids at 53 mmol/L. Lower suspicion for transaminitis related to preeclampsia or HELLP. Will continue to monitor closely, trend labs at least daily. Will repeat LDH as well. well being remains reassuring, reactive NST today. 09/08/2024 - 28w6d - Luiz Tamara harvey LCSW Reason for Admission Pt (Kayla Faye 2000) was admitted on 09/04/2024 for Hypertension in , essential, antepartum [O10.019]. Pt discussed in DCAM rounds with medical team. Per DCAM rounds, pt remains admitted to the [facility] due to ongoing medical needs. SW to follow for coping, adjustment to diagnosis as needed, and assess for social needs. SW remains available. Tamara Betancourt COMPUTER SYSTEMS TECHNOLOGY INSTRUCTOR, ARCHIVIST ECONOMIC HISTORY [facility] Psychologist Educational TEACHER 09/08/2024 - - Leslie Gonzales MD Antepartum Progress Note Gestational Age: 28w6d Admission Date: 09/04/2024 Length of stay: 4 Brief HPI: 24 y.o. female at 28w6d gestation admitted for superimposed preeclampsia with severe features. also complicated by hx of lsc dona, marijuana use, poorly controlled n/v, migraine without aura, and depression. INTERVAL HISTORY - BPs normotensive SUBJECTIVE - Feels well this AM - Denies RUQ pain, SOB, headache, vision changes - Denies nausea/vomiting Review of Systems Negative except as per above. OBJECTIVE Vitals: Temp Min: 36.7 C (98 F) Max: 36.9 C (98.5 F) Pulse Min: 72 Max: 106 BP Min: 114/74 Max: 132/73 Resp Min: 16 Max: 18 SpO2 Min: 97 % Max: 99 % FHR: NST reactive [place]: no regular contractions Physical Exam General: No acute distress. Cardiovascular: Normal rate, regular rhythm Lungs: Non-labored. Abdomen: Soft, non-tender, gravid. Extremities: Warm and well-perfused. Pelvic: Deferred. Neurologic: Alert and oriented x4, non-focal Lab Review: Recent Results (from the past 24 hours) Cytomegalovirus (CMV) DNA PCR, quantitative Blood Collection Time: 09/07/24 2:08 PM Specimen: Blood Result Value Ref Range CMV DNA Not Detected Lactate dehydrogenase (LD) Collection Time: 09/07/24 2:08 PM Result Value Ref Range Lactate dehydrogenase (LDH) 254 (H) 100 - 250 Units/L CBC without differential Collection Time: 09/08/24 4:53 AM Result Value Ref Range WBC 15.2 (H) 3.8 - 9.9 K/cumm Hgb 12.7 11.9 - 15.5 g/dL Hct 37.4 35.6 - 45.5 % Plt 354 150 - 400 K/cumm MPV 9.5 9.1 - 12.3 fL RBC 4.03 3.90 - 5.20 M/cumm MCV 92.8 81.3 - 96.4 fL MCH 31.5 27.1 - 33.3 pg MCHC 34.0 32.3 - 35.7 g/dL RDW CV 12.3 11.1 - 14.9 % RDW SD 42.0 35.7 - 48.1 fL NRBC abs 0.00 0.00 - 0.01 K/cumm Comprehensive metabolic panel Collection Time: 09/08/24 4:53 AM Result Value Ref Range Sodium 137 135 - 145 mmol/L Potassium, pl 3.8 3.3 - 4.9 mmol/L Chloride 103 97 - 110 mmol/L CO2 23 22 - 32 mmol/L Anion gap 11 2 - 15 mmol/L BUN 7 6 - 25 mg/dL Creatinine 0.53 (L) 0.60 - 1.10 mg/dL Glucose 87 70 - 199 mg/dL Calcium 9.3 8.5 - 10.3 mg/dL Bilirubin, total 0.5 0.1 - 1.2 mg/dL Protein, pl 6.8 6.5 - 8.5 g/dL Albumin 3.9 3.5 - 5.0 g/dL Alk phos 161 (H) 40 - 130 Units/L ALT 286 (H) 7 - 45 Units/L AST 160 (H) 10 - 45 Units/L eGFR Collection Time: 09/08/24 4:53 AM Result Value Ref Range eGFR >90 >=60 mL/min/1.73 m2 ASSESSMENT/PLAN Kayla Faye is a 24 y.o. at 28w6d admitted for PreEwSF. #Pre-eclampsia with severe features: #Transaminitis - Chart review with gHTN based on MRBPs >4h apart on 08/27 - Presented to OSH with sustained SRBPs and spotted with L20, 4g Mg bolus - P/w mild headache, N/V (see below) - sustained SRBP; spotted L20 - neuro sx: mild headache, no blurry vision, +epigastric tenderness, no SOB, no LE swelling - Diagnosed with Pre-E w/ SF by: SRBP requiring IV spotting with headache - Baseline labs: Cr 0.54,AST 14, ALT 10, Hgb 13.7, Plt 320, UPC 0.1 - OSH labs: Cr 0.5, AST 26, ALT 60, Hgb 12, Plt 360, UPC 0.1 - Admit labs: Cr 0.4, AST 34, ALT 69, Hgb 12, Plt 320, UPC 0.17 - 24 hour UP deferred - s/p 4g bolus, Mg continued on admission > dc'd 09/04 2230 - UDS deferred - Uptrending AST/ALT: 34/69 > 89/89>80/141 > 88/164 > 160/286; RUQ US WNL, hep panel neg - LDH 304 - CMV neg Plan: - CURRENT REGIMEN: ASA, Nifed 30mg XL (09/05) - f/u EBV, HSV, bile acids - Concern for developing HELLP syndrome which would be contraindication for expectant management #lsc dona: - s/p lsc cholecystectomy on 05/17/24 for sludge - Normal MRCP on 05/31 - RUQ US WNL on 07/27 - RUQ US WNL 09/06 #marijuana use #Nausea and vomiting of vs MJ-induced hyperemesis #Prolonged QT, resolved - Recent admission 08/29-08/30 at [facility] for N/V that improved with anti-emetics - Presented unable to tolerate PO for the past day - IOB weight 66kg > 75kg on admission - Ketones 3+ on admission -Thiamine and phos repletion on admission - EKG with QTC ^480 > 423 on repeat - CBC wnl, CMP with ALT 69, lipase WNL, UA pending, hepatitis panel WNL, H pylori deferred, RUQ US ordered, head imaging deferred - RVP neg - DDx includes N/V in , MJ induced nausea, HEG, or GI-related etiology - Previous antiemetics attempted: zofran, compazine - Current regimen: B6 TID, unisom nightly, zofran ISABELL, comp PRN, phenergan PRN, consider haldol if poorly controlled - Regular diet as tolerated #Marijuana use - Currently smokes usually once a day - s/p cessation counseling #Migraine without aura - APAP PRN #Depression - Stable on lexapro 10mg - Follows with Dr. Johnson/Sandra at [facility] #FWB: - OSH US 09/04/24: EFW 1425g, (85%tile), normal SAADIA, vertex - Genetic screening: LR NIPT - Anatomy US: incomplete 07/04 and 08/07 - fUS 09/06: EFW 1159g (20%), normal fluid. - BMZ^09/06@1400 - s/p Mg for PreE - PCN deferred - peds consult 09/05 - MONITORING PLAN: dNST #MWB #SMA carrier - PNL: Rh O-/Ab neg/HIV NR/Rub imm/RPR NR/HepB neg/GC/CT neg/neg - 1 hr GTT not yet performed, defer until 7 days after BMZ - 3T HIV/RPR NR 09/04 - s/p flu vax 07/04, Tdap 09/07 - Rhogam 09/07 - Pap NILM 05/09/24 - GBS neg 09/04 - MOD: TBD - MOF: TBD - MOC: TBD - Antepartum VTE Prophylaxis: The patient has been admitted for >/= 72 hours and is not at high risk for bleeding. Lovenox for VTE prophylaxis ordered. *If >100 kg AND BMI >40, consider enoxaparin 40 mg q12h; if CrCl 10-30 mL/min, consider enoxaparin 30mg/mL daily. Lexie Gonzales MD 09/08/24 Cosigned by Allegra Rushing MD at 09/24/2024 10:15 PM TMR TEACHER TEACHER TEACHER TEACHER Associated attestation - Allegra Rushing MD - 09/24/2024 10:15 PM TMR TEACHER I have seen and examined the patient on 09/08/24. I agree with the findings and plan of care as documented in the resident's/fellow's note. Patient admitted for preeclampsia with severe features by severe hypertension. BP well controlled but LFTs increasing - evaluating for other causes before attributing to preeclampsia. N/V now resolved. Allegra Rushing MD 09/07/2024 - 28w5d - Leslie Gonzales MD Antepartum Progress Note Gestational Age: 28w5d Admission Date: 09/04/2024 Length of stay: 3 Brief HPI: 24 y.o. female at 28w5d gestation admitted for superimposed preeclampsia with severe features. also complicated by hx of lsc dona, marijuana use, poorly controlled n/v, migraine without aura, and depression. INTERVAL HISTORY - Leak colostrum overnight - BPs normotensive after starting N30XL SUBJECTIVE - Showering this AM Review of Systems Negative except as per above. OBJECTIVE Vitals: Temp Min: 36.6 C (97.8 F) Max: 36.7 C (98.1 F) Pulse Min: 67 Max: 96 BP Min: 115/69 Max: 129/75 Resp Min: 16 Max: 18 SpO2 Min: 98 % Max: 99 % FHR: NST reactive [place]: no regular contractions Physical Exam General: No acute distress. Cardiovascular: Normal rate, regular rhythm Lungs: Non-labored. Abdomen: Soft, non-tender, gravid. Extremities: Warm and well-perfused. Pelvic: Deferred. Neurologic: Alert and oriented x4, non-focal Lab Review: Recent Results (from the past 24 hours) US Ob 14 Weeks Or Over Collection Time: 09/06/24 9:17 AM Result Value Ref Range Fetus# Fetus1 Estimated Weight 1,159 g&grams Placenta Details anterior, anterior, Previa-no, no placental masses Presentation Vertex Comprehensive metabolic panel Collection Time: 09/06/24 12:42 PM Result Value Ref Range Sodium 139 135 - 145 mmol/L Potassium, pl 3.9 3.3 - 4.9 mmol/L Chloride 104 97 - 110 mmol/L CO2 25 22 - 32 mmol/L Anion gap 10 2 - 15 mmol/L BUN 7 6 - 25 mg/dL Creatinine 0.56 (L) 0.60 - 1.10 mg/dL Glucose 91 70 - 199 mg/dL Calcium 9.4 8.5 - 10.3 mg/dL Bilirubin, total 0.5 0.1 - 1.2 mg/dL Protein, pl 6.7 6.5 - 8.5 g/dL Albumin 4.0 3.5 - 5.0 g/dL Alk phos 150 (H) 40 - 130 Units/L ALT 141 (H) 7 - 45 Units/L AST 80 (H) 10 - 45 Units/L eGFR Collection Time: 09/06/24 12:42 PM Result Value Ref Range eGFR >90 >=60 mL/min/1.73 m2 CBC without differential Collection Time: 09/07/24 4:23 AM Result Value Ref Range WBC 13.6 (H) 3.8 - 9.9 K/cumm Hgb 11.8 (L) 11.9 - 15.5 g/dL Hct 34.2 (L) 35.6 - 45.5 % Plt 325 150 - 400 K/cumm MPV 9.3 9.1 - 12.3 fL RBC 3.73 (L) 3.90 - 5.20 M/cumm MCV 91.7 81.3 - 96.4 fL MCH 31.6 27.1 - 33.3 pg MCHC 34.5 32.3 - 35.7 g/dL RDW CV 12.7 11.1 - 14.9 % RDW SD 41.6 35.7 - 48.1 fL NRBC abs 0.00 0.00 - 0.01 K/cumm Comprehensive metabolic panel Collection Time: 09/07/24 4:23 AM Result Value Ref Range Sodium 139 135 - 145 mmol/L Potassium, pl 4.0 3.3 - 4.9 mmol/L Chloride 107 97 - 110 mmol/L CO2 24 22 - 32 mmol/L Anion gap 8 2 - 15 mmol/L BUN 8 6 - 25 mg/dL Creatinine 0.52 (L) 0.60 - 1.10 mg/dL Glucose 83 70 - 199 mg/dL Calcium 8.8 8.5 - 10.3 mg/dL Bilirubin, total 0.6 0.1 - 1.2 mg/dL Protein, pl 6.4 (L) 6.5 - 8.5 g/dL Albumin 3.5 3.5 - 5.0 g/dL Alk phos 142 (H) 40 - 130 Units/L ALT 164 (H) 7 - 45 Units/L AST 88 (H) 10 - 45 Units/L Type and screen Collection Time: 09/07/24 4:23 AM Result Value Ref Range ABO Rh O Negative Indira, indirect Negative eGFR Collection Time: 09/07/24 4:23 AM Result Value Ref Range eGFR >90 >=60 mL/min/1.73 m2 ASSESSMENT/PLAN Kayla Faye is a 24 y.o. at 28w5d admitted for PreEwSF. #Pre-eclampsia with severe features: - Chart review with gHTN based on MRBPs >4h apart on 08/27 - Presented to OSH with sustained SRBPs and spotted with L20, 4g Mg bolus - P/w mild headache, N/V (see below) - sustained SRBP; spotted L20 - neuro sx: mild headache, no blurry vision, +epigastric tenderness, no SOB, no LE swelling - Diagnosed with Pre-E w/ SF by: SRBP requiring IV spotting - Baseline labs: Cr 0.54,AST 14, ALT 10, Hgb 13.7, Plt 320, UPC 0.1 - OSH labs: Cr 0.5, AST 26, ALT 60, Hgb 12, Plt 360, UPC 0.1 - Admit labs: Cr 0.4, AST 34, ALT 69, Hgb 12, Plt 320, UPC 0.17 - 24 hour UP deferred - s/p 4g bolus, Mg continued on admission > dc'd 09/04 2230 - UDS deferred - 24hr IV med spotting: L60 - Transaminitis with uptrending AST/ALT: 34/69 > 89/89>80/141 > 88/164; RUQ US WNL, hep panel neg Plan: - CURRENT REGIMEN: ASA, Nifed 30mg XL (09/05) - APAP prn for headache - Daily labs, consider LDH to evaluate for HELLP + CMV, EBV, HSV #lsc dona: - s/p lsc cholecystectomy on 05/17/24 for sludge - Normal MRCP on 05/31 - RUQ US WNL on 07/27 - RUQ US WNL 09/06 #marijuana use #Nausea and vomiting of vs MJ-induced hyperemesis #Prolonged QT - Recent admission 08/29-08/30 at [facility] for N/V that improved with anti-emetics - Presented unable to tolerate PO for the past day - IOB weight 66kg > 75kg on admission - Ketones 3+ on admission -Thiamine and phos repletion on admission - EKG with QTC ^480 - CBC wnl, CMP with ALT 69, lipase WNL, UA pending, hepatitis panel WNL, H pylori deferred, RUQ US ordered, head imaging deferred - RVP neg - DDx includes N/V in , MJ induced nausea, HEG, or GI-related etiology - Previous antiemetics attempted: zofran, compazine - Current regimen: B6 TID, unisom nightly, zofran PRN, comp PRN, phenergan PRN, consider haldol pending QT - Regular diet as tolerated #Marijuana use - Currently smokes usually once a day - s/p cessation counseling #Migraine without aura - APAP PRN #Depression - Stable on lexapro 10mg - Follows with Dr. Johnson/Sandra at [facility] #FWB: - OSH US 09/04/24: EFW 1425g, (85%tile), normal SAADIA, vertex - Genetic screening: LR NIPT - Anatomy US: incomplete 07/04 and 08/07 - fUS 09/06: EFW 1159g (20%), normal fluid. - BMZ^09/06@1400 - s/p Mg for PreE - PCN deferred - peds consult 09/05 - MONITORING PLAN: dNST #MWB #SMA carrier - PNL: Rh O-/Ab neg/HIV NR/Rub imm/RPR NR/HepB neg/GC/CT neg/neg - 1 hr GTT not yet performed, defer until 7 days after BMZ - 3T HIV/RPR NR 09/04 - s/p flu vax 07/04, Tdap eligible - Rhogam eligible - Pap NILM 05/09/24 - GBS pending - MOD: TBD - MOF: TBD - MOC: TBD - Antepartum VTE Prophylaxis: The patient has been admitted for >/= 72 hours and is at high risk for bleeding. Lovenox for VTE prophylaxis ordered. *If >100 kg AND BMI >40, consider enoxaparin 40 mg q12h; if CrCl 10-30 mL/min, consider enoxaparin 30mg/mL daily. Lexie Gonzales MD 09/07/24 Cosigned by Allegra Rushing MD at 09/07/2024 4:27 PM TMR TEACHER TEACHER TEACHER TEACHER TEACHER Associated attestation - Allegra Rushing MD - 09/07/2024 4:27 PM TMR TEACHER I have seen and examined the patient on 09/07/24. I agree with the findings and plan of care as documented in the resident's/fellow's note. Patient with severe preeclampsia and rising ALT. Nausea has improved with scheduled Zofran, will try to decrease use due to the possibility that this may be affecting LFTs. Additionally will add testing for EBV, CMV, HSV and bile acids to exclude other causes. Continue to follow daily - discussed possibility that she may be developing a contraindication to expectant management. Tdap, RhoGAM today. Allegra Rushing MD 09/07/2024 - 28w5maritza - Sachin gruber, Vibha Caldwell MD R2 Update Notified by RN of leakage from patient's left breast, requested evaluation. Pt states she noticed her tshirt was wet about 2h ago. No fevers, chills, breast pain, or breast redness. On exam, breasts and nipples are symmetric with no signs of inflammation. Able to gently express a few drops of white, thin fluid. Discussed likely colostrum, reassured. Should not pump. If she has new breast pain/redness/swelling, please alert provider. Vibha Burnette MD Obstetrics and Gynecology, PGY-2 TEACHER 09/06/2024 - - Leslie Gonzales MD Images from the original note were not included. R2 update To bedside to assess R arm swelling. Patient reports new swelling of RUE. She is not aware of bites of any sort. She has not been outside for [employer] or [employer] [facility] recently. She has not received any recent injections in the arm. She denies fever/chills. Exam with mild swelling of the R deltoid with single small puncture wound, possible bug bite. Offered supportive care with ice and bendaryl PRN. Lexie Gonzales MD Obstetrics and Gynecology, PGY-2 TEACHER TEACHER 09/06/2024 - - Allegra Benton MD Antepartum Progress Note Gestational Age: 28w4d Admission Date: 09/04/2024 Length of stay: 2 Brief HPI: 24 y.o. female at 28w4d gestation admitted for superimposed preeclampsia with severe features. also complicated by hx of lsc dona, marijuana use, poorly controlled n/v, migraine without aura, and depression. INTERVAL HISTORY - Sustained SRBPs requiring total 60mg IV, started on N30XL - Received benadryl, compazine, zofran, phenergan suppository, and tigan for nausea SUBJECTIVE - Sleeping comfortably - Reports active movement. No vaginal bleeding/leakage of fluid/contractions. Review of Systems Negative except as per above. OBJECTIVE Vitals: Temp Min: 36.7 C (98 F) Max: 36.9 C (98.5 F) Pulse Min: 65 Max: 96 BP Min: 96/52 Max: 180/107 Resp Min: 16 Max: 18 SpO2 Min: 97 % Max: 100 % FHR: NST reactive [place]: no regular contractions Physical Exam General: No acute distress. Cardiovascular: Normal rate, regular rhythm Lungs: Non-labored. Abdomen: Soft, non-tender, gravid. Extremities: Warm and well-perfused. Pelvic: Deferred. Neurologic: Alert and oriented x4, non-focal Lab Review: Recent Results (from the past 24 hours) Comprehensive metabolic panel Collection Time: 09/05/24 8:44 AM Result Value Ref Range Sodium 138 135 - 145 mmol/L Potassium, pl 4.8 3.3 - 4.9 mmol/L Chloride 108 97 - 110 mmol/L CO2 19 (L) 22 - 32 mmol/L Anion gap 11 2 - 15 mmol/L BUN 4 (L) 6 - 25 mg/dL Creatinine 0.51 (L) 0.60 - 1.10 mg/dL Glucose 94 70 - 199 mg/dL Calcium 8.3 (L) 8.5 - 10.3 mg/dL Bilirubin, total 0.4 0.1 - 1.2 mg/dL Protein, pl 6.5 6.5 - 8.5 g/dL Albumin 3.4 (L) 3.5 - 5.0 g/dL Alk phos 146 (H) 40 - 130 Units/L ALT 89 (H) 7 - 45 Units/L AST 89 (H) 10 - 45 Units/L eGFR Collection Time: 09/05/24 8:44 AM Result Value Ref Range eGFR >90 >=60 mL/min/1.73 m2 CBC without differential Collection Time: 09/06/24 5:52 AM Result Value Ref Range WBC 19.8 (H) 3.8 - 9.9 K/cumm Hgb 11.1 (L) 11.9 - 15.5 g/dL Hct 31.7 (L) 35.6 - 45.5 % Plt 293 150 - 400 K/cumm MPV 9.4 9.1 - 12.3 fL RBC 3.35 (L) 3.90 - 5.20 M/cumm MCV 94.6 81.3 - 96.4 fL MCH 33.1 27.1 - 33.3 pg MCHC 35.0 32.3 - 35.7 g/dL RDW CV 12.6 11.1 - 14.9 % RDW SD 43.6 35.7 - 48.1 fL NRBC abs 0.00 0.00 - 0.01 K/cumm ASSESSMENT/PLAN Kayla Faye is a 24 y.o. at 28w4d admitted for SIPreEwSF. #Pre-eclampsia with severe features: - Chart review with gHTN based on MRBPs >4h apart on 08/27 - Presented to OSH with sustained SRBPs and spotted with L20, 4g Mg bolus - neuro sx: mild headache, no blurry vision, +epigastric tenderness, no SOB, no LE swelling - Diagnosed with Pre-E w/ SF by: SRBP requiring IV spotting - Baseline labs: Cr 0.54,AST 14, ALT 10, Hgb 13.7, Plt 320, UPC 0.1 - OSH labs: Cr 0.5, AST 26, ALT 60, Hgb 12, Plt 360, UPC 0.1 - Admit labs: Cr 0.4, AST 34, ALT 69, Hgb 12, Plt 320, UPC 0.17 - s/p 4g bolus, Mg continued on admission > dc'd 09/04 2230 - UDS deferred Plan: - CURRENT REGIMEN: ASA, Nifed 30mg XL (09/05) - RUQ US ordered > normal - APAP prn for headache - BP currently well controlled #lsc dona: - s/p lsc cholecystectomy on 05/17/24 for sludge - Normal MRCP on 05/31 - RUQ US WNL on 07/27 - RUQ US ordered > normal 09/06 #marijuana use #Nausea and vomiting of vs MJ-induced hyperemesis #Prolonged QT - Recent admission 08/29-08/30 at [facility] for N/V that improved with anti-emetics - Presented unable to tolerate PO for the past day - IOB weight 66kg > 75kg on admission - Ketones 3+ on admission -Thiamine and phos repletion on admission - EKG with QTC ^480 - CBC wnl, CMP with ALT 69, lipase WNL, UA pending, hepatitis panel WNL, H pylori deferred, RUQ US ordered, head imaging deferred - RVP neg - DDx includes N/V in , MJ induced nausea, HEG, or GI-related etiology - Previous antiemetics attempted: zofran, compazine - Current regimen: B6 TID, unisom nightly, change to scheduled Zofran and prn Compazine, Tigan PRN - Regular diet as tolerated #Marijuana use - Currently smokes usually once a day - s/p cessation counseling #Migraine without aura - APAP PRN #Depression - Stable on lexapro 10mg - Follows with Dr. Johnson/Sandra at [facility] #FWB: - OSH US 09/04/24: EFW 1425g, (85%tile), normal SAADIA, vertex - Genetic screening: LR NIPT - Anatomy US: incomplete 07/04 and 08/07 - fUS: 09/05 - BMZ^09/06@1400 - s/p Mg for PreE - PCN deferred - peds consult 09/05 - MONITORING PLAN: dNST #MWB #SMA carrier - PNL: Rh O-/Ab neg/HIV NR/Rub imm/RPR NR/HepB neg/GC/CT neg/neg - 1 hr GTT not yet performed, defer until 7 days after BMZ - 3T HIV/RPR pending - s/p flu vax 07/04, Tdap eligible - Rhogam eligible - Pap NILM 05/09/24 - GBS pending - MOD: TBD - MOF: TBD - MOC: TBD - Antepartum VTE Prophylaxis: The patient has not been admitted for >/= 72 hours and is not at high risk for bleeding. SCDs for VTE prophylaxis ordered. *If >100 kg AND BMI >40, consider enoxaparin 40 mg q12h; if CrCl 10-30 mL/min, consider enoxaparin 30mg/mL daily. Lexie Gonzales MD 09/06/24 MFM attending I saw and examined the patient and agree with the assessment and plan as outlined above; I have edited where appropriate. Patient admitted with preeclampsia with SF, nausea and vomiting persistent throughout and in setting of daily MJ use. Continue to manage nausea and vomiting, follow mildly elevated ALT. Discussed Tdap, RhoGAM. Allegra Rushing MD TEACHER TEACHER TEACHER TEACHER TEACHER 09/06/2024 - w4d - Vibha Ibarra MD R2 Update Notified of sustained SR BPs. Spotted with total labetalol 60 mg IV as of now. Endorses persistent nausea, no WARD. Plan to start Procardia 30 mg daily when able to tolerate PO medication. Will trial benadryl for nausea, will be due for compazine soon. S/p zofran, phenergan suppository, and tigan. Vibha Burnette MD Obstetrics and Gynecology, PGY-2 TEACHER TEACHER 09/05/2024 - w3d - Leslie Gonzales MD Antepartum Progress Note Gestational Age: 28w3d Admission Date: 09/04/2024 Length of stay: 1 Brief HPI: 24 y.o. female at 28w3d gestation admitted for superimposed preeclampsia with severe features. also complicated by hx of lsc dona, marijuana use, poorly controlled n/v, migraine without aura, and depression. INTERVAL HISTORY - Nausea improved s/p zofran and compazine - BPs improved to normotensive-MR after IV L20 - Magnesium discontinued, diet resumed SUBJECTIVE - Nausea improved and resolved - Headache resolved last night - Feeling better overall - Reports active movement. No vaginal bleeding/leakage of fluid/contractions. Review of Systems Negative except as per above. OBJECTIVE Vitals: Temp Min: 36.1 C (96.9 F) Max: 37.2 C (98.9 F) Pulse Min: 63 Max: 108 BP Min: 118/71 Max: 194/93 Resp Min: 16 Max: 18 SpO2 Min: 97 % Max: 100 % FHR: NST reactive [place]: no regular contractions Physical Exam General: No acute distress. Cardiovascular: Normal rate, regular rhythm Lungs: Non-labored. Abdomen: Soft, non-tender, gravid. Extremities: Warm and well-perfused. Pelvic: Deferred. Neurologic: Alert and oriented x4, non-focal Lab Review: Recent Results (from the past 24 hours) CBC with auto differential Collection Time: 09/04/24 11:40 AM Result Value Ref Range WBC 22.5 (H) 3.8 - 9.9 K/cumm Hgb 12.1 11.9 - 15.5 g/dL Hct 34.1 (L) 35.6 - 45.5 % Plt 360 150 - 400 K/cumm MPV 9.4 9.1 - 12.3 fL RBC 3.76 (L) 3.90 - 5.20 M/cumm MCV 90.7 81.3 - 96.4 fL MCH 32.2 27.1 - 33.3 pg MCHC 35.5 32.3 - 35.7 g/dL RDW CV 12.4 11.1 - 14.9 % RDW SD 41.0 35.7 - 48.1 fL NRBC abs 0.00 0.00 - 0.01 K/cumm Comprehensive metabolic panel Collection Time: 09/04/24 11:40 AM Result Value Ref Range Sodium 135 135 - 145 mmol/L Potassium, pl 3.5 3.3 - 4.9 mmol/L Chloride 101 97 - 110 mmol/L CO2 19 (L) 22 - 32 mmol/L Anion gap 16 (H) 2 - 15 mmol/L BUN 6 6 - 25 mg/dL Creatinine 0.50 (L) 0.60 - 1.10 mg/dL Glucose 126 70 - 199 mg/dL Calcium 9.0 8.5 - 10.3 mg/dL Bilirubin, total 0.3 0.1 - 1.2 mg/dL Protein, pl 6.5 6.5 - 8.5 g/dL Albumin 3.7 3.5 - 5.0 g/dL Alk phos 152 (H) 40 - 130 Units/L ALT 60 (H) 7 - 45 Units/L AST 26 10 - 45 Units/L Magnesium Collection Time: 09/04/24 11:40 AM Result Value Ref Range Magnesium 1.6 1.4 - 2.5 mg/dL Phosphorus Collection Time: 09/04/24 11:40 AM Result Value Ref Range Phosphorus, pl 2.5 2.3 - 4.5 mg/dL Lipase Collection Time: 09/04/24 11:40 AM Result Value Ref Range Lipase 18 10 - 99 Units/L Differential, auto Collection Time: 09/04/24 11:40 AM Result Value Ref Range Neutrophil abs 20.1 (H) 1.5 - 6.5 K/cumm Imm gran abs 0.2 (H) 0.0 - 0.1 K/cumm Lymphocyte abs 1.5 0.8 - 3.3 K/cumm Monocyte abs 0.7 0.2 - 0.8 K/cumm Eosinophil abs 0.0 0.0 - 0.5 K/cumm Basophil abs 0.0 0.0 - 0.1 K/cumm Neutrophil pct 89.3 % Imm gran pct 1.0 % Lymphocyte pct 6.5 % Monocyte pct 2.9 % Eosinophil pct 0.1 % Basophil pct 0.2 % eGFR Collection Time: 09/04/24 11:40 AM Result Value Ref Range eGFR >90 >=60 mL/min/1.73 m2 Urinalysis reflex to microscopic and culture Urine Collection Time: 09/04/24 12:54 PM Specimen: Urine Result Value Ref Range Color, ur Yellow Yellow Clarity, ur Turbid (A) Clear Specific gravity, ur 1.021 1.003 - 1.030 pH, urine 7.5 Protein, ur ql Negative Negative Glucose, ur ql 4+ (A) Negative Ketones, ur 2+ (A) Negative Bilirubin, ur Negative Negative Blood, ur Negative Negative Urobilinogen, ur <2.0 <2.0 mg/dL Nitrite, ur Negative Negative Leukocyte esterase, ur 1+ (A) Negative UA reflex comment Reflex to microscopic UA will be performed. Protein / creatinine ratio, urine, random Collection Time: 09/04/24 12:54 PM Result Value Ref Range Protein, ur, quant 6.4 mg/dL Creatinine Ur 38.2 mg/dL Protein/creatinine ratio 167.5 0.0 - 180.0 mg/g CR Urinalysis, microscopic only Collection Time: 09/04/24 12:54 PM Result Value Ref Range WBC, ur 0-5 0 - 5 /HPF RBC, ur 0-2 0 - 2 /HPF Epithelial cells, squamous, ur 1-5 0 - 5 /HPF Bacteria, ur 1+ (A) Mucous, ur Present (A) Hyaline casts, ur 1-5 0 - 10 /LPF Culture Reflex Comment Reflex conditions for urine culture (WBC >10) not met. CBC without differential Collection Time: 09/04/24 5:51 PM Result Value Ref Range WBC 25.7 (H) 3.8 - 9.9 K/cumm Hgb 12.4 11.9 - 15.5 g/dL Hct 35.1 (L) 35.6 - 45.5 % Plt 320 150 - 400 K/cumm MPV 9.5 9.1 - 12.3 fL RBC 3.87 (L) 3.90 - 5.20 M/cumm MCV 90.7 81.3 - 96.4 fL MCH 32.0 27.1 - 33.3 pg MCHC 35.3 32.3 - 35.7 g/dL RDW CV 12.3 11.1 - 14.9 % RDW SD 40.6 35.7 - 48.1 fL NRBC abs 0.00 0.00 - 0.01 K/cumm Type and screen Collection Time: 09/04/24 5:51 PM Result Value Ref Range Indira, indirect Negative ABO Rh O Negative Comprehensive metabolic panel Collection Time: 09/04/24 5:51 PM Result Value Ref Range Sodium 136 135 - 145 mmol/L Potassium, pl 3.6 3.3 - 4.9 mmol/L Chloride 104 97 - 110 mmol/L CO2 22 22 - 32 mmol/L Anion gap 10 2 - 15 mmol/L BUN 4 (L) 6 - 25 mg/dL Creatinine 0.42 (L) 0.60 - 1.10 mg/dL Glucose 124 70 - 199 mg/dL Calcium 7.9 (L) 8.5 - 10.3 mg/dL Bilirubin, total 0.4 0.1 - 1.2 mg/dL Protein, pl 6.6 6.5 - 8.5 g/dL Albumin 3.5 3.5 - 5.0 g/dL Alk phos 163 (H) 40 - 130 Units/L ALT 69 (H) 7 - 45 Units/L AST 34 10 - 45 Units/L Protein / creatinine ratio, urine, random Collection Time: 09/04/24 5:51 PM Result Value Ref Range Protein, ur, quant 7.9 mg/dL Creatinine Ur 47.0 mg/dL Protein/creatinine ratio 168.1 0.0 - 180.0 mg/g CR Lipase Collection Time: 09/04/24 5:51 PM Result Value Ref Range Lipase 28 10 - 99 Units/L HIV 1/2 Antibody plus p24 Antigen Blood Collection Time: 09/04/24 5:51 PM Specimen: Blood Result Value Ref Range HIV 1/2 ab + p24 ag Nonreactive Nonreactive RPR Blood Collection Time: 09/04/24 5:51 PM Specimen: Blood Result Value Ref Range RPR Nonreactive Nonreactive Hepatitis panel, acute Blood Collection Time: 09/04/24 5:51 PM Specimen: Blood Result Value Ref Range Hep A IgM Nonreactive Nonreactive Hep B core IgM Nonreactive Nonreactive Hep C Ab Nonreactive Nonreactive HepBsAg Nonreactive Nonreactive eGFR Collection Time: 09/04/24 5:51 PM Result Value Ref Range eGFR >90 >=60 mL/min/1.73 m2 Phosphorus Collection Time: 09/04/24 5:51 PM Result Value Ref Range Phosphorus, pl 1.9 (L) 2.3 - 4.5 mg/dL Magnesium Collection Time: 09/04/24 5:51 PM Result Value Ref Range Magnesium 3.8 (H) 1.4 - 2.5 mg/dL Respiratory pathogen panel Nasopharyngeal Collection Time: 09/04/24 6:11 PM Specimen: Nasopharyngeal Result Value Ref Range Influenza A RNA Not Detected Not Detected Influenza B RNA Not Detected Not Detected RSV RNA Not Detected Not Detected COVID-19 RNA Not Detected Not Detected Coronavirus 229E RNA Not Detected Not Detected Coronavirus HKU1 RNA Not Detected Not Detected Coronavirus NL63 RNA Not Detected Not Detected Coronavirus OC43 RNA Not Detected Not Detected Adenovirus DNA Not Detected Not Detected Metapneumovirus RNA Not Detected Not Detected Rhinovirus/Enterovirus RNA Not Detected Not Detected Parainfluenza 1 RNA Not Detected Not Detected Parainfluenza 2 RNA Not Detected Not Detected Parainfluenza 3 RNA Not Detected Not Detected Parainfluenza 4 RNA Not Detected Not Detected B. pertussis DNA Not Detected Not Detected B. parapertussis DNA Not Detected Not Detected C. pneumoniae DNA Not Detected Not Detected M. pneumoniae DNA Not Detected Not Detected Check Sample Collection Time: 09/04/24 6:58 PM Result Value Ref Range ABO Rh O Negative Urinalysis reflex to microscopic Collection Time: 09/04/24 10:56 PM Result Value Ref Range Color, ur Straw Yellow Clarity, ur Clear Clear Specific gravity, ur 1.022 1.003 - 1.030 pH, urine 6.5 Protein, ur ql Negative Negative Glucose, ur ql 3+ (A) Negative Ketones, ur 3+ (A) Negative Bilirubin, ur Negative Negative Blood, ur Negative Negative Urobilinogen, ur <2.0 <2.0 mg/dL Nitrite, ur Negative Negative Leukocyte esterase, ur Negative Negative UA reflex comment Reflex conditions for microscopic UA not met. ASSESSMENT/PLAN Kayla Faye is a 24 y.o. at 28w3d admitted for SIPreEwSF. # Pre-eclampsia with severe features: - Chart review with gHTN based on MRBPs >4h apart on 08/27 - Presented to OSH with sustained SRBPs and spotted with L20, 4g Mg bolus - P/w mild headache, N/V (see below) - sustained SRBP; spotted L20 - neuro sx: mild headache, no blurry vision, +epigastric tenderness, no SOB, no LE swelling - Diagnosed with Pre-E w/ SF by: SRBP requiring IV spotting - Baseline labs: Cr 0.54,AST 14, ALT 10, Hgb 13.7, Plt 320, UPC 0.1 - OSH labs: Cr 0.5, AST 26, ALT 60, Hgb 12, Plt 360, UPC 0.1 - Admit labs: Cr 0.4, AST 34, ALT 69, Hgb 12, Plt 320, UPC 0.17 - 24 hour UP deferred - s/p 4g bolus, Mg continued on admission > dc'd 09/04 2230 - UDS deferred Plan: - CURRENT REGIMEN: ASA - RUQ US ordered - APAP prn for headache - Delivery at 34w pending stability #lsc dona: - s/p lsc cholecystectomy on 05/17/24 for sludge - Normal MRCP on 05/31 - RUQ US WNL on 07/27 - RUQ US ordered #marijuana use #Nausea and vomiting of vs MJ-induced hyperemesis #Prolonged QT - Recent admission 08/29-08/30 at [facility] for N/V that improved with anti-emetics - Presented unable to tolerate PO for the past day - IOB weight 66kg > 75kg on admission - Ketones 3+ on admission -Thiamine and phos repletion on admission - EKG with QTC ^480 - CBC wnl, CMP with ALT 69, lipase WNL, UA pending, hepatitis panel WNL, H pylori deferred, RUQ US ordered, head imaging deferred - RVP neg - DDx includes N/V in , MJ induced nausea, HEG, or GI-related etiology - Previous antiemetics attempted: zofran, compazine - Current regimen: B6 TID, unisom nightly, zofran PRN, comp PRN, phenergan PRN, consider haldol pending QT - Discontinue mIVF, resume diet as tolerated after RUQ US #Marijuana use - Currently smokes usually once a day - s/p cessation counseling #Migraine without aura - APAP PRN #Depression - Stable on lexapro 10mg - Follows with Dr. Johnson/Sandra at [facility] #FWB: - OSH US 09/04/24: EFW 1425g, (85%tile), normal SAADIA, vertex - Genetic screening: LR NIPT - Anatomy US: incomplete 07/04 and 08/07 - fUS: 09/05 - BMZ^09/06@1400 - s/p Mg for PreE - PCN deferred - peds consult ordered - MONITORING PLAN: dNST #MWB #SMA carrier - PNL: Rh O-/Ab neg/HIV NR/Rub imm/RPR NR/HepB neg/GC/CT neg/neg - 1 hr GTT not yet performed, defer until 7 days after BMZ - 3T HIV/RPR pending - s/p flu vax 07/04, Tdap eligible - Rhogam eligible - Pap NILM 05/09/24 - GBS pending - MOD: TBD - MOF: TBD - MOC: TBD - Antepartum VTE Prophylaxis: The patient has not been admitted for >/= 72 hours and is not at high risk for bleeding. SCDs for VTE prophylaxis ordered. *If >100 kg AND BMI >40, consider enoxaparin 40 mg q12h; if CrCl 10-30 mL/min, consider enoxaparin 30mg/mL daily. Lexie Gonzales MD 09/05/24 Cosigned by Allegra Rushing MD at 09/07/2024 3:45 PM TMR TEACHER TEACHER TEACHER TEACHER Associated attestation - Allegra Rushing MD - 09/07/2024 3:45 PM TMR TEACHER I have seen and examined the patient on 09/05/24. I agree with the findings and plan of care as documented in the resident's/fellow's note. Patient with improvement in nausea and vomiting and BP currently normotensive although clearly meets criteria for diagnosis of preeclampsia with severe features. Continue inpatient management. Allegra Rushing MD Progress Notes - Clinical [place] pport - 09/01/2024 - GA:27w6d 09/01/2024 - 27w6d - Delma Burgess, RN Patient in today for urine dip for ketones and weight check Ketones negative and patient weight is up 3 lbs from Labor and Delivery 08/28/2024. Reviewed allergies and meds with patient. Made Dr. Padilla aware. Patient was told to call us if she starts to feel bad again. TEACHER Progress Notes - Routine Pre - 08/07/2024 - GA:24w2d 08/07/2024 - 24w2d - Stephany Newman NP 24w2d Reviewed anatomy scan.Additional images today. - unsure, she is worried about smoking and breast milk/ mental health. Packet reviewed. Contraception- unsure, possible Nexplanon or IUD. Discussed upcoming GTT. Flu- has had. Covid, RSV vaccination recommended. RTO 4 weeks with . Zena TAYLOR TEACHER Progress Notes - Routine Pre huey - 07/04/2024 - GA:19w3d 07/04/2024 - 19w3d - Dena Padilla MD 19w3d Dale Chon Nausea is better. To PNV To basa- taking. cfDNA testing- negative, carrier screening + SMA. FOB will not come in for testing. We dicussed MFM. She will wait until after the baby is born. FOB has 4 kids that are all normal Diet and exercise discussed- to spinning babies. Flu- had RTO . 4 weeks To afp secondary to her 1/2 sisters spina bifida Progress Notes - Clinical [place] pport - 06/20/2024 - GA:17w3d 06/20/2024 - - Dana Velasco MA Patient is here for a weight and keytone check 146 lb and small amount of keytones Progress Notes - Routine Pre - 06/06/2024 - GA:15w3d 06/06/2024 - - Stephany Newman NP 15w3d Morning sickness- improving, some nausea and tired. I think she looks good today. Her sister is at bedside and agrees she is doing much better. She quit MJ. Depression scale reviewed- 10 continues Lexapro Labs reviewed To basa- taking. cfDNA testing- negative, carrier screening + SMA. FOB will not come in for testing. Diet and exercise discussed- to spinning babies. Flu, Covid, RSV vaccination recommended. RTO 2 weeks for nurse visit. 4 weeks with . Zena TAYLOR Cosigned by Dena Padilla MD at 06/06/2024 1:13 PM CDT Progress Notes - Hospital En counter - 05/18/2024 - GA:12w5d 05/18/2024 - 12w5d - Dora Collins NP Progress Note Subjective: HPI: 24 y.o. POD # 1 S/P laparoscopic cholecystectomy No events overnight. Denies fever,cp,sob,n/v. Pain is well controlled and she feels much better today Objective: Vitals: 05/18/24 0915 BP: 129/79 Pulse: 73 Resp: 16 Temp: 36.6 C (97.9 F) SpO2: 99% Labs: Lab Results Component Value Date WBC 15.0 (H) 05/17/2024 HGB 11.4 (L) 05/17/2024 HCT 32.2 (L) 05/17/2024 LABPLAT 255 05/17/2024 RBC 3.55 (L) 05/17/2024 Lab Results Component Value Date SODIUM 136 05/16/2024 POTASSIUM 3.2 (L) 05/16/2024 CHLORIDE 102 05/16/2024 CO2 14 (L) 05/16/2024 ANIONGAP 19 (H) 05/16/2024 BUNSER 6 05/16/2024 CREATININE 0.54 (L) 05/16/2024 GLUCOSE 180 05/16/2024 CALCIUM 9.9 05/16/2024 I/O last 2 completed shifts: In: 800 [I.V.:800] Out: 1715 [Urine:1700; Blood:15] No intake/output data recorded. Physical Exam Constitutional: Appearance: Normal appearance. HENT: Head: Normocephalic and atraumatic. Nose: Nose normal. Mouth/Throat: Mouth: Mucous membranes are moist. Eyes: Pupils: Pupils are equal, round, and reactive to light. Cardiovascular: Rate and Rhythm: Normal rate and regular rhythm. Pulses: Normal pulses. Heart sounds: Normal heart sounds. Pulmonary: Effort: Pulmonary effort is normal. Breath sounds: Normal breath sounds. Abdominal: Palpations: Abdomen is soft. Tenderness: There is no abdominal tenderness. Musculoskeletal: General: Normal range of motion. Cervical back: Normal range of motion. Skin: General: Skin is warm and dry. Operative sites well approximated, with no erythema,no drainage Neurological: General: No focal deficit present. Mental Status: She is alert and oriented to person, place, and time. Psychiatric: Mood and Affect: Mood normal. Behavior: Behavior normal. Assessment/Plan POD # 1 S/P laparoscopic cholecystectomy Tolerating po advance to fat controlled OOB today IS encouraged Pain control tylenol Disposition planning for home ok to DC follow up Gen surgery in 1 week 05/18/2024 Cosigned by Zeeshan Montoya MD at 05/18/2024 1:29 PM CDT Progress Notes - Routine Pre - 05/16/2024 - GA:12w3d 05/16/2024 - 12w3d - Dena Padilla MD 12w3d The patient called earlier this morning complaining of severe stomach pain that started last night. She has had multiple bouts of emesis She has not been able to keep anything down since yesterday She does not have the desire to void and has not voided since last night No diarrhea Her last bowel movement yesterday was within normal limits No sick contact She does not think that she has had any fever On exam today her weight is down 5 lb In general she is a well-developed well-nourished female who does not appear well She has no calf tenderness or edema Her abdomen is tender diffusely but especially in the epigastrium She has a positive Stratton's sign She is going to be sent over to the hospital for further evaluation Progress Notes - Initial Pre - 05/09/2024 - GA:11w3d 05/09/2024 - 11w3d - Dena Padilla MD Images from the original note were not included. Initial OB Visit Initial Visit Subjective: Kayla Faye is a 24 y.o., at 11.3 weeks , based on 1st trimester U/S who presents for initial visit. Morning sickness is persistent. Not sure if she lost weight. May be. Usually 155, but she has also has been working a lot Is able to eat some everyday, usual in the afternoon Urine today was yellow. She has tried the preggie pops Essential oils including peppermint are helping. To stop pnv. Menstrual History: Patient's last menstrual period was 02/02/2024 (approximate). Sexual History: OB History 1 Para Term AB Living SAB IAB Ectopic Multiple Live Births # Outcome Date GA Labor/2nd Weight Sex Type Anes PTL Lv A1 A5 1 Current Objective: BP 122/62 (BP Location: Right arm, Patient Position: Sitting) Ht 150.5 cm (4' 11.25 ) Wt 147 lb (66.7 kg) LMP 02/02/2024 (Approximate) BMI 29.44 kg/m Physical OB Exam: Last filed by Dena Padilla MD on 05/09/2024 4:39 PM General Physical Exam HEENT: normal Heart: normal Skin: normal Thyroid: normal Lungs: normal Extremities: normal Lymph Nodes: normal Breasts: normal Neurological: normal Grossly Abdomen: normal Pelvic Exam Vulva: normal Vagina: normal Cervix: normal Uterus: 10-12 weeks Adnexa: normal Rectum: normal Spines: average Subpubic Arch: normal See flow sheet for gestation -specific examination and vitals. Assessment: Patient is a 24 y.o., at Unknown, size = dates. Diagnoses and all orders for this visit: Encounter for supervision of normal first in second trimester (Primary) - Urine culture Urine, clean voided; Future - Vitamin D 25 hydroxy; Future - Varicella Zoster IgG antibody Blood; Future - Type and screen; Future - Rubella IgG antibody Blood; Future - RPR Blood; Future - HIV 1/2 Antibody plus p24 Antigen Blood; Future - Hepatitis C antibody Blood; Future - Hepatitis B Surface Antigen Blood; Future - Drugs of Abuse Screen, Urine without Confirmation; Future - CBC with auto differential; Future - POCT urinalysis dipstick - Pap with reflex to High Risk HPV and Genotyping (Cytology Component); Future - ThinPrep processing (Molecular component); Future - N. gonorrhoeae/C. trachomatis Amplification Endocervical; Future Suicidal ideation Assessment & Plan: Mood is good right now. She stopped [...] She will f/u with Dr. Johnson/Sandra at [facility]. Sleep hygiene reviewed. Marijuana smoker Assessment & Plan: The patient was instructed to stop smoking marijuana as it is bad for the baby's brain development. Family history of spina bifida Assessment & Plan: Will plan for AFP at 20 weeks. Migraine without aura and without status migrainosus, not intractable Assessment & Plan: Her WARD have been less To use tylenol if they return Other orders - aspirin 81 mg chewable tablet; Take 1 tablet (81 mg total) by mouth daily Problem list reviewed and updated: Problem List No episode was linked to this visit. Plan: -dating US completed previously -PNL ordered. We will discuss at her next visit. -To start BASA. -We dicussed cell free DNA testing and carrier screening. False positives and negatives were discussed. She would like to do both -pap and std testing done today. The results will go to the portal. If she doesn't see them in a week, to call the office. -NOB packet reviewed with the pt and her questions were answered. To gain between 25-35 pounds for the To vitamins once morning sickness is better. Call schedule reviewed. Visits with Stephany discussed. Follow up in 1 weeks. Dena Padilla MD 05/09/2024 Last Filed Vital Signs Vital Sign Reading Time Taken Comments Blood Pressure 112/74 11/21/2024 3:47 PM TMR TEACHER Pulse 93 10/15/2024 12:40 PM TMR TEACHER Temperature 36.6 C (97.8 F) 10/15/2024 12:40 PM TMR TEACHER Respiratory Rate 16 10/15/2024 12:40 PM TMR TEACHER Oxygen Saturation 99% 10/15/2024 12:40 PM TMR TEACHER Inhaled Oxygen Concentration - - Weight 71.7 kg (158 lb) 11/21/2024 3:47 PM TMR TEACHER Height 152.4 cm (5') 11/21/2024 3:47 PM TMR TEACHER Body Mass Index 30.86 11/21/2024 3:47 PM TMR TEACHER Plan of Treatment Health Maintenance Due Date Last Done Comments Meningococcal B Vaccine (1 o f 2 - Standard) 2018 Regular Well Visit/Exam 18-64 2020 Cervical Cancer Screening 05/09/2025 05/09/2024 Chlamydia and Gonorrhea (GC/ CT) Screening 05/09/2025 05/09/2024, 01/10/2020 Depression Screening 11/21/2025 11/21/2024, 08/30/2024, 08/30/2024, Additional history exists DTaP/Tdap/Td Vaccine (8 - Td or Tdap) 09/07/2034 09/07/2024, 04/05/2013, 04/04/2007, Additional history exists Hepatitis B Screening Completed 01/23/2003 , 2002, 2002 Pneumococcal vaccine <65 Completed 003, 2002, 2002, Additional history exists Varicella Vaccines Completed 04/04/2007, 2003 HPV Vaccines Completed 06/14/2014, 01/19, 12/04/2013 Influenza Vaccine Completed 07/04/2024, , 10/12/2017, Additional history exists Hepatitis C Screening Completed 09/04/2024, 024 Procedures Procedure Name Priority Date/Time Associated Diagnosis Comments ECG 12-LEAD Routine 10/20/2024 1:57 PM TMR TEACHER BLEED SCREEN Timed 10/14/2024 5: 18 PM TMR TEACHER ABO/RH Timed 10/14/2024 5:18 PM TMR TEACHER RH IMMUNE GLOBULIN EVAL Timed 10/14/2024 5:18 PM TMR TEACHER EGFR Timed 10/14/2024 6:44 AM TMR TEACHER CBC WITHOUT DIFFERENTIAL Timed 10/14/2024 6:44 AM TMR TEACHER COMPREHENSIVE METABOLIC PANEL Timed 10/14/2024 6:44 AM TMR TEACHER TYPE AND SCREEN Timed 10/13/2024 5:53 AM TMR TEACHER CBC WITHOUT DIFFERENTIAL Routine 10/13/2024 5:53 AM TMR TEACHER SURGICAL PATHOLOGY Routine 10/12/2024 7: 30 PM TMR TEACHER ANESTHESIA SPINAL BLOCK Routine 10/12/2024 7:16 PM TMR TEACHER EGFR Routine 10/12/2024 6:16 AM TMR TEACHER MAGNESIUM Routine 10/12/2024 6:16 AM TMR TEACHER PHOSPHORUS Routine 10/12/2024 6:16 AM TMR TEACHER CBC WITHOUT DIFFERENTIAL Routine 10/12/2024 6:16 AM TMR TEACHER COMPREHENSIVE METABOLIC PANEL Routine 10/12/2024 6:16 AM TMR TEACHER EGFR Routine 10/11/2024 6:21 AM TMR TEACHER MAGNESIUM Routine 10/11/2024 6:21 AM TMR TEACHER PHOSPHORUS Routine 10/11/2024 6:21 AM TMR TEACHER CBC WITHOUT DIFFERENTIAL Routine 10/11/2024 6:21 AM TMR TEACHER COMPREHENSIVE METABOLIC PANEL Routine 10/11/2024 6:21 AM TMR TEACHER ANTIBODY IDENTIFICATION Routine 10/10/2024 7:46 AM TMR TEACHER EGFR Routine 10/10/2024 6:24 AM TMR TEACHER MAGNESIUM Routine 10/10/2024 6:24 AM TMR TEACHER PHOSPHORUS Routine 10/10/2024 6:24 AM TMR TEACHER CBC WITHOUT DIFFERENTIAL Routine 10/10/2024 6:24 AM TMR TEACHER COMPREHENSIVE METABOLIC PANEL Routine 10/10/2024 6:24 AM TMR TEACHER TYPE AND SCREEN Timed 10/10/2024 6:24 AM TMR TEACHER CBC WITHOUT DIFFERENTIAL Timed 10/09/2024 1:11 PM TMR TEACHER EGFR Routine 10/09/2024 6:13 AM TMR TEACHER COMPREHENSIVE METABOLIC PANEL Routine 10/09/2024 6:13 AM TMR TEACHER EGFR Routine 10/08/2024 10:56 AM TMR TEACHER BILE ACIDS, TOTAL Routine 10/08/2024 10: 56 AM TMR TEACHER COMPREHENSIVE METABOLIC PANEL Routine 10/08/2024 10:56 AM TMR TEACHER ECG 12-LEAD Routine 10/07/2024 2:02 PM TMR TEACHER ANTIBODY IDENTIFICATION Routine 10/07/2024 7:44 AM TMR TEACHER EGFR Timed 10/07/2024 6:25 AM TMR TEACHER COMPREHENSIVE METABOLIC PANEL Timed 10/07/2024 6:25 AM TMR TEACHER CBC WITHOUT DIFFERENTIAL Timed 10/07/2024 6:25 AM TMR TEACHER TYPE AND SCREEN Timed 10/07/2024 6:25 AM TMR TEACHER GROUP B STREPTOCOCCUS CULTURE Routine 10/06/2024 4:11 PM TMR TEACHER US OB LIMITED Schedule Routine, Read Routine (OP Routine) 10/04/2024 8:12 AM TMR TEACHER Encounter for follow-up ultrasound of anatomy ANTIBODY IDENTIFICATION Routine 10/04/2024 7:44 AM TMR TEACHER EGFR Timed 10/04/2024 6:15 AM TMR TEACHER COMPREHENSIVE METABOLIC PANEL Timed 10/04/2024 6:15 AM TMR TEACHER CBC WITHOUT DIFFERENTIAL Timed 10/04/2024 6:15 AM TMR TEACHER TYPE AND SCREEN Timed 10/04/2024 6:15 AM TMR TEACHER ANTIBODY IDENTIFICATION Routine 10/01/2024 7:53 AM TMR TEACHER EGFR Timed 10/01/2024 6:31 AM TMR TEACHER COMPREHENSIVE METABOLIC PANEL Timed 10/01/2024 6:31 AM TMR TEACHER CBC WITHOUT DIFFERENTIAL Timed 10/01/2024 6:31 AM TMR TEACHER TYPE AND SCREEN Timed 10/01/2024 6:31 AM TMR TEACHER ANTIBODY IDENTIFICATION Routine 09/28/2024 8:02 AM TMR TEACHER EGFR Timed 09/28/2024 6:22 AM TMR TEACHER COMPREHENSIVE METABOLIC PANEL Timed 09/28/2024 6:22 AM TMR TEACHER CBC WITHOUT DIFFERENTIAL Timed 09/28/2024 6:22 AM TMR TEACHER TYPE AND SCREEN Timed 09/28/2024 6:22 AM TMR TEACHER ANTIBODY IDENTIFICATION Routine 09/25/2024 8:06 AM TMR TEACHER EGFR Timed 09/25/2024 6:43 AM TMR TEACHER COMPREHENSIVE METABOLIC PANEL Timed 09/25/2024 6:43 AM TMR TEACHER CBC WITHOUT DIFFERENTIAL Timed 09/25/2024 6:43 AM TMR TEACHER TYPE AND SCREEN Timed 09/25/2024 6:43 AM TMR TEACHER ANTIBODY IDENTIFICATION Routine 09/22/2024 7:21 AM TMR TEACHER EGFR Timed 09/22/2024 6:09 AM TMR TEACHER BILE ACIDS, TOTAL Routine 09/22/2024 6:0 9 AM TMR TEACHER COMPREHENSIVE METABOLIC PANEL Timed 09/22/2024 6:09 AM TMR TEACHER CBC WITHOUT DIFFERENTIAL Timed 09/22/2024 6:09 AM TMR TEACHER TYPE AND SCREEN Timed 09/22/2024 6:09 AM TMR TEACHER HEPATITIS PANEL, ACUTE STAT 09/04/2024 5:51 PM TMR TEACHER N. GONORRHOEAE/C. TRACHOMATIS AMPLIFICATION Routine 05/09/2024 10:35 AM CDT PAP WITH REFLEX TO HIGH RISK HPV Routine 05/09/2024 9:03 AM CDT Encounter for supervision of normal first in second trimester SECTION from Last 3 Months or Most Recently Relevant to Health Maintenance Results * ECG 12 lead (10/20/2024 1:57 PM TMR TEACHER) Ventricular Rate EKG/Min 117 BPM [facility] Atrial Rate 117 BPM [facility] MI-Interval (MSEC) 140 ms [facility] QRS-Interval (MSEC) 70 ms [facility] QT-Interval (MSEC) 302 ms [facility] QTc 421 ms [facility] P [place] 57 degrees [facility] R [place] 60 degrees [facility] T [place] 21 degrees [facility] Diagnosis Sinus tachycardia Otherwise normal ECG When compared with ECG of 07-OCT-2024 14:02, No significant change was found Confirmed by Edgardo Gomes ([id number]) on 10/21/2024 6:35:11 AM Also confirmed by Edgardo Gomes ([id number]), desk editor Estela Grissom ([id number]) on 10/23/2024 12:48:25 PM [facility] 10/20/2024 1:57 PM TMR TEACHER 10/23/2024 12:48 PM TMR TEACHER Tamara Chow MD ECG ORDERABLES Edited Re sult - Final Performing Organization Address City/[facility]/ZIP Co de Phone Number [facility] * Rh Immune Globulin Eval (10/14/2024 5:18 PM TMR TEACHER) RhIg Eligible Yes, eligible RhIg Administration 1 vial of Rh Immune Globulin (300 mcg dose) [facility] Blood 10/14/2024 5:18 PM TMR TEACHER 10/14/2024 5:34 PM TMR TEACHER Narrative [facility] - 10/14/2024 7:02 PM TMR TEACHER Number of weeks ?->20 weeks or greater antibody screen result:->Negative Rhogam given?->Given Date Given?->09/07/24 Number of vials requested:->1 Vibha Vegas MD LAB BLOOD BANK TE ST ORDERABLES Final Result Performing Organization Address [facility] de Phone Number [facility] [place] [address] * Bleed Screen (10/14/2024 5:18 PM TMR TEACHER) Pathologist [facility] Bleed Screen Negative Blood 10/14/2024 5:18 PM TMR TEACHER 10/14/2024 5:34 PM TMR TEACHER Vibha Burnette MD LAB BLOOD BANK TE ST ORDERABLES Final Result Performing Organization Address [facility] Co de Phone Number [facility] [place] [address] * ABO/Rh (10/14/2024 5:18 PM TMR TEACHER) ABO Rh O Negative Blood 10/14/2024 5:18 PM TMR TEACHER 10/14/2024 5:34 PM TMR TEACHER Vibha Burnette MD LAB BLOOD BANK TE ST ORDERABLES Final Result Performing Organization Address [facility] Co de Phone Number [facility] [place] [address] * eGFR (10/14/2024 6:44 AM TMR TEACHER) eGFR >90 >=60 mL/min/1. 73 m2 Comment: [...] last reviewed 2021. Blood 10/14/2024 6:44 AM TMR TEACHER 10/14/2024 6:58 AM TMR TEACHER Vibha Vegas MD LAB BLOOD ORDERAB LES Final Result Performing Organization Address City/[facility]/ZIP Co de Phone Number [facility] [place] [address] * (ABNORMAL) CBC without differential (10/14/2024 6:44 AM TMR TEACHER) Pathologist [facility] WBC 16.7(H) 3.8 - 9.9 K/cumm Hgb 9.6(L) 11.9 - 15.5 g/dL [facility] Hct 28.0(L) 35.6 - 45.5 % [facility] Plt 281 150 - 400 K/cumm [facility] MPV 9.5 9.1 - 12.3 fL [facility] RBC 3.05(L) 3.90 - 5.20 M/cumm [facility] MCV 91.8 81.3 - 96.4 fL [facility] MCH 31.5 27.1 - 33.3 pg [facility] MCHC 34.3 32.3 - 35.7 g/dL [facility] RDW CV 13.8 11.1 - 14.9 % [facility] RDW SD 46.0 35.7 - 48.1 fL [facility] NRBC abs 0.00 0.00 - 0.01 K/cumm [facility] Blood 10/14/2024 6:44 AM TMR TEACHER 10/14/2024 6:58 AM TMR TEACHER us Vibha Vegas MD LAB BLOOD ORDERAB LES Final Result [facility] [place] [address] * (ABNORMAL) Comprehensive metabolic panel (10/14/2024 6:44 AM TMR TEACHER) Sodium 139 135 - 145 mmol/L Potassium, pl 3.9 3.3 - 4.9 mmol/L [facility] Chloride 107 97 - 110 mmol/L [facility] CO2 24 22 - 32 mmol/L [facility] Anion gap 8 2 - 15 mmol/L [facility] BUN 8 6 - 25 mg/dL [facility] Creatinine 0.53(L) 0.60 - 1.10 mg/dL [facility] Glucose 77 70 - 199 mg/dL [facility] Comment: Interpretive Data Fasting glucose >/= 126 [...] 2022. Calcium 8.1(L) 8.5 - 10.3 mg/dL [facility] Bilirubin, total 0.3 0.1 - 1.2 mg/dL [facility] Protein, pl 5.4(L) 6.5 - 8.5 g/dL [facility] Albumin 2.7(L) 3.5 - 5.0 g/dL [facility] Alk phos 177(H) 40 - 130 Units/L [facility] ALT 58(H) 7 - 45 Units/L [facility] AST 45 10 - 45 Units/L [facility] Blood 10/14/2024 6:44 AM TMR TEACHER 10/14/2024 6:58 AM TMR TEACHER us Vibha Vegas MD LAB BLOOD ORDERAB LES Final Result [facility] [place] [address] * (ABNORMAL) CBC without differential (10/13/2024 5:53 AM TMR TEACHER) Pathologist [facility] WBC 19.9(H) 3.8 - 9.9 K/cumm Hgb 11.0(L) 11.9 - 15.5 g/dL [facility] Hct 32.2(L) 35.6 - 45.5 % [facility] Plt 340 150 - 400 K/cumm [facility] MPV 9.5 9.1 - 12.3 fL [facility] RBC 3.50(L) 3.90 - 5.20 M/cumm [facility] MCV 92.0 81.3 - 96.4 fL [facility] MCH 31.4 27.1 - 33.3 pg [facility] MCHC 34.2 32.3 - 35.7 g/dL [facility] RDW CV 13.5 11.1 - 14.9 % [facility] RDW SD 44.4 35.7 - 48.1 fL [facility] NRBC abs 0.00 0.00 - 0.01 K/cumm [facility] Blood 10/13/2024 5:53 AM TMR TEACHER 10/13/2024 6:06 AM TMR TEACHER us Vibha Vegas MD LAB BLOOD ORDERAB LES Final Result Performing Organization Address [facility] Co de Phone Number [facility] [place] [address] * Type and screen (10/13/2024 5:53 AM TMR TEACHER) ABO Rh O Negative Indira, indirect Negative [facility] Comment:Patient has previous antibody history Blood 10/13/2024 5:53 AM TMR TEACHER 10/13/2024 6:01 AM TMR TEACHER Narrative [facility] - 10/13/2024 6:50 AM TMR TEACHER Has the patient had Daratumumab or Isatuximab in the past 6 months?->Unknown us Shine Mayers MD LAB BLOOD BANK TEST ORDER ANGELA Final Result Performing Organization Address [facility] de Phone Number [facility] [place] [address] * Surgical pathology (10/12/2024 7:30 PM TMR TEACHER) Tissue specimen (specimen) (Placenta) 10/12/2024 7:30 PM TMR TEACHER 10/13/2024 9:19 AM TMR TEACHER Narrative PATHOLOGY [facility] - 10/18/2024 2:22 PM TMR TEACHER EPIC results best viewed via link to PDF [facility] [place] [address] Note to Patients: This report may contain [...] details. SURGICAL PATHOLOGY REPORT FINAL Patient Name: KAYLA FAYE Gender: F : 2000 (Age: 24) Address: [facility] [place] [address] Hospital #: [id number] Taken:10/12/2024 Received:10/13/2024 Reported: 10/18/2024 Patient Type: [facility] Inpatient Service: Obstetrics Location: [address] Physician(s): Mejia Chopra M.D. Diagnosis: Placenta, [...] surface, no parenchymal lesions are grossly identified. Bean Picker sections are submitted. A1 Umbilical cord, and maternal end and membrane roll A2-A4 Placenta disc Jar 3. 10/16/2024 14:48 PA(s): Lizbeth Sales MS, JENNIFER([facility])CM By this signature, I attest that the above diagnosis is based upon my personal examination of the slides(and/or other material). Addenda/Procedures The performance characteristics of some immunohistochemical stains, fluorescence in-situ hybridization tests and immunophenotyping by flow cytometry cited in this report (if any) were determined by the Surgical Pathology and Flow Cytometry Departments at [facility] as part of an ongoing chemistry quality control technician program and in compliance with federally mandated [...] Surgical Pathology and Flow Cytometry Departments of [facility]. It has not been cleared or approved by the U. S. Food and Drug Administration. IMAGES AND SCANNED DOCUMENTS, IF INCLUDED, ONLY VIEWABLE IN PDF VERSION OF REPORT us Vibha Vegas MD LAB PATHOLOGY ORD ERABLES Final Result PATHOLOGY [facility] 3rd Floor [place], [place] [phone] * Spinal Block (10/12/2024 7:16 PM TMR TEACHER) Narrative Tracy Tavares MD - 10/12/2024 7:16 PM TMR TEACHER Tracy Tavares MD 10/12/2024 7:19 PM Spinal [...] intervention prior to injection of intrathecal analgesics. Tigist Castillo MD ANESTHESIA ORDERABLES Final Result * eGFR (10/12/2024 6:16 AM TMR TEACHER) eGFR >90 >=60 mL/min/1. 73 m2 Comment: [...] last reviewed 2021. Blood 10/12/2024 6:16 AM TMR TEACHER 10/12/2024 6:22 AM TMR TEACHER us Vibha Vegas MD LAB BLOOD ORDERAB LES Final Result [facility] [place] [address] * (ABNORMAL) CBC without differential (10/12/2024 6:16 AM TMR TEACHER) WBC 14.1(H) 3.8 - 9.9 K/cumm Hgb 11.4(L) 11.9 - 15.5 g/dL [facility] Hct 32.0(L) 35.6 - 45.5 % [facility] Plt 318 150 - 400 K/cumm [facility] MPV 9.8 9.1 - 12.3 fL [facility] RBC 3.56(L) 3.90 - 5.20 M/cumm [facility] MCV 89.9 81.3 - 96.4 fL [facility] MCH 32.0 27.1 - 33.3 pg [facility] MCHC 35.6 32.3 - 35.7 g/dL [facility] RDW CV 13.2 11.1 - 14.9 % [facility] RDW SD 43.2 35.7 - 48.1 fL [facility] NRBC abs 0.00 0.00 - 0.01 K/cumm [facility] Blood 10/12/2024 6:16 AM TMR TEACHER 10/12/2024 6:22 AM TMR TEACHER us Vibha Vegas MD LAB BLOOD ORDERAB LES Final Result [facility] [place] [address] * Phosphorus (10/12/2024 6:16 AM TMR TEACHER) [facility] Phosphorus, pl 4.0 2.3 - 4.5 mg/dL Blood 10/12/2024 6:16 AM TMR TEACHER 10/12/2024 6:22 AM TMR TEACHER us Vibha Vegas MD LAB BLOOD ORDERAB LES Final Result Performing Organization Address City/[facility] Co de Phone Number [facility] [place] [address] * Magnesium (10/12/2024 6:16 AM TMR TEACHER) [facility] Magnesium 1.8 1.4 - 2.5 mg/dL Blood 10/12/2024 6:16 AM TMR TEACHER 10/12/2024 6:22 AM TMR TEACHER Vibha Vegas MD LAB BLOOD ORDERAB LES Final Result Performing Organization Address City/[facility] Co de Phone Number [facility] [place] [address] * (ABNORMAL) Comprehensive metabolic panel (10/12/2024 6:16 AM TMR TEACHER) [facility] Sodium 140 135 - 145 mmol/L Potassium, pl 4.1 3.3 - 4.9 mmol/L [facility] Chloride 106 97 - 110 mmol/L [facility] CO2 25 22 - 32 mmol/L [facility] Anion gap 9 2 - 15 mmol/L [facility] BUN 11 6 - 25 mg/dL [facility] Creatinine 0.49(L) 0.60 - 1.10 mg/dL [facility] Glucose 95 70 - 199 mg/dL [facility] Comment: Interpretive Data Fasting glucose >/= 126 [...] 2022. Calcium 9.0 8.5 - 10.3 mg/dL [facility] Bilirubin, total <0.2 0.1 - 1.2 mg/dL [facility] Comment:Reviewed Protein, pl 5.9(L) 6.5 - 8.5 g/dL [facility] Albumin 2.9(L) 3.5 - 5.0 g/dL [facility] Alk phos 226(H) 40 - 130 Units/L [facility] 97(H) 7 - 45 Units/L [facility] AST 27 10 - 45 Units/L [facility] Blood 10/12/2024 6:16 AM TMR TEACHER 10/12/2024 6:22 AM TMR TEACHER Vibha Vegas MD LAB BLOOD ORDERAB LES Final Result [facility] [place] [address] * eGFR (10/11/2024 6:21 AM TMR TEACHER) eGFR >90 >=60 mL/min/1. 73 m2 Comment: [...] last reviewed 2021. Blood 10/11/2024 6:21 AM TMR TEACHER 10/11/2024 6:26 AM TMR TEACHER us Vibha Vegas MD LAB BLOOD ORDERAB LES Final Result [facility] [place] [address] * (ABNORMAL) CBC without differential (10/11/2024 6:21 AM TMR TEACHER) WBC 15.8(H) 3.8 - 9.9 K/cumm Hgb 11.2(L) 11.9 - 15.5 g/dL [facility] Hct 31.7(L) 35.6 - 45.5 % [facility] Plt 342 150 - 400 K/cumm [facility] MPV 9.7 9.1 - 12.3 fL [facility] RBC 3.49(L) 3.90 - 5.20 M/cumm [facility] MCV 90.8 81.3 - 96.4 fL [facility] MCH 32.1 27.1 - 33.3 pg [facility] MCHC 35.3 32.3 - 35.7 g/dL [facility] RDW CV 13.2 11.1 - 14.9 % [facility] RDW SD 42.8 35.7 - 48.1 fL [facility] NRBC abs 0.00 0.00 - 0.01 K/cumm [facility] Blood 10/11/2024 6:21 AM TMR TEACHER 10/11/2024 6:26 AM TMR TEACHER us Vibha Vegas MD LAB BLOOD ORDERAB LES Final Result [facility] [place] [address] * Phosphorus (10/11/2024 6:21 AM TMR TEACHER) [facility] Phosphorus, pl 3.6 2.3 - 4.5 mg/dL Blood 10/11/2024 6:21 AM TMR TEACHER 10/11/2024 6:26 AM TMR TEACHER us Vibha Vegas MD LAB BLOOD ORDERAB LES Final Result Performing Organization Address City/[facility]/ZIP Co de Phone Number [facility] [place] [address] * Magnesium (10/11/2024 6:21 AM TMR TEACHER) [facility] Magnesium 1.8 1.4 - 2.5 mg/dL Blood 10/11/2024 6:21 AM TMR TEACHER 10/11/2024 6:26 AM TMR TEACHER Vibha Vegas MD LAB BLOOD ORDERAB LES Final Result Performing Organization Address City/[facility] Co de Phone Number [facility] [place] [address] * (ABNORMAL) Comprehensive metabolic panel (10/11/2024 6:21 AM TMR TEACHER) [facility] Sodium 137 135 - 145 mmol/L Potassium, pl 4.1 3.3 - 4.9 mmol/L [facility] Chloride 106 97 - 110 mmol/L [facility] CO2 24 22 - 32 mmol/L [facility] Anion gap 7 2 - 15 mmol/L [facility] BUN 9 6 - 25 mg/dL [facility] Creatinine 0.59(L) 0.60 - 1.10 mg/dL [facility] Glucose 91 70 - 199 mg/dL [facility] Comment: Interpretive Data Fasting glucose >/= 126 [...] Calcium 8.9 8.5 - 10.3 mg/dL [facility] Bilirubin, total 0.2 0.1 - 1.2 mg/dL [facility] Protein, pl 6.2(L) 6.5 - 8.5 g/dL [facility] Albumin 3.2(L) 3.5 - 5.0 g/dL [facility] Alk phos 234(H) 40 - 130 Units/L [facility] ALT 139(H) 7 - 45 Units/L [facility] AST 39 10 - 45 Units/L [facility] Blood 10/11/2024 6:21 AM TMR TEACHER 10/11/2024 6:26 AM TMR TEACHER us Vibha Vegas MD LAB BLOOD ORDERAB LES Final Result Performing Organization Address City/[facility]/ZIP Co de Phone Number [facility] [place] [address] * Antibody identification (10/10/2024 7:46 AM TMR TEACHER) Antibody ID 1 Passive Anti-D Blood 10/10/2024 7:46 AM TMR TEACHER 10/10/2024 7:46 AM TMR TEACHER us Vibha Burnette MD LAB BLOOD BANK TE ST ORDERABLES Final Result [facility] [place] [address] * eGFR (10/10/2024 6:24 AM TMR TEACHER) [facility] eGFR >90 >=60 mL/min/1. 73 m2 Comment: [...] last reviewed 2021. Blood 10/10/2024 6:24 AM TMR TEACHER 10/10/2024 6:32 AM TMR TEACHER us Vibha Vegas MD LAB BLOOD ORDERAB LES Final Result [facility] [place] [address] * (ABNORMAL) CBC without differential (10/10/2024 6:24 AM TMR TEACHER) [facility] WBC 15.4(H) 3.8 - 9.9 K/cumm Hgb 12.2 11.9 - 15.5 g/dL [facility] Hct 34.8(L) 35.6 - 45.5 % [facility] Plt 352 150 - 400 K/cumm [facility] MPV 9.7 9.1 - 12.3 fL [facility] RBC 3.85(L) 3.90 - 5.20 M/cumm [facility] MCV 90.4 81.3 - 96.4 fL [facility] MCH 31.7 27.1 - 33.3 pg [facility] MCHC 35.1 32.3 - 35.7 g/dL [facility] RDW CV 13.4 11.1 - 14.9 % [facility] RDW SD 43.7 35.7 - 48.1 fL [facility] NRBC abs 0.00 0.00 - 0.01 K/cumm [facility] Blood 10/10/2024 6:24 AM TMR TEACHER 10/10/2024 6:33 AM TMR TEACHER Vibha Vegas MD LAB BLOOD ORDERAB LES Final Result Performing Organization Address City/[facility]/[place] [address] * (ABNORMAL) Type and screen (10/10/2024 6:24 AM TMR TEACHER) ABO Rh O Negative Indira, indirect Positive(A) [facility] Blood 10/10/2024 6:24 AM TMR TEACHER 10/10/2024 6:38 AM TMR TEACHER Narrative [facility] - 10/10/2024 7:46 AM TMR TEACHER Has the patient had Daratumumab or Isatuximab in the past 6 months?->Unknown Vibha Burnette MD LAB BLOOD BANK TE ST ORDERABLES Final Result Performing Organization Address [facility] Co de Phone Number [facility] [place] [address] * Phosphorus (10/10/2024 6:24 AM TMR TEACHER) Phosphorus, pl 4.2 2.3 - 4.5 mg/dL Blood 10/10/2024 6:24 AM TMR TEACHER 10/10/2024 6:32 AM TMR TEACHER Vibha Vegas MD LAB BLOOD ORDERAB LES Final Result Performing Organization Address City/[facility]/ZIP Co de Phone Number [facility] [place] [address] * Magnesium (10/10/2024 6:24 AM TMR TEACHER) Pathologist [facility] Magnesium 1.7 1.4 - 2.5 mg/dL Blood 10/10/2024 6:24 AM TMR TEACHER 10/10/2024 6:32 AM TMR TEACHER Vibha Vegas MD LAB BLOOD ORDERAB LES Final Result [facility] [place] [address] * (ABNORMAL) Comprehensive metabolic panel (10/10/2024 6:24 AM TMR TEACHER) Pathologist [facility] Sodium 139 135 - 145 mmol/L Potassium, pl 4.3 3.3 - 4.9 mmol/L [facility] Chloride 105 97 - 110 mmol/L [facility] CO2 25 22 - 32 mmol/L [facility] Anion gap 9 2 - 15 mmol/L [facility] BUN 7 6 - 25 mg/dL [facility] Creatinine 0.57(L) 0.60 - 1.10 mg/dL [facility] Glucose 89 70 - 199 mg/dL [facility] Comment: Interpretive Data Fasting glucose >/= 126 [...] 2022. Calcium 9.2 8.5 - 10.3 mg/dL [facility] Bilirubin, total 0.2 0.1 - 1.2 mg/dL [facility] Comment:Reviewed Protein, pl 6.8 6.5 - 8.5 g/dL [facility] Albumin 3.5 3.5 - 5.0 g/dL [facility] Alk phos 241(H) 40 - 130 Units/L [facility] ALT 180(H) 7 - 45 Units/L [facility] AST 61(H) 10 - 45 Units/L [facility] Blood 10/10/2024 6:24 AM TMR TEACHER 10/10/2024 6:32 AM TMR TEACHER us Vibha Vegas MD LAB BLOOD ORDERAB LES Final Result Performing Organization Address City/[facility]/ZIP Co de Phone Number [facility] [place] [address] * (ABNORMAL) CBC without differential (10/09/2024 1:11 PM TMR TEACHER) [facility] WBC 13.7(H) 3.8 - 9.9 K/cumm Hgb 11.2(L) 11.9 - 15.5 g/dL [facility] Hct 32.3(L) 35.6 - 45.5 % [facility] Plt 307 150 - 400 K/cumm [facility] MPV 9.7 9.1 - 12.3 fL [facility] RBC 3.58(L) 3.90 - 5.20 M/cumm [facility] MCV 90.2 81.3 - 96.4 fL [facility] MCH 31.3 27.1 - 33.3 pg [facility] MCHC 34.7 32.3 - 35.7 g/dL [facility] RDW CV 13.3 11.1 - 14.9 % [facility] RDW SD 43.4 35.7 - 48.1 fL [facility] NRBC abs 0.00 0.00 - 0.01 K/cumm [facility] Blood 10/09/2024 1:11 PM TMR TEACHER 10/09/2024 1:22 PM TMR TEACHER us Vibha Vegas MD LAB BLOOD ORDERAB LES Final Result Performing Organization Address City/[facility]/ZIP Co de Phone Number [facility] [place] [address] * eGFR (10/09/2024 6:13 AM TMR TEACHER) eGFR >90 >=60 mL/min/1. 73 m2 Comment: [...] last reviewed 2021. Blood 10/09/2024 6:13 AM TMR TEACHER 10/09/2024 6:30 AM TMR TEACHER Vibha Vegas MD LAB BLOOD ORDERAB LES Final Result [facility] [place] [address] * (ABNORMAL) Comprehensive metabolic panel (10/09/2024 6:13 AM TMR TEACHER) Pathologist [facility] Sodium 138 135 - 145 mmol/L Potassium, pl 3.7 3.3 - 4.9 mmol/L [facility] Chloride 107 97 - 110 mmol/L [facility] CO2 23 22 - 32 mmol/L [facility] Anion gap 8 2 - 15 mmol/L [facility] BUN 8 6 - 25 mg/dL [facility] Creatinine 0.56(L) 0.60 - 1.10 mg/dL [facility] Glucose 96 70 - 199 mg/dL [facility] Comment: Interpretive Data Fasting glucose >/= 126 [...] 2022. Calcium 8.9 8.5 - 10.3 mg/dL [facility] Bilirubin, total <0.2 0.1 - 1.2 mg/dL [facility] Comment:Reviewed Protein, pl 6.0(L) 6.5 - 8.5 g/dL [facility] Albumin 3.2(L) 3.5 - 5.0 g/dL [facility] Alk phos 226(H) 40 - 130 Units/L [facility] ALT 190(H) 7 - 45 Units/L [facility] AST 80(H) 10 - 45 Units/L [facility] Blood 10/09/2024 6:13 AM TMR TEACHER 10/09/2024 6:30 AM TMR TEACHER Vibha Vegas MD LAB BLOOD ORDERAB LES Final Result [facility] [place] [address] * eGFR (10/08/2024 10:56 AM TMR TEACHER) eGFR >90 >=60 mL/min/1. 73 m2 Comment: [...] reviewed 2021. Blood 10/08/2024 10:5 6 AM TMR TEACHER 10/08/2024 11:06 AM TMR TEACHER Vibha Vegas MD LAB BLOOD ORDERAB LES Final Result Performing Organization Address City/[facility] Co de Phone Number [facility] [place] [address] * (ABNORMAL) Bile acids (10/08/2024 10:56 AM TMR TEACHER) [facility] Bile acids 16(H) <=10 mcmol/L [facility] Comment: Test Performed by: [place] [address] Corporate Recycling Manager: Brissa Zazueta Ph.D.; CLIA# [id number] Blood 10/08/2024 10:5 6 AM TMR TEACHER 10/08/2024 12:27 PM TMR TEACHER Vibha Vegas MD LAB BLOOD ORDERAB LES Final Result [facility] [place] [address] [facility] * (ABNORMAL) Comprehensive metabolic panel (10/08/2024 10:56 AM TMR TEACHER) [facility] Sodium 137 135 - 145 mmol/L Potassium, pl 3.2(L) 3.3 - 4.9 mmol/L [facility] Chloride 103 97 - 110 mmol/L [facility] CO2 23 22 - 32 mmol/L [facility] Anion gap 11 2 - 15 mmol/L [facility] BUN 7 6 - 25 mg/dL [facility] Creatinine 0.52(L) 0.60 - 1.10 mg/dL [facility] Glucose 115 70 - 199 mg/dL [facility] Comment: Interpretive Data Fasting glucose >/= 126 [...] 2022. Calcium 9.0 8.5 - 10.3 mg/dL [facility] Bilirubin, total 0.2 0.1 - 1.2 mg/dL [facility] Protein, pl 6.4(L) 6.5 - 8.5 g/dL [facility] Albumin 3.3(L) 3.5 - 5.0 g/dL [facility] Alk phos 251(H) 40 - 130 Units/L [facility] ALT 185(H) 7 - 45 Units/L [facility] AST 94(H) 10 - 45 Units/L [facility] Blood 10/08/2024 10:5 6 AM TMR TEACHER 10/08/2024 11:06 AM TMR TEACHER Vibha Vegas MD LAB BLOOD ORDERAB LES Final Result [facility] Department [place] [address] * ECG 12 lead (10/07/2024 2:02 PM TMR TEACHER) Ventricular Rate EKG/Min 105 BPM [facility] Atrial Rate 105 BPM [facility] MI-Interval (MSEC) 144 ms [facility] QRS-Interval (MSEC) 74 ms [facility] QT-Interval (MSEC) 328 ms [facility] QTc 433 ms [facility] P [place] 43 degrees [facility] R [place] 62 degrees [facility] T [place] 2 degrees [facility] Diagnosis Sinus tachycardia Otherwise normal ECG When compared with ECG of 06-SEP-2024 19:50, No significant change was found Confirmed by REMY NAYLOR M.D ([id number]) on 10/09/2024 12:46:34 PM [facility] 10/07/2024 2:02 PM TMR TEACHER 10/09/2024 12:46 PM TMR TEACHER us Vibha Vegas MD ECG ORDERABLES F inal Result [facility] * Antibody identification (10/07/2024 7:44 AM TMR TEACHER) Antibody ID 1 Passive Anti-D Blood 10/07/2024 7:44 AM TMR TEACHER 10/07/2024 7:44 AM TMR TEACHER us Vibha Burnette MD LAB BLOOD BANK TE ST ORDERABLES Final Result [facility] [place] [address] * eGFR (10/07/2024 6:25 AM TMR TEACHER) eGFR >90 >=60 mL/min/1. 73 m2 Comment: [...] last reviewed 2021. Blood 10/07/2024 6:25 AM TMR TEACHER 10/07/2024 6:35 AM TMR TEACHER Allegra Rushing MD LAB BLOOD ORDERABLE S Final Result Performing Organization Address City/[facility]/ZIP Co de Phone Number [facility] [place] [address] * (ABNORMAL) CBC without differential (10/07/2024 6:25 AM TMR TEACHER) WBC 17.0(H) 3.8 - 9.9 K/cumm Hgb 11.5(L) 11.9 - 15.5 g/dL [facility] Hct 32.2(L) 35.6 - 45.5 % [facility] Plt 309 150 - 400 K/cumm [facility] MPV 9.6 9.1 - 12.3 fL [facility] RBC 3.68(L) 3.90 - 5.20 M/cumm [facility] MCV 87.5 81.3 - 96.4 fL [facility] MCH 31.3 27.1 - 33.3 pg [facility] MCHC 35.7 32.3 - 35.7 g/dL [facility] RDW CV 13.0 11.1 - 14.9 % [facility] RDW SD 40.4 35.7 - 48.1 fL [facility] NRBC abs 0.00 0.00 - 0.01 K/cumm [facility] Blood 10/07/2024 6:25 AM TMR TEACHER 10/07/2024 6:35 AM TMR TEACHER Allegra Rushing MD LAB BLOOD ORDERABLE S Final Result Performing Organization Address City/[facility]/ZIP Co de Phone Number [facility] Department [place] [address] * (ABNORMAL) Type and screen (10/07/2024 6:25 AM TMR TEACHER) Indira, indirect Positive(A) ABO Rh O Negative [facility] Blood 10/07/2024 6:25 AM TMR TEACHER 10/07/2024 6:35 AM TMR TEACHER Narrative [facility] - 10/07/2024 7:44 AM TMR TEACHER Has the patient had Daratumumab or Isatuximab in the past 6 months?->Unknown Vibha Burnette MD LAB BLOOD BANK TE ST ORDERABLES Final Result [facility] [place] [address] * (ABNORMAL) Comprehensive metabolic panel (10/07/2024 6:25 AM TMR TEACHER) Pathologist [facility] Sodium 138 135 - 145 mmol/L Potassium, pl 4.0 3.3 - 4.9 mmol/L [facility] Chloride 106 97 - 110 mmol/L [facility] CO2 23 22 - 32 mmol/L [facility] Anion gap 9 2 - 15 mmol/L [facility] BUN 6 6 - 25 mg/dL [facility] Creatinine 0.53(L) 0.60 - 1.10 mg/dL [facility] Glucose 111 70 - 199 mg/dL [facility] Comment: Interpretive Data Fasting glucose >/= 126 [...] 2022. Calcium 8.8 8.5 - 10.3 mg/dL [facility] Bilirubin, total 0.2 0.1 - 1.2 mg/dL [facility] Protein, pl 6.3(L) 6.5 - 8.5 g/dL [facility] Albumin 3.2(L) 3.5 - 5.0 g/dL [facility] Alk phos 255(H) 40 - 130 Units/L [facility] ALT 96(H) 7 - 45 Units/L [facility] AST 65(H) 10 - 45 Units/L [facility] Blood 10/07/2024 6:25 AM TMR TEACHER 10/07/2024 6:35 AM TMR TEACHER Allegra Rushing MD LAB BLOOD ORDERABLE S Final Result Performing Organization Address City/[facility]/ZIP Co de Phone Number [facility] [place] [address] * Group B streptococcal culture Vaginal/Rectal (10/06/2024 4:11 PM TMR TEACHER) Report Final Report: Negative Vaginal/Rectal 10/06/2024 4: 11 PM TMR TEACHER 10/06/2024 4:43 PM TMR TEACHER Narrative [facility] - 10/09/2024 7:17 AM TMR TEACHER Testing performed by [facility] ([phone]). Trinidad Hill NP LAB MICROBIOLOGY - GENERAL ORDERABLES Final Result Performing Organization Address City/[facility] Co de Phone Number [facility] [place] [address] * US Ob Limited (10/04/2024 8:12 AM TMR TEACHER) Fetus# [id number] [facility] Estimated Weight 2,000 g&grams [facility] Placenta Details anterior, Previa-no, no placental masses [facility] Presentation Vertex [facility] Anatomical Region Laterality Modality Abdomen N/A Ultrasound 10/04/2024 12:5 4 PM TMR TEACHER Impressions 10/04/2024 3:44 PM TMR TEACHER 32w 4d IUP for evaluation of growth [...] Result * Antibody identification (10/04/2024 7:44 AM TMR TEACHER) Pathologist [facility] Antibody ID 1 Passive Anti-D Comment:Anti-D: probably due to administration of RH-immune globulin. Titer not indicated. Blood 10/04/2024 7:44 AM TMR TEACHER 10/04/2024 7:44 AM TMR TEACHER us Vibha Burnette MD LAB BLOOD BANK [facility] ORDERABLES Final Result [facility] [place] [address] * eGFR (10/04/2024 6:15 AM TMR TEACHER) eGFR >90 >=60 mL/min/1. 73 m2 Comment: Interpretive Data Reference Interval Normal >/= 90 mL/min/1.73m2 Mildly decreased* 60 - 89 mL/min/1.73m2 Mildly to moderately decreased 45 - 59 mL/min/1.73m2 Moderately to severely decreased 30 - 44 mL/min/1.73m2 Severely decreased 15 - 29 mL/min/1.73m2 Kidney Failure < 15 mL/min/1.73m2 *Relative to young adult level Estimated glomerular filtration rate is determined by the 2021 CKD-EPI equation recommended by the National Kidney [...] last reviewed 2021. Blood 10/04/2024 6:15 AM TMR TEACHER 10/04/2024 6:22 AM TMR TEACHER Allegra Rushing MD LAB BLOOD ORDERABLE S Final Result [facility] [place] [address] * (ABNORMAL) CBC without differential (10/04/2024 6:15 AM TMR TEACHER) WBC 10.6(H) 3.8 - 9.9 K/cumm Hgb 12.2 11.9 - 15.5 g/dL [facility] Hct 34.9(L) 35.6 - 45.5 % [facility] Plt 287 150 - 400 K/cumm [facility] MPV 9.7 9.1 - 12.3 fL [facility] RBC 3.90 3.90 - 5.20 M/cumm [facility] MCV 89.5 81.3 - 96.4 fL [facility] MCH 31.3 27.1 - 33.3 pg [facility] MCHC 35.0 32.3 - 35.7 g/dL [facility] RDW CV 13.2 11.1 - 14.9 % [facility] RDW SD 42.9 35.7 - 48.1 fL [facility] NRBC abs 0.00 0.00 - 0.01 K/cumm [facility] Blood 10/04/2024 6:15 AM TMR TEACHER 10/04/2024 6:22 AM TMR TEACHER Allegra Rushing MD LAB BLOOD ORDERABLE S Final Result [facility] [place] [address] * (ABNORMAL) Type and screen (10/04/2024 6:15 AM TMR TEACHER) Pathologist [facility] Indira, indirect Positive(A) ABO Rh O Negative [facility] Blood 10/04/2024 6:15 AM TMR TEACHER 10/04/2024 6:31 AM TMR TEACHER Narrative [facility] - 10/04/2024 7:44 AM TMR TEACHER Has the patient had Daratumumab or Isatuximab in the past 6 months?->Unknown Vibha Burnette MD LAB BLOOD BANK TE ST ORDERABLES Final Result Performing Organization Address [facility] de Phone Number [facility] [place] [address] * (ABNORMAL) Comprehensive metabolic panel (10/04/2024 6:15 AM TMR TEACHER) [facility] Sodium 135 135 - 145 mmol/L Potassium, pl 3.6 3.3 - 4.9 mmol/L [facility] Chloride 102 97 - 110 mmol/L [facility] CO2 24 22 - 32 mmol/L [facility] Anion gap 9 2 - 15 mmol/L [facility] BUN 5(L) 6 - 25 mg/dL [facility] Creatinine 0.55(L) 0.60 - 1.10 mg/dL [facility] Glucose 76 70 - 199 mg/dL [facility] Comment: Interpretive Data Fasting glucose >/= 126 [...] 2022. Calcium 9.0 8.5 - 10.3 mg/dL [facility] Bilirubin, total 0.2 0.1 - 1.2 mg/dL [facility] Protein, pl 6.4(L) 6.5 - 8.5 g/dL [facility] Albumin 3.4(L) 3.5 - 5.0 g/dL [facility] Alk phos 265(H) 40 - 130 Units/L [facility] ALT 23 7 - 45 Units/L [facility] AST 21 10 - 45 Units/L [facility] Blood 10/04/2024 6:15 AM TMR TEACHER 10/04/2024 6:22 AM TMR TEACHER us Allegra Rushing MD LAB BLOOD ORDERABLE S Final Result [facility] [place] [address] * Antibody identification (10/01/2024 7:53 AM TMR TEACHER) Pathologist [facility] Antibody ID 1 Passive Anti-D Blood 10/01/2024 7:53 AM TMR TEACHER 10/01/2024 7:53 AM TMR TEACHER us Vibha Burnette MD LAB BLOOD BANK TE ST ORDERABLES Final Result [facility] [place] [address] * eGFR (10/01/2024 6:31 AM TMR TEACHER) Pathologist [facility] eGFR >90 >=60 mL/min/1. [...] data was last reviewed 2021. Blood 10/01/2024 6:3 1 AM TMR TEACHER 10/01/2024 6:46 AM TMR TEACHER Allegra Rushing MD LAB BLOOD ORDERABLE S Final Result [facility] [place] [address] * (ABNORMAL) CBC without differential (10/01/2024 6:31 AM TMR TEACHER) WBC 15.0(H) 3.8 - 9.9 K/cumm Hgb 11.9 11.9 - 15.5 g/dL [facility] Hct 33.0(L) 35.6 - 45.5 % [facility] Plt 271 150 - 400 K/cumm [facility] MPV 9.5 9.1 - 12.3 fL [facility] RBC 3.76(L) 3.90 - 5.20 M/cumm [facility] MCV 87.8 81.3 - 96.4 fL [facility] MCH 31.6 27.1 - 33.3 pg [facility] MCHC 36.1(H) 32.3 - 35.7 g/dL [facility] RDW CV 12.9 11.1 - 14.9 % [facility] RDW SD 40.3 35.7 - 48.1 fL [facility] NRBC abs 0.00 0.00 - 0.01 K/cumm [facility] Blood 10/01/2024 6:31 AM TMR TEACHER 10/01/2024 6:47 AM TMR TEACHER Allegra Rushing MD LAB BLOOD ORDERABLE S Final Result Performing Organization Address City/[facility]/[place] [address] * (ABNORMAL) Type and screen (10/01/2024 6:31 AM TMR TEACHER) Indira, indirect Positive(A) ABO Rh O Negative [facility] Blood 10/01/2024 6:31 AM TMR TEACHER 10/01/2024 6:45 AM TMR TEACHER Narrative [facility] - 10/01/2024 7:53 AM TMR TEACHER Has the patient had Daratumumab or Isatuximab in the past 6 months?->Unknown Vibha Burnette MD LAB BLOOD BANK TE ST ORDERABLES Final Result Performing Organization Address [facility] Co de Phone Number [facility] [place] [address] * (ABNORMAL) Comprehensive metabolic panel (10/01/2024 6:31 AM TMR TEACHER) Pathologist [facility] Sodium 138 135 - 145 mmol/L Potassium, pl 3.6 3.3 - 4.9 mmol/L [facility] Chloride 106 97 - 110 mmol/L [facility] CO2 23 22 - 32 mmol/L [facility] Anion gap 9 2 - 15 mmol/L [facility] BUN 8 6 - 25 mg/dL [facility] Creatinine 0.53(L) 0.60 - 1.10 mg/dL [facility] Glucose 76 70 - 199 mg/dL [facility] Comment: Interpretive Data Fasting glucose >/= 126 [...] 2022. Calcium 9.1 8.5 - 10.3 mg/dL [facility] Bilirubin, total 0.3 0.1 - 1.2 mg/dL [facility] Protein, pl 6.3(L) 6.5 - 8.5 g/dL [facility] Albumin 3.5 3.5 - 5.0 g/dL [facility] Alk phos 206(H) 40 - 130 Units/L [facility] ALT 14 7 - 45 Units/L [facility] AST 18 10 - 45 Units/L [facility] Blood 10/01/2024 6:31 AM TMR TEACHER 10/01/2024 6:46 AM TMR TEACHER us Allegra Rushing MD LAB BLOOD ORDERABLE S Final Result Performing Organization Address City/[facility]/ZIP Co de Phone Number [facility] [place] [address] * Antibody identification (09/28/2024 8:02 AM TMR TEACHER) Pathologist [facility] Antibody ID 1 Passive Anti-D Blood 09/28/2024 8:02 AM TMR TEACHER 09/28/2024 8:02 AM TMR TEACHER us Vibha Burnette MD LAB BLOOD BANK TE ST ORDERABLES Final Result Performing Organization Address City/[facility]/ZIP Co de Phone Number [facility] [place] [address] * eGFR (09/28/2024 6:22 AM TMR TEACHER) Pathologist [facility] eGFR >90 >=60 mL/min/1. [...] last reviewed 2021. Blood 09/28/2024 6:22 AM TMR TEACHER 09/28/2024 6:42 AM TMR TEACHER us Allegra Rushing MD LAB BLOOD ORDERABLE S Final Result [facility] [place] [address] * (ABNORMAL) CBC without differential (09/28/2024 6:22 AM TMR TEACHER) WBC 12.7(H) 3.8 - 9.9 K/cumm Hgb 10.9(L) 11.9 - 15.5 g/dL [facility] Hct 30.8(L) 35.6 - 45.5 % [facility] Plt 294 150 - 400 K/cumm [facility] MPV 9.3 9.1 - 12.3 fL [facility] RBC 3.36(L) 3.90 - 5.20 M/cumm [facility] MCV 91.7 81.3 - 96.4 fL [facility] MCH 32.4 27.1 - 33.3 pg [facility] MCHC 35.4 32.3 - 35.7 g/dL [facility] RDW CV 12.6 11.1 - 14.9 % [facility] RDW SD 41.8 35.7 - 48.1 fL [facility] NRBC abs 0.00 0.00 - 0.01 K/cumm [facility] Blood 09/28/2024 6:22 AM TMR TEACHER 09/28/2024 6:42 AM TMR TEACHER Allegra Rushing MD LAB BLOOD ORDERABLE S Final Result Performing Organization Address [facility] Co de Phone Number [facility] [place] [address] * (ABNORMAL) Type and screen (09/28/2024 6:22 AM TMR TEACHER) Indira, indirect Positive(A) ABO Rh O Negative [facility] Blood 09/28/2024 6:22 AM TMR TEACHER 09/28/2024 6:40 AM TMR TEACHER Narrative [facility] - 09/28/2024 8:02 AM TMR TEACHER Has the patient had Daratumumab or Isatuximab in the past 6 months?->Unknown Vibha Burnette MD LAB BLOOD BANK TE ST ORDERABLES Final Result Performing Organization Address [facility] de Phone Number [id number] [place] [address] * (ABNORMAL) Comprehensive metabolic panel (09/28/2024 6:22 AM TMR TEACHER) Pathologist [facility] Sodium 140 135 - 145 mmol/L Potassium, pl 4.0 3.3 - 4.9 mmol/L [facility] Chloride 106 97 - 110 mmol/L [facility] CO2 27 22 - 32 mmol/L [facility] Anion gap 7 2 - 15 mmol/L [facility] BUN 8 6 - 25 mg/dL [facility] Creatinine 0.63 0.60 - 1.10 mg/dL [facility] Glucose 87 70 - 199 mg/dL [facility] Comment: Interpretive Data Fasting glucose >/= 126 [...] 2022. Calcium 8.9 8.5 - 10.3 mg/dL [facility] Bilirubin, total <0.2 0.1 - 1.2 mg/dL [facility] Protein, pl 6.1(L) 6.5 - 8.5 g/dL [facility] Albumin 3.2(L) 3.5 - 5.0 g/dL [facility] Alk phos 187(H) 40 - 130 Units/L [facility] ALT 12 7 - 45 Units/L [facility] AST 15 10 - 45 Units/L [facility] Blood 09/28/2024 6:22 AM TMR TEACHER 09/28/2024 6:42 AM TMR TEACHER us Allegra Rushing MD LAB BLOOD ORDERABLE S Final Result Performing Organization Address City/[facility]/ZIP Co de Phone Number [facility] [place] [address] * Antibody identification (09/25/2024 8:06 AM TMR TEACHER) [facility] Antibody ID 1 Passive Anti-D Blood 09/25/2024 8:06 AM TMR TEACHER 09/25/2024 8:06 AM TMR TEACHER us Vibha Burnette MD LAB BLOOD BANK TE ST ORDERABLES Final Result [facility] [place] [address] * eGFR (09/25/2024 6:43 AM TMR TEACHER) [facility] eGFR >90 >=60 mL/min/1. 73 m2 Comment: [...] last reviewed 2021. Blood 09/25/2024 6:43 AM TMR TEACHER 09/25/2024 6:49 AM TMR TEACHER us Allegra Rushing MD LAB BLOOD ORDERABLE S Final Result [facility] [place] [address] * (ABNORMAL) CBC without differential (09/25/2024 6:43 AM TMR TEACHER) WBC 12.5(H) 3.8 - 9.9 K/cumm Hgb 11.5(L) 11.9 - 15.5 g/dL [facility] Hct 32.7(L) 35.6 - 45.5 % [facility] Plt 290 150 - 400 K/cumm [facility] MPV 9.6 9.1 - 12.3 fL [facility] RBC 3.61(L) 3.90 - 5.20 M/cumm [facility] MCV 90.6 81.3 - 96.4 fL [facility] MCH 31.9 27.1 - 33.3 pg [facility] MCHC 35.2 32.3 - 35.7 g/dL [facility] RDW CV 12.8 11.1 - 14.9 % [facility] RDW SD 42.0 35.7 - 48.1 fL [facility] NRBC abs 0.00 0.00 - 0.01 K/cumm [facility] Blood 09/25/2024 6:43 AM TMR TEACHER 09/25/2024 6:49 AM TMR TEACHER us Allegra Rushing MD LAB BLOOD ORDERABLE S Final Result Performing Organization Address [facility] Co de Phone Number [facility] [place] [address] * (ABNORMAL) Type and screen (09/25/2024 6:43 AM TMR TEACHER) Pathologist [facility] ABO Rh O Negative Indira, indirect Positive(A) [facility] Blood 09/25/2024 6:43 AM TMR TEACHER 09/25/2024 7:19 AM TMR TEACHER Narrative [facility] - 09/25/2024 8:06 AM TMR TEACHER Has the patient had Daratumumab or Isatuximab in the past 6 months?->Unknown Vibha Burnette MD LAB BLOOD BANK TE ST ORDERABLES Final Result Performing Organization Address [facility] de Phone Number [facility] [place] [address] * (ABNORMAL) Comprehensive metabolic panel (09/25/2024 6:43 AM TMR TEACHER) [facility] Sodium 139 135 - 145 mmol/L Potassium, pl 3.8 3.3 - 4.9 mmol/L [facility] Chloride 107 97 - 110 mmol/L [facility] CO2 25 22 - 32 mmol/L [facility] Anion gap 7 2 - 15 mmol/L [facility] BUN 6 6 - 25 mg/dL [facility] Creatinine 0.55(L) 0.60 - 1.10 mg/dL [facility] Glucose 73 70 - 199 mg/dL [facility] Comment: Interpretive Data Fasting glucose >/= 126 [...] 2022. Calcium 8.7 8.5 - 10.3 mg/dL [facility] Bilirubin, total 0.2 0.1 - 1.2 mg/dL [facility] Protein, pl 6.1(L) 6.5 - 8.5 g/dL [facility] Albumin 3.4(L) 3.5 - 5.0 g/dL [facility] Alk phos 178(H) 40 - 130 Units/L [facility] ALT 20 7 - 45 Units/L [facility] AST 16 10 - 45 Units/L [facility] Blood 09/25/2024 6:43 AM TMR TEACHER 09/25/2024 6:49 AM TMR TEACHER us Allegra Rushing MD LAB BLOOD ORDERABLE S Final Result Performing Organization Address City/[facility]/ZIP Co de Phone Number [facility] [place] [address] * Antibody identification (09/22/2024 7:21 AM TMR TEACHER) [facility] Antibody ID 1 Passive Anti-D Blood 09/22/2024 7:21 AM TMR TEACHER 09/22/2024 7:21 AM TMR TEACHER Vibha Burnette MD LAB BLOOD BANK TE ST ORDERABLES Final Result Performing Organization Address [facility] Co de Phone Number [facility] [place] [address] * eGFR (09/22/2024 6:09 AM TMR TEACHER) [facility] eGFR >90 >=60 mL/min/1. 73 m2 Comment: [...] last reviewed 2021. Blood 09/22/2024 6:09 AM TMR TEACHER 09/22/2024 6:21 AM TMR TEACHER Allegra Rushing MD LAB BLOOD ORDERABLE S Final Result Performing Organization Address City/[facility] Co de Phone Number [facility] [place] [address] * Bile acids (09/22/2024 6:09 AM TMR TEACHER) Bile acids 6 <=10 mcmol/L [facility] Comment: Test Performed by: [place] [address] Corporate Recycling Manager: Brissa Zazueta Ph.D.; CLIA# [id number] Blood 09/22/2024 6:09 AM TMR TEACHER 09/22/2024 6:13 AM TMR TEACHER us Allegra Rushing MD LAB BLOOD ORDERABLE S Final Result [facility] [place] [address] [facility] * (ABNORMAL) CBC without differential (09/22/2024 6:09 AM TMR TEACHER) WBC 12.4(H) 3.8 - 9.9 K/cumm Hgb 10.5(L) 11.9 - 15.5 g/dL [facility] Hct 29.6(L) 35.6 - 45.5 % [facility] Plt 292 150 - 400 K/cumm [facility] MPV 9.4 9.1 - 12.3 fL [facility] RBC 3.32(L) 3.90 - 5.20 M/cumm [facility] MCV 89.2 81.3 - 96.4 fL [facility] MCH 31.6 27.1 - 33.3 pg [facility] MCHC 35.5 32.3 - 35.7 g/dL [facility] RDW CV 12.5 11.1 - 14.9 % [facility] RDW SD 40.5 35.7 - 48.1 fL [facility] NRBC abs 0.00 0.00 - 0.01 K/cumm [facility] Blood 09/22/2024 6:09 AM TMR TEACHER 09/22/2024 6:21 AM TMR TEACHER us Allegra Rushing MD LAB BLOOD ORDERABLE S Final Result Performing Organization Address City/[facility]/ZIP Co de Phone Number [facility] [place] [address] * (ABNORMAL) Type and screen (09/22/2024 6:09 AM TMR TEACHER) Indira, indirect Positive(A) ABO Rh O Negative [facility] Blood 09/22/2024 6:09 AM TMR TEACHER 09/22/2024 6:20 AM TMR TEACHER Narrative [facility] - 09/22/2024 7:21 AM TMR TEACHER Has the patient had Daratumumab or Isatuximab in the past 6 months?->Unknown us Vibha Burnette MD LAB BLOOD BANK TE ST ORDERABLES Final Result [facility] [place] [address] * (ABNORMAL) Comprehensive metabolic panel (09/22/2024 6:09 AM TMR TEACHER) Sodium 140 135 - 145 mmol/L Potassium, pl 3.6 3.3 - 4.9 mmol/L [facility] Chloride 108 97 - 110 mmol/L [facility] CO2 24 22 - 32 mmol/L [facility] Anion gap 8 2 - 15 mmol/L [facility] BUN 7 6 - 25 mg/dL [facility] Creatinine 0.57(L) 0.60 - 1.10 mg/dL [facility] Glucose 81 70 - 199 mg/dL [facility] Comment: Interpretive Data Fasting glucose >/= 126 [...] 2022. Calcium 8.3(L) 8.5 - 10.3 mg/dL [facility] Bilirubin, total <0.2 0.1 - 1.2 mg/dL [facility] Protein, pl 5.4(L) 6.5 - 8.5 g/dL [facility] Albumin 3.0(L) 3.5 - 5.0 g/dL [facility] Alk phos 149(H) 40 - 130 Units/L [facility] ALT 22 7 - 45 Units/L [facility] AST 13 10 - 45 Units/L [facility] Blood 09/22/2024 6:09 AM TMR TEACHER 09/22/2024 6:21 AM TMR TEACHER us Allegra Rushing MD LAB BLOOD ORDERABLE S Final Result [facility] [place] [address] * Hepatitis panel, acute Blood (09/04/2024 5:51 PM TMR TEACHER) Hep A IgM Nonreactive Nonreactive Hep B core IgM Nonreactive Nonreactive [facility] Hep C Ab Nonreactive Nonreactive [facility] Comment:Antibodies to HCV no t detected. Does NOT exclude the possibility of recent exposure to HCV. Current interpretive data was last revised on 22 HepBsAg Nonreactive Nonreactive [facility] Blood 09/04/2024 5:51 PM TMR TEACHER 09/04/2024 6:05 PM TMR TEACHER Allegra Rushing MD LAB MICROBIOLOGY - GENERAL ORDERABLES Final Result [facility] [place] [address] * N. gonorrhoeae/C. trachomatis Amplification Thin prep-Endocervical (05/09/2024 10:35 AM CDT) Pathologist [facility] C. trachomatis Not Detected [facility] Comment:Testing performed by : [facility], [address] [place] [address]., [id number] N. gonorrhoeae Not Detected [facility] Comment: Interpretive Data This assay detects Chlamydia trachomatis and Neisseria gonorrhoeae by nucleic acid amplification testing (NAAT). This assay has been cleared by the [place] Food and Drug administration. The performance characteristics of this test have been verified by the [facility] Molecular Infectious Disease laboratory. The performance characteristics of this test have not been evaluated in individuals less than 14 years of age. Current Interpretive Data was last revised on 2023. Testing performed by: [facility], [address] [place] [address]., [id number] Thin prep-Endocervica l 05/09/2024 10:35 AM CDT 05/10/2024 2:32 PM CDT Dena Padilla MD LAB MICROBIOLOGY - GENERAL ORDERABLES Final Result [id number] [place] [address] [facility] * Pap with reflex to High Risk HPV and Genotyping (Cytology Component) (05/09/2024 9:03 AM CDT) Thin prep (Pap test) 05/09/2024 9:03 AM CDT 05/10/2024 9:03 AM CDT Narrative PATHOLOGY - 05/11/2024 4:17 PM CDT [facility] Department of Pathology [address] [place] [id number] Final Report Note to Patients: This report [...] questions and explain the details. Patient Name: KAYLA FAYE Address: [address] [place] [address] Gender: F : 2000 (Age: 24) Service: Location: N : [id number] [facility] #: [id number] Patient Type: SPECIMEN Taken: 05/09/2024 Received: 05/10/2024 Accessioned:: 05/10/2024 Reported: 05/11/2024 Physician(s): Mejia Pina M.D. Diagnosis: SOURCE OF SPECIMEN Imaged Thinprep Pap Test w/ Reflex HPV - Blanket Inspector Cytologic Material: STATEMENT OF ADEQUACY - Satisfactory for evaluation; endocervical/transformation zone component present GENERAL CATEGORIZATION: - Negative for intraepithelial lesion or malignancy INTERPRETATION: - Fungal organisms present, morphologically consistent with octaviano species MARTINEZ Mackenzei(ASCP) Report Electronically Reviewed and Signed Out By MARTINEZ Mackenzie(ASCP) 05/11/2024 16:17:59Specimen(s) Received: A: Imaged Thinprep Pap Test w/ Reflex HPV - Blanket Inspector Cytologic Material Clinical History: Last Menstrual Period: [...] determined by the Surgical Pathology Department at [facility] as part of an ongoing chemistry quality control technician program and in compliance with federally mandated [...] characteristics determined by the Surgical Pathology Department [facility]. It has not been cleared or approved by the [place]. Food and Drug Administration. Dena Padilla MD LAB CYTOLOGY ORDERA BLES Final Result PATHOLOGY [address] [place] [address] from Last 3 Months or Most Recently Relevant to Health Maintenance Insurance [facility] [address] [employer] [facility] [id number] Advance Directives For more information, please contact: [phone] * Full Code (Latest Code Status on File) Date Activated Date Inactivated Comments 10/12/2024 10:39 PM 10/15/2024 8:14 PM * Full Code Date Activated Date Inactivated Comments 09/04/2024 4:49 PM 10/12/2024 10:39 PM * Full Code Date Activated Date Inactivated Comments 05/31/2024 7:14 PM 06/01/2024 4:01 PM Care Teams Merchandise Collector Relationship Specialty Start Date End Date Ronnie Flores MD [address] [address] PCP - General Family Medicine 05/25/24 Dena Padilla MD [address] [place] [id number] Consulting Physician Obstetrics and Gynecology 05/18/24
--- OUTSIDE RECORDS SUMMARY | 2024-12-20 11:03 | XMS_ITS | Referral Summary ---
Author Organization [facility] Address [address] [place] [address] Care Team Providers Care Dictating Machine Mechanic Name Role Phone Dena Padilla MD Unavailable [phone] Ronnie Flores MD Primary Care Provider [phone] Encounters Date Type Department Care Team Description 11/21/2024 3:30 PM PVC LOADER Office Visit [facility] [address] [place] [phone] Dena Padilla MD care following delivery (Primary Dx); History of induced hypertension 10/26/2024 3:00 PM PVC LOADER Clinical [facility] [address] [place] [phone] care following delivery (Primary Dx) 10/20/2024 1:38 PM PVC LOADER - 10/20/2024 2:34 PM PVC LOADER Emergency [facility] [place] [phone] Tamara Chow MD Tachycardia (Primary Dx) Discharge Disposition: Left Against Medical Advice 09/04/2024 4:24 PM PVC LOADER - 10/15/2024 4:08 PM PVC LOADER Hospital Encounter [address] [phone] Allegra Rushing MD Dombrowski, MD Shasta Forrest, Vibha Espitia MD Severe pre-eclampsia in third trimester [O14.13] (Primary Dx); Hyperemesis affecting , antepartum [O21.0] Discharge Disposition: Discharge to home or self care 10/12/2024 6:25 PM PVC LOADER Anesthesia Event [address] [phone] Tigist Castillo MD Dutta, Shourik, MD 10/12/[address] [phone] Carmela Díaz MD SECTION 10/08/2024 Documentation [facility] Anesthesia [address] [facility] [place] [address] Demetra Hightower MD 10/04/2024 9:45 AM PVC LOADER Ancillary Procedure [address] 5th [place] [address] Encounter for follow-up ultrasound of anatomy from [...] 30 tablet 3 5 026 Active vitamin T03-ripjo acid 0.5-1 mg tablet Take by mouth [...] on APU. Follows with Dr. Johnson/Sandra at [facility] # MOC: Desires nexplanon placement. # MOF: [...] carried 12/04 in house: R1 (first call) [phone] R1 alt (second call) [phone] R4 (Chief) [phone] Assessment & Plan (11/21/2024 4:08 PM PVC LOADER): Doing well Severe pre-eclampsia in third trimester 09/04/20 24 History of induced hypertension 2023 Assessment & Plan (11/21/2024 4:06 PM PVC LOADER): To stop her procardia She will continue [...] She will f/u with Dr. Johnson/Sandra at [facility]. Sleep hygiene reviewed. Migraine without status migrainosus, [...] oz pur e alcohol) 1-2 times/ wk [facility] [employer] Answer Date Recorded In the past 12 months has 1-800-DENTIST, [employer], oil, or water [employer] threatened to shut off services in your [...] often do you attend chur ch or orthodox services? Never 09/06/2024 Do you belong to any clubs o r organizations such as anabaptist groups, unions, fraternal or athletic groups, or [...] staff should administer the PHQ-9) 0 09/04/2024 [employer] ional [employer] - Occupational Stress [...] things needed for daily living? No 09/06/2024 [place] Depression Scale Answer Date Recorded [place] Depression Scale Total 9 11/21/2024 The thought [...] any time in the past 12 m [facility], were you homeless or living in a retirement (including now)? No 09/06/2024 Personal Safety Answer Date Recorded Have you ever been in or are you currently in a harmful physical or emotional relationship or is someone making you feel afraid or unsafe? Denies 09/05/2024 Comments No Sex and Gender Information Value Date Recorded Sex Assigned at Not on file Legal Sex Female 9:37 AM PVC LOADER Gender Identity Not on file Sexual Orientation Not on file Last Filed Vital Signs Vital Sign Reading Time Taken Comments Blood Pressure 112/74 11/21/2024 3:47 PM PVC LOADER Pulse 93 10/15/2024 12:40 PM PVC LOADER Temperature 36.6 C (97.8 F) 10/15/2024 12:40 PM PVC LOADER Respiratory Rate 16 10/15/2024 12:40 PM PVC LOADER Oxygen Saturation 99% 10/15/2024 12:40 PM PVC LOADER Inhaled Oxygen Concentration - - Weight 71.7 kg (158 lb) 11/21/2024 3:47 PM PVC LOADER Height 152.4 cm (5') 11/21/2024 3:47 PM PVC LOADER Body Mass Index 30.86 11/21/2024 3:47 PM PVC LOADER Plan of Treatment Not on file Procedures Procedure Name Priority Date/Time Associated Diagnosis Comments ECG 12-LEAD Routine 10/20/2024 1:57 PM PVC LOADER BLEED SCREEN Timed 10/14/2024 5: 18 PM PVC LOADER ABO/RH Timed 10/14/2024 5:18 PM PVC LOADER RH IMMUNE GLOBULIN EVAL Timed 10/14/2024 5:18 PM PVC LOADER EGFR Timed 10/14/2024 6:44 AM PVC LOADER CBC WITHOUT DIFFERENTIAL Timed 10/14/2024 6:44 AM PVC LOADER COMPREHENSIVE METABOLIC PANEL Timed 10/14/2024 6:44 AM PVC LOADER TYPE AND SCREEN Timed 10/13/2024 5:53 AM PVC LOADER CBC WITHOUT DIFFERENTIAL Routine 10/13/2024 5:53 AM PVC LOADER SURGICAL PATHOLOGY Routine 10/12/2024 7: 30 PM PVC LOADER ANESTHESIA SPINAL BLOCK Routine 10/12/2024 7:16 PM PVC LOADER EGFR Routine 10/12/2024 6:16 AM PVC LOADER MAGNESIUM Routine 10/12/2024 6:16 AM PVC LOADER PHOSPHORUS Routine 10/12/2024 6:16 AM PVC LOADER CBC WITHOUT DIFFERENTIAL Routine 10/12/2024 6:16 AM PVC LOADER COMPREHENSIVE METABOLIC PANEL Routine 10/12/2024 6:16 AM PVC LOADER EGFR Routine 10/11/2024 6:21 AM PVC LOADER MAGNESIUM Routine 10/11/2024 6:21 AM PVC LOADER PHOSPHORUS Routine 10/11/2024 6:21 AM PVC LOADER CBC WITHOUT DIFFERENTIAL Routine 10/11/2024 6:21 AM PVC LOADER COMPREHENSIVE METABOLIC PANEL Routine 10/11/2024 6:21 AM PVC LOADER ANTIBODY IDENTIFICATION Routine 10/10/2024 7:46 AM PVC LOADER EGFR Routine 10/10/2024 6:24 AM PVC LOADER MAGNESIUM Routine 10/10/2024 6:24 AM PVC LOADER PHOSPHORUS Routine 10/10/2024 6:24 AM PVC LOADER CBC WITHOUT DIFFERENTIAL Routine 10/10/2024 6:24 AM PVC LOADER COMPREHENSIVE METABOLIC PANEL Routine 10/10/2024 6:24 AM PVC LOADER TYPE AND SCREEN Timed 10/10/2024 6:24 AM PVC LOADER CBC WITHOUT DIFFERENTIAL Timed 10/09/2024 1:11 PM PVC LOADER EGFR Routine 10/09/2024 6:13 AM PVC LOADER COMPREHENSIVE METABOLIC PANEL Routine 10/09/2024 6:13 AM PVC LOADER EGFR Routine 10/08/2024 10:56 AM PVC LOADER BILE ACIDS, TOTAL Routine 10/08/2024 10: 56 AM PVC LOADER COMPREHENSIVE METABOLIC PANEL Routine 10/08/2024 10:56 AM PVC LOADER ECG 12-LEAD Routine 10/07/2024 2:02 PM PVC LOADER ANTIBODY IDENTIFICATION Routine 10/07/2024 7:44 AM PVC LOADER EGFR Timed 10/07/2024 6:25 AM PVC LOADER COMPREHENSIVE METABOLIC PANEL Timed 10/07/2024 6:25 AM PVC LOADER CBC WITHOUT DIFFERENTIAL Timed 10/07/2024 6:25 AM PVC LOADER TYPE AND SCREEN Timed 10/07/2024 6:25 AM PVC LOADER GROUP B STREPTOCOCCUS CULTURE Routine 10/06/2024 4:11 PM PVC LOADER US OB LIMITED Schedule Routine, Read Routine (OP Routine) 10/04/2024 8:12 AM PVC LOADER Encounter for follow-up ultrasound of anatomy ANTIBODY IDENTIFICATION Routine 10/04/2024 7:44 AM PVC LOADER EGFR Timed 10/04/2024 6:15 AM PVC LOADER COMPREHENSIVE METABOLIC PANEL Timed 10/04/2024 6:15 AM PVC LOADER CBC WITHOUT DIFFERENTIAL Timed 10/04/2024 6:15 AM PVC LOADER TYPE AND SCREEN Timed 10/04/2024 6:15 AM PVC LOADER ANTIBODY IDENTIFICATION Routine 10/01/2024 7:53 AM PVC LOADER EGFR Timed 10/01/2024 6:31 AM PVC LOADER COMPREHENSIVE METABOLIC PANEL Timed 10/01/2024 6:31 AM PVC LOADER CBC WITHOUT DIFFERENTIAL Timed 10/01/2024 6:31 AM PVC LOADER TYPE AND SCREEN Timed 10/01/2024 6:31 AM PVC LOADER ANTIBODY IDENTIFICATION Routine 09/28/2024 8:02 AM PVC LOADER EGFR Timed 09/28/2024 6:22 AM PVC LOADER COMPREHENSIVE METABOLIC PANEL Timed 09/28/2024 6:22 AM PVC LOADER CBC WITHOUT DIFFERENTIAL Timed 09/28/2024 6:22 AM PVC LOADER TYPE AND SCREEN Timed 09/28/2024 6:22 AM PVC LOADER ANTIBODY IDENTIFICATION Routine 09/25/2024 8:06 AM PVC LOADER EGFR Timed 09/25/2024 6:43 AM PVC LOADER COMPREHENSIVE METABOLIC PANEL Timed 09/25/2024 6:43 AM PVC LOADER CBC WITHOUT DIFFERENTIAL Timed 09/25/2024 6:43 AM PVC LOADER TYPE AND SCREEN Timed 09/25/2024 6:43 AM PVC LOADER ANTIBODY IDENTIFICATION Routine 09/22/2024 7:21 AM PVC LOADER EGFR Timed 09/22/2024 6:09 AM PVC LOADER BILE ACIDS, TOTAL Routine 09/22/2024 6:0 9 AM PVC LOADER COMPREHENSIVE METABOLIC PANEL Timed 09/22/2024 6:09 AM PVC LOADER CBC WITHOUT DIFFERENTIAL Timed 09/22/2024 6:09 AM PVC LOADER TYPE AND SCREEN Timed 09/22/2024 6:09 AM PVC LOADER HEPATITIS PANEL, ACUTE STAT 09/04/2024 5:51 PM PVC LOADER N. GONORRHOEAE/C. TRACHOMATIS AMPLIFICATION Routine 05/09/2024 10:35 AM CDT PAP WITH REFLEX TO HIGH RISK HPV Routine 05/09/2024 9:03 AM CDT Encounter for supervision of normal first in second trimester SECTION from Last 3 Months or Most Recently Relevant to Health Maintenance Results * ECG 12 lead (10/20/2024 1:57 PM PVC LOADER) Ventricular Rate EKG/Min 117 BPM [facility] Atrial Rate 117 BPM [facility] [place]-Interval (MSEC) 140 ms [facility] QRS-Interval (MSEC) 70 ms [facility] QT-Interval (MSEC) 302 ms [facility] QTc 421 ms [facility] P [place] 57 degrees [facility] R [place] 60 degrees [facility] T [place] 21 degrees [facility] Diagnosis Sinus tachycardia Otherwise normal ECG When compared with ECG of 07-OCT-2024 14:02, No significant change was found Confirmed by Edgardo Gomes ([id number]) on 10/21/2024 6:35:11 AM Also confirmed by Edgardo Gomes ([id number]), medical transcription editor Estela Grissom ([id number]) on 10/23/2024 12:48:25 PM [facility] 10/20/2024 1:57 PM PVC LOADER 10/23/2024 12:48 PM PVC LOADER Tamara Chow MD ECG ORDERABLES Edited Re sult - Final [facility] * Rh Immune Globulin Eval (10/14/2024 5:18 PM PVC LOADER) RhIg Eligible Yes, eligible RhIg Administration 1 vial of Rh Immune Globulin (300 mcg dose) [facility] Blood 10/14/2024 5:18 PM PVC LOADER 10/14/2024 5:34 PM PVC LOADER Narrative [facility] - 10/14/2024 7:02 PM PVC LOADER Number of weeks ?->20 weeks or greater antibody screen result:->Negative Rhogam given?->Given Date Given?->09/07/24 Number of vials requested:->1 Vibha Vegas MD LAB BLOOD BANK TE ST ORDERABLES Final Result [facility] [place] [address] * Bleed Screen (10/14/2024 5:18 PM PVC LOADER) Bleed Screen Negative Blood 10/14/2024 5:18 PM PVC LOADER 10/14/2024 5:34 PM PVC LOADER Vibha Burnette MD LAB BLOOD BANK TE ST ORDERABLES Final Result [facility] [place] [address] * ABO/Rh (10/14/2024 5:18 PM PVC LOADER) ABO Rh O Negative Blood 10/14/2024 5:18 PM PVC LOADER 10/14/2024 5:34 PM PVC LOADER Vibha Burnette MD LAB BLOOD BANK TE ST ORDERABLES Final Result Performing Organization Address City/[facility] Co de Phone Number [facility] [place] [address] * eGFR (10/14/2024 6:44 AM PVC LOADER) eGFR >90 >=60 mL/min/1. 73 m2 Comment: [...] last reviewed 2021. Blood 10/14/2024 6:44 AM PVC LOADER 10/14/2024 6:58 AM PVC LOADER Vibha Vegas MD LAB BLOOD ORDERAB LES Final Result Performing Organization Address [facility]/ZIP Co de Phone Number [facility] Department [place] [address] * (ABNORMAL) CBC without differential (10/14/2024 6:44 AM PVC LOADER) [facility] WBC 16.7(H) 3.8 - 9.9 K/cumm Hgb 9.6(L) 11.9 - 15.5 g/dL [facility] Hct 28.0(L) 35.6 - 45.5 % [facility] Plt 281 150 - 400 K/cumm [facility] MPV 9.5 9.1 - 12.3 fL [facility] RBC 3.05(L) 3.90 - 5.20 M/cumm [facility] MCV 91.8 81.3 - 96.4 fL [facility] MCH 31.5 27.1 - 33.3 pg [facility] MCHC 34.3 32.3 - 35.7 g/dL [facility] RDW CV 13.8 11.1 - 14.9 % [facility] RDW SD 46.0 35.7 - 48.1 fL [facility] NRBC abs 0.00 0.00 - 0.01 K/cumm [facility] Blood 10/14/2024 6:44 AM PVC LOADER 10/14/2024 6:58 AM PVC LOADER Vibha Vegas MD LAB BLOOD ORDERAB LES Final Result Performing Organization Address City/[facility]/ZIP Co de Phone Number [facility] Department [place] [address] * (ABNORMAL) Comprehensive metabolic panel (10/14/2024 6:44 AM PVC LOADER) [facility] Sodium 139 135 - 145 mmol/L Potassium, pl 3.9 3.3 - 4.9 mmol/L [facility] Chloride 107 97 - 110 mmol/L [facility] CO2 24 22 - 32 mmol/L [facility] Anion gap 8 2 - 15 mmol/L [facility] BUN 8 6 - 25 mg/dL [facility] Creatinine 0.53(L) 0.60 - 1.10 mg/dL [facility] Glucose 77 70 - 199 mg/dL [facility] Comment: Interpretive Data Fasting glucose >/= 126 [...] 2022. Calcium 8.1(L) 8.5 - 10.3 mg/dL [facility] Bilirubin, total 0.3 0.1 - 1.2 mg/dL [facility] Protein, pl 5.4(L) 6.5 - 8.5 g/dL [facility] Albumin 2.7(L) 3.5 - 5.0 g/dL [facility] Alk phos 177(H) 40 - 130 Units/L [facility] ALT 58(H) 7 - 45 Units/L [facility] AST 45 10 - 45 Units/L [facility] Blood 10/14/2024 6:44 AM PVC LOADER 10/14/2024 6:58 AM PVC LOADER Vibha Vegas MD LAB BLOOD ORDERAB LES Final Result [facility] Department [place] [address] * (ABNORMAL) CBC without differential (10/13/2024 5:53 AM PVC LOADER) WBC 19.9(H) 3.8 - 9.9 K/cumm Hgb 11.0(L) 11.9 - 15.5 g/dL [facility] Hct 32.2(L) 35.6 - 45.5 % [facility] Plt 340 150 - 400 K/cumm [facility] MPV 9.5 9.1 - 12.3 fL [facility] RBC 3.50(L) 3.90 - 5.20 M/cumm [facility] MCV 92.0 81.3 - 96.4 fL [facility] MCH 31.4 27.1 - 33.3 pg [facility] MCHC 34.2 32.3 - 35.7 g/dL [facility] RDW CV 13.5 11.1 - 14.9 % [facility] RDW SD 44.4 35.7 - 48.1 fL [facility] NRBC abs 0.00 0.00 - 0.01 K/cumm [facility] Blood 10/13/2024 5:53 AM PVC LOADER 10/13/2024 6:06 AM PVC LOADER Vibha Vegas MD LAB BLOOD ORDERAB LES Final Result Performing Organization Address City/[facility]/ZIP Co de Phone Number [facility] Department of [place] [address] * Type and screen (10/13/2024 5:53 AM PVC LOADER) ABO Rh O Negative Indira, indirect Negative [facility] Comment:Patient has previous antibody history Blood 10/13/2024 5:53 AM PVC LOADER 10/13/2024 6:01 AM PVC LOADER Narrative [facility] - 10/13/2024 6:50 AM PVC LOADER Has the patient had Daratumumab or Isatuximab in the past 6 months?->Unknown us Shine Mayers MD LAB BLOOD BANK TEST ORDER ANGELA Final Result [facility] [place] [address] * Surgical pathology (10/12/2024 7:30 PM PVC LOADER) Tissue specimen (specimen) (Placenta) 10/12/2024 7:30 PM PVC LOADER 10/13/2024 9:19 AM PVC LOADER Narrative PATHOLOGY [facility] - 10/18/2024 2:22 PM PVC LOADER EPIC results best viewed via link to PDF [facility] Karey Thacker [facility] [place] [address] Note to Patients: This report may contain [...] Gender: F : 2000 (Age: 24) Address: [address] [place] [address] Hospital #: [id number] Taken:10/12/2024 Received:10/13/2024 Reported: 10/18/2024 Patient Type: [facility] Inpatient Service: Obstetrics Location: [address] Physician(s): Mejia Chopra M.D. Diagnosis: Placenta, [...] surface, no parenchymal lesions are grossly identified. Beck Operator sections are submitted. A1 Umbilical cord, and [...] Surgical Pathology and Flow Cytometry Departments at [facility] as part of an ongoing director software quality assurance program and in compliance with federally mandated [...] Surgical Pathology and Flow Cytometry Departments of [facility]. It has not been cleared or approved by the U. S. Food and Drug Administration. IMAGES AND SCANNED DOCUMENTS, IF INCLUDED, ONLY VIEWABLE IN PDF VERSION OF REPORT us Vibha Vegas MD LAB PATHOLOGY ORD ERABLES Final Result PATHOLOGY [facility] 3rd Floor [place], [place] [phone] * Spinal Block (10/12/2024 7:16 PM PVC LOADER) Narrative Tracy Tavares MD - 10/12/2024 7:16 PM PVC LOADER Tracy Tavares MD 10/12/2024 7:19 PM Spinal [...] Final Result * eGFR (10/12/2024 6:16 AM PVC LOADER) eGFR >90 >=60 mL/min/1. 73 m2 Comment: [...] last reviewed 2021. Blood 10/12/2024 6:16 AM PVC LOADER 10/12/2024 6:22 AM PVC LOADER Vibha Vegas MD LAB BLOOD ORDERAB LES Final Result [facility] Department [place] [address] * (ABNORMAL) CBC without differential (10/12/2024 6:16 AM PVC LOADER) WBC 14.1(H) 3.8 - 9.9 K/cumm Hgb 11.4(L) 11.9 - 15.5 g/dL [facility] Hct 32.0(L) 35.6 - 45.5 % [facility] Plt 318 150 - 400 K/cumm [facility] MPV 9.8 9.1 - 12.3 fL [facility] RBC 3.56(L) 3.90 - 5.20 M/cumm [facility] MCV 89.9 81.3 - 96.4 fL [facility] MCH 32.0 27.1 - 33.3 pg [facility] MCHC 35.6 32.3 - 35.7 g/dL [facility] RDW CV 13.2 11.1 - 14.9 % [facility] RDW SD 43.2 35.7 - 48.1 fL [facility] NRBC abs 0.00 0.00 - 0.01 K/cumm [facility] Blood 10/12/2024 6:16 AM PVC LOADER 10/12/2024 6:22 AM PVC LOADER Result [facility] Vibha Vegas MD LAB BLOOD ORDERAB LES Final Result [facility] [place] [address] * Phosphorus (10/12/2024 6:16 AM PVC LOADER) Pathologist [facility] Phosphorus, pl 4.0 2.3 - 4.5 mg/dL Blood 10/12/2024 6:16 AM PVC LOADER 10/12/2024 6:22 AM PVC LOADER Vibha Vegas MD LAB BLOOD ORDERAB LES Final Result Performing Organization Address City/[facility] Co de Phone Number [facility] [place] [address] * Magnesium (10/12/2024 6:16 AM PVC LOADER) [facility] Magnesium 1.8 1.4 - 2.5 mg/dL Blood 10/12/2024 6:16 AM PVC LOADER 10/12/2024 6:22 AM PVC LOADER Vibha Vegas MD LAB BLOOD ORDERAB [place] [address] * (ABNORMAL) Comprehensive metabolic panel (10/12/2024 6:16 AM PVC LOADER) Pathologist [facility] Sodium 140 135 - 145 mmol/L Potassium, pl 4.1 3.3 - 4.9 mmol/L [facility] Chloride 106 97 - 110 mmol/L [facility] CO2 25 22 - 32 mmol/L [facility] Anion gap 9 2 - 15 mmol/L [facility] BUN 11 6 - 25 mg/dL [facility] Creatinine 0.49(L) 0.60 - 1.10 mg/dL [facility] Glucose 95 70 - 199 mg/dL [facility] Comment: Interpretive Data Fasting glucose >/= 126 [...] 2022. Calcium 9.0 8.5 - 10.3 mg/dL [facility] Bilirubin, total <0.2 0.1 - 1.2 mg/dL [facility] Comment:Reviewed Protein, pl 5.9(L) 6.5 - 8.5 g/dL [facility] Albumin 2.9(L) 3.5 - 5.0 g/dL [facility] Alk phos 226(H) 40 - 130 Units/L [facility] ALT 97(H) 7 - 45 Units/L [facility] AST 27 10 - 45 Units/L [facility] Blood 10/12/2024 6:16 AM PVC LOADER 10/12/2024 6:22 AM PVC LOADER us Vibha Vegas MD LAB BLOOD ORDERAB LES Final Result [facility] Department of Laboratories [place], [place] [id number] * eGFR (10/11/2024 6:21 AM PVC LOADER) eGFR >90 >=60 mL/min/1. 73 m2 Comment: [...] last reviewed 2021. Blood 10/11/2024 6:21 AM PVC LOADER 10/11/2024 6:26 AM PVC LOADER Vibha Vegas MD LAB BLOOD ORDERAB LES Final Result [facility] Department [place] [address] * (ABNORMAL) CBC without differential (10/11/2024 6:21 AM PVC LOADER) WBC 15.8(H) 3.8 - 9.9 K/cumm Hgb 11.2(L) 11.9 - 15.5 g/dL [facility] Hct 31.7(L) 35.6 - 45.5 % [facility] Plt 342 150 - 400 K/cumm [facility] MPV 9.7 9.1 - 12.3 fL [facility] RBC 3.49(L) 3.90 - 5.20 M/cumm [facility] MCV 90.8 81.3 - 96.4 fL [facility] MCH 32.1 27.1 - 33.3 pg [facility] MCHC 35.3 32.3 - 35.7 g/dL [facility] RDW CV 13.2 11.1 - 14.9 % [facility] RDW SD 42.8 35.7 - 48.1 fL [facility] NRBC abs 0.00 0.00 - 0.01 K/cumm [facility] Blood 10/11/2024 6:21 AM PVC LOADER 10/11/2024 6:26 AM PVC LOADER Vibha Vegas MD LAB BLOOD ORDERAB LES Final Result [facility] [place] [address] * Phosphorus (10/11/2024 6:21 AM PVC LOADER) [facility] Phosphorus, pl 3.6 2.3 - 4.5 mg/dL Blood 10/11/2024 6:21 AM PVC LOADER 10/11/2024 6:26 AM PVC LOADER Vibha Vegas MD LAB BLOOD ORDERAB LES Final Result Performing Organization Address City/[facility] Co de Phone Number [facility] [place] [address] * Magnesium (10/11/2024 6:21 AM PVC LOADER) [facility] Magnesium 1.8 1.4 - 2.5 mg/dL Blood 10/11/2024 6:21 AM PVC LOADER 10/11/2024 6:26 AM PVC LOADER Vibha Vegas MD LAB BLOOD ORDERAB LES Final Result Performing Organization Address City/[facility]/[place] [address] * (ABNORMAL) Comprehensive metabolic panel (10/11/2024 6:21 AM PVC LOADER) [facility] Sodium 137 135 - 145 mmol/L Potassium, pl 4.1 3.3 - 4.9 mmol/L [facility] Chloride 106 97 - 110 mmol/L [facility] CO2 24 22 - 32 mmol/L [facility] Anion gap 7 2 - 15 mmol/L [facility] BUN 9 6 - 25 mg/dL [facility] Creatinine 0.59(L) 0.60 - 1.10 mg/dL [facility] Glucose 91 70 - 199 mg/dL [facility] Comment: Interpretive Data Fasting glucose >/= 126 [...] 2022. Calcium 8.9 8.5 - 10.3 mg/dL [facility] Bilirubin, total 0.2 0.1 - 1.2 mg/dL [facility] Protein, pl 6.2(L) 6.5 - 8.5 g/dL [facility] Albumin 3.2(L) 3.5 - 5.0 g/dL [facility] Alk phos 234(H) 40 - 130 Units/L [facility] ALT 139(H) 7 - 45 Units/L [facility] AST 39 10 - 45 Units/L [facility] Blood 10/11/2024 6:21 AM PVC LOADER 10/11/2024 6:26 AM PVC LOADER us Vibha [place] MD LAB BLOOD ORDERAB LES Final Result [facility] Department [place] [address] * Antibody identification (10/10/2024 7:46 AM PVC LOADER) Antibody ID 1 Passive Anti-D Blood 10/10/2024 7:46 AM PVC LOADER 10/10/2024 7:46 AM PVC LOADER us Vibha Burnette MD LAB BLOOD BANK TE [facility] ORDERABLES Final Result Performing Organization Address [facility] de Phone Number [facility] [place] [address] * eGFR (10/10/2024 6:24 AM PVC LOADER) eGFR >90 >=60 mL/min/1. 73 m2 Comment: [...] last reviewed 2021. Blood 10/10/2024 6:24 AM PVC LOADER 10/10/2024 6:32 AM PVC LOADER us Vibha Vegas MD LAB BLOOD ORDERAB LES Final Result Performing Organization Address [facility] Co de Phone Number [facility] [place] [address] * (ABNORMAL) CBC without differential (10/10/2024 6:24 AM PVC LOADER) WBC 15.4(H) 3.8 - 9.9 K/cumm Hgb 12.2 11.9 - 15.5 g/dL [facility] Hct 34.8(L) 35.6 - 45.5 % [facility] Plt 352 150 - 400 K/cumm [facility] MPV 9.7 9.1 - 12.3 fL [facility] RBC 3.85(L) 3.90 - 5.20 M/cumm [facility] MCV 90.4 81.3 - 96.4 fL [facility] MCH 31.7 27.1 - 33.3 pg [facility] MCHC 35.1 32.3 - 35.7 g/dL [facility] RDW CV 13.4 11.1 - 14.9 % [facility] RDW SD 43.7 35.7 - 48.1 fL [facility] NRBC abs 0.00 0.00 - 0.01 K/cumm [facility] Blood 10/10/2024 6:24 AM PVC LOADER 10/10/2024 6:33 AM PVC LOADER us Vibha Vegas MD LAB BLOOD ORDERAB LES Final Result Performing Organization Address City/[facility]/ZIP Co de Phone Number [facility] Department of [place] [address] * (ABNORMAL) Type and screen (10/10/2024 6:24 AM PVC LOADER) ABO Rh O Negative Indira, indirect Positive(A) [facility] Blood 10/10/2024 6:24 AM PVC LOADER 10/10/2024 6:38 AM PVC LOADER Narrative [facility] - 10/10/2024 7:46 AM PVC LOADER Has the patient had Daratumumab or Isatuximab in the past 6 months?->Unknown us Vibha Burnette MD LAB BLOOD BANK TE ST ORDERABLES Final Result [facility] Department [place] [address] * Phosphorus (10/10/2024 6:24 AM PVC LOADER) Phosphorus, pl 4.2 2.3 - 4.5 mg/dL Blood 10/10/2024 6:24 AM PVC LOADER 10/10/2024 6:32 AM PVC LOADER Vibha Vegas MD LAB BLOOD ORDERAB LES Final Result Performing Organization Address City/[facility]/ZIP Co de Phone Number [facility] [place] [address] * Magnesium (10/10/2024 6:24 AM PVC LOADER) Pathologist [facility] Magnesium 1.7 1.4 - 2.5 mg/dL Blood 10/10/2024 6:24 AM PVC LOADER 10/10/2024 6:32 AM PVC LOADER Vibha Vegas MD LAB BLOOD ORDERAB LES Final Result Performing Organization Address [facility] de Phone Number [facility] [place] [address] * (ABNORMAL) Comprehensive metabolic panel (10/10/2024 6:24 AM PVC LOADER) [facility] Sodium 139 135 - 145 mmol/L Potassium, pl 4.3 3.3 - 4.9 mmol/L [facility] Chloride 105 97 - 110 mmol/L [facility] CO2 25 22 - 32 mmol/L [facility] Anion gap 9 2 - 15 mmol/L [facility] BUN 7 6 - 25 mg/dL [facility] Creatinine 0.57(L) 0.60 - 1.10 mg/dL [facility] Glucose 89 70 - 199 mg/dL [facility] Comment: Interpretive Data Fasting glucose >/= 126 [...] 2022. Calcium 9.2 8.5 - 10.3 mg/dL [facility] Bilirubin, total 0.2 0.1 - 1.2 mg/dL [facility] Comment:Reviewed Protein, pl 6.8 6.5 - 8.5 g/dL [facility] Albumin 3.5 3.5 - 5.0 g/dL [facility] Alk phos 241(H) 40 - 130 Units/L [facility] ALT 180(H) 7 - 45 Units/L [facility] AST 61(H) 10 - 45 Units/L [facility] Blood 10/10/2024 6:24 AM PVC LOADER 10/10/2024 6:32 AM PVC LOADER us Vibha Vegas MD LAB BLOOD ORDERAB LES Final Result [facility] Department [place] [address] * (ABNORMAL) CBC without differential (10/09/2024 1:11 PM PVC LOADER) WBC 13.7(H) 3.8 - 9.9 K/cumm Hgb 11.2(L) 11.9 - 15.5 g/dL [facility] Hct 32.3(L) 35.6 - 45.5 % [facility] Plt 307 150 - 400 K/cumm [facility] MPV 9.7 9.1 - 12.3 fL [facility] RBC 3.58(L) 3.90 - 5.20 M/cumm [facility] MCV 90.2 81.3 - 96.4 fL [facility] MCH 31.3 27.1 - 33.3 pg [facility] MCHC 34.7 32.3 - 35.7 g/dL [facility] RDW CV 13.3 11.1 - 14.9 % [facility] RDW SD 43.4 35.7 - 48.1 fL [facility] NRBC abs 0.00 0.00 - 0.01 K/cumm [facility] Blood 10/09/2024 1:11 PM PVC LOADER 10/09/2024 1:22 PM PVC LOADER us Vibha Vegas MD LAB BLOOD ORDERAB LES Final Result Performing Organization Address City/[facility]/ZIP Co de Phone Number [facility] Department [place] [address] * eGFR (10/09/2024 6:13 AM PVC LOADER) eGFR >90 >=60 mL/min/1. 73 m2 Comment: [...] last reviewed 2021. Blood 10/09/2024 6:13 AM PVC LOADER 10/09/2024 6:30 AM PVC LOADER us Vibha Vegas MD LAB BLOOD ORDERAB LES Final Result Performing Organization Address City/[facility]/ZIP Co de Phone Number [facility] Department [place] [address] * (ABNORMAL) Comprehensive metabolic panel (10/09/2024 6:13 AM PVC LOADER) Sodium 138 135 - 145 mmol/L Potassium, pl 3.7 3.3 - 4.9 mmol/L [facility] Chloride 107 97 - 110 mmol/L [facility] CO2 23 22 - 32 mmol/L [facility] Anion gap 8 2 - 15 mmol/L [facility] BUN 8 6 - 25 mg/dL [facility] Creatinine 0.56(L) 0.60 - 1.10 mg/dL [facility] Glucose 96 70 - 199 mg/dL [facility] Comment: Interpretive Data Fasting glucose >/= 126 [...] 2022. Calcium 8.9 8.5 - 10.3 mg/dL [facility] Bilirubin, total <0.2 0.1 - 1.2 mg/dL [facility] Comment:Reviewed Protein, pl 6.0(L) 6.5 - 8.5 g/dL [facility] Albumin 3.2(L) 3.5 - 5.0 g/dL [facility] Alk phos 226(H) 40 - 130 Units/L [facility] ALT 190(H) 7 - 45 Units/L [facility] AST 80(H) 10 - 45 Units/L [facility] Blood 10/09/2024 6:13 AM PVC LOADER 10/09/2024 6:30 AM PVC LOADER us Vibha Vegas MD LAB BLOOD ORDERAB LES Final Result [facility] [place] [address] * eGFR (10/08/2024 10:56 AM PVC LOADER) eGFR >90 >=60 mL/min/1. 73 m2 Comment: [...] reviewed 2021. Blood 10/08/2024 10:5 6 AM PVC LOADER 10/08/2024 11:06 AM PVC LOADER Vibha Vegas MD LAB BLOOD ORDERAB LES Final Result [facility] [employer] [place] [address] * (ABNORMAL) Bile acids (10/08/2024 10:56 AM PVC LOADER) Bile acids 16(H) <=10 mcmol/L [facility] Comment: Test Performed by: [place] [address] Telephone Solicitor: Brissa Zazueta Ph.D.; CLIA# [id number] Blood 10/08/2024 10:5 6 AM PVC LOADER 10/08/2024 12:27 PM PVC LOADER Vibha Vegas MD LAB BLOOD ORDERAB LES Final Result [facility] [place] [address] [facility] * (ABNORMAL) Comprehensive metabolic panel (10/08/2024 10:56 AM PVC LOADER) Sodium 137 135 - 145 mmol/L Potassium, pl 3.2(L) 3.3 - 4.9 mmol/L [facility] Chloride 103 97 - 110 mmol/L [facility] CO2 23 22 - 32 mmol/L [facility] Anion gap 11 2 - 15 mmol/L [facility] BUN 7 6 - 25 mg/dL [facility] Creatinine 0.52(L) 0.60 - 1.10 mg/dL [facility] Glucose 115 70 - 199 mg/dL [facility] Comment: Interpretive Data Fasting glucose >/= 126 [...] 2022. Calcium 9.0 8.5 - 10.3 mg/dL [facility] Bilirubin, total 0.2 0.1 - 1.2 mg/dL [facility] Protein, pl 6.4(L) 6.5 - 8.5 g/dL [facility] Albumin 3.3(L) 3.5 - 5.0 g/dL [facility] Alk phos 251(H) 40 - 130 Units/L [facility] ALT 185(H) 7 - 45 Units/L [facility] AST 94(H) 10 - 45 Units/L [facility] Blood 10/08/2024 10:5 6 AM PVC LOADER 10/08/2024 11:06 AM PVC LOADER us Vibha Vegas MD LAB BLOOD ORDERAB LES Final Result [facility] Department [place] [address] * ECG 12 lead (10/07/2024 2:02 PM PVC LOADER) Pathologist [facility] Ventricular Rate EKG/Min 105 BPM [facility] Atrial Rate 105 BPM [facility] [place]-Interval (MSEC) 144 ms [facility] QRS-Interval (MSEC) 74 ms [facility] QT-Interval (MSEC) 328 ms [facility] QTc 433 ms [facility] P [place] 43 degrees [facility] R [place] 62 degrees [facility] T [place] 2 degrees [facility] Diagnosis Sinus tachycardia Otherwise normal ECG When compared with ECG of 06-SEP-2024 19:50, No significant change was found Confirmed by REMY NAYLOR M.D ([id number]) on 10/09/2024 12:46:34 PM [facility] 10/07/2024 2:02 PM PVC LOADER 10/09/2024 12:46 PM PVC LOADER us Vibha Vegas MD ECG ORDERABLES F inal Result [facility] * Antibody identification (10/07/2024 7:44 AM PVC LOADER) [facility] Antibody ID 1 Passive Anti-D Blood 10/07/2024 7:44 AM PVC LOADER 10/07/2024 7:44 AM PVC LOADER Vibha Burnette MD LAB BLOOD BANK TE ST ORDERABLES Final Result [facility] Department [place] [address] * eGFR (10/07/2024 6:25 AM PVC LOADER) [facility] eGFR >90 >=60 mL/min/1. 73 m2 [...] last reviewed 2021. Blood 10/07/2024 6:25 AM PVC LOADER 10/07/2024 6:35 AM PVC LOADER us Allegra Rushing MD LAB BLOOD ORDERABLE S Final Result [facility] Department [place] [address] * (ABNORMAL) CBC without differential (10/07/2024 6:25 AM PVC LOADER) WBC 17.0(H) 3.8 - 9.9 K/cumm Hgb 11.5(L) 11.9 - 15.5 g/dL [facility] Hct 32.2(L) 35.6 - 45.5 % [facility] Plt 309 150 - 400 K/cumm [facility] MPV 9.6 9.1 - 12.3 fL [facility] RBC 3.68(L) 3.90 - 5.20 M/cumm [facility] MCV 87.5 81.3 - 96.4 fL [facility] MCH 31.3 27.1 - 33.3 pg [facility] MCHC 35.7 32.3 - 35.7 g/dL [facility] RDW CV 13.0 11.1 - 14.9 % [facility] RDW SD 40.4 35.7 - 48.1 fL [facility] NRBC abs 0.00 0.00 - 0.01 K/cumm [facility] Blood 10/07/2024 6:25 AM PVC LOADER 10/07/2024 6:35 AM PVC LOADER us Allegra Rushing MD LAB BLOOD ORDERABLE S Final Result Performing Organization Address [facility] Co de Phone Number [facility] [place] [address] * (ABNORMAL) Type and screen (10/07/2024 6:25 AM PVC LOADER) Pathologist [facility] Indira, indirect Positive(A) ABO Rh O Negative [facility] Blood 10/07/2024 6:25 AM PVC LOADER 10/07/2024 6:35 AM PVC LOADER Narrative [facility] - 10/07/2024 7:44 AM PVC LOADER Has the patient had Daratumumab or Isatuximab in the past 6 months?->Unknown Vibha Burnette MD LAB BLOOD BANK TE ST ORDERABLES Final Result Performing Organization Address [facility] de Phone Number [facility] [place] [address] * (ABNORMAL) Comprehensive metabolic panel (10/07/2024 6:25 AM PVC LOADER) Pathologist [facility] Sodium 138 135 - 145 mmol/L Potassium, pl 4.0 3.3 - 4.9 mmol/L [facility] Chloride 106 97 - 110 mmol/L [facility] CO2 23 22 - 32 mmol/L [facility] Anion gap 9 2 - 15 mmol/L [facility] BUN 6 6 - 25 mg/dL [facility] Creatinine 0.53(L) 0.60 - 1.10 mg/dL [facility] Glucose 111 70 - 199 mg/dL [facility] Comment: Interpretive Data Fasting glucose >/= 126 [...] Calcium 8.8 8.5 - 10.3 mg/dL [facility] Bilirubin, total 0.2 0.1 - 1.2 mg/dL [facility] Protein, pl 6.3(L) 6.5 - 8.5 g/dL [facility] Albumin 3.2(L) 3.5 - 5.0 g/dL [facility] Alk phos 255(H) 40 - 130 Units/L [facility] ALT 96(H) 7 - 45 Units/L [facility] AST 65(H) 10 - 45 Units/L [facility] Blood 10/07/2024 6:25 AM PVC LOADER 10/07/2024 6:35 AM PVC LOADER Allegra Rushing MD LAB BLOOD ORDERABLE S Final Result [facility] Department [place] [address] * Group B streptococcal culture Vaginal/Rectal (10/06/2024 4:11 PM PVC LOADER) Report Final Report: Negative Vaginal/Rectal 10/06/2024 4: 11 PM PVC LOADER 10/06/2024 4:43 PM PVC LOADER Narrative [facility] - 10/09/2024 7:17 AM PVC LOADER Testing performed by [facility] ([phone]). Trinidad Hill NP LAB MICROBIOLOGY - GENERAL ORDERABLES Final Result Performing Organization Address City/[facility]/ZIP Co de Phone Number [facility] Department [place] [address] * US Ob Limited (10/04/2024 8:12 AM PVC LOADER) Fetus# [id number] [facility] Estimated Weight 2,000 g&grams [facility] Placenta Details anterior, Previa-no, no placental masses [facility] Presentation Vertex [facility] Anatomical Region Laterality Modality Abdomen N/A Ultrasound 10/04/2024 12:5 4 PM PVC LOADER Impressions 10/04/2024 3:44 PM PVC LOADER 32w 4d IUP for evaluation of growth [...] Result * Antibody identification (10/04/2024 7:44 AM PVC LOADER) Pathologist [facility] Antibody ID 1 Passive Anti-D Comment:Anti-D: probably due to administration of RH-immune globulin. Titer not indicated. Blood 10/04/2024 7:44 AM PVC LOADER 10/04/2024 7:44 AM PVC LOADER us Vibha Burnette MD LAB BLOOD BANK TE ST ORDERABLES Final Result ANTOLIN MARCUM [facility] [place] [address] * eGFR (10/04/2024 6:15 AM PVC LOADER) eGFR >90 >=60 mL/min/1. 73 m2 Comment: [...] last reviewed 2021. Blood 10/04/2024 6:15 AM PVC LOADER 10/04/2024 6:22 AM PVC LOADER Allegra Rushing MD LAB BLOOD ORDERABLE S Final Result [facility] Department [place] [address] * (ABNORMAL) CBC without differential (10/04/2024 6:15 AM PVC LOADER) WBC 10.6(H) 3.8 - 9.9 K/cumm Hgb 12.2 11.9 - 15.5 g/dL [facility] Hct 34.9(L) 35.6 - 45.5 % [facility] Plt 287 150 - 400 K/cumm [facility] MPV 9.7 9.1 - 12.3 fL [facility] RBC 3.90 3.90 - 5.20 M/cumm [facility] MCV 89.5 81.3 - 96.4 fL [facility] MCH 31.3 27.1 - 33.3 pg [facility] MCHC 35.0 32.3 - 35.7 g/dL [facility] RDW CV 13.2 11.1 - 14.9 % [facility] RDW SD 42.9 35.7 - 48.1 fL [facility] NRBC abs 0.00 0.00 - 0.01 K/cumm [facility] Blood 10/04/2024 6:15 AM PVC LOADER 10/04/2024 6:22 AM PVC LOADER Allegra Rushing MD LAB BLOOD ORDERABLE S Final Result Performing Organization Address City/[facility]/ZIP Co de Phone Number [facility] [place] [address] * (ABNORMAL) Type and screen (10/04/2024 6:15 AM PVC LOADER) Pathologist [facility] Indira, indirect Positive(A) ABO Rh O Negative [facility] Blood 10/04/2024 6:15 AM PVC LOADER 10/04/2024 6:31 AM PVC LOADER Narrative [facility] - 10/04/2024 7:44 AM PVC LOADER Has the patient had Daratumumab or Isatuximab in the past 6 months?->Unknown us Vibha Burnette MD LAB BLOOD BANK TE ST ORDERABLES Final Result Performing Organization Address [facility] Co de Phone Number [facility] [place] [address] * (ABNORMAL) Comprehensive metabolic panel (10/04/2024 6:15 AM PVC LOADER) Pathologist [facility] Sodium 135 135 - 145 mmol/L Potassium, pl 3.6 3.3 - 4.9 mmol/L [facility] Chloride 102 97 - 110 mmol/L [facility] CO2 24 22 - 32 mmol/L [facility] Anion gap 9 2 - 15 mmol/L [facility] BUN 5(L) 6 - 25 mg/dL [facility] Creatinine 0.55(L) 0.60 - 1.10 mg/dL [facility] Glucose 76 70 - 199 mg/dL [facility] Comment: Interpretive Data Fasting glucose >/= 126 [...] Calcium 9.0 8.5 - 10.3 mg/dL [facility] Bilirubin, total 0.2 0.1 - 1.2 mg/dL [facility] Protein, pl 6.4(L) 6.5 - 8.5 g/dL [facility] Albumin 3.4(L) 3.5 - 5.0 g/dL [facility] Alk phos 265(H) 40 - 130 Units/L [facility] ALT 23 7 - 45 Units/L [facility] AST 21 10 - 45 Units/L [facility] Blood 10/04/2024 6:15 AM PVC LOADER 10/04/2024 6:22 AM PVC LOADER us Allegra Rushing MD LAB BLOOD ORDERABLE S Final Result [facility] Department [place] [address] * Antibody identification (10/01/2024 7:53 AM PVC LOADER) Pathologist [facility] Antibody ID 1 Passive Anti-D Blood 10/01/2024 7:53 AM PVC LOADER 10/01/2024 7:53 AM PVC LOADER us Vibha Burnette MD LAB BLOOD BANK TE ST ORDERABLES Final Result [facility] [place] [address] * eGFR (10/01/2024 6:31 AM PVC LOADER) Pathologist [facility] eGFR >90 >=60 mL/min/1. 73 m2 Comment: [...] last reviewed 2021. Blood 10/01/2024 6:31 AM PVC LOADER 10/01/2024 6:46 AM PVC LOADER us Allegra Rushing MD LAB BLOOD ORDERABLE S Final Result [facility] Department [place] [address] * (ABNORMAL) CBC without differential (10/01/2024 6:31 AM PVC LOADER) WBC 15.0(H) 3.8 - 9.9 K/cumm Hgb 11.9 11.9 - 15.5 g/dL [facility] Hct 33.0(L) 35.6 - 45.5 % [facility] Plt 271 150 - 400 K/cumm [facility] MPV 9.5 9.1 - 12.3 fL [facility] RBC 3.76(L) 3.90 - 5.20 M/cumm [facility] MCV 87.8 81.3 - 96.4 fL [facility] MCH 31.6 27.1 - 33.3 pg [facility] MCHC 36.1(H) 32.3 - 35.7 g/dL [facility] RDW CV 12.9 11.1 - 14.9 % [facility] RDW SD 40.3 35.7 - 48.1 fL [facility] NRBC abs 0.00 0.00 - 0.01 K/cumm [facility] Blood 10/01/2024 6:31 AM PVC LOADER 10/01/2024 6:47 AM PVC LOADER Allegra Rushing MD LAB BLOOD ORDERABLE S Final Result Performing Organization Address [facility] Co de Phone Number [facility] [place] [address] * (ABNORMAL) Type and screen (10/01/2024 6:31 AM PVC LOADER) [facility] Indira, indirect Positive(A) ABO Rh O Negative [facility] Blood 10/01/2024 6:31 AM PVC LOADER 10/01/2024 6:45 AM PVC LOADER Narrative [facility] - 10/01/2024 7:53 AM PVC LOADER Has the patient had Daratumumab or Isatuximab in the past 6 months?->Unknown Vibha Burnette MD LAB BLOOD BANK TE ST ORDERABLES Final Result Performing Organization Address [facility] de Phone Number [facility] Department [place] [address] * (ABNORMAL) Comprehensive metabolic panel (10/01/2024 6:31 AM PVC LOADER) [facility] Sodium 138 135 - 145 mmol/L Potassium, pl 3.6 3.3 - 4.9 mmol/L [facility] Chloride 106 97 - 110 mmol/L [facility] CO2 23 22 - 32 mmol/L [facility] Anion gap 9 2 - 15 mmol/L [facility] BUN 8 6 - 25 mg/dL [facility] Creatinine 0.53(L) 0.60 - 1.10 mg/dL [facility] Glucose 76 70 - 199 mg/dL [facility] Comment: Interpretive Data Fasting glucose >/= 126 [...] Calcium 9.1 8.5 - 10.3 mg/dL [facility] Bilirubin, total 0.3 0.1 - 1.2 mg/dL [facility] Protein, pl 6.3(L) 6.5 - 8.5 g/dL [facility] Albumin 3.5 3.5 - 5.0 g/dL [facility] Alk phos 206(H) 40 - 130 Units/L [facility] ALT 14 7 - 45 Units/L [facility] AST 18 10 - 45 Units/L [facility] Blood 10/01/2024 6:31 AM PVC LOADER 10/01/2024 6:46 AM PVC LOADER us Allegra Rushing MD LAB BLOOD ORDERABLE S Final Result Performing Organization Address City/[facility]/ZIP Co de Phone Number [facility] Department [place] [address] * Antibody identification (09/28/2024 8:02 AM PVC LOADER) [facility] Antibody ID 1 Passive Anti-D Blood 09/28/2024 8:02 AM PVC LOADER 09/28/2024 8:02 AM PVC LOADER us Vibha Burnette MD LAB BLOOD BANK TE ST ORDERABLES Final Result Performing Organization Address City/[facility]/ZIP Co de Phone Number [facility] Department [place] [address] * eGFR (09/28/2024 6:22 AM PVC LOADER) eGFR >90 >=60 mL/min/1. 73 m2 Comment: [...] last reviewed 2021. Blood 09/28/2024 6:22 AM PVC LOADER 09/28/2024 6:42 AM PVC LOADER us Allegra Rushing MD LAB BLOOD ORDERABLE S Final Result [facility] Department [place] [address] * (ABNORMAL) CBC without differential (09/28/2024 6:22 AM PVC LOADER) WBC 12.7(H) 3.8 - 9.9 K/cumm Hgb 10.9(L) 11.9 - 15.5 g/dL [facility] Hct 30.8(L) 35.6 - 45.5 % [facility] Plt 294 150 - 400 K/cumm [facility] MPV 9.3 9.1 - 12.3 fL [facility] RBC 3.36(L) 3.90 - 5.20 M/cumm [facility] MCV 91.7 81.3 - 96.4 fL [facility] MCH 32.4 27.1 - 33.3 pg [facility] MCHC 35.4 32.3 - 35.7 g/dL [facility] RDW CV 12.6 11.1 - 14.9 % [facility] RDW SD 41.8 35.7 - 48.1 fL [facility] NRBC abs 0.00 0.00 - 0.01 K/cumm [facility] Blood 09/28/2024 6:22 AM PVC LOADER 09/28/2024 6:42 AM PVC LOADER Allegra Rushing MD LAB BLOOD ORDERABLE S Final Result Performing Organization Address [facility] Co de Phone Number [facility] [place] [address] * (ABNORMAL) Type and screen (09/28/2024 6:22 AM PVC LOADER) [facility] Indira, indirect Positive(A) ABO Rh O Negative [facility] Blood 09/28/2024 6:22 AM PVC LOADER 09/28/2024 6:40 AM PVC LOADER Narrative [facility] - 09/28/2024 8:02 AM PVC LOADER Has the patient had Daratumumab or Isatuximab in the past 6 months?->Unknown us Vibha Burnette MD LAB BLOOD BANK TE ST ORDERABLES Final Result Performing Organization Address [facility] de Phone Number [facility] Department [place] [address] * (ABNORMAL) Comprehensive metabolic panel (09/28/2024 6:22 AM PVC LOADER) Pathologist [facility] Sodium 140 135 - 145 mmol/L Potassium, pl 4.0 3.3 - 4.9 mmol/L [facility] Chloride 106 97 - 110 mmol/L [facility] CO2 27 22 - 32 mmol/L [facility] Anion gap 7 2 - 15 mmol/L [facility] BUN 8 6 - 25 mg/dL [facility] Creatinine 0.63 0.60 - 1.10 mg/dL [facility] Glucose 87 70 - 199 mg/dL [facility] Comment: Interpretive Data Fasting glucose >/= 126 [...] Calcium 8.9 8.5 - 10.3 mg/dL [facility] Bilirubin, total <0.2 0.1 - 1.2 mg/dL [facility] Protein, pl 6.1(L) 6.5 - 8.5 g/dL [facility] Albumin 3.2(L) 3.5 - 5.0 g/dL [facility] Alk phos 187(H) 40 - 130 Units/L [facility] ALT 12 7 - 45 Units/L [facility] AST 15 10 - 45 Units/L [facility] Blood 09/28/2024 6:22 AM PVC LOADER 09/28/2024 6:42 AM PVC LOADER us Allegra Rushing MD LAB BLOOD ORDERABLE S Final Result Performing Organization Address [facility]/ZIP Co de Phone Number [facility] Department of [place] [address] * Antibody identification (09/25/2024 8:06 AM PVC LOADER) Antibody ID 1 Passive Anti-D Blood 09/25/2024 8:06 AM PVC LOADER 09/25/2024 8:06 AM PVC LOADER us Vibha Burnette MD LAB BLOOD BANK TE ST ORDERABLES Final Result Performing Organization Address City/[facility]/ZIP Co de Phone Number [facility] Department [place] [address] * eGFR (09/25/2024 6:43 AM PVC LOADER) Pathologist [facility] eGFR >90 >=60 mL/min/1. 73 m2 Comment: [...] last reviewed 2021. Blood 09/25/2024 6:43 AM PVC LOADER 09/25/2024 6:49 AM PVC LOADER us Allegra Rushing MD LAB BLOOD ORDERABLE S Final Result [facility] Department [place] [address] * (ABNORMAL) CBC without differential (09/25/2024 6:43 AM PVC LOADER) Pathologist [facility] WBC 12.5(H) 3.8 - 9.9 K/cumm Hgb 11.5(L) 11.9 - 15.5 g/dL [facility] Hct 32.7(L) 35.6 - 45.5 % [facility] Plt 290 150 - 400 K/cumm [facility] MPV 9.6 9.1 - 12.3 fL [facility] RBC 3.61(L) 3.90 - 5.20 M/cumm [facility] MCV 90.6 81.3 - 96.4 fL [facility] MCH 31.9 27.1 - 33.3 pg [facility] MCHC 35.2 32.3 - 35.7 g/dL [facility] RDW CV 12.8 11.1 - 14.9 % [facility] RDW SD 42.0 35.7 - 48.1 fL [facility] NRBC abs 0.00 0.00 - 0.01 K/cumm [facility] Blood 09/25/2024 6:43 AM PVC LOADER 09/25/2024 6:49 AM PVC LOADER Allegra Rushing MD LAB BLOOD ORDERABLE S Final Result Performing Organization Address [facility] Co de Phone Number [facility] [place] [address] * (ABNORMAL) Type and screen (09/25/2024 6:43 AM PVC LOADER) Pathologist [facility] ABO Rh O Negative Indira, indirect Positive(A) [facility] Blood 09/25/2024 6:43 AM PVC LOADER 09/25/2024 7:19 AM PVC LOADER Narrative [facility] - 09/25/2024 8:06 AM PVC LOADER Has the patient had Daratumumab or Isatuximab in the past 6 months?->Unknown us Vibha Burnette MD LAB BLOOD BANK TE ST ORDERABLES Final Result Performing Organization Address [facility] Co de Phone Number [facility] [place] [address] * (ABNORMAL) Comprehensive metabolic panel (09/25/2024 6:43 AM PVC LOADER) Sodium 139 135 - 145 mmol/L Potassium, pl 3.8 3.3 - 4.9 mmol/L [facility] Chloride 107 97 - 110 mmol/L [facility] CO2 25 22 - 32 mmol/L [facility] Anion gap 7 2 - 15 mmol/L [facility] BUN 6 6 - 25 mg/dL [facility] Creatinine 0.55(L) 0.60 - 1.10 mg/dL [facility] Glucose 73 70 - 199 mg/dL [facility] Comment: Interpretive Data Fasting glucose >/= 126 [...] 2022. Calcium 8.7 8.5 - 10.3 mg/dL [facility] Bilirubin, total 0.2 0.1 - 1.2 mg/dL [facility] Protein, pl 6.1(L) 6.5 - 8.5 g/dL [facility] Albumin 3.4(L) 3.5 - 5.0 g/dL [facility] Alk phos 178(H) 40 - 130 Units/L [facility] ALT 20 7 - 45 Units/L [facility] AST 16 10 - 45 Units/L [facility] Blood 09/25/2024 6:43 AM PVC LOADER 09/25/2024 6:49 AM PVC LOADER us Allegra Rushing MD LAB BLOOD ORDERABLE S Final Result [facility] Department [place] [address] * Antibody identification (09/22/2024 7:21 AM PVC LOADER) Antibody ID 1 Passive Anti-D Blood 09/22/2024 7:21 AM PVC LOADER 09/22/2024 7:21 AM PVC LOADER Vibha Burnette MD LAB BLOOD BANK TE ST ORDERABLES Final Result [facility] [place] [address] * eGFR (09/22/2024 6:09 AM PVC LOADER) eGFR >90 >=60 mL/min/1. 73 m2 Comment: [...] last reviewed 2021. Blood 09/22/2024 6:09 AM PVC LOADER 09/22/2024 6:21 AM PVC LOADER Allegra Rushing MD LAB BLOOD ORDERABLE S Final Result [facility] Department [place] [address] * Bile acids (09/22/2024 6:09 AM PVC LOADER) Bile acids 6 <=10 mcmol/L [facility] Comment: Test Performed by: [facility] [place] [address] Telephone Solicitor: Brissa Zazueta Ph.D.; CLIA# [id number] Blood 09/22/2024 6:09 AM PVC LOADER 09/22/2024 6:13 AM PVC LOADER Allegra Rushing MD LAB BLOOD ORDERABLE S Final Result [facility] Department [place] [address] [facility] * (ABNORMAL) CBC without differential (09/22/2024 6:09 AM PVC LOADER) Pathologist [facility] WBC 12.4(H) 3.8 - 9.9 K/cumm Hgb 10.5(L) 11.9 - 15.5 g/dL [facility] Hct 29.6(L) 35.6 - 45.5 % [facility] Plt 292 150 - 400 K/cumm [facility] MPV 9.4 9.1 - 12.3 fL [facility] RBC 3.32(L) 3.90 - 5.20 M/cumm [facility] MCV 89.2 81.3 - 96.4 fL [facility] MCH 31.6 27.1 - 33.3 pg [facility] MCHC 35.5 32.3 - 35.7 g/dL [facility] RDW CV 12.5 11.1 - 14.9 % [facility] RDW SD 40.5 35.7 - 48.1 fL [facility] NRBC abs 0.00 0.00 - 0.01 K/cumm [facility] Blood 09/22/2024 6:09 AM PVC LOADER 09/22/2024 6:21 AM PVC LOADER Allegra Rushing MD LAB BLOOD ORDERABLE S Final Result [facility] Department [place] [address] * (ABNORMAL) Type and screen (09/22/2024 6:09 AM PVC LOADER) Pathologist [facility] Indira, indirect Positive(A) ABO Rh O Negative [facility] Blood 09/22/2024 6:09 AM PVC LOADER 09/22/2024 6:20 AM PVC LOADER Narrative [facility] - 09/22/2024 7:21 AM PVC LOADER Has the patient had Daratumumab or Isatuximab in the past 6 months?->Unknown Vibha Burnette MD LAB BLOOD BANK TE ST ORDERABLES Final Result [facility] Department [place] [address] * (ABNORMAL) Comprehensive metabolic panel (09/22/2024 6:09 AM PVC LOADER) Sodium 140 135 - 145 mmol/L Potassium, pl 3.6 3.3 - 4.9 mmol/L [facility] Chloride 108 97 - 110 mmol/L [facility] CO2 24 22 - 32 mmol/L [facility] Anion gap 8 2 - 15 mmol/L [facility] BUN 7 6 - 25 mg/dL [facility] Creatinine 0.57(L) 0.60 - 1.10 mg/dL [facility] Glucose 81 70 - 199 mg/dL [facility] Comment: Interpretive Data Fasting glucose >/= 126 [...] 2022. Calcium 8.3(L) 8.5 - 10.3 mg/dL [facility] Bilirubin, total <0.2 0.1 - 1.2 mg/dL [facility] Protein, pl 5.4(L) 6.5 - 8.5 g/dL [facility] Albumin 3.0(L) 3.5 - 5.0 g/dL [facility] Alk phos 149(H) 40 - 130 Units/L [facility] ALT 22 7 - 45 Units/L [facility] AST 13 10 - 45 Units/L [facility] Blood 09/22/2024 6:09 AM PVC LOADER 09/22/2024 6:21 AM PVC LOADER Result [facility] Allegra Rushing MD LAB BLOOD ORDERABLE S Final Result Performing Organization Address City/[facility]/[place] [address] * Hepatitis panel, acute Blood (09/04/2024 5:51 PM PVC LOADER) Pathologist [facility] Hep A IgM Nonreactive Nonreactive Hep B core IgM Nonreactive Nonreactive [facility] Hep C Ab Nonreactive Nonreactive [facility] Comment:Antibodies to HCV no t detected. Does NOT exclude the possibility of recent exposure to HCV. Current interpretive data was last revised on 22 HepBsAg Nonreactive Nonreactive [facility] Blood 09/04/2024 5:51 PM PVC LOADER 09/04/2024 6:05 PM PVC LOADER Allegra Rushing MD LAB MICROBIOLOGY - GENERAL ORDERABLES Final Result Performing Organization Address [facility] Co de Phone Number [facility] [place] [address] * N. gonorrhoeae/C. trachomatis Amplification Thin prep-Endocervical (05/09/2024 10:35 AM CDT) [facility] C. trachomatis Not Detected [facility] Comment:Testing performed by : [facility], [address] [place] [address]., [address] N. gonorrhoeae Not Detected [facility] Comment: Interpretive Data This assay detects Chlamydia trachomatis and Neisseria gonorrhoeae by nucleic acid amplification testing (NAAT). This assay has been cleared by the [place] Food and Drug administration. The performance characteristics of this test have been verified by the [facility] Molecular Infectious Disease laboratory. The performance characteristics of this test have not been evaluated in individuals less than 14 years of age. Current Interpretive Data was last revised on 2023. Testing performed by: [facility], [address] [place] [address]., [address] Thin prep-Endocervica l 05/09/2024 10:35 AM CDT 05/10/2024 2:32 PM CDT Dena Padilla MD LAB MICROBIOLOGY - GENERAL ORDERABLES Final Result [facility] [address] Department of Laboratories [place] [id number] [facility] * Pap with reflex to High Risk HPV and Genotyping (Cytology Component) (05/09/2024 9:03 AM CDT) Thin prep (Pap test) 05/09/2024 9:03 AM CDT 05/10/2024 9:03 AM CDT Narrative PATHOLOGY - 05/11/2024 4:17 PM CDT [facility] Department of Pathology [address] [place] [id number] Final Report Note to Patients: This [...] the details. Patient Name: DANIELE FAYE Address: [address] [place] [address] Gender: F : 2000 (Age: 24) Service: Location: [facility] : [id number] [facility] #: [id number] Patient Type: SPECIMEN Taken: 05/09/2024 Received: 05/10/2024 Accessioned:: 05/10/2024 Reported: 05/11/2024 Physician(s): Dena Padilla M.D. Dena Padilla M.D. Diagnosis: SOURCE OF SPECIMEN Imaged Thinprep Pap Test w/ Reflex HPV - Removable Prosthodontist Cytologic Material: STATEMENT OF ADEQUACY - Satisfactory for evaluation; endocervical/transformation zone component present GENERAL CATEGORIZATION: - Negative for intraepithelial lesion or malignancy INTERPRETATION: - Fungal organisms present, morphologically consistent with octaviano species MARTINEZ Mackenzie(ASCP) Report Electronically Reviewed and Signed Out By MARTINEZ Mackenzie(ASCP) 05/11/2024 16:17:59Specimen(s) Received: A: Imaged Thinprep Pap Test w/ Reflex HPV - Removable Prosthodontist Cytologic Material Clinical History: Last Menstrual Period: [...] determined by the Surgical Pathology Department at [facility] as part of an ongoing director software quality assurance program and in compliance with federally mandated [...] characteristics determined by the Surgical Pathology Department [facility]. It has not been cleared or approved by the [place]. [place]. Food and Drug Administration. Dena Padilla MD LAB CYTOLOGY ORDERA [facility] Final Result PATHOLOGY [address] [place] [address] from Last 3 Months or Most Recently Relevant to Health Maintenance Insurance [facility] [id number] [employer] BETTER [facility] [employer]TER [facility] [id number] Advance Directives For more information, please contact: [phone] * Full Code (Latest Code Status on File) Date Activated Date Inactivated Comments 10/12/2024 10:39 PM 10/15/2024 8:14 PM * Full Code Date Activated Date Inactivated Comments 09/04/2024 4:49 PM 10/12/2024 10:39 PM * Full Code Date Activated Date Inactivated Comments 05/31/2024 7:14 PM 06/01/2024 4:01 PM Care Teams Dictating Machine Mechanic Relationship Specialty Start Date End Date Ronnie Flores MD [address] [address] PCP - General Family Medicine 05/25/24 Dena Padilla MD [address] [place] [address] [place], [place] [address] [address] Consulting Physician Obstetrics and Gynecology 05/18/24
--- OUTSIDE RECORDS SUMMARY | 2024-12-20 11:03 | XMS_ITS | Clinical Summary ---
Author Organization [facility] Address [address] [place] [address] Phone Care Team Providers Care Wind Turbine Design Engineer Name Role Phone Ronnie Flores MD Primary Care Provider Allergies Active Allergy Reactions Criticality Noted Date [...] Comments Blood Pressure 166/101 07/27/2024 10:51 AM REHABILITATION SERVICES COORDINATOR Pulse 70 07/27/2024 1:25 PM REHABILITATION SERVICES COORDINATOR Temperature 36.1 C (96.9 F) 07/27/2024 10:51 AM REHABILITATION SERVICES COORDINATOR Respiratory Rate 18 07/27/2024 1:25 PM REHABILITATION SERVICES COORDINATOR Oxygen Saturation 99% 07/27/2024 1:25 PM REHABILITATION SERVICES COORDINATOR Inhaled Oxygen Concentration - - Weight 73 kg (161 lb) 07/27/2024 10:51 AM REHABILITATION SERVICES COORDINATOR Height 152.4 cm (5') 07/27/2024 10:51 AM REHABILITATION SERVICES COORDINATOR Body Mass Index 31.44 07/27/2024 10:51 AM REHABILITATION SERVICES COORDINATOR Plan of Treatment Health Maintenance Due Date [...] patient's age to complete this topic Insurance [facility] Care Teams Wind Turbine Design Engineer Relationship Specialty Start Date End Date Ronnie Flores MD PCP - General Family Medicine 09/18/19
--- OUTSIDE RECORDS SUMMARY | 2024-12-20 11:03 | XMS_ITS | Encounter Summary ---
Author Organization [facility] Address [address] [place] [address] Phone Care Team Providers Care Gas Station Attendant Name Role Phone Ronnie Flores MD Primary Care Provider [phone] Reason for Visit * Reason Comments Medication Refill Encounter Details Date Type Department Care Team (Late st Contact Info) Description 03/07/2022 Refill [facility] - Family Medicine [facility] [address] [place] [phone] Ronnie Flores MD [address] [place] [address] Medication Refill Social History Tobacco Use Types [...] [facility] 10/27/21 Telemedicine Tessy Ruiz [facility]21 Telemedicine Ronnie Flores MD [facility] [...] documented as of this encounter Care Teams Gas Station Attendant Relationship Specialty Start Date End Date Ronnie Flores MD PCP - General Family Medicine 09/18/19 documented as of this encounter
--- OUTSIDE RECORDS SUMMARY | 2024-12-20 11:04 | XMS_ITS | Clinical Summary ---
Author Organization [facility] Address [address] [place] [address] Care Team Providers Care Bandoleer Packer Name Role Phone Dena Padilla MD Unavailable [phone] Ronnie Flores MD Primary Care Provider [phone] Allergies Active Allergy Reactions Criticality Noted Date Comments Venom-Honey Bee Swelling Medium 02/18/2022 Medications cholecalciferol (VITAMIN D-3) 2000 unit tablet Take 1 tablet (2,000 Units total) by mouth daily 30 tablet 11 4 Active NIFEdipine (PROCARDIA XL/ADALAT CC) 30 mg 24 hr tablet Take 1 tablet (30 mg total) by mouth daily 30 tablet 3 5 026 Active vitamin X39-klhsu acid 0.5-1 mg tablet Take by mouth [...] on APU. Follows with Dr. Johnson/Sandra at [facility] # MOC: Desires nexplanon placement. # [...] carried 12/04 in house: R1 (first call) [phone] R1 alt (second call) [phone] R4 (Chief) [phone] Assessment & Plan (11/21/2024 4:08 PM FASHION COORDINATOR): Doing well Severe pre-eclampsia in third trimester 09/04/20 24 History of induced hypertension 2023 Assessment & Plan (11/21/2024 4:06 PM FASHION COORDINATOR): To stop her procardia She will continue [...] She will f/u with Dr. Johnson/Sandra at [facility]. Sleep hygiene reviewed. Migraine without status [...] Department Care Team Description 11/21/2024 3:30 PM FASHION COORDINATOR Office Visit [facility] [address] [place] [address] [address], [place] [address] Dena Padilla MD care following delivery (Primary Dx); History of induced hypertension 10/26/2024 3:00 PM FASHION COORDINATOR Clinical Support [facility] [address] [place] [phone] care following delivery (Primary Dx) 10/20/2024 1:38 PM FASHION COORDINATOR - 10/20/2024 2:34 PM FASHION COORDINATOR Emergency [facility] [place] [address] Tamara Chow MD Tachycardia (Primary Dx) Discharge Disposition: Left Against Medical Advice 10/12/2024 6:25 PM FASHION COORDINATOR Anesthesia Event [address] [address] Tigist Castillo MD Dutta, Shourik, MD 10/12/[address] [address] Carmela Díaz MD SECTION 10/08/2024 Documentation [facility] [address] [place] [address] Demetra Hightower MD 10/04/2024 9:45 AM FASHION COORDINATOR Ancillary Procedure [address] 5[address] [place] [address] Encounter for follow-up ultrasound of anatomy 09/04/2024 4:24 PM FASHION COORDINATOR - 10/15/2024 4:08 PM FASHION COORDINATOR Hospital Encounter [address] [address] Allegra Rushing MD Dombrowski, MD Shasta Forrest, [...] 05/17/2024 Medical History Medical History Date Comments [place] 2001 6-12 nl preg G4M 2P1 Family History Medical History Relation Name Comments Brain Aneurysm Mother 2015 Migraines Mother Migraines; X 1 Diabetes Other 1 Hypertension Other 2 Sudden Other 3 NONE Cancer Neg 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, 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 Never 09/06/2024 Do you belong to [...] PHQ-9) 0 09/04/2024 [facility] [place] of Occupat ional Health - Occupational Stress [...] things needed for daily living? No 09/06/2024 [place] Depression Scale Answer Date Recorded [place] Depression Scale Total 9 11/21/2024 The thought [...] any time in the past 12 m [facility], were you homeless or living in a chcf (including now)? No 09/06/2024 Personal Safety Answer Date Recorded Have you ever been in or are you currently in a harmful physical or emotional relationship or is someone making you feel afraid or unsafe? Denies 09/05/2024 Comments No Sex and Gender Information Value Date Recorded Sex Assigned at Not on file Legal Sex Female 9:37 AM FASHION COORDINATOR Gender Identity Not on file Sexual Orientation [...] Carmela Landeros MD Complications: Intolera nce Delivery Location:[facility] Main C ampus ([facility] L AND D PROCEDURE) Summary Episode [...] post . She delivered by C/S at [facility] in [facility]. The baby is still in the NICU, but they're hopeful he will come home this Wednesday. She is not and got a Nexplanon inserted after delivery. She scored 9 on EPDS. ION COORDINATOR Progress Notes - Hospital En counter - [...] mL, intra-catheter, Q8H ISABELL PRN Medications hydrocortisone fldsnln-dtzpk-tggobfj ondansetron ODT OR ondansetron oxyCODONE polyethylene glycol [...] on APU. Follows with Dr. Johnson/Sandra at [facility] # MOC: Desires nexplanon placement. # [...] carried 12/04 in house: R1 (first call) [phone] R1 alt (second call) [phone] R4 (Chief) [phone] Gabriela Contreras MD, MPH PGY2 Obstetrics and Gynecology Cosigned by Aline Smith MD at 10/15/2024 10:25 AM FASHION COORDINATOR ION COORDINATOR ION COORDINATOR Associated attestation - Aline Smith MD - 10/15/2024 10:25 AM FASHION COORDINATOR I have seen and examined the patient on 10/15/24. I agree with the findings and plan of care as documented in the resident's/fellow's note. Meeting goals. Nexplanon placement today. BPs normotensive. OK for discharge this afternoon vs. Tomorrow. Aline Smith MD Employment Advisor Division of Maternal- Medicine 10/14/2024 - 33w5d [...] mL, intra-catheter, Q8H ISABELL PRN Medications hydrocortisone jlpfnas-kcada-kmlezzt ondansetron ODT OR ondansetron oxyCODONE polyethylene glycol [...] on APU. Follows with Dr. Johnson/Sandra at [facility] # MOC: Desires nexplanon placement. # [...] carried 12/04 in house: R1 (first call) [phone] R1 alt (second call) [phone] R4 (Chief) [phone] Jayde Garrett MD REAL ESTATE LISTING CONSULTANT PGY-3 Cosigned by Aline Smith MD at 10/14/2024 12:24 PM FASHION COORDINATOR ION COORDINATOR ION COORDINATOR Associated attestation - Aline Smith MD - 10/14/2024 12:24 PM FASHION COORDINATOR I have seen and examined the patient on 10/14/24. I agree with the findings and plan of care as documented in the resident's/fellow's note. BPs normotensive. Bandage removed, pfannenstiel incision clean/dry/intact. Hgb 9.6. Meeting postoperative milestones. Desires Nexplanon placement. Continue postoperative care s/p section. Aline Smith MD Employment Advisor Division of Maternal- Medicine 10/13/2024 - 33w5d - Fadia Darling LCSW Reason for Admission MOB (Jayesh Faye 10/12/2024) was admitted on 10/12/2024 for Prematurity, 2,000-2,499 grams, 33-34 completed weeks [P07.18]. Social Work referral for pp follow up. 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 tail ripper to be scheduled upon discharge from [facility] NICU. Medical insurance coverage is through [employer] and [employer]. Information Baby boy was born on 10/12/24 at EGA 33.5 weeks. Delivery was . [place] weighed 4lb 8.7oz at delivery. [place] will be breast/formula fed. This is mother's 1st child. admitted to [facility] re: prematurity. Social History Current address is [address] [place] [address] [place] [address], where she lives with her mom, step dad, and sister. Currently [phone] (home) is the best phone number for [...] follow up if symptoms arise. SW reviews [facility] SW and [facility] support services available throughout 's ongoing admission. [...] concerns noted, as MOB lives local in [place], [place]. [facility] SW provides support and encouragement. Family denies having any questions or concerns for this clinician. Family understanding to follow up with [facility] NICU SW throughout baby's ongoing admission. Strengths MOB is open and receptive to Social Work intervention, education, and resources. Safe Discharge Plan [facility] SW to collaborate with [facility] SW for family care handoff, as needed. [facility] SW will follow up with family throughout remainder of infant's admission to [facility]. No further [facility] SW needs indicated at this time. Fadia FARNSWORTH, [facility] Clinical Invoice Control Clerk Women and Infants Units ION COORDINATOR 10/13/2024 - 33w5maritza - Estela Newman MD [...] gluconate AND Magnesium diphenhydrAMINE hydrocortisone HYDROmorphone HYDROmorphone iekvkok-ndtwr-gcxfxew naloxone ondansetron ODT OR ondansetron ondansetron ODT [...] on APU. Follows with Dr. Johnson/Sandra at [facility] # MOC: Desires nexplanon placement. # [...] carried 12/04 in house: R1 (first call) [phone] R1 alt (second call) [phone] R4 (Chief) [phone] Estela Newman MD PGY-2 Obstetrics & Gynecology 10/13/24 Cosigned by Vibha Tristan MD at 10/13/2024 10:58 AM FASHION COORDINATOR ION COORDINATOR ION COORDINATOR Associated attestation - Vibha Tristan MD - 10/13/2024 10:58 AM FASHION COORDINATOR I have seen and examined the patient [...] provided. 10/12/2024 9:21 PM Shabana Rich RN ION COORDINATOR 10/12/2024 - 33w5d - Fadia Darling LCSW Reason for Admission Pt (Kayla Faye 2000) was admitted on 09/04/2024 for Hypertension in , essential, antepartum [O10.019]. Pt has continued to be admitted to [facility] APU since this time. Kayla Faye noted to have hx of anxiety and depression. 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 Medical insurance coverage is through [employer] and [employer]. Pt is currently 33.4 weeks EGA, expecting a baby boy. Delivery scheduled for 34 weeks on 10/14/24. MOB confirms understanding of admission to NICU after delivery. Social History Current address is [address] [place] [address] [place] [address], where she lives with her mom, step dad, and sister. Currently [phone] (home) is the best phone number for [...] up if symptoms arise. This clinician reviews [facility] SW and [facility] supports available to [...] Plan Social Work will continue to attend [facility] and collaborate with medical team. Social Work will follow for support and additional needs should they arise. Fadia FARNSWORTH, [facility] Clinical Invoice Control Clerk Women and Infants Units ION COORDINATOR 10/12/2024 - 33w5d - Jayde Garrett MD [...] reactive NST (2 x hours of monitoring) Garretson: irregular ctx, not felt Physical Exam General: [...] QT, resolved - Recent admission 08/29-08/30 at [facility] for N/V that improved with anti-emetics - [...] consult - Follows with Dr. Johnson/Sandra at [facility] #FWB: - OSH US 09/04/24: EFW [...] inpatient management until delivery Jayde Garrett MD REAL ESTATE LISTING CONSULTANT PGY-3 Cosigned by Vibha Tristan MD at 10/12/2024 9:54 AM FASHION COORDINATOR ION COORDINATOR ION COORDINATOR Associated attestation - Vibha Tristan MD - 10/12/2024 9:54 AM FASHION COORDINATOR I have seen and examined the patient [...] but not reactive. Has reactive NST following. Garretson: contractions absent Physical Exam General: No acute [...] QT, resolved - Recent admission 08/29-08/30 at [facility] for N/V that improved with anti-emetics - [...] consult - Follows with Dr. Johnson/Sandra at [facility] #FWB: - OSH US 09/04/24: EFW [...] inpatient management until delivery Jayde Garrett MD REAL ESTATE LISTING CONSULTANT PGY-3 Cosigned by Allegra Rushing MD at 10/12/2024 6:42 AM FASHION COORDINATOR ION COORDINATOR ION COORDINATOR ION COORDINATOR Associated attestation - Allegra Rushing MD - 10/12/2024 6:42 AM FASHION COORDINATOR I have seen and examined the patient [...] % Max: 98 % FHR: NST reactive Garretson: contractions absent Physical Exam General: No acute [...] QT, resolved - Recent admission 08/29-08/30 at [facility] for N/V that improved with anti-emetics - [...] consult - Follows with Dr. Johnson/Sandra at [facility] #FWB: - OSH US 09/04/24: EFW [...] inpatient management until delivery Jayde Garrett MD REAL ESTATE LISTING CONSULTANT PGY-3 Cosigned by Vibha Tristan MD at 10/10/2024 10:47 AM FASHION COORDINATOR ION COORDINATOR ION COORDINATOR Associated attestation - Vibha Tristan MD - 10/10/2024 10:47 AM FASHION COORDINATOR I have seen and examined the patient on 10/10/24. I agree with the findings and plan of care as documented in the resident's/fellow's note. Bile acids 13; LFTs slightly improved. No other evidence of worsening preeclampsia so we will continue expectant management 10/09/2024 - - Crystal Rueda Chaplain Crystal Quintanilla [facility] Spiritual Care Triage: [phone] 10/09/24 1100 Time Spent Start Time 1100 Stop Time 1115 Time Calculation (min) 15 min Clinical Encounter Type Visited With Patient Response Type Routine visit Routine Visit Follow-up Reason for visit Support Outcomes and Progress Demonstrating care and respect Achieved Interventions Interventions Offer emotional support ION COORDINATOR 10/09/2024 - - Jayde Garrett MD Antepartum [...] % Max: 100 % FHR: NST reactive Garretson: contractions absent Physical Exam General: No acute [...] QT, resolved - Recent admission 08/29-08/30 at [facility] for N/V that improved with anti-emetics - [...] consult - Follows with Dr. Johnson/Sandra at [facility] #FWB: - OSH US 09/04/24: EFW [...] inpatient management until delivery Jayde Garrett MD REAL ESTATE LISTING CONSULTANT PGY-3 Cosigned by Vibha Tristan MD at 10/09/2024 1:41 PM FASHION COORDINATOR ION COORDINATOR ION COORDINATOR Associated attestation - Vibha Tristan MD - 10/09/2024 1:41 PM FASHION COORDINATOR I have seen and examined the patient [...] MD Gestational age: 33w1d Time on monitor: 2709-4310 FHR Baseline: 135 that moves to 130 at time of taking off the monitor Variability: moderate Accelerations: present Decelerations: absent Contractions: absent Reactive: Yes Comments: 24 y.o. at 33w1d a/f PreEwSF I have reviewed NST and instructed RN to take off monitor Angelica Morrison MD Cosigned by Vibha Tristan MD at 10/11/2024 9:07 AM FASHION COORDINATOR ION COORDINATOR ION COORDINATOR Associated attestation - Vibha Tristan MD - 10/11/2024 9:07 AM FASHION COORDINATOR I have reviewed the NST and agree with the documentation provided by the resident/BULK PIGMENT REDUCER. Vibha Tristan MD 10/08/2024 - 33w1d - [...] % Max: 99 % FHR: NST reactive Garretson: contractions absent Physical Exam General: No acute [...] QT, resolved - Recent admission 08/29-08/30 at [facility] for N/V that improved with anti-emetics - [...] consult - Follows with Dr. Johnson/Sandra at [facility] #FWB: - OSH US 09/04/24: EFW [...] Vibha Tristan MD at 10/08/2024 8:15 AM FASHION COORDINATOR ION COORDINATOR ION COORDINATOR Associated attestation - Vibha Tristan MD - 10/08/2024 8:15 AM FASHION COORDINATOR I have seen and examined the patient [...] % Max: 99 % FHR: NST reactive Garretson: contractions absent Physical Exam General: No acute [...] QT, resolved - Recent admission 08/29-08/30 at [facility] for N/V that improved with anti-emetics - [...] consult - Follows with Dr. Johnson/Sandra at [facility] #FWB: - OSH US 09/04/24: EFW [...] Vibha Vegas MD at 10/07/2024 7:18 AM FASHION COORDINATOR ION COORDINATOR ION COORDINATOR ION COORDINATOR Associated attestation - Vibha Vegas MD - 10/07/2024 7:18 AM FASHION COORDINATOR MFM Attending Attestation I have seen and examined the patient, Kayla Faye, on 10/07/2024 and I am in agreement with the plan as documented in the resident/fellow/FARTUN's note. EKG ordered for tachycardia. Otherwise stable preE. Vibha Vegas MD 10/07/2024 10/06/2024 - 32w6d - Jayde Garrett MD Antepartum Progress Note [...] % Max: 100 % FHR: NST reactive Garretson: contractions absent Physical Exam General: No acute [...] QT, resolved - Recent admission 08/29-08/30 at [facility] for N/V that improved with anti-emetics - [...] consult - Follows with Dr. Johnson/Sandra at [facility] #FWB: - OSH US 09/04/24: EFW [...] inpatient management until delivery Jayde Garrett MD REAL ESTATE LISTING CONSULTANT PGY-3 Cosigned by Vibha Vegas MD at 10/06/2024 11:23 AM FASHION COORDINATOR ION COORDINATOR ION COORDINATOR Associated attestation - Vibha Vegas MD - 10/06/2024 11:23 AM FASHION COORDINATOR MFM Attending Attestation I have seen and [...] needs. SW remains available. Fadia FARNSWORTH, [facility] Clinical Invoice Control Clerk [facility] Infants Units ION COORDINATOR 10/05/2024 - 32w5d - Jayde Garrett MD [...] % Max: 99 % FHR: NST reactive Garretson: no regular contractions Physical Exam General: No [...] QT, resolved - Recent admission 08/29-08/30 at [facility] for N/V that improved with anti-emetics - [...] consult - Follows with Dr. Johnson/Sandra at [facility] #FWB: - OSH US 09/04/24: EFW [...] inpatient management until delivery Jayde Garrett MD REAL ESTATE LISTING CONSULTANT PGY-3 Cosigned by Vibha Vegas MD at 10/05/2024 12:26 PM FASHION COORDINATOR ION COORDINATOR ION COORDINATOR Associated attestation - Vibha Vegas MD - 10/05/2024 12:26 PM FASHION COORDINATOR MFM Attending Attestation I have seen and [...] % Max: 100 % FHR: NST reactive Garretson: no regular contractions Physical Exam General: No [...] QT, resolved - Recent admission 08/29-08/30 at [facility] for N/V that improved with anti-emetics - [...] consult - Follows with Dr. Johnson/Sandra at [facility] #FWB: - OSH US 09/04/24: EFW [...] inpatient management until delivery Jayde Garrett MD REAL ESTATE LISTING CONSULTANT PGY-3 Cosigned by Vibha Vegas MD at 10/04/2024 10:34 AM FASHION COORDINATOR ION COORDINATOR ION COORDINATOR Associated attestation - Vibha Vegas MD - 10/04/2024 10:34 AM FASHION COORDINATOR MFM Attending Attestation I have seen and examined the patient, Kayla Faye, on 10/04/2024 and I am in agreement with the plan as documented in the resident/fellow/FARTUN's note. Stable preE and ICP. Vibha Vegas MD 10/04/2024 10/03/2024 - 32w3d - [facility] Jayde Alvaren[facility] MD Antepartum Progress Note Gestational [...] % Max: 98 % FHR: NST reactive Garretson: no regular contractions Physical Exam General: No [...] QT, resolved - Recent admission 08/29-08/30 at [facility] for N/V that improved with anti-emetics - [...] consult - Follows with Dr. Johnson/Sandra at [facility] #FWB: - OSH US 09/04/24: EFW [...] inpatient management until delivery Jayde Garrett MD REAL ESTATE LISTING CONSULTANT PGY-3 Cosigned by Vibha Vegas MD at 10/03/2024 8:41 PM FASHION COORDINATOR ION COORDINATOR ION COORDINATOR Associated attestation - Vibha Vegas MD - 10/03/2024 8:41 PM FASHION COORDINATOR MFM Attending Attestation I have seen and [...] % Max: 100 % FHR: NST reactive Garretson: no regular contractions Physical Exam General: No [...] QT, resolved - Recent admission 08/29-08/30 at [facility] for N/V that improved with anti-emetics - [...] consult - Follows with Dr. Johnson/Sandra at [facility] #FWB: - OSH US 09/04/24: EFW [...] inpatient management until delivery Jayde Garrett MD REAL ESTATE LISTING CONSULTANT PGY-3 Cosigned by Vibha Vegas MD at 10/02/2024 10:49 AM FASHION COORDINATOR ION COORDINATOR ION COORDINATOR Associated attestation - Vibha Vegas MD - 10/02/2024 10:49 AM FASHION COORDINATOR MFM Attending Attestation I have seen and [...] % Max: 98 % FHR: NST reactive Garretson: no regular contractions Physical Exam General: No [...] QT, resolved - Recent admission 08/29-08/30 at [facility] for N/V that improved with anti-emetics - [...] consult - Follows with Dr. Johnson/Sandra at [facility] #FWB: - OSH US 09/04/24: EFW [...] inpatient management until delivery Jayde Garrett MD REAL ESTATE LISTING CONSULTANT PGY-3 Cosigned by Tarah Skaggs MD at 10/01/2024 7:20 AM FASHION COORDINATOR ION COORDINATOR ION COORDINATOR Associated attestation - Tarah Skaggs MD - 10/01/2024 7:20 AM FASHION COORDINATOR I have seen and examined the patient [...] % Max: 99 % FHR: NST reactive Garretson: no regular contractions Physical Exam General: No [...] QT, resolved - Recent admission 08/29-08/30 at [facility] for N/V that improved with anti-emetics - [...] consult - Follows with Dr. Johnson/Sandra at [facility] #FWB: - OSH US 09/04/24: EFW [...] inpatient management until delivery Jayde Garrett MD REAL ESTATE LISTING CONSULTANT PGY-3 Cosigned by Carmita Lozano MD at 09/30/2024 8:41 AM FASHION COORDINATOR ION COORDINATOR ION COORDINATOR Associated attestation - Carmita Lozano MD - 09/30/2024 8:41 AM FASHION COORDINATOR Attending Attestation I have seen, examined, and [...] Lauri Flowers MD at 10/03/2024 4:41 PM FASHION COORDINATOR ION COORDINATOR ION COORDINATOR Associated attestation - Lauri Flowers MD - 10/03/2024 4:41 PM FASHION COORDINATOR I have reviewed and agree with NST [...] % Max: 99 % FHR: NST reactive Garretson: no regular contractions Physical Exam General: No [...] QT, resolved - Recent admission 08/29-08/30 at [facility] for N/V that improved with anti-emetics - [...] consult - Follows with Dr. Johnson/Sandra at [facility] #FWB: - OSH US 09/04/24: EFW [...] inpatient management until delivery Jayde Garrett MD REAL ESTATE LISTING CONSULTANT PGY-3 Cosigned by Lauri Flowers MD at 09/29/2024 1:01 PM FASHION COORDINATOR ION COORDINATOR ION COORDINATOR Associated attestation - Lauri Flowers MD - 09/29/2024 1:01 PM FASHION COORDINATOR I have seen and examined the patient [...] Lauri Flowers MD at 09/28/2024 3:20 PM FASHION COORDINATOR ION COORDINATOR ION COORDINATOR 09/28/2024 - 31w5d - Jayde Garrett MD [...] % Max: 98 % FHR: NST reactive Garretson: no regular contractions Physical Exam General: No [...] QT, resolved - Recent admission 08/29-08/30 at [facility] for N/V that improved with anti-emetics - [...] consult - Follows with Dr. Johnson/Sandra at [facility] #FWB: - OSH US 09/04/24: EFW [...] inpatient management until delivery Jayde Garrett MD REAL ESTATE LISTING CONSULTANT PGY-3 Cosigned by Lauri Flowers MD at 09/28/2024 11:22 AM FASHION COORDINATOR ION COORDINATOR ION COORDINATOR Associated attestation - Lauri Flowers MD - 09/28/2024 11:22 AM FASHION COORDINATOR I have seen and examined the patient [...] % Max: 99 % FHR: NST reactive Garretson: no regular contractions Physical Exam General: No [...] QT, resolved - Recent admission 08/29-08/30 at [facility] for N/V that improved with anti-emetics - [...] consult - Follows with Dr. Johnson/Sandra at [facility] #FWB: - OSH US 09/04/24: EFW [...] inpatient management until delivery Jayde Garrett MD REAL ESTATE LISTING CONSULTANT PGY-3 Cosigned by Lauri Flowers MD at 09/27/2024 11:33 AM FASHION COORDINATOR ION COORDINATOR ION COORDINATOR Associated attestation - Lauri Flowers MD - 09/27/2024 11:33 AM FASHION COORDINATOR I have seen and examined the patient [...] % Max: 98 % FHR: NST reactive Garretson: no regular contractions Physical Exam General: No [...] QT, resolved - Recent admission 08/29-08/30 at [facility] for N/V that improved with anti-emetics - [...] 10mg) - Follows with Dr. Johnson/Sandra at [facility] #FWB: - OSH US 09/04/24: EFW [...] inpatient management until delivery Jayde Garrett MD REAL ESTATE LISTING CONSULTANT PGY-3 Cosigned by Lauri Flowers MD at 09/26/2024 10:01 AM FASHION COORDINATOR ION COORDINATOR ION COORDINATOR Associated attestation - Lauri Flowers MD - 09/26/2024 10:01 AM FASHION COORDINATOR I have seen and examined the patient [...] additional attempt to provide support. Coby Hernandez [facility] [facility] Invoice Control Clerk [facility] Primary Care Medicine Clinic ION COORDINATOR 09/25/2024 - 31w2d - Jayde Garrett MD [...] % Max: 99 % FHR: NST reactive Garretson: no regular contractions Physical Exam General: No [...] QT, resolved - Recent admission 08/29-08/30 at [facility] for N/V that improved with anti-emetics - [...] 10mg - Follows with Dr. Johnson/Sandra at [facility] #FWB: - OSH US 09/04/24: EFW [...] inpatient management until delivery Jayde Garrett MD REAL ESTATE LISTING CONSULTANT PGY-3 Cosigned by Lauri Flowers MD at 09/25/2024 9:44 AM FASHION COORDINATOR ION COORDINATOR ION COORDINATOR Associated attestation - Lauri Flowers MD - 09/25/2024 9:44 AM FASHION COORDINATOR I have seen and examined the patient [...] % Max: 99 % FHR: NST reactivex2 Garretson: no regular contractions Physical Exam General: No [...] QT, resolved - Recent admission 08/29-08/30 at [facility] for N/V that improved with anti-emetics - [...] 10mg - Follows with Dr. Johnson/Sandra at [facility] #FWB: - OSH US 09/04/24: EFW [...] Mayi Painter MD at 09/24/2024 6:31 AM FASHION COORDINATOR ION COORDINATOR ION COORDINATOR Associated attestation - Mayi Painter MD - 09/24/2024 6:31 AM FASHION COORDINATOR I have seen and examined the patient. [...] % Max: 99 % FHR: NST reactivex2 Garretson: no regular contractions Physical Exam General: No [...] QT, resolved - Recent admission 08/29-08/30 at [facility] for N/V that improved with anti-emetics - [...] 10mg - Follows with Dr. Johnson/Sandra at [facility] #FWB: - OSH US 09/04/24: EFW [...] Mayi Painter MD at 09/23/2024 8:54 AM FASHION COORDINATOR ION COORDINATOR ION COORDINATOR Associated attestation - Mayi Painter MD - 09/23/2024 8:54 AM FASHION COORDINATOR I have seen and examined the patient. [...] weeks. SW remains available. Fadia FARNSWORTH LCSW [facility] Clinical Invoice Control Clerk [facility] ION COORDINATOR 09/22/2024 - 30w6d - Jayde Garrett MD [...] % Max: 99 % FHR: NST reactivex2 Garretson: no regular contractions Physical Exam General: No [...] QT, resolved - Recent admission 08/29-08/30 at [facility] for N/V that improved with anti-emetics - [...] 10mg - Follows with Dr. Johnson/Sandra at [facility] #FWB: - OSH US 09/04/24: EFW [...] for VTE prophylaxis ordered. Jayde Garrett MD REAL ESTATE LISTING CONSULTANT PGY-3 Cosigned by Aline Smith MD at 09/22/2024 4:40 PM FASHION COORDINATOR ION COORDINATOR ION COORDINATOR Associated attestation - Aline Smith MD - 09/22/2024 4:40 PM FASHION COORDINATOR I have seen and examined the patient [...] preeclampsia with severe features. Aline Smith MD Employment Advisor Division of Maternal- Medicine 09/21/2024 - - Crystal Rueda Chaplain Crystal Quintanilla [facility] Spiritual Care Triage: [phone] 09/21/24 1100 Time Spent Start Time 1045 Stop Time 1100 Time Calculation (min) 15 min Patient Spiritual Assessment Spirituality Assessed Focus of Care Clinical Encounter Type Visited With Patient Response Type Routine visit Routine Visit Introduction Reason for visit Support Outcomes and Progress Demonstrating care and respect Achieved Interventions Interventions Offer emotional support;Offer spiritual/sabianist support ION COORDINATOR 09/21/2024 - - Jayde Garrett MD Antepartum [...] % Max: 99 % FHR: NST reactive Garretson: no regular contractions Physical Exam General: No [...] QT, resolved - Recent admission 08/29-08/30 at [facility] for N/V that improved with anti-emetics - [...] 10mg - Follows with Dr. Johnson/Sandra at [facility] #FWB: - OSH US 09/04/24: EFW [...] for VTE prophylaxis ordered. Jayde Garrett MD REAL ESTATE LISTING CONSULTANT PGY-3 Cosigned by Aline Smith MD at 09/21/2024 11:53 AM FASHION COORDINATOR ION COORDINATOR ION COORDINATOR Associated attestation - Aline Smith MD - 09/21/2024 11:53 AM FASHION COORDINATOR I have seen and examined the patient on 09/21/24. I agree with the findings and plan of care as documented in the resident's/fellow's note. BPs normotensive. Repeating bile acids with PIH labs tomorrow 09/22. Continue inpatient management of preeclampsia with severe features. Aline Smith MD Employment Advisor Division of Maternal- Medicine 09/20/2024 - 30w4d [...] % Max: 99 % FHR: NST reactive Garretson: no regular contractions Physical Exam General: No [...] QT, resolved - Recent admission 08/29-08/30 at [facility] for N/V that improved with anti-emetics - [...] 10mg - Follows with Dr. Johnson/Sandra at [facility] #FWB: - OSH US 09/04/24: EFW [...] Rula Bang MD at 09/20/2024 7:37 AM FASHION COORDINATOR ION COORDINATOR ION COORDINATOR Associated attestation - Rula Bang MD - 09/20/2024 7:37 AM FASHION COORDINATOR I have seen and examined the patient [...] when otherwise indicated. Vidhya De La Cruz VICE SQUAD POLICE OFFICER, WORKFORCE MANAGEMENT MANAGER Social Work ION COORDINATOR 09/19/2024 - 30w3d - Leslie Gonzales MD [...] % Max: 100 % FHR: NST reactive Garretson: no regular contractions Physical Exam General: No [...] QT, resolved - Recent admission 08/29-08/30 at [facility] for N/V that improved with anti-emetics - [...] 10mg - Follows with Dr. Johnson/Sandra at [facility] #FWB: - OSH US 09/04/24: EFW [...] Rula Bang MD at 09/19/2024 7:15 AM FASHION COORDINATOR ION COORDINATOR ION COORDINATOR Associated attestation - Rula Bang MD - 09/19/2024 7:15 AM FASHION COORDINATOR I have seen and examined the patient [...] % Max: 100 % FHR: NST reactive Garretson: no regular contractions Physical Exam General: No [...] QT, resolved - Recent admission 08/29-08/30 at [facility] for N/V that improved with anti-emetics - [...] 10mg - Follows with Dr. Johnson/Sandra at [facility] #FWB: - OSH US 09/04/24: EFW [...] Aline Smith MD at 09/18/2024 11:46 AM FASHION COORDINATOR ION COORDINATOR ION COORDINATOR Associated attestation - Aline Smith MD - 09/18/2024 11:46 AM FASHION COORDINATOR I have seen and examined the patient on 09/18/24. I agree with the findings and plan of care as documented in the resident's/fellow's note. BPs normotensive on nifedipine 30 mg XL. No symptoms of preeclampsia of severe features. No ICP symptoms. Continue inpatient management of preeclampsia with severe features. Aline Smith MD Employment Advisor Division of Maternal- Medicine 09/17/2024 - 30w1d [...] % Max: 100 % FHR: NST reactive Garretson: no regular contractions Physical Exam General: No [...] QT, resolved - Recent admission 08/29-08/30 at [facility] for N/V that improved with anti-emetics - [...] 10mg - Follows with Dr. Johnson/Sandra at [facility] #FWB: - OSH US 09/04/24: EFW [...] Allegra Rushing MD at 09/18/2024 7:11 AM FASHION COORDINATOR ION COORDINATOR ION COORDINATOR ION COORDINATOR Associated attestation - Allegra Rushing MD - 09/18/2024 7:11 AM FASHION COORDINATOR I have seen and examined the patient [...] % Max: 99 % FHR: NST reactive Garretson: no regular contractions Physical Exam General: No [...] QT, resolved - Recent admission 08/29-08/30 at [facility] for N/V that improved with anti-emetics - [...] 10mg - Follows with Dr. Johnson/Sandra at [facility] #FWB: - OSH US 09/04/24: EFW [...] Allegra Rushing MD at 09/16/2024 11:40 AM FASHION COORDINATOR ION COORDINATOR ION COORDINATOR ION COORDINATOR Associated attestation - Allegra Rushing MD - 09/16/2024 11:40 AM FASHION COORDINATOR I have seen and examined the patient [...] when otherwise indicated. Vidhya De La Cruz VICE SQUAD POLICE OFFICER, WORKFORCE MANAGEMENT MANAGER Social Work ION COORDINATOR 09/15/2024 - wmaritza - Joel Paredes CNM [...] Lauri Flowers MD at 09/15/2024 10:53 AM FASHION COORDINATOR ION COORDINATOR ION COORDINATOR 09/15/2024 - 29w6d - Leslie Gonzales MD [...] % Max: 99 % FHR: NST reactive Garretson: no regular contractions Physical Exam General: No [...] QT, resolved - Recent admission 08/29-08/30 at [facility] for N/V that improved with anti-emetics - [...] 10mg - Follows with Dr. Johnson/Sandra at [facility] #FWB: - OSH US 09/04/24: EFW [...] Lauri Flowers MD at 09/15/2024 10:01 AM FASHION COORDINATOR ION COORDINATOR ION COORDINATOR Associated attestation - Lauri Flowers MD - 09/15/2024 10:01 AM FASHION COORDINATOR I have seen and examined the patient [...] % Max: 99 % FHR: NST reactive Garretson: no regular contractions Physical Exam General: No [...] QT, resolved - Recent admission 08/29-08/30 at [facility] for N/V that improved with anti-emetics - [...] 10mg - Follows with Dr. Johnson/Sandra at [facility] #FWB: - OSH US 09/04/24: EFW [...] Lauri Flowers MD at 09/14/2024 10:37 AM FASHION COORDINATOR ION COORDINATOR ION COORDINATOR Associated attestation - Lauri Flowers MD - 09/14/2024 10:37 AM FASHION COORDINATOR I have seen and examined the patient [...] % Max: 99 % FHR: NST reactive Garretson: no regular contractions Physical Exam General: No [...] QT, resolved - Recent admission 08/29-08/30 at [facility] for N/V that improved with anti-emetics - [...] 10mg - Follows with Dr. Johnson/Sandra at [facility] #FWB: - OSH US 09/04/24: EFW [...] Gina Rodriguez MD at 09/13/2024 8:38 PM FASHION COORDINATOR ION COORDINATOR ION COORDINATOR Associated attestation - Gina Rodriguez MD - 09/13/2024 8:38 PM FASHION COORDINATOR I have seen and examined the patient [...] % Max: 99 % FHR: NST reactive Garretson: no regular contractions Physical Exam General: No [...] QT, resolved - Recent admission 08/29-08/30 at [facility] for N/V that improved with anti-emetics - [...] 10mg - Follows with Dr. Johnson/Sandra at [facility] #FWB: - OSH US 09/04/24: EFW [...] Gina Rodriguez MD at 09/12/2024 1:33 PM FASHION COORDINATOR ION COORDINATOR ION COORDINATOR ION COORDINATOR Associated attestation - Gina Rodriguez MD - 09/12/2024 1:33 PM FASHION COORDINATOR I have seen and examined the patient [...] EGA. SW remains available. Fadia Darling MSW, WORKFORCE MANAGEMENT MANAGER [facility] Clinical Invoice Control Clerk [facility] ION COORDINATOR 09/11/2024 - w2d Jerald Frankel DO Transfusion [...] future transfusions. Contact Information: Please contact the [facility] Transfusion Medicine Service at (option 1) with any questions. This report has been prepared by: Paula Huizar DO Attestation: I have personally reviewed the antibody result and agree with the interpretation contained in this written blood bank report. Dena Ness DO ION COORDINATOR ION COORDINATOR 09/11/2024 - 29w2d - Estela Newman MD [...] % Max: 100 % FHR: NST reactive Garretson: no regular contractions Physical Exam General: No [...] QT, resolved - Recent admission 08/29-08/30 at [facility] for N/V that improved with anti-emetics - [...] 10mg - Follows with Dr. Johnson/Sandra at [facility] #FWB: - OSH US 09/04/24: EFW [...] Lauri Flowers MD at 09/11/2024 10:30 AM FASHION COORDINATOR ION COORDINATOR ION COORDINATOR Associated attestation - Lauri Flowers MD - 09/11/2024 10:30 AM FASHION COORDINATOR I have seen and examined the patient [...] % Max: 100 % FHR: NST reactive Garretson: no regular contractions Physical Exam General: No [...] QT, resolved - Recent admission 08/29-08/30 at [facility] for N/V that improved with anti-emetics - [...] 10mg - Follows with Dr. Johnson/Sandra at [facility] #FWB: - OSH US 09/04/24: EFW [...] have edited where appropriate. Allegra Rushing MD ION COORDINATOR ION COORDINATOR 09/09/2024 - 29w0d - Estela Newman MD [...] % Max: 100 % FHR: NST reactive Garretson: no regular contractions Physical Exam General: No [...] QT, resolved - Recent admission 08/29-08/30 at [facility] for N/V that improved with anti-emetics - [...] 10mg - Follows with Dr. Johnson/Sandra at [facility] #FWB: - OSH US 09/04/24: EFW [...] Danya Mallory MD at 09/09/2024 1:00 PM FASHION COORDINATOR ION COORDINATOR ION COORDINATOR ION COORDINATOR Associated attestation - Danya Mallory MD - 09/09/2024 1:00 PM FASHION COORDINATOR I have seen and examined the patient [...] social needs. SW remains available. Tamara Betancourt VICE SQUAD POLICE OFFICER, WORKFORCE MANAGEMENT MANAGER [facility] Skilled Nursing Facility Counselor ION COORDINATOR 09/08/2024 - - Leslie Gonzales MD Antepartum [...] % Max: 99 % FHR: NST reactive Garretson: no regular contractions Physical Exam General: No [...] QT, resolved - Recent admission 08/29-08/30 at [facility] for N/V that improved with anti-emetics - [...] 10mg - Follows with Dr. Johnson/Sandra at [facility] #FWB: - OSH US 09/04/24: EFW [...] Allegra Rushing MD at 09/24/2024 10:15 PM FASHION COORDINATOR ION COORDINATOR ION COORDINATOR ION COORDINATOR Associated attestation - Allegra Rushing MD - 09/24/2024 10:15 PM FASHION COORDINATOR I have seen and examined the patient [...] % Max: 99 % FHR: NST reactive Garretson: no regular contractions Physical Exam General: No [...] #Prolonged QT - Recent admission 08/29-08/30 at [facility] for N/V that improved with anti-emetics - [...] 10mg - Follows with Dr. Johnson/Sandra at [facility] #FWB: - OSH US 09/04/24: EFW [...] Allegra Rushing MD at 09/07/2024 4:27 PM FASHION COORDINATOR ION COORDINATOR ION COORDINATOR ION COORDINATOR ION COORDINATOR Associated attestation - Allegra Rushing MD - 09/07/2024 4:27 PM FASHION COORDINATOR I have seen and examined the patient [...] Vibha Burnette MD Obstetrics and Gynecology, PGY-2 ION COORDINATOR 09/06/2024 - - Leslie Gonzales MD Images from the original note were not included. R2 update To bedside to assess R arm swelling. Patient reports new swelling of RUE. She is not aware of bites of any sort. She has not been outside for [employer] or [employer] recently. She has not received any recent injections in the arm. She denies fever/chills. Exam with mild swelling of the R deltoid with single small puncture wound, possible bug bite. Offered supportive care with ice and bendaryl PRN. Lexie Gonzales MD Obstetrics and Gynecology, PGY-2 ION COORDINATOR ION COORDINATOR 09/06/2024 - - Allegra Benton MD Antepartum [...] % Max: 100 % FHR: NST reactive Garretson: no regular contractions Physical Exam General: No [...] #Prolonged QT - Recent admission 08/29-08/30 at [facility] for N/V that improved with anti-emetics - [...] 10mg - Follows with Dr. Johnson/Sandra at [facility] #FWB: - OSH US 09/04/24: EFW [...] ALT. Discussed Tdap, RhoGAM. Allegra Rushing MD ION COORDINATOR ION COORDINATOR ION COORDINATOR ION COORDINATOR ION COORDINATOR 09/06/2024 - w4d - Vibha Ibarra MD [...] Vibha Burnette MD Obstetrics and Gynecology, PGY-2 ION COORDINATOR ION COORDINATOR 09/05/2024 - w3d - Leslie Gonzales MD [...] % Max: 100 % FHR: NST reactive Garretson: no regular contractions Physical Exam General: No [...] #Prolonged QT - Recent admission 08/29-08/30 at [facility] for N/V that improved with anti-emetics - [...] 10mg - Follows with Dr. Johnson/Sandra at [facility] #FWB: - OSH US 09/04/24: EFW [...] Allegra Rushing MD at 09/07/2024 3:45 PM FASHION COORDINATOR ION COORDINATOR ION COORDINATOR ION COORDINATOR Associated attestation - Allegra Rushing MD - 09/07/2024 3:45 PM FASHION COORDINATOR I have seen and examined the patient [...] if she starts to feel bad again. ION COORDINATOR Progress Notes - Routine Pre - 08/07/2024 - GA:24w2d 08/07/2024 - 24w2d - Stephany Newman NP 24w2d Reviewed anatomy scan.Additional images today. - unsure, she is worried about smoking and breast milk/ mental health. Packet reviewed. Contraception- unsure, possible Nexplanon or IUD. Discussed upcoming GTT. Flu- has had. Covid, RSV vaccination recommended. RTO 4 weeks with . Zena TAYLOR ION COORDINATOR Progress Notes - Routine Pre huey - [...] nurse visit. 4 weeks with . Zena TYALOR Cosigned by Dena Padilla MD at 06/06/2024 [...] Physical OB Exam: Last filed by Dena Padlila MD on 05/09/2024 4:39 PM General Physical [...] She will f/u with Dr. Johnson/Sandra at [facility]. Sleep hygiene reviewed. Marijuana smoker Assessment [...] Comments Blood Pressure 112/74 11/21/2024 3:47 PM FASHION COORDINATOR Pulse 93 10/15/2024 12:40 PM FASHION COORDINATOR Temperature 36.6 C (97.8 F) 10/15/2024 12:40 PM FASHION COORDINATOR Respiratory Rate 16 10/15/2024 12:40 PM FASHION COORDINATOR Oxygen Saturation 99% 10/15/2024 12:40 PM FASHION COORDINATOR Inhaled Oxygen Concentration - - Weight 71.7 kg (158 lb) 11/21/2024 3:47 PM FASHION COORDINATOR Height 152.4 cm (5') 11/21/2024 3:47 PM FASHION COORDINATOR Body Mass Index 30.86 11/21/2024 3:47 PM FASHION COORDINATOR Plan of Treatment Health Maintenance Due [...] Comments ECG 12-LEAD Routine 10/20/2024 1:57 PM FASHION COORDINATOR BLEED SCREEN Timed 10/14/2024 5: 18 PM FASHION COORDINATOR ABO/RH Timed 10/14/2024 5:18 PM FASHION COORDINATOR RH IMMUNE GLOBULIN EVAL Timed 10/14/2024 5:18 PM FASHION COORDINATOR EGFR Timed 10/14/2024 6:44 AM FASHION COORDINATOR CBC WITHOUT DIFFERENTIAL Timed 10/14/2024 6:44 AM FASHION COORDINATOR COMPREHENSIVE METABOLIC PANEL Timed 10/14/2024 6:44 AM FASHION COORDINATOR TYPE AND SCREEN Timed 10/13/2024 5:53 AM FASHION COORDINATOR CBC WITHOUT DIFFERENTIAL Routine 10/13/2024 5:53 AM FASHION COORDINATOR SURGICAL PATHOLOGY Routine 10/12/2024 7: 30 PM FASHION COORDINATOR ANESTHESIA SPINAL BLOCK Routine 10/12/2024 7:16 PM FASHION COORDINATOR EGFR Routine 10/12/2024 6:16 AM FASHION COORDINATOR MAGNESIUM Routine 10/12/2024 6:16 AM FASHION COORDINATOR PHOSPHORUS Routine 10/12/2024 6:16 AM FASHION COORDINATOR CBC WITHOUT DIFFERENTIAL Routine 10/12/2024 6:16 AM FASHION COORDINATOR COMPREHENSIVE METABOLIC PANEL Routine 10/12/2024 6:16 AM FASHION COORDINATOR EGFR Routine 10/11/2024 6:21 AM FASHION COORDINATOR MAGNESIUM Routine 10/11/2024 6:21 AM FASHION COORDINATOR PHOSPHORUS Routine 10/11/2024 6:21 AM FASHION COORDINATOR CBC WITHOUT DIFFERENTIAL Routine 10/11/2024 6:21 AM FASHION COORDINATOR COMPREHENSIVE METABOLIC PANEL Routine 10/11/2024 6:21 AM FASHION COORDINATOR ANTIBODY IDENTIFICATION Routine 10/10/2024 7:46 AM FASHION COORDINATOR EGFR Routine 10/10/2024 6:24 AM FASHION COORDINATOR MAGNESIUM Routine 10/10/2024 6:24 AM FASHION COORDINATOR PHOSPHORUS Routine 10/10/2024 6:24 AM FASHION COORDINATOR CBC WITHOUT DIFFERENTIAL Routine 10/10/2024 6:24 AM FASHION COORDINATOR COMPREHENSIVE METABOLIC PANEL Routine 10/10/2024 6:24 AM FASHION COORDINATOR TYPE AND SCREEN Timed 10/10/2024 6:24 AM FASHION COORDINATOR CBC WITHOUT DIFFERENTIAL Timed 10/09/2024 1:11 PM FASHION COORDINATOR EGFR Routine 10/09/2024 6:13 AM FASHION COORDINATOR COMPREHENSIVE METABOLIC PANEL Routine 10/09/2024 6:13 AM FASHION COORDINATOR EGFR Routine 10/08/2024 10:56 AM FASHION COORDINATOR BILE ACIDS, TOTAL Routine 10/08/2024 10: 56 AM FASHION COORDINATOR COMPREHENSIVE METABOLIC PANEL Routine 10/08/2024 10:56 AM FASHION COORDINATOR ECG 12-LEAD Routine 10/07/2024 2:02 PM FASHION COORDINATOR ANTIBODY IDENTIFICATION Routine 10/07/2024 7:44 AM FASHION COORDINATOR EGFR Timed 10/07/2024 6:25 AM FASHION COORDINATOR COMPREHENSIVE METABOLIC PANEL Timed 10/07/2024 6:25 AM FASHION COORDINATOR CBC WITHOUT DIFFERENTIAL Timed 10/07/2024 6:25 AM FASHION COORDINATOR TYPE AND SCREEN Timed 10/07/2024 6:25 AM FASHION COORDINATOR GROUP B STREPTOCOCCUS CULTURE Routine 10/06/2024 4:11 PM FASHION COORDINATOR US OB LIMITED Schedule Routine, Read Routine (OP Routine) 10/04/2024 8:12 AM FASHION COORDINATOR Encounter for follow-up ultrasound of anatomy ANTIBODY IDENTIFICATION Routine 10/04/2024 7:44 AM FASHION COORDINATOR EGFR Timed 10/04/2024 6:15 AM FASHION COORDINATOR COMPREHENSIVE METABOLIC PANEL Timed 10/04/2024 6:15 AM FASHION COORDINATOR CBC WITHOUT DIFFERENTIAL Timed 10/04/2024 6:15 AM FASHION COORDINATOR TYPE AND SCREEN Timed 10/04/2024 6:15 AM FASHION COORDINATOR ANTIBODY IDENTIFICATION Routine 10/01/2024 7:53 AM FASHION COORDINATOR EGFR Timed 10/01/2024 6:31 AM FASHION COORDINATOR COMPREHENSIVE METABOLIC PANEL Timed 10/01/2024 6:31 AM FASHION COORDINATOR CBC WITHOUT DIFFERENTIAL Timed 10/01/2024 6:31 AM FASHION COORDINATOR TYPE AND SCREEN Timed 10/01/2024 6:31 AM FASHION COORDINATOR ANTIBODY IDENTIFICATION Routine 09/28/2024 8:02 AM FASHION COORDINATOR EGFR Timed 09/28/2024 6:22 AM FASHION COORDINATOR COMPREHENSIVE METABOLIC PANEL Timed 09/28/2024 6:22 AM FASHION COORDINATOR CBC WITHOUT DIFFERENTIAL Timed 09/28/2024 6:22 AM FASHION COORDINATOR TYPE AND SCREEN Timed 09/28/2024 6:22 AM FASHION COORDINATOR ANTIBODY IDENTIFICATION Routine 09/25/2024 8:06 AM FASHION COORDINATOR EGFR Timed 09/25/2024 6:43 AM FASHION COORDINATOR COMPREHENSIVE METABOLIC PANEL Timed 09/25/2024 6:43 AM FASHION COORDINATOR CBC WITHOUT DIFFERENTIAL Timed 09/25/2024 6:43 AM FASHION COORDINATOR TYPE AND SCREEN Timed 09/25/2024 6:43 AM FASHION COORDINATOR ANTIBODY IDENTIFICATION Routine 09/22/2024 7:21 AM FASHION COORDINATOR EGFR Timed 09/22/2024 6:09 AM FASHION COORDINATOR BILE ACIDS, TOTAL Routine 09/22/2024 6:0 9 AM FASHION COORDINATOR COMPREHENSIVE METABOLIC PANEL Timed 09/22/2024 6:09 AM FASHION COORDINATOR CBC WITHOUT DIFFERENTIAL Timed 09/22/2024 6:09 AM FASHION COORDINATOR TYPE AND SCREEN Timed 09/22/2024 6:09 AM FASHION COORDINATOR HEPATITIS PANEL, ACUTE STAT 09/04/2024 5:51 PM FASHION COORDINATOR N. GONORRHOEAE/C. TRACHOMATIS AMPLIFICATION Routine 05/09/2024 10:35 AM CDT PAP WITH REFLEX TO HIGH RISK HPV Routine 05/09/2024 9:03 AM CDT Encounter for supervision of normal first in second trimester SECTION from Last 3 Months or Most Recently Relevant to Health Maintenance Results * ECG 12 lead (10/20/2024 1:57 PM FASHION COORDINATOR) Ventricular Rate EKG/Min 117 BPM [facility] Atrial Rate 117 BPM [facility] NE-Interval (MSEC) 140 ms [facility] QRS-Interval (MSEC) 70 ms [facility] QT-Interval (MSEC) 302 ms [facility] QTc 421 ms [facility] P [place] 57 degrees [facility] R [place] 60 degrees [facility] T [place] 21 degrees [facility] Diagnosis Sinus tachycardia Otherwise normal ECG When compared with ECG of 07-OCT-2024 14:02, No significant change was found Confirmed by Edgardo Gomes ([id number]) on 10/21/2024 6:35:11 AM Also confirmed by Edgardo Gomes ([id number]), production editor Estela Grissom ([id number]) on 10/23/2024 12:48:25 PM [facility] 10/20/2024 1:57 PM FASHION COORDINATOR 10/23/2024 12:48 PM FASHION COORDINATOR Tamara Chow MD ECG ORDERABLES Edited Re sult - Final Performing Organization Address City/[facility]/ZIP Co de Phone Number [facility] * Rh Immune Globulin Eval (10/14/2024 5:18 PM FASHION COORDINATOR) RhIg Eligible Yes, eligible RhIg Administration 1 vial of Rh Immune Globulin (300 mcg dose) [facility] Blood 10/14/2024 5:18 PM FASHION COORDINATOR 10/14/2024 5:34 PM FASHION COORDINATOR Narrative [facility] - 10/14/2024 7:02 PM FASHION COORDINATOR Number of weeks ?->20 weeks or greater antibody screen result:->Negative Rhogam given?->Given Date Given?->09/07/24 Number of vials requested:->1 Vibha Vegas MD LAB BLOOD BANK TE ST ORDERABLES Final Result Performing Organization Address [facility] de Phone Number [facility] Department [place] [address] * Bleed Screen (10/14/2024 5:18 PM FASHION COORDINATOR) Pathologist [facility] Bleed Screen Negative Blood 10/14/2024 5:18 PM FASHION COORDINATOR 10/14/2024 5:34 PM FASHION COORDINATOR Vibha Burnette MD LAB BLOOD BANK TE ST ORDERABLES Final Result Performing Organization Address [facility] Co de Phone Number [facility] Department [place] [address] * ABO/Rh (10/14/2024 5:18 PM FASHION COORDINATOR) ABO Rh O Negative Blood 10/14/2024 5:18 PM FASHION COORDINATOR 10/14/2024 5:34 PM FASHION COORDINATOR Vibha Burnette MD LAB BLOOD BANK TE ST ORDERABLES Final Result Performing Organization Address [facility] Co de Phone Number [facility] [employer] [place] [address] * eGFR (10/14/2024 6:44 AM FASHION COORDINATOR) eGFR >90 >=60 mL/min/1. 73 m2 Comment: [...] last reviewed 2021. Blood 10/14/2024 6:44 AM FASHION COORDINATOR 10/14/2024 6:58 AM FASHION COORDINATOR Vibha Vegas MD LAB BLOOD ORDERAB LES Final Result Performing Organization Address City/[facility]/ZIP Co de Phone Number [facility] Department of [employer] [place] [address] * (ABNORMAL) CBC without differential (10/14/2024 6:44 AM FASHION COORDINATOR) Pathologist [facility] WBC 16.7(H) 3.8 - 9.9 K/cumm Hgb 9.6(L) 11.9 - 15.5 g/dL [facility] Hct 28.0(L) 35.6 - 45.5 % [facility] Plt 281 150 - 400 K/cumm [facility] MPV 9.5 9.1 - 12.3 fL [facility] RBC 3.05(L) 3.90 - 5.20 M/cumm [facility] MCV 91.8 81.3 - 96.4 fL [facility] MCH 31.5 27.1 - 33.3 pg [facility] MCHC 34.3 32.3 - 35.7 g/dL [facility] RDW CV 13.8 11.1 - 14.9 % [facility] RDW SD 46.0 35.7 - 48.1 fL [facility] NRBC abs 0.00 0.00 - 0.01 K/cumm [facility] Blood 10/14/2024 6:44 AM FASHION COORDINATOR 10/14/2024 6:58 AM FASHION COORDINATOR us Vibha Vegas MD LAB BLOOD ORDERAB LES Final Result [facility] Department [place] [address] * (ABNORMAL) Comprehensive metabolic panel (10/14/2024 6:44 AM FASHION COORDINATOR) Sodium 139 135 - 145 mmol/L Potassium, pl 3.9 3.3 - 4.9 mmol/L [facility] Chloride 107 97 - 110 mmol/L [facility] CO2 24 22 - 32 mmol/L [facility] Anion gap 8 2 - 15 mmol/L [facility] BUN 8 6 - 25 mg/dL [facility] Creatinine 0.53(L) 0.60 - 1.10 mg/dL [facility] Glucose 77 70 - 199 mg/dL [facility] Comment: Interpretive Data Fasting glucose >/= [...] 2022. Calcium 8.1(L) 8.5 - 10.3 mg/dL [facility] Bilirubin, total 0.3 0.1 - 1.2 mg/dL [facility] Protein, pl 5.4(L) 6.5 - 8.5 g/dL [facility] Albumin 2.7(L) 3.5 - 5.0 g/dL [facility] Alk phos 177(H) 40 - 130 Units/L [facility] ALT 58(H) 7 - 45 Units/L [facility] AST 45 10 - 45 Units/L [facility] Blood 10/14/2024 6:44 AM FASHION COORDINATOR 10/14/2024 6:58 AM FASHION COORDINATOR us Vibha Vegas MD LAB BLOOD ORDERAB LES Final Result [facility] Department [place] [address] * (ABNORMAL) CBC without differential (10/13/2024 5:53 AM FASHION COORDINATOR) Pathologist [facility] WBC 19.9(H) 3.8 - 9.9 K/cumm Hgb 11.0(L) 11.9 - 15.5 g/dL [facility] Hct 32.2(L) 35.6 - 45.5 % [facility] Plt 340 150 - 400 K/cumm [facility] MPV 9.5 9.1 - 12.3 fL [facility] RBC 3.50(L) 3.90 - 5.20 M/cumm [facility] MCV 92.0 81.3 - 96.4 fL [facility] MCH 31.4 27.1 - 33.3 pg [facility] MCHC 34.2 32.3 - 35.7 g/dL [facility] RDW CV 13.5 11.1 - 14.9 % [facility] RDW SD 44.4 35.7 - 48.1 fL [facility] NRBC abs 0.00 0.00 - 0.01 K/cumm [facility] Blood 10/13/2024 5:53 AM FASHION COORDINATOR 10/13/2024 6:06 AM FASHION COORDINATOR us Vibha Vegas MD LAB BLOOD ORDERAB LES Final Result Performing Organization Address [facility] Co de Phone Number [facility] [place] [address] * Type and screen (10/13/2024 5:53 AM FASHION COORDINATOR) ABO Rh O Negative Indira, indirect Negative [facility] Comment:Patient has previous antibody history Blood 10/13/2024 5:53 AM FASHION COORDINATOR 10/13/2024 6:01 AM FASHION COORDINATOR Narrative [facility] - 10/13/2024 6:50 AM FASHION COORDINATOR Has the patient had Daratumumab or Isatuximab in the past 6 months?->Unknown us Shine Mayers MD LAB BLOOD BANK TEST ORDER ANGELA Final Result Performing Organization Address [facility] de Phone Number [facility] Department [place] [address] * Surgical pathology (10/12/2024 7:30 PM FASHION COORDINATOR) Tissue specimen (specimen) (Placenta) 10/12/2024 7:30 PM FASHION COORDINATOR 10/13/2024 9:19 AM FASHION COORDINATOR Narrative PATHOLOGY [facility] - 10/18/2024 2:22 PM FASHION COORDINATOR EPIC results best viewed via link to PDF [facility] [place] [address] Note to Patients: This report may contain [...] Gender: F : 2000 (Age: 24) Address: [facility] [place] [address] Hospital #: [id number] Taken:10/12/2024 Received:10/13/2024 Reported: 10/18/2024 Patient Type: [facility] Inpatient Service: Obstetrics Location: [address] Physician(s): Mejia Chopra M.D. Diagnosis: Placenta, [...] surface, no parenchymal lesions are grossly identified. Aquatic Biologist sections are submitted. A1 Umbilical cord, and maternal end and membrane roll A2-A4 Placenta disc Jar 3. 10/16/2024 14:48 PA(s): Lizbeth Sales MS, JENNIFER([facility])CM By this signature, I attest that the above diagnosis is based upon my personal examination of the slides(and/or other material). Addenda/Procedures The performance characteristics of some immunohistochemical stains, fluorescence in-situ hybridization tests and immunophenotyping by flow cytometry cited in this report (if any) were determined by the Surgical Pathology and Flow Cytometry Departments at [facility] as part of an ongoing director quality assurance program and in compliance with [...] Surgical Pathology and Flow Cytometry Departments of [facility]. It has not been cleared or approved by the U. S. Food and Drug Administration. IMAGES AND SCANNED DOCUMENTS, IF INCLUDED, ONLY VIEWABLE IN PDF VERSION OF REPORT us Vibha Vegas MD LAB PATHOLOGY ORD ERABLES Final Result PATHOLOGY [facility] 3rd Floor [place], [place] [phone] * Spinal Block (10/12/2024 7:16 PM FASHION COORDINATOR) Narrative Tracy Tavares MD - 10/12/2024 7:16 PM FASHION COORDINATOR Tracy Tavares MD 10/12/2024 7:19 PM Spinal [...] Final Result * eGFR (10/12/2024 6:16 AM FASHION COORDINATOR) eGFR >90 >=60 mL/min/1. 73 m2 Comment: [...] last reviewed 2021. Blood 10/12/2024 6:16 AM FASHION COORDINATOR 10/12/2024 6:22 AM FASHION COORDINATOR us Vibha Vegas MD LAB BLOOD ORDERAB LES Final Result [facility] Department [place] [address] * (ABNORMAL) CBC without differential (10/12/2024 6:16 AM FASHION COORDINATOR) WBC 14.1(H) 3.8 - 9.9 K/cumm Hgb 11.4(L) 11.9 - 15.5 g/dL [facility] Hct 32.0(L) 35.6 - 45.5 % [facility] Plt 318 150 - 400 K/cumm [facility] MPV 9.8 9.1 - 12.3 fL [facility] RBC 3.56(L) 3.90 - 5.20 M/cumm [facility] MCV 89.9 81.3 - 96.4 fL [facility] MCH 32.0 27.1 - 33.3 pg [facility] MCHC 35.6 32.3 - 35.7 g/dL [facility] RDW CV 13.2 11.1 - 14.9 % [facility] RDW SD 43.2 35.7 - 48.1 fL [facility] NRBC abs 0.00 0.00 - 0.01 K/cumm [facility] Blood 10/12/2024 6:16 AM FASHION COORDINATOR 10/12/2024 6:22 AM FASHION COORDINATOR us Vibha Vegas MD LAB BLOOD ORDERAB LES Final Result [facility] [place] [address] * Phosphorus (10/12/2024 6:16 AM FASHION COORDINATOR) [facility] Phosphorus, pl 4.0 2.3 - 4.5 mg/dL Blood 10/12/2024 6:16 AM FASHION COORDINATOR 10/12/2024 6:22 AM FASHION COORDINATOR us Vibha Vegas MD LAB BLOOD ORDERAB LES Final Result Performing Organization Address City/[facility] Co de Phone Number [facility] Department [place] [address] * Magnesium (10/12/2024 6:16 AM FASHION COORDINATOR) [facility] Magnesium 1.8 1.4 - 2.5 mg/dL Blood 10/12/2024 6:16 AM FASHION COORDINATOR 10/12/2024 6:22 AM FASHION COORDINATOR Vibha Vegas MD LAB BLOOD ORDERAB LES Final Result Performing Organization Address City/[facility] Co de Phone Number [facility] Department [place] [address] * (ABNORMAL) Comprehensive metabolic panel (10/12/2024 6:16 AM FASHION COORDINATOR) [facility] Sodium 140 135 - 145 mmol/L Potassium, pl 4.1 3.3 - 4.9 mmol/L [facility] Chloride 106 97 - 110 mmol/L [facility] CO2 25 22 - 32 mmol/L [facility] Anion gap 9 2 - 15 mmol/L [facility] BUN 11 6 - 25 mg/dL [facility] Creatinine 0.49(L) 0.60 - 1.10 mg/dL [facility] Glucose 95 70 - 199 mg/dL [facility] Comment: Interpretive Data Fasting glucose >/= [...] 2022. Calcium 9.0 8.5 - 10.3 mg/dL [facility] Bilirubin, total <0.2 0.1 - 1.2 mg/dL [facility] Comment:Reviewed Protein, pl 5.9(L) 6.5 - 8.5 g/dL [facility] Albumin 2.9(L) 3.5 - 5.0 g/dL [facility] Alk phos 226(H) 40 - 130 Units/L [facility] ALT 97(H) 7 - 45 Units/L [facility] AST 27 10 - 45 Units/L [facility] Blood 10/12/2024 6:16 AM FASHION COORDINATOR 10/12/2024 6:22 AM FASHION COORDINATOR Vibha Vegas MD LAB BLOOD ORDERAB LES Final Result [facility] Department [place] [address] * eGFR (10/11/2024 6:21 AM FASHION COORDINATOR) eGFR >90 >=60 mL/min/1. 73 m2 Comment: [...] last reviewed 2021. Blood 10/11/2024 6:21 AM FASHION COORDINATOR 10/11/2024 6:26 AM FASHION COORDINATOR us Vibha Vegas MD LAB BLOOD ORDERAB LES Final Result [facility] Department [place] [address] * (ABNORMAL) CBC without differential (10/11/2024 6:21 AM FASHION COORDINATOR) WBC 15.8(H) 3.8 - 9.9 K/cumm Hgb 11.2(L) 11.9 - 15.5 g/dL [facility] Hct 31.7(L) 35.6 - 45.5 % [facility] Plt 342 150 - 400 K/cumm [facility] MPV 9.7 9.1 - 12.3 fL [facility] RBC 3.49(L) 3.90 - 5.20 M/cumm [facility] MCV 90.8 81.3 - 96.4 fL [facility] MCH 32.1 27.1 - 33.3 pg [facility] MCHC 35.3 32.3 - 35.7 g/dL [facility] RDW CV 13.2 11.1 - 14.9 % [facility] RDW SD 42.8 35.7 - 48.1 fL [facility] NRBC abs 0.00 0.00 - 0.01 K/cumm [facility] Blood 10/11/2024 6:21 AM FASHION COORDINATOR 10/11/2024 6:26 AM FASHION COORDINATOR us Vibha Vegas MD LAB BLOOD ORDERAB LES Final Result [facility] [place] [address] * Phosphorus (10/11/2024 6:21 AM FASHION COORDINATOR) [facility] Phosphorus, pl 3.6 2.3 - 4.5 mg/dL Blood 10/11/2024 6:21 AM FASHION COORDINATOR 10/11/2024 6:26 AM FASHION COORDINATOR us Vibha Vegas MD LAB BLOOD ORDERAB LES Final Result Performing Organization Address City/[facility]/ZIP Co de Phone Number [facility] [place] [address] * Magnesium (10/11/2024 6:21 AM FASHION COORDINATOR) [facility] Magnesium 1.8 1.4 - 2.5 mg/dL Blood 10/11/2024 6:21 AM FASHION COORDINATOR 10/11/2024 6:26 AM FASHION COORDINATOR Vibha Vegas MD LAB BLOOD ORDERAB LES Final Result Performing Organization Address City/[facility] Co de Phone Number [facility] Department [place] [address] * (ABNORMAL) Comprehensive metabolic panel (10/11/2024 6:21 AM FASHION COORDINATOR) [facility] Sodium 137 135 - 145 mmol/L Potassium, pl 4.1 3.3 - 4.9 mmol/L [facility] Chloride 106 97 - 110 mmol/L [facility] CO2 24 22 - 32 mmol/L [facility] Anion gap 7 2 - 15 mmol/L [facility] BUN 9 6 - 25 mg/dL [facility] Creatinine 0.59(L) 0.60 - 1.10 mg/dL [facility] Glucose 91 70 - 199 mg/dL [facility] Comment: Interpretive Data Fasting glucose >/= [...] Calcium 8.9 8.5 - 10.3 mg/dL [facility] Bilirubin, total 0.2 0.1 - 1.2 mg/dL [facility] Protein, pl 6.2(L) 6.5 - 8.5 g/dL [facility] Albumin 3.2(L) 3.5 - 5.0 g/dL [facility] Alk phos 234(H) 40 - 130 Units/L [facility] ALT 139(H) 7 - 45 Units/L [facility] AST 39 10 - 45 Units/L [facility] Blood 10/11/2024 6:21 AM FASHION COORDINATOR 10/11/2024 6:26 AM FASHION COORDINATOR us Vibha Vegas MD LAB BLOOD ORDERAB LES Final Result Performing Organization Address City/[facility]/ZIP Co de Phone Number [facility] Department of [employer] [address] * Antibody identification (10/10/2024 7:46 AM FASHION COORDINATOR) Antibody ID 1 Passive Anti-D Blood 10/10/2024 7:46 AM FASHION COORDINATOR 10/10/2024 7:46 AM FASHION COORDINATOR us Vibha Burnette MD LAB BLOOD BANK TE ST ORDERABLES Final Result [facility] Department [place] [address] * eGFR (10/10/2024 6:24 AM FASHION COORDINATOR) [facility] eGFR >90 >=60 mL/min/1. 73 m2 [...] last reviewed 2021. Blood 10/10/2024 6:24 AM FASHION COORDINATOR 10/10/2024 6:32 AM FASHION COORDINATOR us Vibha Vegas MD LAB BLOOD ORDERAB LES Final Result [facility] Department [place] [address] * (ABNORMAL) CBC without differential (10/10/2024 6:24 AM FASHION COORDINATOR) [facility] WBC 15.4(H) 3.8 - 9.9 K/cumm Hgb 12.2 11.9 - 15.5 g/dL [facility] Hct 34.8(L) 35.6 - 45.5 % [facility] Plt 352 150 - 400 K/cumm [facility] MPV 9.7 9.1 - 12.3 fL [facility] RBC 3.85(L) 3.90 - 5.20 M/cumm [facility] MCV 90.4 81.3 - 96.4 fL [facility] MCH 31.7 27.1 - 33.3 pg [facility] MCHC 35.1 32.3 - 35.7 g/dL [facility] RDW CV 13.4 11.1 - 14.9 % [facility] RDW SD 43.7 35.7 - 48.1 fL [facility] NRBC abs 0.00 0.00 - 0.01 K/cumm [facility] Blood 10/10/2024 6:24 AM FASHION COORDINATOR 10/10/2024 6:33 AM FASHION COORDINATOR Vibha Vegas MD LAB BLOOD ORDERAB LES Final Result Performing Organization Address City/[facility]/[place] [address] * (ABNORMAL) Type and screen (10/10/2024 6:24 AM FASHION COORDINATOR) ABO Rh O Negative Indira, indirect Positive(A) [facility] Blood 10/10/2024 6:24 AM FASHION COORDINATOR 10/10/2024 6:38 AM FASHION COORDINATOR Narrative [facility] - 10/10/2024 7:46 AM FASHION COORDINATOR Has the patient had Daratumumab or Isatuximab in the past 6 months?->Unknown Vibha Burnette MD LAB BLOOD BANK TE ST ORDERABLES Final Result Performing Organization Address [facility] Co de Phone Number [facility] [employer] [place] [address] * Phosphorus (10/10/2024 6:24 AM FASHION COORDINATOR) Phosphorus, pl 4.2 2.3 - 4.5 mg/dL Blood 10/10/2024 6:24 AM FASHION COORDINATOR 10/10/2024 6:32 AM FASHION COORDINATOR Vibha Vegas MD LAB BLOOD ORDERAB LES Final Result Performing Organization Address City/[facility]/ZIP Co de Phone Number [facility] Department [place] [address] * Magnesium (10/10/2024 6:24 AM FASHION COORDINATOR) Pathologist [facility] Magnesium 1.7 1.4 - 2.5 mg/dL Blood 10/10/2024 6:24 AM FASHION COORDINATOR 10/10/2024 6:32 AM FASHION COORDINATOR Vibha Vegas MD LAB BLOOD ORDERAB LES Final Result [facility] Department [place] [address] * (ABNORMAL) Comprehensive metabolic panel (10/10/2024 6:24 AM FASHION COORDINATOR) Pathologist [facility] Sodium 139 135 - 145 mmol/L Potassium, pl 4.3 3.3 - 4.9 mmol/L [facility] Chloride 105 97 - 110 mmol/L [facility] CO2 25 22 - 32 mmol/L [facility] Anion gap 9 2 - 15 mmol/L [facility] BUN 7 6 - 25 mg/dL [facility] Creatinine 0.57(L) 0.60 - 1.10 mg/dL [facility] Glucose 89 70 - 199 mg/dL [facility] Comment: Interpretive Data Fasting glucose >/= [...] 2022. Calcium 9.2 8.5 - 10.3 mg/dL [facility] Bilirubin, total 0.2 0.1 - 1.2 mg/dL [facility] Comment:Reviewed Protein, pl 6.8 6.5 - 8.5 g/dL [facility] Albumin 3.5 3.5 - 5.0 g/dL [facility] Alk phos 241(H) 40 - 130 Units/L [facility] ALT 180(H) 7 - 45 Units/L [facility] AST 61(H) 10 - 45 Units/L [facility] Blood 10/10/2024 6:24 AM FASHION COORDINATOR 10/10/2024 6:32 AM FASHION COORDINATOR us Vibha Vegas MD LAB BLOOD ORDERAB LES Final Result Performing Organization Address City/[facility]/ZIP Co de Phone Number [facility] Department [place] [address] * (ABNORMAL) CBC without differential (10/09/2024 1:11 PM FASHION COORDINATOR) [facility] WBC 13.7(H) 3.8 - 9.9 K/cumm Hgb 11.2(L) 11.9 - 15.5 g/dL [facility] Hct 32.3(L) 35.6 - 45.5 % [facility] Plt 307 150 - 400 K/cumm [facility] MPV 9.7 9.1 - 12.3 fL [facility] RBC 3.58(L) 3.90 - 5.20 M/cumm [facility] MCV 90.2 81.3 - 96.4 fL [facility] MCH 31.3 27.1 - 33.3 pg [facility] MCHC 34.7 32.3 - 35.7 g/dL [facility] RDW CV 13.3 11.1 - 14.9 % [facility] RDW SD 43.4 35.7 - 48.1 fL [facility] NRBC abs 0.00 0.00 - 0.01 K/cumm [facility] Blood 10/09/2024 1:11 PM FASHION COORDINATOR 10/09/2024 1:22 PM FASHION COORDINATOR us Vibha Vegas MD LAB BLOOD ORDERAB LES Final Result Performing Organization Address City/[facility]/ZIP Co de Phone Number [facility] Department [place] [address] * eGFR (10/09/2024 6:13 AM FASHION COORDINATOR) eGFR >90 >=60 mL/min/1. 73 m2 Comment: [...] last reviewed 2021. Blood 10/09/2024 6:13 AM FASHION COORDINATOR 10/09/2024 6:30 AM FASHION COORDINATOR Vibha Vegas MD LAB BLOOD ORDERAB LES Final Result [facility] Department [place] [address] * (ABNORMAL) Comprehensive metabolic panel (10/09/2024 6:13 AM FASHION COORDINATOR) Pathologist [facility] Sodium 138 135 - 145 mmol/L Potassium, pl 3.7 3.3 - 4.9 mmol/L [facility] Chloride 107 97 - 110 mmol/L [facility] CO2 23 22 - 32 mmol/L [facility] Anion gap 8 2 - 15 mmol/L [facility] BUN 8 6 - 25 mg/dL [facility] Creatinine 0.56(L) 0.60 - 1.10 mg/dL [facility] Glucose 96 70 - 199 mg/dL [facility] Comment: Interpretive Data Fasting glucose >/= [...] 2022. Calcium 8.9 8.5 - 10.3 mg/dL [facility] Bilirubin, total <0.2 0.1 - 1.2 mg/dL [facility] Comment:Reviewed Protein, pl 6.0(L) 6.5 - 8.5 g/dL [facility] Albumin 3.2(L) 3.5 - 5.0 g/dL [facility] Alk phos 226(H) 40 - 130 Units/L [facility] ALT 190(H) 7 - 45 Units/L [facility] AST 80(H) 10 - 45 Units/L [facility] Blood 10/09/2024 6:13 AM FASHION COORDINATOR 10/09/2024 6:30 AM FASHION COORDINATOR Vibha Vegas MD LAB BLOOD ORDERAB LES Final Result [facility] Department [place] [address] * eGFR (10/08/2024 10:56 AM FASHION COORDINATOR) eGFR >90 >=60 mL/min/1. 73 m2 Comment: [...] reviewed 2021. Blood 10/08/2024 10:5 6 AM FASHION COORDINATOR 10/08/2024 11:06 AM FASHION COORDINATOR Vibha Vegas MD LAB BLOOD ORDERAB LES Final Result Performing Organization Address City/[facility] Co de Phone Number [facility] [place] [address] * (ABNORMAL) Bile acids (10/08/2024 10:56 AM FASHION COORDINATOR) [facility] Bile acids 16(H) <=10 mcmol/L [place] [facility] Comment: Test Performed by: [place] [address] [employer]: Brissa Zazueta Ph.D.; CLIA# [id number] Blood 10/08/2024 10:5 6 AM FASHION COORDINATOR 10/08/2024 12:27 PM FASHION COORDINATOR Vibha Vegas MD LAB BLOOD ORDERAB LES Final Result [facility] Department [place] [address] [place] [facility] * (ABNORMAL) Comprehensive metabolic panel (10/08/2024 10:56 AM FASHION COORDINATOR) [facility] Sodium 137 135 - 145 mmol/L Potassium, pl 3.2(L) 3.3 - 4.9 mmol/L [facility] Chloride 103 97 - 110 mmol/L [facility] CO2 23 22 - 32 mmol/L [facility] Anion gap 11 2 - 15 mmol/L [facility] BUN 7 6 - 25 mg/dL [facility] Creatinine 0.52(L) 0.60 - 1.10 mg/dL [facility] Glucose 115 70 - 199 mg/dL [facility] Comment: Interpretive Data Fasting glucose >/= [...] 2022. Calcium 9.0 8.5 - 10.3 mg/dL [facility] Bilirubin, total 0.2 0.1 - 1.2 mg/dL [facility] Protein, pl 6.4(L) 6.5 - 8.5 g/dL [facility] Albumin 3.3(L) 3.5 - 5.0 g/dL [facility] Alk phos 251(H) 40 - 130 Units/L [facility] ALT 185(H) 7 - 45 Units/L [facility] AST 94(H) 10 - 45 Units/L [facility] Blood 10/08/2024 10:5 6 AM FASHION COORDINATOR 10/08/2024 11:06 AM FASHION COORDINATOR Vibha Vegas MD LAB BLOOD ORDERAB LES Final Result [facility] Department [place] [address] * ECG 12 lead (10/07/2024 2:02 PM FASHION COORDINATOR) Ventricular Rate EKG/Min 105 BPM [facility] Atrial Rate 105 BPM [facility] NE-Interval (MSEC) 144 ms [facility] QRS-Interval (MSEC) 74 ms [facility] QT-Interval (MSEC) 328 ms [facility] QTc 433 ms [facility] P [place] 43 degrees [facility] R [place] 62 degrees [facility] T [place] 2 degrees [facility] Diagnosis Sinus tachycardia Otherwise normal ECG When compared with ECG of 06-SEP-2024 19:50, No significant change was found Confirmed by REMY NAYLOR M.D ([id number]) on 10/09/2024 12:46:34 PM [facility] 10/07/2024 2:02 PM FASHION COORDINATOR 10/09/2024 12:46 PM FASHION COORDINATOR us Vibha Vegas MD ECG ORDERABLES F inal Result [facility] * Antibody identification (10/07/2024 7:44 AM FASHION COORDINATOR) Antibody ID 1 Passive Anti-D Blood 10/07/2024 7:44 AM FASHION COORDINATOR 10/07/2024 7:44 AM FASHION COORDINATOR us Vibha Burnette MD LAB BLOOD BANK TE ST ORDERABLES Final Result [facility] [place] [address] * eGFR (10/07/2024 6:25 AM FASHION COORDINATOR) eGFR >90 >=60 mL/min/1. 73 m2 Comment: [...] last reviewed 2021. Blood 10/07/2024 6:25 AM FASHION COORDINATOR 10/07/2024 6:35 AM FASHION COORDINATOR Allegra Rushing MD LAB BLOOD ORDERABLE S Final Result Performing Organization Address City/[facility]/ZIP Co de Phone Number [facility] Department of [employer] [place] [address] * (ABNORMAL) CBC without differential (10/07/2024 6:25 AM FASHION COORDINATOR) WBC 17.0(H) 3.8 - 9.9 K/cumm Hgb 11.5(L) 11.9 - 15.5 g/dL [facility] Hct 32.2(L) 35.6 - 45.5 % [facility] Plt 309 150 - 400 K/cumm [facility] MPV 9.6 9.1 - 12.3 fL [facility] RBC 3.68(L) 3.90 - 5.20 M/cumm [facility] MCV 87.5 81.3 - 96.4 fL [facility] MCH 31.3 27.1 - 33.3 pg [facility] MCHC 35.7 32.3 - 35.7 g/dL [facility] RDW CV 13.0 11.1 - 14.9 % [facility] RDW SD 40.4 35.7 - 48.1 fL [facility] NRBC abs 0.00 0.00 - 0.01 K/cumm [facility] Blood 10/07/2024 6:25 AM FASHION COORDINATOR 10/07/2024 6:35 AM FASHION COORDINATOR Allegra Rushing MD LAB BLOOD ORDERABLE S Final Result Performing Organization Address City/[facility]/ZIP Co de Phone Number [facility] Department [place] [address] * (ABNORMAL) Type and screen (10/07/2024 6:25 AM FASHION COORDINATOR) Indira, indirect Positive(A) ABO Rh O Negative [facility] Blood 10/07/2024 6:25 AM FASHION COORDINATOR 10/07/2024 6:35 AM FASHION COORDINATOR Narrative [facility] - 10/07/2024 7:44 AM FASHION COORDINATOR Has the patient had Daratumumab or Isatuximab in the past 6 months?->Unknown Vibha Burnette MD LAB BLOOD BANK TE ST ORDERABLES Final Result [facility] Department [place] [address] * (ABNORMAL) Comprehensive metabolic panel (10/07/2024 6:25 AM FASHION COORDINATOR) Pathologist [facility] Sodium 138 135 - 145 mmol/L Potassium, pl 4.0 3.3 - 4.9 mmol/L [facility] Chloride 106 97 - 110 mmol/L [facility] CO2 23 22 - 32 mmol/L [facility] Anion gap 9 2 - 15 mmol/L [facility] BUN 6 6 - 25 mg/dL [facility] Creatinine 0.53(L) 0.60 - 1.10 mg/dL [facility] Glucose 111 70 - 199 mg/dL [facility] Comment: Interpretive Data Fasting glucose >/= [...] 2022. Calcium 8.8 8.5 - 10.3 mg/dL [facility] Bilirubin, total 0.2 0.1 - 1.2 mg/dL [facility] Protein, pl 6.3(L) 6.5 - 8.5 g/dL [facility] Albumin 3.2(L) 3.5 - 5.0 g/dL [facility] Alk phos 255(H) 40 - 130 Units/L [facility] ALT 96(H) 7 - 45 Units/L [facility] AST 65(H) 10 - 45 Units/L [facility] Blood 10/07/2024 6:25 AM FASHION COORDINATOR 10/07/2024 6:35 AM FASHION COORDINATOR Allegra Rushing MD LAB BLOOD ORDERABLE S Final Result Performing Organization Address City/[facility]/ZIP Co de Phone Number [facility] Department [place] [address] * Group B streptococcal culture Vaginal/Rectal (10/06/2024 4:11 PM FASHION COORDINATOR) Report Final Report: Negative Vaginal/Rectal 10/06/2024 4: 11 PM FASHION COORDINATOR 10/06/2024 4:43 PM FASHION COORDINATOR Narrative [facility] - 10/09/2024 7:17 AM FASHION COORDINATOR Testing performed by [facility] Microbiology [facility] ([phone]). Trinidad Hill NP LAB MICROBIOLOGY - GENERAL ORDERABLES Final Result Performing Organization Address City/[facility] Co de Phone Number [facility] Department [place] [address] * US Ob Limited (10/04/2024 8:12 AM FASHION COORDINATOR) Fetus# Fetus1 [facility] Estimated Weight 2,000 g&grams [facility] Placenta Details anterior, Previa-no, no placental masses [facility] Presentation Vertex [facility] Anatomical Region Laterality Modality Abdomen N/A Ultrasound 10/04/2024 12:5 4 PM FASHION COORDINATOR Impressions 10/04/2024 3:44 PM FASHION COORDINATOR 32w 4d IUP for evaluation of growth [...] Result * Antibody identification (10/04/2024 7:44 AM FASHION COORDINATOR) Pathologist [facility] Antibody ID 1 Passive Anti-D Comment:Anti-D: probably due to administration of RH-immune globulin. Titer not indicated. Blood 10/04/2024 7:44 AM FASHION COORDINATOR 10/04/2024 7:44 AM FASHION COORDINATOR us Vibha Burnette MD LAB BLOOD BANK [facility] ORDERABLES Final Result [facility] Department [place] [address] * eGFR (10/04/2024 6:15 AM FASHION COORDINATOR) eGFR >90 >=60 mL/min/1. 73 m2 Comment: [...] last reviewed 2021. Blood 10/04/2024 6:15 AM FASHION COORDINATOR 10/04/2024 6:22 AM FASHION COORDINATOR Allegra Rushing MD LAB BLOOD ORDERABLE S Final Result [facility] Department [place] [address] * (ABNORMAL) CBC without differential (10/04/2024 6:15 AM FASHION COORDINATOR) WBC 10.6(H) 3.8 - 9.9 K/cumm Hgb 12.2 11.9 - 15.5 g/dL [facility] Hct 34.9(L) 35.6 - 45.5 % [facility] Plt 287 150 - 400 K/cumm [facility] MPV 9.7 9.1 - 12.3 fL [facility] RBC 3.90 3.90 - 5.20 M/cumm [facility] MCV 89.5 81.3 - 96.4 fL [facility] MCH 31.3 27.1 - 33.3 pg [facility] MCHC 35.0 32.3 - 35.7 g/dL [facility] RDW CV 13.2 11.1 - 14.9 % [facility] RDW SD 42.9 35.7 - 48.1 fL [facility] NRBC abs 0.00 0.00 - 0.01 K/cumm [facility] Blood 10/04/2024 6:15 AM FASHION COORDINATOR 10/04/2024 6:22 AM FASHION COORDINATOR Allegra Rushing MD LAB BLOOD ORDERABLE S Final Result [facility] [place] [address] * (ABNORMAL) Type and screen (10/04/2024 6:15 AM FASHION COORDINATOR) Pathologist [facility] Indira, indirect Positive(A) ABO Rh O Negative [facility] Blood 10/04/2024 6:15 AM FASHION COORDINATOR 10/04/2024 6:31 AM FASHION COORDINATOR Narrative [facility] - 10/04/2024 7:44 AM FASHION COORDINATOR Has the patient had Daratumumab or Isatuximab in the past 6 months?->Unknown Vibha Burnette MD LAB BLOOD BANK TE ST ORDERABLES Final Result Performing Organization Address [facility] de Phone Number [facility] [place] [address] * (ABNORMAL) Comprehensive metabolic panel (10/04/2024 6:15 AM FASHION COORDINATOR) [facility] Sodium 135 135 - 145 mmol/L Potassium, pl 3.6 3.3 - 4.9 mmol/L [facility] Chloride 102 97 - 110 mmol/L [facility] CO2 24 22 - 32 mmol/L [facility] Anion gap 9 2 - 15 mmol/L [facility] BUN 5(L) 6 - 25 mg/dL [facility] Creatinine 0.55(L) 0.60 - 1.10 mg/dL [facility] Glucose 76 70 - 199 mg/dL [facility] Comment: Interpretive Data Fasting glucose >/= [...] 2022. Calcium 9.0 8.5 - 10.3 mg/dL [facility] Bilirubin, total 0.2 0.1 - 1.2 mg/dL [facility] Protein, pl 6.4(L) 6.5 - 8.5 g/dL [facility] Albumin 3.4(L) 3.5 - 5.0 g/dL [facility] Alk phos 265(H) 40 - 130 Units/L [facility] ALT 23 7 - 45 Units/L [facility] AST 21 10 - 45 Units/L [facility] Blood 10/04/2024 6:15 AM FASHION COORDINATOR 10/04/2024 6:22 AM FASHION COORDINATOR us Allegra Rushing MD LAB BLOOD ORDERABLE S Final Result [facility] Department of [employer] [place] [address] * Antibody identification (10/01/2024 7:53 AM FASHION COORDINATOR) Pathologist [facility] Antibody ID 1 Passive Anti-D Blood 10/01/2024 7:53 AM FASHION COORDINATOR 10/01/2024 7:53 AM FASHION COORDINATOR us Vibha Burnette MD LAB BLOOD BANK TE ST ORDERABLES Final Result [facility] Department of [employer] [place] [address] * eGFR (10/01/2024 6:31 AM FASHION COORDINATOR) Pathologist [facility] eGFR >90 >=60 mL/min/1. 73 m2 Comment: [...] reviewed 2021. Blood 10/01/2024 6:3 1 AM FASHION COORDINATOR 10/01/2024 6:46 AM FASHION COORDINATOR Allegra Rushing MD LAB BLOOD ORDERABLE S Final Result [facility] Department [place] [address] * (ABNORMAL) CBC without differential (10/01/2024 6:31 AM FASHION COORDINATOR) WBC 15.0(H) 3.8 - 9.9 K/cumm Hgb 11.9 11.9 - 15.5 g/dL [facility] Hct 33.0(L) 35.6 - 45.5 % [facility] Plt 271 150 - 400 K/cumm [facility] MPV 9.5 9.1 - 12.3 fL [facility] RBC 3.76(L) 3.90 - 5.20 M/cumm [facility] MCV 87.8 81.3 - 96.4 fL [facility] MCH 31.6 27.1 - 33.3 pg [facility] MCHC 36.1(H) 32.3 - 35.7 g/dL [facility] RDW CV 12.9 11.1 - 14.9 % [facility] RDW SD 40.3 35.7 - 48.1 fL [facility] NRBC abs 0.00 0.00 - 0.01 K/cumm [facility] Blood 10/01/2024 6:31 AM FASHION COORDINATOR 10/01/2024 6:47 AM FASHION COORDINATOR Allegra Rushing MD LAB BLOOD ORDERABLE S Final Result Performing Organization Address City/[facility]/[place] [address] * (ABNORMAL) Type and screen (10/01/2024 6:31 AM FASHION COORDINATOR) Indira, indirect Positive(A) ABO Rh O Negative [facility] Blood 10/01/2024 6:31 AM FASHION COORDINATOR 10/01/2024 6:45 AM FASHION COORDINATOR Narrative [facility] - 10/01/2024 7:53 AM FASHION COORDINATOR Has the patient had Daratumumab or Isatuximab in the past 6 months?->Unknown Vibha Burnette MD LAB BLOOD BANK TE ST ORDERABLES Final Result Performing Organization Address [facility] Co de Phone Number [facility] [place] [address] * (ABNORMAL) Comprehensive metabolic panel (10/01/2024 6:31 AM FASHION COORDINATOR) Pathologist [facility] Sodium 138 135 - 145 mmol/L Potassium, pl 3.6 3.3 - 4.9 mmol/L [facility] Chloride 106 97 - 110 mmol/L [facility] CO2 23 22 - 32 mmol/L [facility] Anion gap 9 2 - 15 mmol/L [facility] BUN 8 6 - 25 mg/dL [facility] Creatinine 0.53(L) 0.60 - 1.10 mg/dL [facility] Glucose 76 70 - 199 mg/dL [facility] Comment: Interpretive Data Fasting glucose >/= [...] 2022. Calcium 9.1 8.5 - 10.3 mg/dL [facility] Bilirubin, total 0.3 0.1 - 1.2 mg/dL [facility] Protein, pl 6.3(L) 6.5 - 8.5 g/dL [facility] Albumin 3.5 3.5 - 5.0 g/dL [facility] Alk phos 206(H) 40 - 130 Units/L [facility] ALT 14 7 - 45 Units/L [facility] AST 18 10 - 45 Units/L [facility] Blood 10/01/2024 6:31 AM FASHION COORDINATOR 10/01/2024 6:46 AM FASHION COORDINATOR us Allegra Rushing MD LAB BLOOD ORDERABLE S Final Result Performing Organization Address City/[facility]/ZIP Co de Phone Number [facility] Department of [employer] [place] [address] * Antibody identification (09/28/2024 8:02 AM FASHION COORDINATOR) Pathologist [facility] Antibody ID 1 Passive Anti-D Blood 09/28/2024 8:02 AM FASHION COORDINATOR 09/28/2024 8:02 AM FASHION COORDINATOR us Vibha Burnette MD LAB BLOOD BANK TE ST ORDERABLES Final Result Performing Organization Address City/[facility]/ZIP Co de Phone Number [facility] Department of [employer] [place] [place] [address] * eGFR (09/28/2024 6:22 AM FASHION COORDINATOR) Pathologist [facility] eGFR >90 >=60 mL/min/1. 73 m2 Comment: [...] last reviewed 2021. Blood 09/28/2024 6:22 AM FASHION COORDINATOR 09/28/2024 6:42 AM FASHION COORDINATOR us Allegra Rushing MD LAB BLOOD ORDERABLE S Final Result [facility] Department [place] [address] * (ABNORMAL) CBC without differential (09/28/2024 6:22 AM FASHION COORDINATOR) WBC 12.7(H) 3.8 - 9.9 K/cumm Hgb 10.9(L) 11.9 - 15.5 g/dL [facility] Hct 30.8(L) 35.6 - 45.5 % [facility] Plt 294 150 - 400 K/cumm [facility] MPV 9.3 9.1 - 12.3 fL [facility] RBC 3.36(L) 3.90 - 5.20 M/cumm [facility] MCV 91.7 81.3 - 96.4 fL [facility] MCH 32.4 27.1 - 33.3 pg [facility] MCHC 35.4 32.3 - 35.7 g/dL [facility] RDW CV 12.6 11.1 - 14.9 % [facility] RDW SD 41.8 35.7 - 48.1 fL [facility] NRBC abs 0.00 0.00 - 0.01 K/cumm [facility] Blood 09/28/2024 6:22 AM FASHION COORDINATOR 09/28/2024 6:42 AM FASHION COORDINATOR Allegra Rushing MD LAB BLOOD ORDERABLE S Final Result Performing Organization Address [facility] Co de Phone Number [facility] [place] [address] * (ABNORMAL) Type and screen (09/28/2024 6:22 AM FASHION COORDINATOR) Indira, indirect Positive(A) ABO Rh O Negative [facility] Blood 09/28/2024 6:22 AM FASHION COORDINATOR 09/28/2024 6:40 AM FASHION COORDINATOR Narrative [facility] - 09/28/2024 8:02 AM FASHION COORDINATOR Has the patient had Daratumumab or Isatuximab in the past 6 months?->Unknown Vibha Burnette MD LAB BLOOD BANK TE ST ORDERABLES Final Result Performing Organization Address [facility] de Phone Number [facility] [place] [address] * (ABNORMAL) Comprehensive metabolic panel (09/28/2024 6:22 AM FASHION COORDINATOR) Pathologist [facility] Sodium 140 135 - 145 mmol/L Potassium, pl 4.0 3.3 - 4.9 mmol/L [facility] Chloride 106 97 - 110 mmol/L [facility] CO2 27 22 - 32 mmol/L [facility] Anion gap 7 2 - 15 mmol/L [facility] BUN 8 6 - 25 mg/dL [facility] Creatinine 0.63 0.60 - 1.10 mg/dL [facility] Glucose 87 70 - 199 mg/dL [facility] Comment: Interpretive Data Fasting glucose >/= [...] 2022. Calcium 8.9 8.5 - 10.3 mg/dL [facility] Bilirubin, total <0.2 0.1 - 1.2 mg/dL [facility] Protein, pl 6.1(L) 6.5 - 8.5 g/dL [facility] Albumin 3.2(L) 3.5 - 5.0 g/dL [facility] Alk phos 187(H) 40 - 130 Units/L [facility] ALT 12 7 - 45 Units/L [facility] AST 15 10 - 45 Units/L [facility] Blood 09/28/2024 6:22 AM FASHION COORDINATOR 09/28/2024 6:42 AM FASHION COORDINATOR us Allegra Rushing MD LAB BLOOD ORDERABLE S Final Result Performing Organization Address City/[facility]/ZIP Co de Phone Number [facility] Department [place] [address] * Antibody identification (09/25/2024 8:06 AM FASHION COORDINATOR) [facility] Antibody ID 1 Passive Anti-D Blood 09/25/2024 8:06 AM FASHION COORDINATOR 09/25/2024 8:06 AM FASHION COORDINATOR us Vibha Burnette MD LAB BLOOD BANK TE ST ORDERABLES Final Result [facility] Department of [employer] [place] [address] * eGFR (09/25/2024 6:43 AM FASHION COORDINATOR) [facility] eGFR >90 >=60 mL/min/1. 73 m2 [...] last reviewed 2021. Blood 09/25/2024 6:43 AM FASHION COORDINATOR 09/25/2024 6:49 AM FASHION COORDINATOR us Allegra Rushing MD LAB BLOOD ORDERABLE S Final Result [facility] Department [place] [address] * (ABNORMAL) CBC without differential (09/25/2024 6:43 AM FASHION COORDINATOR) WBC 12.5(H) 3.8 - 9.9 K/cumm Hgb 11.5(L) 11.9 - 15.5 g/dL [facility] Hct 32.7(L) 35.6 - 45.5 % [facility] Plt 290 150 - 400 K/cumm [facility] MPV 9.6 9.1 - 12.3 fL [facility] RBC 3.61(L) 3.90 - 5.20 M/cumm [facility] MCV 90.6 81.3 - 96.4 fL [facility] MCH 31.9 27.1 - 33.3 pg [facility] MCHC 35.2 32.3 - 35.7 g/dL [facility] RDW CV 12.8 11.1 - 14.9 % [facility] RDW SD 42.0 35.7 - 48.1 fL [facility] NRBC abs 0.00 0.00 - 0.01 K/cumm [facility] Blood 09/25/2024 6:43 AM FASHION COORDINATOR 09/25/2024 6:49 AM FASHION COORDINATOR us Allegra Rushing MD LAB BLOOD ORDERABLE S Final Result Performing Organization Address [facility] Co de Phone Number [facility] [place] [address] * (ABNORMAL) Type and screen (09/25/2024 6:43 AM FASHION COORDINATOR) Pathologist [facility] ABO Rh O Negative Indira, indirect Positive(A) [facility] Blood 09/25/2024 6:43 AM FASHION COORDINATOR 09/25/2024 7:19 AM FASHION COORDINATOR Narrative [facility] - 09/25/2024 8:06 AM FASHION COORDINATOR Has the patient had Daratumumab or Isatuximab in the past 6 months?->Unknown Vibha Burnette MD LAB BLOOD BANK TE ST ORDERABLES Final Result Performing Organization Address [facility] de Phone Number [facility] [place] [address] * (ABNORMAL) Comprehensive metabolic panel (09/25/2024 6:43 AM FASHION COORDINATOR) [facility] Sodium 139 135 - 145 mmol/L Potassium, pl 3.8 3.3 - 4.9 mmol/L [facility] Chloride 107 97 - 110 mmol/L [facility] CO2 25 22 - 32 mmol/L [facility] Anion gap 7 2 - 15 mmol/L [facility] BUN 6 6 - 25 mg/dL [facility] Creatinine 0.55(L) 0.60 - 1.10 mg/dL [facility] Glucose 73 70 - 199 mg/dL [facility] Comment: Interpretive Data Fasting glucose >/= [...] Calcium 8.7 8.5 - 10.3 mg/dL [facility] Bilirubin, total 0.2 0.1 - 1.2 mg/dL [facility] Protein, pl 6.1(L) 6.5 - 8.5 g/dL [facility] Albumin 3.4(L) 3.5 - 5.0 g/dL [facility] Alk phos 178(H) 40 - 130 Units/L [facility] ALT 20 7 - 45 Units/L [facility] AST 16 10 - 45 Units/L [facility] Blood 09/25/2024 6:43 AM FASHION COORDINATOR 09/25/2024 6:49 AM FASHION COORDINATOR us Allegra Rushing MD LAB BLOOD ORDERABLE S Final Result Performing Organization Address City/[facility]/ZIP Co de Phone Number [facility] Department [place] [address] * Antibody identification (09/22/2024 7:21 AM FASHION COORDINATOR) [facility] Antibody ID 1 Passive Anti-D Blood 09/22/2024 7:21 AM FASHION COORDINATOR 09/22/2024 7:21 AM FASHION COORDINATOR Vibha Burnette MD LAB BLOOD BANK TE ST ORDERABLES Final Result Performing Organization Address [facility] Co de Phone Number [facility] Department of [employer] [place] [address] * eGFR (09/22/2024 6:09 AM FASHION COORDINATOR) [facility] eGFR >90 >=60 mL/min/1. 73 m2 [...] last reviewed 2021. Blood 09/22/2024 6:09 AM FASHION COORDINATOR 09/22/2024 6:21 AM FASHION COORDINATOR Allegra Rushing MD LAB BLOOD ORDERABLE S Final Result Performing Organization Address City/[facility] Co de Phone Number [facility] [employer] [place] [place] [address] * Bile acids (09/22/2024 6:09 AM FASHION COORDINATOR) Bile acids 6 <=10 mcmol/L [facility] Comment: Test Performed by: [place] [address] [employer]: Brissa Zazueta Ph.D.; CLIA# [id number] Blood 09/22/2024 6:09 AM FASHION COORDINATOR 09/22/2024 6:13 AM FASHION COORDINATOR us Allegra Rushing MD LAB BLOOD ORDERABLE S Final Result [facility] [employer] [place] [place] [address] [place] [facility] * (ABNORMAL) CBC without differential (09/22/2024 6:09 AM FASHION COORDINATOR) WBC 12.4(H) 3.8 - 9.9 K/cumm Hgb 10.5(L) 11.9 - 15.5 g/dL [facility] Hct 29.6(L) 35.6 - 45.5 % [facility] Plt 292 150 - 400 K/cumm [facility] MPV 9.4 9.1 - 12.3 fL [facility] RBC 3.32(L) 3.90 - 5.20 M/cumm [facility] MCV 89.2 81.3 - 96.4 fL [facility] MCH 31.6 27.1 - 33.3 pg [facility] MCHC 35.5 32.3 - 35.7 g/dL [facility] RDW CV 12.5 11.1 - 14.9 % [facility] RDW SD 40.5 35.7 - 48.1 fL [facility] NRBC abs 0.00 0.00 - 0.01 K/cumm [facility] Blood 09/22/2024 6:09 AM FASHION COORDINATOR 09/22/2024 6:21 AM FASHION COORDINATOR us Allegra Rushing MD LAB BLOOD ORDERABLE S Final Result Performing Organization Address City/[facility]/ZIP Co de Phone Number [facility] Department of [employer] [place] [place] [address] * (ABNORMAL) Type and screen (09/22/2024 6:09 AM FASHION COORDINATOR) Indira, indirect Positive(A) ABO Rh O Negative [facility] Blood 09/22/2024 6:09 AM FASHION COORDINATOR 09/22/2024 6:20 AM FASHION COORDINATOR Narrative [facility] - 09/22/2024 7:21 AM FASHION COORDINATOR Has the patient had Daratumumab or Isatuximab in the past 6 months?->Unknown us Vibha Burnette MD LAB BLOOD BANK TE ST ORDERABLES Final Result [facility] Department of [employer] [place] [place] [address] * (ABNORMAL) Comprehensive metabolic panel (09/22/2024 6:09 AM FASHION COORDINATOR) Sodium 140 135 - 145 mmol/L Potassium, pl 3.6 3.3 - 4.9 mmol/L [facility] Chloride 108 97 - 110 mmol/L [facility] CO2 24 22 - 32 mmol/L [facility] Anion gap 8 2 - 15 mmol/L [facility] BUN 7 6 - 25 mg/dL [facility] Creatinine 0.57(L) 0.60 - 1.10 mg/dL [facility] Glucose 81 70 - 199 mg/dL [facility] Comment: Interpretive Data Fasting glucose >/= [...] 2022. Calcium 8.3(L) 8.5 - 10.3 mg/dL [facility] Bilirubin, total <0.2 0.1 - 1.2 mg/dL [facility] Protein, pl 5.4(L) 6.5 - 8.5 g/dL [facility] Albumin 3.0(L) 3.5 - 5.0 g/dL [facility] Alk phos 149(H) 40 - 130 Units/L [facility] ALT 22 7 - 45 Units/L [facility] AST 13 10 - 45 Units/L [facility] Blood 09/22/2024 6:09 AM FASHION COORDINATOR 09/22/2024 6:21 AM FASHION COORDINATOR us Allegra Rushing MD LAB BLOOD ORDERABLE S Final Result [facility] Department [place] [address] * Hepatitis panel, acute Blood (09/04/2024 5:51 PM FASHION COORDINATOR) Hep A IgM Nonreactive Nonreactive Hep B core IgM Nonreactive Nonreactive [facility] Hep C Ab Nonreactive Nonreactive [facility] Comment:Antibodies to HCV no t detected. Does NOT exclude the possibility of recent exposure to HCV. Current interpretive data was last revised on 22 HepBsAg Nonreactive Nonreactive [facility] Blood 09/04/2024 5:51 PM FASHION COORDINATOR 09/04/2024 6:05 PM FASHION COORDINATOR Allegra Rushing MD LAB MICROBIOLOGY - GENERAL ORDERABLES Final Result [facility] [employer] [place] [address] * N. gonorrhoeae/C. trachomatis Amplification Thin prep-Endocervical (05/09/2024 10:35 AM CDT) Pathologist [facility] C. trachomatis Not Detected [facility] Comment:Testing performed by : [facility], [address] [place] [address]., [id number] N. gonorrhoeae Not Detected [facility] Comment: Interpretive Data This assay detects Chlamydia trachomatis and Neisseria gonorrhoeae by nucleic acid amplification testing (NAAT). This assay has been cleared by the [place] Food and Drug administration. The performance characteristics of this test have been verified by the [facility] laboratory. The performance characteristics of this test have not been evaluated in individuals less than 14 years of age. Current Interpretive Data was last revised on 2023. Testing performed by: [facility], [address] [place] [address]., [id number] Thin prep-Endocervica l 05/09/2024 10:35 AM CDT 05/10/2024 2:32 PM CDT Dena Padilla MD LAB MICROBIOLOGY - GENERAL ORDERABLES Final Result [id number] Department [place] [address] [facility] * Pap with reflex to High Risk HPV and Genotyping (Cytology Component) (05/09/2024 9:03 AM CDT) Thin prep (Pap test) 05/09/2024 9:03 AM CDT 05/10/2024 9:03 AM CDT Narrative PATHOLOGY - 05/11/2024 4:17 PM CDT [facility] Department of Pathology [address] [place] [id number] Final Report Note to Patients: This report [...] the details. Patient Name: KAYLA FAYE Address: [address] [place] [address] Gender: F : 2000 (Age: 24) Service: Location: N : [id number] [facility] #: [id number] Patient Type: SPECIMEN Taken: 05/09/2024 Received: 05/10/2024 Accessioned:: 05/10/2024 Reported: 05/11/2024 Physician(s): Mejia Pina M.D. Diagnosis: SOURCE OF SPECIMEN Imaged Thinprep Pap Test w/ Reflex HPV - Architectural Designer Cytologic Material: STATEMENT OF ADEQUACY - Satisfactory for evaluation; endocervical/transformation zone component present GENERAL CATEGORIZATION: - Negative for intraepithelial lesion or malignancy INTERPRETATION: - Fungal organisms present, morphologically consistent with octaviano species MARTINEZ Mackenzie(ASCP) Report Electronically Reviewed and Signed Out By MARTINEZ Mackenzie(ASCP) 05/11/2024 16:17:59Specimen(s) Received: A: Imaged Thinprep Pap Test w/ Reflex HPV - Architectural Designer Cytologic Material Clinical History: Last Menstrual Period: [...] determined by the Surgical Pathology Department at [facility] as part of an ongoing director quality assurance program and in compliance with [...] characteristics determined by the Surgical Pathology Department [facility]. It has not been cleared or approved by the [place] Food and Drug Administration. Dena Padilla MD LAB CYTOLOGY ORDERA BLES Final Result PATHOLOGY [id number] [place] [address] from Last 3 Months or Most Recently Relevant to Health Maintenance Insurance [facility] [id number] [employer] [facility] [id number] Advance Directives For more information, please contact: [phone] * Full Code (Latest Code Status on File) Date Activated Date Inactivated Comments 10/12/2024 10:39 PM 10/15/2024 8:14 PM * Full Code Date Activated Date Inactivated Comments 09/04/2024 4:49 PM 10/12/2024 10:39 PM * Full Code Date Activated Date Inactivated Comments 05/31/2024 7:14 PM 06/01/2024 4:01 PM Care Teams [employer] Packer Relationship Specialty Start Date End Date Ronnie Flores MD [address] [address] PCP - General Family Medicine 05/25/24 Dena Padilla MD [address] [place] [id number] Consulting Physician Obstetrics and Gynecology 05/18/24
== END 2024-12-20 10:30 | disposition home or self-care (01) ==
PROVIDERS: Emergency Provider Nurse Practitioner Family
DX: H66.002 Acute suppurative otitis media without spontaneous rupture of ear drum, left ear (principal)
CPT/HCPCS: 99203; G0463